=== PATIENT | female | born 1980 | race Caucasian/White ===

== ENCOUNTER 2018-05-07 10:23 | Emergency (ER) | payer MEDICAID, SELFPAY ==
[2018-05-07 10:26] VITALS: BP 102/73; PULSE 93; RESP 16; TEMP 37; O2SAT 95; BMI 26.4
--- NOTE | 2018-05-07 10:37 | ED.VISSUMM ---
- ER Visit Summary Date of Service: 05/07/18 Chief Complaint: Back pain History of Present Illness: The patient is a 38 F who presents with upper back pain that has been intermittent for the past 2 weeks. Patient states her pain only lasts for a few seconds. Patient describes the pain as sharp. Patient states the pain is over the thoracic area. Patient states pain or does occasionally radiate around to her chest. Patient denies any abdominal pain. Patient also states that she does have occasional radiation of the pain to her right posterior thigh. Patient denies any trauma or injury. Patient denies any bowel or bladder changes. Patient denies any saddle anesthesia. Physical Examination: Vital signs are stable. Patient is afebrile. Patient is in no acute distress. Oral mucosa is pink and moist. Neck is supple. There is no JVD noted. Heart was regular rate and rhythm. Lungs showed some mild expiratory wheezing. There is good respiratory effort noted. Musculoskeletal exam reveals tenderness and spasm of the thoracic paraspinal muscles. There is no midline tenderness. There is no edema or ecchymosis. There is no rash noted. Cranial nerves II through XII are intact. There are no focal motor or sensory deficits noted. Patient was able to ambulate without difficulty. Remaining physical exam is within normal limits. Emergency Department Course and Treatment: Patient was instructed to use ice to the area. Patient was given a prescription for Naprosyn. Patient was instructed to follow-up with her primary care physician in 7-10 days. Patient understood and was agreeable with the plan. All questions were answered. Disposition: Discharged home Impression: Acute thoracic strain This note was generated with [employer] dictation software. It may contain incorrect words, spelling, and punctuation that were not noted in review of the chart prior to signing ED Disposition - Plan for ED Patient: Disposition: Home or Assisted Living Chief Complaint: Back Diagnosis: Thoracic myofascial strain Instructions: ED Spasm Back No Trauma Prescriptions: Naproxen [Naprosyn] 500 mg PO BID #20 tab
[2018-05-07 11:13] VITALS: RESP 17
[2018-05-07 11:18] VITALS: BP 110/59; RESP 17
== END 2018-05-07 11:21 | disposition home or self-care (01) ==
LOC: ED 11:01
PROVIDERS: Emergency Provider Emergency Medicine
DX: S29.012A Strain of muscle and tendon of back wall of thorax, initial encounter (principal); X58.XXXA Exposure to other specified factors, initial encounter; Y93.9 Activity, unspecified; Y92.9 Unspecified place or not applicable; J45.909 Unspecified asthma, uncomplicated; Z72.0 Tobacco use
CPT/HCPCS: 99282

== ENCOUNTER 2018-07-01 09:32 | Emergency (ER) | payer MEDICAID, SELFPAY ==
[2018-07-01 09:33] VITALS: BP 106/55; PULSE 92; RESP 18; TEMP 36.6; O2SAT 98; BMI 23.3
--- NOTE | 2018-07-01 09:58 | ED.VISSUMM ---
- ER Visit Summary Date of Service: 07/01/18 Chief Complaint: Epigastric pain History of Present Illness: The patient is a 38 F with 3-4 day history of epigastric pain nausea and dry heaves. She has no diarrhea. Her symptoms are now mostly improved but she is wondering what is causing this. She has no fever chills the pain does not radiate to her back. She has no chest pain or shortness of breath. She describes the pain as burning. As of yesterday she started eating again and is doing much better. There is no lower abdominal pain. She denies , urinary symptoms or flank pain. Physical Examination: Not appear in acute distress. Moist mucous membranes, no obvious facial deformity No C-spine tenderness supple neck. Regular rate and rhythm without any obvious murmurs Clear lungs bilaterally speaking in full sentences without any obvious respiratory distress Abdomen soft with slight epigastric pain, no right upper quadrant pain, negative Lo's, no guarding or rebound Moves all extremities without any difficulty or pain. Skin does not show any obvious rashes or lesions, no trauma. Alert oriented ?3 with no gross focal deficit Emergency Department Course and Treatment: Patient has gastritis, she may have had food poisoning or just the GERD episode, regardless she is improved, she appears well hydrated and in no significant distress. At this time I will treat her with a GI cocktail and omeprazole for home. If she worsens or has new symptoms she needs to return. Disposition: Discharge stable condition Impression: Gastritis This note was generated with [employer] dictation software. It may contain incorrect words, spelling, and punctuation that were not noted in review of the chart prior to signing ED Disposition - Plan for ED Patient: Disposition: Home or Assisted Living Chief Complaint: Abd Pain Instructions: ED PUD Vs Gastritis Prescriptions: Omeprazole 40 mg PO DAILY #30 capsule. Referrals: Care Physician,No Primary [Primary Care Provider] - 3-5 Days
--- NOTE | 2018-07-01 10:02 | ED.DCSUM_ITS ---
- ER Visit Summary Date of Service: 07/01/18 Chief Complaint: Epigastric pain History of Present Illness: The patient is a 38 F with 3-4 day history of epigastric pain nausea and dry heaves. She has no diarrhea. Her symptoms are now mostly improved but she is wondering what is causing this. She has no fever chills the pain does not radiate to her back. She has no chest pain or shortness of breath. She describes the pain as burning. As of yesterday she started eating again and is doing much better. There is no lower abdominal pain. She denies , urinary symptoms or flank pain. Physical Examination: Not appear in acute distress. Moist mucous membranes, no obvious facial deformity No C-spine tenderness supple neck. Regular rate and rhythm without any obvious murmurs Clear lungs bilaterally speaking in full sentences without any obvious respiratory distress Abdomen soft with slight epigastric pain, no right upper quadrant pain, negative Lo's, no guarding or rebound Moves all extremities without any difficulty or pain. Skin does not show any obvious rashes or lesions, no trauma. Alert oriented ?3 with no gross focal deficit Emergency Department Course and Treatment: Patient has gastritis, she may have had food poisoning or just the GERD episode , regardless she is improved, she appears well hydrated and in no significant distress. At this time I will treat her with a GI cocktail and omeprazole for home. If she worsens or has new symptoms she needs to return. Disposition: Discharge stable condition Impression: Gastritis This note was generated with [employer] dictation software. It may contain incorrect words, spelling, and punctuation that were not noted in review of the chart prior to signing ED Disposition - Plan for ED Patient: Disposition: Home or Assisted Living Chief Complaint: Abd Pain Instructions: ED PUD Vs Gastritis Prescriptions: Omeprazole 40 mg PO DAILY #30 capsule. Referrals: Care Physician,No Primary [Primary Care Provider] - 3-5 Days
[2018-07-01] MEDS: Mag Hydrox/Al Hydrox/Simeth 30 ML UDC PO (10:19)
[2018-07-01 10:46] VITALS: BP 107/63; PULSE 86; RESP 14; O2SAT 98
== END 2018-07-01 10:51 | disposition home or self-care (01) ==
LOC: ED 10:30
PROVIDERS: Emergency Provider Emergency Medicine
DX: K29.70 Gastritis, unspecified, without bleeding (principal); Z72.0 Tobacco use
CPT/HCPCS: 99282

== ENCOUNTER 2022-02-15 16:51 | Emergency (ER) | payer MEDICAID, SELFPAY ==
[2022-02-15 16:53] VITALS: BP 113/73; PULSE 82; RESP 16; TEMP 35.8; O2SAT 98; BMI 26.8
--- NOTE | 2022-02-15 17:10 | EKG12_ITS ---
Test Reason : CP Blood Pressure : / mmHG Vent. Rate : 083 BPM Atrial Rate : 083 BPM P-R Int : 156 ms QRS Dur : 096 ms QT Int : 380 ms P-R-T Axes : 073 057 039 degrees QTc Int : 446 ms Normal sinus rhythm Normal ECG Confirmed by RODRIGO THOMAS, LORI ([id number]), news editor BRIELLE CALLAHAN ([id number]) on 02/17/2022 10:54:33 AM Referred By: ER Confirmed By:LORI WALLACE MD
--- NOTE | 2022-02-15 17:12 | EDS_ITS ---
HPI History of Present Illness Chief Complaint: Chest Pain Detail of Chief Complaint: Chest pain for 5 days and not feeling well Informant: patient Narrative Narrative: Patient presents to the emergency department complaint of intermittent sharp stabbing pain in her chest that can last hours at a time. She describes it as retrosternal. Patient also gives history of just not feeling well for the last for 5 days with low-grade fever as well as headache for 3 days. Patient also had body aches. She took a COVID test at home that was negative. Patient 2 days ago had episode of shaking chills. Temperature spike to 103. She denies dysuria, urgency, or frequency. She is not having chest pain currently. She denies any abdominal pain. She denies any rashes. Patient denies any sick contacts. Prior similar symptoms: No PFSH PFSH Home Medications albuterol sulfate [Ventolin Hfa (SP)] 1 puff INHALATION Q4H PRN PRN 05/07/18 [History Last Taken Unknown] buprenorphine-naloxone 02/15/22 [History Last Taken Unknown] cephalexin 500 mg PO Q6 #40 capsule 02/15/22 [Rx Last Taken Unknown] gabapentin 02/15/22 [History Last Taken Unknown] gabapentin 02/15/22 [History Last Taken Unknown] metronidazole 02/15/22 [History Last Taken Unknown] trazodone 02/15/22 [History Last Taken Unknown] Allergy/AdvReac Type Severity Reaction Status Date / Time Sulfa (Sulfonamide Allergy Anaphylaxis Verified 02/15/22 16:53 Antibiotics) Social History Smoking Status: Current every day smoker tobacco type: cigarettes ROS ROS ED Constitutional Constitutional ED: Reports systems reviewed and no addt'l complaints, except as documented; Denies body ache(s), change in weight or chills Eyes Eyes: Denies acute decrease in peripheral vision, change in vision, double vision or loss of vision ENT ENT ED: Reports none; Denies ear pain, lip swelling, loss taste/smell, neck pain, otalgia or sore throat Cardiovascular Cardiovascular: Reports none and chest pain; Denies abdominal pain, chest pain with activity, leg edema, lightheadedness, palpitations, rapid heart rate or syncope Respiratory/Chest Respiratory/Chest: Reports none; Denies change in mental status, dry cough, dyspnea, hemoptysis, shortness of breath at rest or shortness of breath with exertion Gastrointestinal Gastrointestinal: Reports none, diarrhea and nausea; Denies abdominal pain, change in stool character, hematemesis, hematochezia, melena, rectal bleeding or vomiting Genitourinary Genitourinary ED: Reports none; Denies abdominal discomfort, anuria, dysuria, genital pain or polyuria Musculoskeletal Musculoskeletal: Reports none and myalgias; Denies arthralgias, back pain, difficulty walking, extremity pain or muscle weakness Integumentary Reports none; Denies abscess or rash Neurologic Neurologic: Reports none and headache(s); Denies abnormal gait, confusion, focal weakness, frequent falls, loss of vision, numbness, paresthesias, radicular pain, vertigo or weakness Psychiatric Psychiatric: Reports systems reviewed and no addt'l complaints, except as documented and none; Denies behavioral changes, confusion, difficulty concentrating, hallucinations, suicidal ideation, tactile hallucinations or visual hallucinations Endocrine Endocrinology: Denies none, cold intolerance, excessive sweating, fatigue or heat intolerance Hematologic/Lymphatic Hematologic/Lymphatic: Reports none; Denies anemia, easy bleeding or easy bruising Allergic/Immunologic Allergic/Immunologic ED: Denies as per HPI, none, lip swelling, mouth swelling, throat swelling, tongue swelling or hives EXAM Physical Exam Const Vital Signs: 02/15/22 16:53 02/15/22 18:00 02/15/22 19:12 Temperature 96.5 F L Temperature Source Temporal Pulse Rate 82 Respiratory Rate 16 16 Respiratory Effort Normal Blood Pressure 113/73 118/76 Blood Pressure Mean 86 90 Pulse Ox 98 99 Oxygen Delivery Method Room Air Room Air Positive well nourished and well developed General Appearance ED: well developed and NAD HEENT Reports TM's clear and moist mucous membranes normocephalic and atraumatic; Negative for trauma or tenderness Tympanic Membrane ED: Yes TM's clear Eyes PERRL and EOMs intact bilaterally General Eye ED: Negative for pale conjunctiva or scleral icterus Neck no lymphadenopathy, supple and no JVD General: Negative for tenderness Chest Wall inspection of chest normal and palpation of chest normal Chest: Negative for tenderness Resp normal respiratory effort and clear to auscultation bilaterally Effort and Inspection: Negative for respiratory distress or pain with movement Auscultation: Negative for rhonchi, wheezes or diminished lung sounds Cardio regular rate, regular rhythm, S1 normal heart sound, S2 normal heart sound and no murmurs Peripheral Pulses: pulses 2+ throughout GI normal to inspection, nondistended, normoactive bowel sounds, soft to palpation, non-tender, non-distended and no masses Back/Spine no CVA tenderness and no thoracic nor lumbar tenderness Extremity normal to inspection General Extremety ED: Negative for edema General Extremity: Negative for edema Neuro oriented x3, CN's II-XII intact bilaterally, no sensory deficits noted and gait normal Sensorium / Orientation: awake, alert, oriented to person, oriented to place and oriented to time Motor Exam: strength 5/5 throughout and strength abnormal Psych mental status grossly normal Skin no rashes or lesions noted and no wounds MDM MDM MDM Narrative Medical decision making narrative: IV line established on arrival. Patient had unremarkable labs other than a depressed potassium of 3.0 for which I did give her 40 mEq of potassium chloride p.o. Patient was noted to have a UTI and was started on Rocephin 1 g IV. CTA of the chest was negative. Her EKG and heart enzymes were normal. She has a heart score of 0. I do not feel her chest pain is cardiac. I suspect patient likely has a viral enteritis and then subsequently also developed a UTI. I will treat her with Keflex for home. She is to use Imodium as needed for the diarrhea. 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 Patient advised to return if worsening chest pain, increasing shortness of breath, fever, chills, or condition should worsen anyway. Lab Data Attestation: I reviewed the patient's lab results. Labs: Laboratory Results - last 24 hr 02/15/22 02/15/22 02/15/22 17:20 18:09 18:09 WBC 6.2 RBC 4.03 L Hgb 11.8 L Hct 36.1 L MCV 89.6 MCH 29.3 MCHC 32.7 RDW Std Deviation 41.2 RDW Coeff of Rocael 12.6 Plt Count 216 MPV 8.8 Immature Gran % (Auto) 0.200 Neut % (Auto) 66.7 Lymph % (Auto) 21.8 [place] % (Auto) 9.4 Eos % (Auto) 1.6 Baso % (Auto) 0.3 Absolute Neuts (auto) 4.1 Absolute Lymphs (auto) 1.34 Nucleated RBC % 0 D-Dimer Quant (PE/DVT) 0.54 H* Sodium Potassium Chloride Carbon Dioxide Anion Gap BUN Creatinine Estim Creat Clear Calc Est GFR (MDRD) Af Amer Est GFR (MDRD) Non-Af BUN/Creatinine Ratio Glucose Calcium Troponin I High Sens Urine Color Yellow Urine Clarity Clear Urine pH 6.0 Ur Specific Edgar 1.015 Urine Protein 30 H Urine Glucose (UA) Normal Urine Ketones Negative Urine Occult Blood 150 H Urine Nitrite Negative Urine Bilirubin Negative Urine Urobilinogen 8 H Ur Leukocyte Esterase 500 H Urine RBC 10-25 SEEN Urine WBC 25-50 SEEN Ur Squamous Epith Cells 0-5 SEEN Calcium Oxalate Crystal RARE Urine Bacteria 1+ Urine Mucus 0 SEEN 02/15/22 18:09 WBC RBC Hgb Hct MCV MCH MCHC RDW Std Deviation RDW Coeff of Rocael Plt Count MPV Immature Gran % (Auto) Neut % (Auto) Lymph % (Auto) [place] % (Auto) Eos % (Auto) Baso % (Auto) Absolute Neuts (auto) Absolute Lymphs (auto) Nucleated RBC % D-Dimer Quant (PE/DVT) Sodium 137 Potassium 3.0 L Chloride 104 Carbon Dioxide 26.0 Anion Gap 7 BUN 17 Creatinine 0.73 Estim Creat Clear Calc 89.41 Est GFR (MDRD) Af Amer 111 Est GFR (MDRD) Non-Af 92 BUN/Creatinine Ratio 23.3 H Glucose 100 Calcium 8.6 Troponin I High Sens < 3 L Urine Color Urine Clarity Urine pH Ur Specific Edgar Urine Protein Urine Glucose (UA) Urine Ketones Urine Occult Blood Urine Nitrite Urine Bilirubin Urine Urobilinogen Ur Leukocyte Esterase Urine RBC Urine WBC Ur Squamous Epith Cells Calcium Oxalate Crystal Urine Bacteria Urine Mucus Radiography Diagnostic Testing: Clinical Impression(s) from Imaging Studies Chest CTA 02/15/22 18:48 IMPRESSION: No acute abnormalities in the chest. Specifically, no evidence of acute pulmonary emboli to the segmental level. Electronically Signed: Adam Elizondo MD at 19:26 EDT , EKG Initial EKG: Attestation: I personally reviewed and interpreted this EKG as follows: Comments: Sinus rhythm with a ventricular rate of of 83 bpm with no acute ST segment changes Discharge Plan Triage Chief Complaint: Chest Pain ED Provider: Yane Jackson Dx/Rx/DC Orders Clinical Impression: Viral gastroenteritis, Chest pain, UTI (urinary tract infection) Instructions: ED Chest Pain, Uncertain Cause, ED Diarrhea, Viral (Adult), ED CYSTITIS Female Adult Prescriptions: New cephalexin [cephalexin] 500 MG capsule 500 mg PO Q6 Qty: 40 RF: 0 No Action albuterol sulfate [Ventolin HFA] 1 INHALER inhaler 1 puff inhalation Q4H PRN PRN (Reason: Sob &/Or Wheezing) RF: 0 trazodone 50 mg tablet RF: 0 metronidazole 500 mg tablet RF: 0 gabapentin 100 mg capsule RF: 0 gabapentin 100 mg capsule RF: 0 buprenorphine-naloxone 8-2 mg film RF: 0 Primary Care Provider: Care Physician,No Primary Referrals: Semaj Sheridan MD [STAFF PHYSICIAN] - 3-5 Days Care Physician,No Primary [Primary Care Provider] - Disposition Disposition: Home, Self Care
[2022-02-15 17:39] LABS: Mucous, Urine 0 SEEN /hpf (<or=2+)
[2022-02-15 18:16] LABS: Absolute Lymphocyte Count 1.34 X10^3/uL (0.83-4.51); Absolute Neutrophil Count 4.1 X10^3/uL (2.0-7.7); Basophil# 0.02 X10^3/uL; Basophil% 0.3 % (0-1); Eosinophils% 1.6 % (0-5); Hematocrit 36.1 % (37-47); Hemoglobin 11.8 g/dL (12.0-15.0); Lymphocyte # 1.34 X10^3/ul (0.83-4.51); Lymphocyte % 21.8 % (19-41); Mean Corp Hgb Conc 32.7 g/dL (32-36); Mean Corpuscular Hgb 29.3 pg (27.0-32.0); Mean Corpuscular Volume 89.6 fL (81-99); Mean Platelet Vol. 8.8 fl (6.2-12.0); Monocyte# 0.58 X10^3/uL; Monocyte% 9.4 % (0-10); NRBC Flagged by Analyzer 0 % (0-5); Neutrophil # 4.11 X10^3/uL (2.7-7.7); Neutrophil % 66.7 % (47-70); Platelet Count 216 K/mm3 (150-450); RBC Distribution Width CV 12.6 % (11.6-14.6); RBC Distribution Width SD 41.2 fl (35.1-43.9); Red Blood Count 4.03 M/mm3 (4.2-5.4); White Blood Count 6.2 K/mm3 (4.4-11.0)
[2022-02-15 18:19] LABS: Color, Urine Yellow (Yellow); Glucose, Dipstick Normal (Normal); Ketone-Dipstick Negative (Negative); Leukocyte Esterase-Dipstick 500 /ul (Negative); Nitrite-Dipstick Negative (Negative); Occult Blood-Urine 150 /ul (Negative); Protein-Dipstick 30 mg/dl (Negative); Specific Gravity, Urine 1.015 (1.002-1.030); Urine Bilirubin Dipstick Negative (Negative); Urine Clarity Clear (Clear); Urine Urobilinogen 8 mg/dl (Normal)
[2022-02-15 18:29] LABS: Calcium Oxalate Crystals Ur RARE /hpf (<or=2+); Red Blood Cells-Urine 10-25 SEEN /hpf (0-5); White Blood Cells 25-50 SEEN /hpf (0-5)
[2022-02-15 18:30] LABS: Bacteria 1+ /hpf (None Seen); Squamous Epithelial Cells - UA 0-5 SEEN /hpf (5-10)
[2022-02-15 18:32] LABS: Anion Gap 7 (5-15); BUN 17 mg/dL (7-18); BUN/Creat Ratio 23.3 RATIO (10-20); Calcium,Total 8.6 mg/dL (8.5-10.1); Chloride 104 mmol/L (98-107); Creatinine, Serum 0.73 mg/dL (0.55-1.02); D-Dimer Quantitative (DVT/PE) 0.54 FEU/ug/m (0.27-0.49); EST Glomerular Filtration Rate 92 mL/min (>60); Est Glom Filt Rate - Afr Amer 111 mL/min (>60); Estimated Creatinine Clearance 89.41 ml/min; Glucose 100 mg/dL (74-106); Sodium Level 137 mmol/L (136-145); Troponin-I HS < 3 pg/mL (3.0-54.0)
[2022-02-15] MEDS: 0.9% Normal Saline 1,000 ML 1000 ML IV (18:37)
--- NOTE | 2022-02-15 18:48 | CT_ITS ---
INDICATION: chest pain EXAMINATION: CTA Chest WO/W Contrast Injection TECHNIQUE: Helically acquired images were obtained of the chest following administration of IV contrast. A radiation dose optimization technique was used for this scan. 3D postprocessing images including MIPS were reviewed. IV Contrast dosage and agent: IV 100mL [id number] COMPARISON: None. FINDINGS: Lungs: Unremarkable Mediastinum: The cardiomediastinal silhouette is not enlarged. No mediastinal, hilar or axillary adenopathy. The thoracic aorta is unremarkable. No obvious filling defect seen within the visualized pulmonary arteries. Pleura: Unremarkable Bones/Soft tissues: No suspicious osseous or soft tissue lesions Upper abdomen: No visualized abnormalities in the upper abdomen. CT/CTA Chest W/WO Contrast IMPRESSION: No acute abnormalities in the chest. Specifically, no evidence of acute pulmonary emboli to the segmental level. Electronically Signed: Adam Elizondo MD at 19:26 EDT ,
[2022-02-15] MEDS: Potassium Chloride Oral Tablet 20 MEQ 40 MEQ PO (18:58)
[2022-02-15 19:12] VITALS: BP 118/76; RESP 16; O2SAT 99
[2022-02-15] MEDS: Ceftriaxone 1 GM/50 ML BAG IV (19:16)
[2022-02-15 19:47] VITALS: PULSE 74; RESP 16
== END 2022-02-15 19:57 | disposition home or self-care (01) ==
PROVIDERS: Emergency Provider Emergency Medicine; Visit Provider Emergency Medicine
DX: A08.4 Viral intestinal infection, unspecified (principal); N39.0 Urinary tract infection, site not specified; R07.9 Chest pain, unspecified; F17.210 Nicotine dependence, cigarettes, uncomplicated
CPT/HCPCS: 71275; 80048; 81001; 84484; 85025; 85379; 87426; 87804; 93005; 96365; 99283; J7030; Q9967; A4216

== ENCOUNTER 2022-07-18 11:35 | Emergency (ER) | payer BC, MEDICAID, SELFPAY ==
[2022-07-18 11:36] VITALS: BP 135/86; PULSE 87; RESP 15; TEMP 36.4; O2SAT 99; BMI 25.0
[2022-07-18 11:37] VITALS: BP 135/86; PULSE 87; RESP 15; TEMP 36.4; O2SAT 99
[2022-07-18 12:18] VITALS: RESP 16
--- NOTE | 2022-07-18 12:18 | EX.ED.DYSGE1 ---
HPI History of Present Illness Chief Complaint: Sore Throat Informant: patient Narrative Narrative: 42-year-old female with a 4-day history of sore throat. She states she has been exposed to strep throat with her coworker as well as shingles. She states that 4 days ago she began to have a sore throat and today she notes that she has developed a cough and feels that it seems to be moving towards her chest. She denies any rhinorrhea or ear pain. She states that she has felt warm but has not taken her temperature. She does note some sweats. No vomiting or diarrhea. No rashes. PFSH PFSH Home Medications albuterol sulfate 90 mcg/actuation aerosol inhaler (Ventolin HFA) 1 puff inhalation Q4H PRN PRN Sob &/Or Wheezing 05/07/18 [History Last Taken Unknown] buprenorphine 8 mg-naloxone 2 mg sublingual film 8 ea sublingual BID 02/15/22 [History Last Taken Unknown] gabapentin 100 mg capsule 100 mg PO 4X/DAY 02/15/22 [History Last Taken Unknown] trazodone 50 mg tablet 50 mg PO DAILY 02/15/22 [History Last Taken Unknown] Allergy/AdvReac Type Severity Reaction Status Date / Time Sulfa (Sulfonamide Allergy Anaphylaxis Verified 07/18/22 11:38 Antibiotics) Social History (Updated 07/18/22 @ 12:[address] Alonso Carey, ) current gender identity: female Smoking Status: Current every day smoker tobacco type: e-cigarettes substance use type: former substance user and opiates ROS ROS ED Constitutional Constitutional ED: Denies chills or weight loss Eyes Eyes: Denies change in vision or diplopia ENT ENT ED: Reports sore throat; Denies ear pain or rhinorrhea Cardiovascular Cardiovascular: Denies chest pain, orthopnea, palpitations or racing heartbeat Respiratory/Chest Respiratory/Chest: Reports cough; Denies dyspnea or orthopnea Gastrointestinal Gastrointestinal: Denies abdominal pain, diarrhea, nausea or vomiting Genitourinary Genitourinary ED: Denies dysuria, hematuria or urinary frequency Musculoskeletal Musculoskeletal: Denies arthralgias or myalgias Integumentary Denies abscess or rash Neurologic Neurologic: Denies headache(s) or weakness Psychiatric Psychiatric: Denies anxiety, depression, suicidal ideation or suicidal thoughts Endocrine Endocrinology: Denies polydipsia, polyphagia or polyuria Allergic/Immunologic Allergic/Immunologic ED: Denies mouth swelling, tongue swelling or urticaria EXAM Physical Exam Const Vital Signs: 07/18/22 11:36 07/18/22 11:37 Temperature 97.6 F L 97.6 F L Temperature Source Temporal Temporal Pulse Rate 87 87 Respiratory Rate 15 15 Blood Pressure 135/86 H 135/86 H Blood Pressure Mean 102 102 Pulse Ox 99 99 Oxygen Delivery Method Room Air Room Air Positive well nourished and well developed General Appearance ED: well developed HEENT Reports normocephalic, head/scalp atraumatic and moist mucous membranes Eyes PERRL and EOMs intact bilaterally Neck no lymphadenopathy, supple and no JVD Resp normal respiratory effort and clear to auscultation bilaterally Cardio regular rate, regular rhythm and no murmurs GI normal to inspection, nondistended, normoactive bowel sounds and non-tender Palpation: soft Back/Spine no CVA tenderness and normal ROM Extremity normal to inspection General Extremety ED: Negative for edema General Extremity: Negative for edema Neuro oriented x3 and CN's II-XII intact bilaterally Sensorium / Orientation: alert Motor Exam: strength 5/5 throughout Psych mental status grossly normal Mood & Affect: Negative for depressed or tearful Skin no rashes or lesions noted and no wounds MDM MDM MDM Narrative Medical decision making narrative: Patient presenting with sore throat cough lack of fever lack of exudates and lack of lymphadenopathy. Clinically I do not think this is strep throat. This is most likely a viral illness. In speaking with the patient we should did shared decision making and if she has not clinically improved in 3 days she will have a prescription for azithromycin 500 mg x 5 days. The patient is comfortable with this plan return if worsening or concerns Discharge Plan Triage Chief Complaint: Sore Throat ED Provider: Alonso Carey Dx/Rx/DC Orders Prescriptions: No Action albuterol sulfate [Ventolin HFA] 1 INHALER inhaler 1 puff inhalation Q4H PRN PRN (Reason: Sob &/Or Wheezing) trazodone 50 mg tablet 50 mg PO DAILY gabapentin 100 mg capsule 100 mg PO 4X/DAY Label Comments: TAKE 1 CAPSULES (100 MG) BY ORAL ROUTE 4 TIMES PER DAY buprenorphine-naloxone 8-2 mg film 8 ea sublingual BID Label Comments: USE ONE FILM UNDER THE TONGUE TWICE DAILY - 12/14 Primary Care Provider: Care Physician,No Primary Referrals: Care Physician,No Primary [Primary Care Provider] -
== END 2022-07-18 12:27 | disposition home or self-care (01) ==
LOC: ED 12:19
PROVIDERS: Emergency Provider Emergency Medicine; Visit Provider Emergency Medicine
DX: J02.9 Acute pharyngitis, unspecified (principal); F17.210 Nicotine dependence, cigarettes, uncomplicated; Z79.899 Other long term (current) drug therapy
CPT/HCPCS: 99282

== ENCOUNTER → 2022-07-27 | Outpatient (CLI) | payer BC, MEDICAID, SELFPAY ==
[2022-07-27 16:58] LABS: ALB/GLOB Ratio 0.9 RATIO (0.9-2.4); AST(SGOT) 22 U/L (15-37); Alanine Aminotransfer ALT/SGPT 40 U/L (13-56); Albumin, Serum 3.7 g/dL (3.2-5.0); Alkaline Phosphatase 49 U/L (45-117); Anion Gap 8 (5-15); BUN 18 mg/dL (7-18); BUN/Creat Ratio 21.6 RATIO (10-20); Calcium,Total 8.6 mg/dL (8.5-10.1); Chloride 105 mmol/L (98-107); Creatinine, Serum 0.84 mg/dL (0.55-1.02); EST Glomerular Filtration Rate 79 mL/min (>60); Est Glom Filt Rate - Afr Amer 95 mL/min (>60); Globulin 3.9 g/dL (2.2-4.2); Glucose 94 mg/dL (74-106); Potassium 4.1 mmol/L (3.5-5.1); Protein, Total 7.6 g/dL (6.4-8.2); Sodium Level 139 mmol/L (136-145); Thyroid Stim Hormone (TSH) 1.37 uIU/mL (0.358-3.74)
== END | disposition home or self-care (01) ==
DX: R41.840 Attention and concentration deficit (principal)
CPT/HCPCS: 36415; 80053; 84443

== ENCOUNTER 2022-12-14 09:32 | Emergency (ER) | payer BC, MEDICAID, SELFPAY ==
[2022-12-14 09:33] VITALS: BP 101/74; PULSE 78; RESP 16; TEMP 36.4; O2SAT 98; BMI 25.7
--- NOTE | 2022-12-14 10:30 | EX.ED.VIS.UR ---
HPI HPI - URI History of Present Illness Chief Complaint: Sore Throat Informant: patient Onset/Context/Timing Onset: Yesterday Context: Sudden Onset Quality: Posterior pharynx pain Location: Posterior pharynx Current Severity: Mild Maximum Severity: Moderate Worsened by: Swallowing, Eating Solids and Drinking Liquids Relieved by: Not Relieved By Tylenol or NSAIDs Associated Symptoms Associated Symptoms: Positive for Nasal Congestion; Negative for Headache, Sinus Pressure, Myalgias, Nausea, Vomiting, Diarrhea, Shortness of Breath, Chest Pain, Nonproductive cough, Hemoptysis or Productive Cough Narrative Narrative: Patient is a 42-year-old woman who presents with sore throat. She denies fever objective or subjective. She does complain of throat pain. She denies cough or shortness of breath. She states her son was diagnosed with strep throat 2 days ago. She denies history rheumatic fever, heart murmur, mitral valve prolapse or SBE. She denies skin lesions or rash. She denies myalgias or arthralgias. She denies GI symptoms. Patient states when she was younger she had recurrent strep throat. Prior similar symptoms: Yes Recent Illness/Hospitalization: No ROS ROS ED Constitutional Constitutional ED: Denies chills, fever(s), subjective, sweats or weight loss Eyes Eyes: Denies blurry vision, change in vision or diplopia ENT ENT ED: Denies ear pain, rhinorrhea or sore throat Cardiovascular Cardiovascular: Denies chest pain, orthopnea, palpitations, paroxysmal nocturnal dyspnea or racing heartbeat Respiratory/Chest Respiratory/Chest: Denies cough, dyspnea, dyspnea on exertion, orthopnea or paroxysmal nocturnal dyspnea Gastrointestinal Gastrointestinal: Denies nausea or vomiting Musculoskeletal Musculoskeletal: Denies arthralgias, myalgias or neck pain Integumentary Denies rash Neurologic Neurologic: Denies headache(s), paresthesias or weakness PFSH [facility] Medical History Asthma Home Medications albuterol sulfate 90 mcg/actuation aerosol inhaler (Ventolin HFA) 1 puff inhalation Q4H PRN PRN Sob &/Or Wheezing 05/07/18 [History Last Taken Unknown] buprenorphine 8 mg-naloxone 2 mg sublingual film 8 ea sublingual BID 02/15/22 [History Last Taken Unknown] gabapentin 100 mg capsule 100 mg PO 4X/DAY 02/15/22 [History Last Taken Unknown] trazodone 50 mg tablet 50 mg PO DAILY 02/15/22 [History Last Taken Unknown] Allergy/AdvReac Type Severity Reaction Status Date / Time Sulfa (Sulfonamide Allergy Anaphylaxis Verified 12/14/22 09:33 Antibiotics) Social History (Updated 12/14/22 @ 10:[address] Esau Garcia MD) household members: significant other and children Smoking Status: Current every day smoker tobacco type: e-cigarettes substance use type: former substance user and opiates EXAM Physical Exam Const Vital Signs: 12/14/22 09:33 Temperature 97.5 F L Temperature Source Temporal Pulse Rate 78 Respiratory Rate 16 Blood Pressure 101/74 Blood Pressure Mean 83 Pulse Ox 98 Oxygen Delivery Method Room Air Positive well nourished and well developed General Appearance ED: well developed and NAD; Negative for cyanotic, diaphoretic or pallor HEENT Reports moist mucous membranes HEENT Narrative: Patient has erythematous tonsils that are large for age. There is no exudate. Uvula is midline. There is no deviation of the uvula. There is no evidence of soft tissue swelling. There is no dysphonia. normocephalic and atraumatic Face and Sinus: Negative for sinus tenderness Eyes PERRL and EOMs intact bilaterally General Eye ED: Negative for pale conjunctiva or scleral icterus Neck no lymphadenopathy, supple, no meningeal signs and no JVD Neck Narrative: Trachea is midline. There is no inspiratory or adrian there. Resp normal respiratory effort Cardio S1 normal heart sound, S2 normal heart sound and no murmurs Rate: regular rate Rhythm: regular rhythm Extremity normal to inspection Neuro oriented x3, CN's II-XII intact bilaterally and no sensory deficits noted Sensorium / Orientation: alert Psych mental status grossly normal Skin Skin Narrative: Are noted splinter hemorrhages, [place] lesions or Osler nodes. General Skin Exam: Negative for jaundice or pallor Lesions: no lesions Rashes: no rashes MDM MDM MDM Narrative Medical decision making narrative: Patient with pharyngitis. Since son was treated for streptococcal infection. Rapid strep was ordered. If positive will treat if negative will have culture performed. Patient has allergy to sulfa with anaphylaxis. You Prior records indicates patient has history of substance abuse. If patient requests pain medicine will treat with Tylenol or NSAIDs only. Lab Data Attestation: I reviewed the patient's lab results. Lab results narrative: Rapid strep is negative. Treatment is symptomatic. If culture returns positive we will call in a prescription for penicillin. Treatment and Re-Evaluation Narrative: Patient was informed her rapid strep test was negative. She was informed treatment is symptomatic. Discharge Plan Triage Chief Complaint: Sore Throat ED Provider: Esau Garcia Dx/Rx/DC Orders Clinical Impression: Acute pharyngitis, unspecified Prescriptions: No Action albuterol sulfate [Ventolin HFA] 1 INHALER inhaler 1 puff inhalation Q4H PRN PRN (Reason: Sob &/Or Wheezing) trazodone 50 mg tablet 50 mg PO DAILY gabapentin 100 mg capsule 100 mg PO 4X/DAY Label Comments: TAKE 1 CAPSULES (100 MG) BY ORAL ROUTE 4 TIMES PER DAY buprenorphine-naloxone 8-2 mg film 8 ea sublingual BID Label Comments: USE ONE FILM UNDER THE TONGUE TWICE DAILY - 12/14 Primary Care Provider: Care Physician,No Primary Referrals: Care Physician,No Primary [Primary Care Provider] - Doctor,Your [Non-Staff] - 1 Week if not improving Activity Restrictions/Additional Instructions: 1. Salt water gargles 6-10 times a day 2. Chloraseptic spray or Cepastat lozenges for throat pain Disposition Disposition: Home, Self Care
[2022-12-14 10:53] VITALS: RESP 16
--- NOTE | 2022-12-14 11:22 | CM.ED ---
Referral Reason: No Primary Care Physician (PCP) SW reviewed chart and noted that patient has no PCP. SW provided patient with list of [facility] and [facility] Physician List for reference. No other issues or concerns voiced at this time. SW remains available for any additional needs. Plan: Provided patient with PCP information
== END 2022-12-14 10:54 | disposition home or self-care (01) ==
PROVIDERS: Emergency Provider Emergency Medicine; Visit Provider Emergency Medicine
DX: J02.9 Acute pharyngitis, unspecified (principal); F17.290 Nicotine dependence, other tobacco product, uncomplicated
CPT/HCPCS: 87880; 99282

== ENCOUNTER 2023-01-25 17:20 | Emergency (ER) | payer BC, MEDICAID, SELFPAY ==
[2023-01-25 17:21] VITALS: BP 117/47; PULSE 78; RESP 16; TEMP 36.7; O2SAT 100; BMI 24.5
--- NOTE | 2023-01-25 17:31 | EDS_ITS ---
HPI History of Present Illness Chief Complaint: Complaint Informant: patient Narrative Narrative: Patient presents secondary to foul odor to the urine and hematuria. She states yesterday she had some bloody urine. This morning when she got up it was discolored but not as bloody. She does report a strong odor to her urine. She reports having frequent UTIs over the last 6 months or so. About a month ago she thought she had a UTI discussed an [id number] medicine. She does not believe the infection ever went away. She denies dysuria and states otherwise she feels perfectly fine. [facility] Medical History (Updated 01/25/23 @ 19:[address] Anya Ashby MD) Anxiety Asthma Depressed Home Medications albuterol sulfate 90 mcg/actuation aerosol inhaler (Ventolin HFA) 1 puff inhalation Q4H PRN PRN Sob &/Or Wheezing 05/07/18 [History Last Taken Unknown] buprenorphine 8 mg-naloxone 2 mg sublingual film 8 ea sublingual BID 02/15/22 [History Last Taken Unknown] gabapentin 100 mg capsule 100 mg PO 4X/DAY 02/15/22 [History Last Taken Unknown] trazodone 50 mg tablet 50 mg PO DAILY 02/15/22 [History Last Taken Unknown] nitrofurantoin monohydrate/macrocrystals 100 mg capsule (Macrobid) 100 mg PO Q12H 5 days #10 caps 01/25/23 [Rx Last Taken Unknown] Allergy/AdvReac Type Severity Reaction Status Date / Time Sulfa (Sulfonamide Allergy Anaphylaxis Verified 12/14/22 09:33 Antibiotics) Social History household members: significant other and children Smoking Status: Current every day smoker tobacco type: e-cigarettes substance use type: former substance user and opiates ROS ROS ED Constitutional Constitutional ED: Denies chills or fever(s) Eyes Eyes: Denies change in vision or discharge from eye(s) ENT ENT ED: Denies discharge from eye(s), rhinorrhea or sore throat Cardiovascular Cardiovascular: Denies chest pain or palpitations Respiratory/Chest Respiratory/Chest: Denies cough or dyspnea Gastrointestinal Gastrointestinal: Denies abdominal pain, diarrhea, nausea or vomiting Genitourinary Genitourinary ED: Reports hematuria and other Details: Strong odor to the urine ; Denies dysuria Musculoskeletal Musculoskeletal: Denies back pain or extremity pain Integumentary Denies Abrasions or rash Neurologic Neurologic: Denies headache(s) or weakness Psychiatric Psychiatric: Denies anxiety or depression Allergic/Immunologic Allergic/Immunologic ED: Denies lip swelling or urticaria EXAM Physical Exam Const Vital Signs: 01/25/23 17:21 Temperature 98.1 F Temperature Source Temporal Pulse Rate 78 Respiratory Rate 16 Blood Pressure 117/47 L Blood Pressure Mean 70 Pulse Ox 100 Oxygen Delivery Method Room Air Positive well nourished and well developed General Appearance ED: well developed HEENT Reports normocephalic and head/scalp atraumatic Eyes PERRL and EOMs intact bilaterally Neck supple Chest Wall inspection of chest normal and palpation of chest normal Resp normal respiratory effort and clear to auscultation bilaterally Cardio regular rate and regular rhythm GI normal to inspection, nondistended, normoactive bowel sounds Palpation: soft Back/Spine no CVA tenderness Extremity normal to inspection Neuro oriented x3 and no sensory deficits noted Sensorium / Orientation: alert Motor Exam: strength 5/5 throughout Psych mental status grossly normal Skin no rashes or lesions noted MDM MDM MDM Narrative Medical decision making narrative: Urinalysis and urine culture sent. Lab Data Labs: Laboratory Results - last 24 hr 01/25/23 17:45 Urine Color Yellow Urine Clarity Sl. Cloudy Urine pH 7.0 Ur Specific [place] 1.015 Urine Protein 30 H Urine Glucose (UA) Normal Urine Ketones Negative Urine Occult Blood 250 H Urine Nitrite Positive H Urine Bilirubin Negative Urine Urobilinogen Normal Ur Leukocyte Esterase 25 H Urine RBC > 100 SEEN Urine WBC 0-5 SEEN Ur Squamous Epith Cells 0-5 SEEN Urine Bacteria 2+ Urine Mucus 0 SEEN Urine Test Negative Treatment and Re-Evaluation :: Urinalysis does reveal infection with positive nitrites and 2+ bacteria. 0-5 white cells are noted but greater than 100 RBCs. Patient is not having significant pain I do not believe that she has a kidney stone. She will be treated with antibiotics. She was advised that if the antibiotic we choose will not be sufficient once the culture returns she will receive a phone call. She voices understanding and agreement. Discharge Plan Triage Chief Complaint: Complaint ED Provider: Anya Ashby Dx/Rx/DC Orders Clinical Impression: Cystitis Instructions: ED Cystitis Female Adult Prescriptions: New nitrofurantoin monohyd/m-cryst [Macrobid] 100 mg capsule 100 mg PO Q12H 5 Days Qty: 10 0RF Rx Instructions: must administer with a meal/food No Action albuterol sulfate [Ventolin HFA] 1 INHALER inhaler 1 puff inhalation Q4H PRN PRN (Reason: Sob &/Or Wheezing) trazodone 50 mg tablet 50 mg PO DAILY gabapentin 100 mg capsule 100 mg PO 4X/DAY Label Comments: TAKE 1 CAPSULES (100 MG) BY ORAL ROUTE 4 TIMES PER DAY buprenorphine-naloxone 8-2 mg film 8 ea sublingual BID Label Comments: USE ONE FILM UNDER THE TONGUE TWICE DAILY - 12/14 Primary Care Provider: Care Physician,No Primary Referrals: Lise Méndez MD [Med Staff - Active Staff] - As Needed Care Physician,No Primary [Primary Care Provider] - Disposition Disposition: Home, Self Care
[2023-01-25 18:01] LABS: Mucous, Urine 0 SEEN /hpf (<or=2+)
[2023-01-25 18:12] LABS: Color, Urine Yellow (Yellow); Glucose, Dipstick Normal (Normal); Ketone-Dipstick Negative (Negative); Leukocyte Esterase-Dipstick 25 /ul (Negative); Nitrite-Dipstick Positive (Negative); Occult Blood-Urine 250 /ul (Negative); Protein-Dipstick 30 mg/dl (Negative); Specific Gravity, Urine 1.015 (1.002-1.030); Urine Bilirubin Dipstick Negative (Negative); Urine Clarity Sl. Cloudy (Clear); Urine Urobilinogen Normal (Normal)
--- NOTE | 2023-01-25 18:45 | CM.ED ---
Social Work Note Referral Source: case find Referral Reason: no PCP SW met with patient and patient's quest and introduced herself and role as [facility] Economic Specialist. Patient was agreeable to speak with SW with her guest present. SW inquired about patient's current insurance and PCP. Patient verified her insurance but reports no PCP. SW provided patient with a list of local PCPs accepting new patients in network with patient's insurance. Patient was receptive towards list and reports no other needs. SW remains available if needs arise. Winsome Avalos CORRECTION WORKER, ISAIAH
[2023-01-25 18:51] LABS: Bacteria 2+ /hpf (None Seen); Internal QC Validated? YES +Cl - CLEAR BKGD; Pregnancy, Urine Negative Negative; Red Blood Cells-Urine > 100 SEEN /hpf (0-5); Squamous Epithelial Cells - UA 0-5 SEEN /hpf (5-10); White Blood Cells 0-5 SEEN /hpf (0-5)
[2023-01-25] MEDS: Nitrofurantoin Macrocrystals 100 MG Capsule PO (19:24)
== END 2023-01-25 19:25 | disposition home or self-care (01) ==
PROVIDERS: Emergency Provider Emergency Medicine; Visit Provider Emergency Medicine
DX: N30.90 Cystitis, unspecified without hematuria (principal); J45.909 Unspecified asthma, uncomplicated; F32.A Depression, unspecified; Z79.899 Other long term (current) drug therapy; F17.290 Nicotine dependence, other tobacco product, uncomplicated
CPT/HCPCS: 81001; 81025; 87086; 87088; 87186; 99283

== ENCOUNTER 2023-03-08 20:52 | Emergency (ER) | payer BC, MEDICAID, SELFPAY ==
[2023-03-08 20:52] VITALS: BP 128/91; PULSE 51; RESP 15; TEMP 36.9; O2SAT 97
[2023-03-08 21:26] LABS: Absolute Lymphocyte Count 0.62 X10^3/uL (0.83-4.51); Absolute Neutrophil Count 6.2 X10^3/uL (2.0-7.7); Hematocrit 42.9 % (37-47); Hemoglobin 13.6 g/dL (12.0-15.0); Lymphocyte # 0.62 X10^3/ul (0.83-4.51); Lymphocyte % 8.9 % (19-41); Mean Corp Hgb Conc 31.7 g/dL (32-36); Mean Corpuscular Hgb 28.9 pg (27.0-32.0); Mean Corpuscular Volume 91.3 fL (81-99); Mean Platelet Vol. 8.6 fl (6.2-12.0); Monocyte% 1.4 % (0-10); NRBC Flagged by Analyzer 0 % (0-5); Neutrophil # 6.24 X10^3/uL (2.7-7.7); Neutrophil % 89.3 % (47-70); Platelet Count 256 K/mm3 (150-450); RBC Distribution Width CV 13.2 % (11.6-14.6); RBC Distribution Width SD 44.9 fl (35.1-43.9)
[2023-03-08 21:39] LABS: Internal QC Validated? YES +Cl - CLEAR BKGD; Pregnancy, Serum, hCG Quali. NEGATIVE Negative
[2023-03-08 21:48] LABS: ALB/GLOB Ratio 0.9 RATIO (0.9-2.4); AST(SGOT) 27 U/L (15-37); Alanine Aminotransfer ALT/SGPT 41 U/L (13-56); Albumin, Serum 3.9 g/dL (3.2-5.0); Alkaline Phosphatase 68 U/L (45-117); Anion Gap 10 (5-15); BUN 19 mg/dL (7-18); BUN/Creat Ratio 20.4 RATIO (10-20); Chloride 103 mmol/L (98-107); Creatinine, Serum 0.93 mg/dL (0.55-1.02); EST Glomerular Filtration Rate 69 mL/min (>60); Est Glom Filt Rate - Afr Amer 84 mL/min (>60); Globulin 4.4 g/dL (2.2-4.2); Glucose 120 mg/dL (74-106); Lipase 40 U/L (13-75); Potassium 4.2 mmol/L (3.5-5.1); Protein, Total 8.3 g/dL (6.4-8.2); Sodium Level 138 mmol/L (136-145)
[2023-03-08] MEDS: 0.9% Normal Saline 1,000 ML 999 ML IV (22:12)
[2023-03-08] MEDS: Ondansetron 4 MG/2 ML Vial IV (22:12)
[2023-03-08] MEDS: Famotidine 200 MG/20 ML MDV 20 MG in 0.9% Normal Saline (Pres. free 8 ML 300 MG IV (22:13)
[2023-03-08] MEDS: Mag Hydrox/Al Hydrox/Simeth 30 ML UDC PO (22:35)
[2023-03-08] MEDS: Metoclopramide 10 MG/2 ML Vial IV (22:35)
[2023-03-08] MEDS: Ketorolac 15 MG/ML Vial IV (22:35)
--- NOTE | 2023-03-08 22:50 | ED.VIS.GI ---
HPI HPI - GI History of Present Illness Chief Complaint: Abd Pain Narrative Narrative: 42-year-old female presenting with epigastric pain, nausea, vomiting, diarrhea. This all started when she woke up this morning. She has not had a fever, chills, body aches. No black or bloody stools or emesis. States that she does feel like her stomach is burning. Patient states he does not have a history of GCS 14 acid reflux. Patient has not had any exotic food or travel. Nobody else is sick in her household. Patient was skiing earlier this fasting she ate last night was apples with caramel. No urinary or vaginal complaints. [facility] Medical History Anxiety Asthma Depressed Home Medications albuterol sulfate 90 mcg/actuation aerosol inhaler (Ventolin HFA) 1 puff inhalation Q4H PRN PRN Sob &/Or Wheezing 05/07/18 [History Last Taken Unknown] buprenorphine 8 mg-naloxone 2 mg sublingual film 8 ea sublingual BID 02/15/22 [History Last Taken Unknown] gabapentin 100 mg capsule 100 mg PO 4X/DAY 02/15/22 [History Last Taken Unknown] trazodone 50 mg tablet 50 mg PO DAILY 02/15/22 [History Last Taken Unknown] nitrofurantoin monohydrate/macrocrystals 100 mg capsule (Macrobid) 100 mg PO Q12H 5 days #10 caps 01/25/23 [Rx Last Taken Unknown] cephalexin 500 mg capsule 500 mg PO Q12 #14 CAPSULES 03/08/23 [Rx Last Taken Unknown] famotidine 20 mg tablet (Pepcid) 20 mg PO BID PRN dyspepsia #14 tabs 03/08/23 [Rx Last Taken Unknown] ondansetron 4 mg disintegrating tablet 4 mg PO Q8H PRN PRN Nausea #14 tabs 03/08/23 [Rx Last Taken Unknown] promethazine 25 mg tablet 25 mg PO TID PRN nausea and vomiting #14 tabs 03/08/23 [Rx Last Taken Unknown] Allergy/AdvReac Type Severity Reaction Status Date / Time Sulfa (Sulfonamide Allergy Anaphylaxis Verified 03/08/23 20:55 Antibiotics) Social History household members: significant other and children Smoking Status: Current every day smoker tobacco type: e-cigarettes substance use type: former substance user and opiates ROS ROS ED Constitutional Constitutional ED: Denies chills or fever(s) ENT ENT ED: Denies rhinorrhea or sore throat Cardiovascular Cardiovascular: Denies chest pain or palpitations Respiratory/Chest Respiratory/Chest: Denies cough or dyspnea Gastrointestinal Gastrointestinal: Reports abdominal pain, diarrhea, nausea and vomiting Genitourinary Genitourinary ED: Denies dysuria or hematuria Musculoskeletal Musculoskeletal: Denies arthralgias or back pain Integumentary Denies abscess or Abrasions Neurologic Neurologic: Denies headache(s) or paresthesias Psychiatric Psychiatric: Denies anxiety or depression Endocrine Endocrinology: Denies polydipsia or polyphagia EXAM Physical Exam Const Vital Signs: 03/08/23 20:52 Temperature 98.5 F Temperature Source Temporal Pulse Rate 51 L Respiratory Rate 15 Blood Pressure 128/91 H Blood Pressure Mean 103 Pulse Ox 97 Oxygen Delivery Method Room Air Positive well nourished General Appearance ED: NAD; Negative for pallor HEENT Reports moist mucous membranes normocephalic and atraumatic Resp normal respiratory effort Cardio regular rhythm Rate: bradycardia GI GI Narrative: Negative Lo sign Palpation: tender epigastric Back/Spine General Back: CVA tenderness Neuro CN's II-XII intact bilaterally Sensorium / Orientation: alert Psych mental status grossly normal and thought process normal Skin no wounds General Skin Exam: Negative for jaundice or pallor MDM MDM MDM Narrative Medical decision making narrative: Patient presenting with epigastric pain, nausea, vomiting, diarrhea. Differential includes gastritis, GERD, pancreatitis. Patient does not have a Lo sign so I do not suspect acute cholecystitis. Patient does states he has a history of gallstones before but never followed up for this. CBC to assess white blood cell count, hemoglobin, platelets. CMP to assess liver function, renal function, glucose, anion gap. Lipase to assess for pancreatitis. Serum test to assess for . Urinalysis to assess for UTI. Patient medicated with Zofran and Pepcid IV. CBC shows no leukocytosis and her white cell count is actually 7.0. Hemoglobin hematocrit are stable. Platelets normal. Renal function and electrolytes are all normal. LFTs within normal limits. Lipase is also normal. Serum negative. On reevaluation the patient states she still feeling nauseous and she was given Reglan, I gave her Toradol for her epigastric pain and also a GI cocktail. Reevaluation at 1105 patient is willing improved. She was able to get a urine sample. Patient's urine sample shows 150 ketones. Positive nitrites, 10-25 WBCs, 0-5 epithelial cells with 4+ bacteria. This will be sent for culture. Patient will be treated for UTI with Keflex first dose given in ED. I reviewed her previous urine culture from December of this year and it was sensitive to everything but penicillin. Patient will be discharged home with antiemetics, Pepcid, Keflex. Return precautions discussed. Impression: 1. Nausea/vomiting 2. Dehydration 3. UTI 4. Abdominal pain Lab Data Attestation: I reviewed the patient's lab results. Labs: Laboratory Results - last 24 hr 03/08/23 03/08/23 03/08/23 21:18 21:18 21:18 WBC 7.0 RBC 4.70 Hgb 13.6 Hct 42.9 MCV 91.3 MCH 28.9 MCHC 31.7 L RDW Std Deviation 44.9 H RDW Coeff of Rocael 13.2 Plt Count 256 MPV 8.6 Immature Gran % (Auto) 0.400 Neut % (Auto) 89.3 H Lymph % (Auto) 8.9 L [place] % (Auto) 1.4 Eos % (Auto) 0.0 Baso % (Auto) 0.0 Absolute Neuts (auto) 6.2 Absolute Lymphs (auto) 0.62 L Nucleated RBC % 0 Sodium 138 Potassium 4.2 Chloride 103 Carbon Dioxide 25.0 Anion Gap 10 BUN 19 H Creatinine 0.93 Est GFR (MDRD) Af Amer 84 Est GFR (MDRD) Non-Af 69 BUN/Creatinine Ratio 20.4 H Glucose 120 H Calcium 9.0 Total Bilirubin 0.40 AST 27 ALT 41 Alkaline Phosphatase 68 Total Protein 8.3 H Albumin 3.9 Globulin 4.4 H Albumin/Globulin Ratio 0.9 Lipase 40 Serum , Qual NEGATIVE Urine Color Urine Clarity Urine pH Ur Specific [place] Urine Protein Urine Glucose (UA) Urine Ketones Urine Occult Blood Urine Nitrite Urine Bilirubin Urine Urobilinogen Ur Leukocyte Esterase Urine RBC Urine WBC Ur Squamous Epith Cells Urine Bacteria Urine Mucus 03/08/23 23:00 WBC RBC Hgb Hct MCV MCH MCHC RDW Std Deviation RDW Coeff of Rocael Plt Count MPV Immature Gran % (Auto) Neut % (Auto) Lymph % (Auto) [place] % (Auto) Eos % (Auto) Baso % (Auto) Absolute Neuts (auto) Absolute Lymphs (auto) Nucleated RBC % Sodium Potassium Chloride Carbon Dioxide Anion Gap BUN Creatinine Est GFR (MDRD) Af Amer Est GFR (MDRD) Non-Af BUN/Creatinine Ratio Glucose Calcium Total Bilirubin AST ALT Alkaline Phosphatase Total Protein Albumin Globulin Albumin/Globulin Ratio Lipase Serum , Qual Urine Color Yellow Urine Clarity Sl. Cloudy Urine pH 6.0 Ur Specific [place] 1.025 Urine Protein 30 H Urine Glucose (UA) Normal Urine Ketones 150 A* Urine Occult Blood 25 H Urine Nitrite Positive H Urine Bilirubin Negative Urine Urobilinogen Normal Ur Leukocyte Esterase 25 H Urine RBC 0-5 SEEN Urine WBC 10-25 SEEN Ur Squamous Epith Cells 0-5 SEEN Urine Bacteria 4+ Urine Mucus 0 SEEN Discharge Plan Triage Chief Complaint: Abd Pain ED Provider: Duy Smith Dx/Rx/DC Orders Instructions: ED Gastritis (Adult), ED Cystitis Female Adult Prescriptions: New ondansetron 4 mg tablet,disintegrating 4 mg PO Q8H PRN PRN (Reason: Nausea) Qty: 14 0RF promethazine 25 mg tablet 25 mg PO TID PRN (Reason: nausea and vomiting) Qty: 14 0RF famotidine [Pepcid] 20 mg tablet 20 mg PO BID PRN (Reason: dyspepsia) Qty: 14 0RF cephalexin 500 mg capsule 500 mg PO Q12 Qty: 14 0RF No Action albuterol sulfate [Ventolin HFA] 1 INHALER inhaler 1 puff inhalation Q4H PRN PRN (Reason: Sob &/Or Wheezing) trazodone 50 mg tablet 50 mg PO DAILY gabapentin 100 mg capsule 100 mg PO 4X/DAY Label Comments: TAKE 1 CAPSULES (100 MG) BY ORAL ROUTE 4 TIMES PER DAY buprenorphine-naloxone 8-2 mg film 8 ea sublingual BID Label Comments: USE ONE FILM UNDER THE TONGUE TWICE DAILY - 12/14 nitrofurantoin monohyd/m-cryst [Macrobid] 100 mg capsule 100 mg PO Q12H 5 Days Qty: 10 0RF Rx Instructions: must administer with a meal/food Stand Alone Forms: ED Work / School Excuse Primary Care Provider: Care Physician,No Primary Referrals: Alan Pinedo MD [Med Staff - Process Line Operator] - 3-5 Days Care Physician,No Primary [Primary Care Provider] - Disposition Disposition: Home, Self Care
[2023-03-08 23:06] LABS: Mucous, Urine 0 SEEN /hpf (<or=2+)
[2023-03-08 23:11] LABS: Color, Urine Yellow (Yellow); Glucose, Dipstick Normal (Normal); Leukocyte Esterase-Dipstick 25 /ul (Negative); Nitrite-Dipstick Positive (Negative); Occult Blood-Urine 25 /ul (Negative); Protein-Dipstick 30 mg/dl (Negative); Specific Gravity, Urine 1.025 (1.002-1.030); Urine Bilirubin Dipstick Negative (Negative); Urine Clarity Sl. Cloudy (Clear); Urine Urobilinogen Normal (Normal)
[2023-03-08 23:19] LABS: Ketone-Dipstick 150 mg/dl (Negative)
[2023-03-08 23:25] LABS: Bacteria 4+ /hpf (None Seen); Red Blood Cells-Urine 0-5 SEEN /hpf (0-5); Squamous Epithelial Cells - UA 0-5 SEEN /hpf (5-10); White Blood Cells 10-25 SEEN /hpf (0-5)
[2023-03-08] MEDS: Cephalexin 250 MG Capsule 500 MG PO (23:37)
[2023-03-08 23:42] VITALS: BP 136/76; PULSE 59; RESP 18; O2SAT 100; BMI 31.8
== END 2023-03-09 00:12 | disposition home or self-care (01) ==
PROVIDERS: Emergency Provider Student in an Organized Health Care Education/Training Program; Visit Provider Student in an Organized Health Care Education/Training Program
DX: N39.0 Urinary tract infection, site not specified (principal); F17.210 Nicotine dependence, cigarettes, uncomplicated; R19.7 Diarrhea, unspecified; E86.0 Dehydration; R11.2 Nausea with vomiting, unspecified; J45.909 Unspecified asthma, uncomplicated; R10.9 Unspecified abdominal pain
CPT/HCPCS: 80053; 81001; 83690; 84703; 85025; 87086; 87088; 87186; 96365; 96375; 99285; J7030; A4216; J2405; J3490

== ENCOUNTER 2023-06-13 20:41 | Emergency (ER) | payer BC, MEDICAID, SELFPAY ==
[2023-06-13 20:41] VITALS: BP 109/56; PULSE 80; RESP 15; TEMP 36.6; O2SAT 100; BMI 26.4
[2023-06-13 21:14] LABS: Mucous, Urine 0 SEEN /hpf (<or=2+)
[2023-06-13 21:26] LABS: Color, Urine Yellow (Yellow); Glucose, Dipstick Normal (Normal); Ketone-Dipstick 15 mg/dl (Negative); Leukocyte Esterase-Dipstick 100 /ul (Negative); Nitrite-Dipstick Positive (Negative); Occult Blood-Urine 250 /ul (Negative); Protein-Dipstick 30 mg/dl (Negative); Urine Bilirubin Dipstick Negative (Negative); Urine Clarity Cloudy (Clear); Urine Urobilinogen Normal (Normal); Urine pH 6.5 (5.0 - 8.0)
[2023-06-13 21:45] LABS: White Blood Cells 25-50 SEEN /hpf (0-5)
[2023-06-13 21:46] LABS: Bacteria 3+ /hpf (None Seen); Red Blood Cells-Urine 10-25 SEEN /hpf (0-5)
[2023-06-13 21:47] LABS: Internal QC Validated? YES +Cl - CLEAR BKGD; Pregnancy, Urine Negative Negative; Squamous Epithelial Cells - UA 0-5 SEEN /hpf (5-10)
--- NOTE | 2023-06-13 22:04 | EDS_ITS ---
HPI HPI - Female History of Present Illness Chief Complaint: Complaint Informant: patient Narrative Narrative: Patient presents saying she has had some urinary symptoms for the past 1 to 2 weeks, concern that she has a recurrent UTI, her last 1 was a month or so ago, treated successfully, but she has not presented for care or treatment in the past 1 or 2 weeks until today when she started having pain in her right low back, nausea and vomiting. She denies any fevers. Pain is not severe. She denies having any abdominal pain. Urinary symptoms have been foul-smelling, and urgency. No gross dysuria, hematuria, or significant frequency. These are symptoms she has had before with urinary tract infections. [facility] Medical History (Updated 06/13/23 @ 22:[address] Nash Suarez MD) Anxiety Asthma Depressed Home Medications buprenorphine 8 mg-naloxone 2 mg sublingual film 8 ea sublingual BID 02/15/22 [History Last Taken Unknown] gabapentin 100 mg capsule 100 mg PO 4X/DAY 02/15/22 [History Last Taken Unknown] trazodone 50 mg tablet 50 mg PO DAILY 02/15/22 [History Last Taken Unknown] ciprofloxacin HCl 500 mg tablet 500 mg PO BID #14 TABLETS 06/13/23 [Rx Last Taken Unknown] Allergy/AdvReac Type Severity Reaction Status Date / Time Sulfa (Sulfonamide Allergy Anaphylaxis Verified 06/13/23 20:45 Antibiotics) Surgical History (Updated 06/13/23 @ 22:[address] Nash Suarez MD) Tubal ligation status Social History household members: significant other and children Smoking Status: Current every day smoker tobacco type: e-cigarettes substance use type: former substance user and opiates ROS ROS ED Constitutional Constitutional ED: Denies chills, fever(s), lethargy, malaise or sweats Cardiovascular Cardiovascular: Denies chest pain or palpitations Respiratory/Chest Respiratory/Chest: Denies cough or dyspnea Gastrointestinal Gastrointestinal: Reports nausea and vomiting; Denies abdominal pain Genitourinary Genitourinary ED: Reports as per HPI and urinary urgency; Denies dysuria, hematuria or urinary frequency Musculoskeletal Musculoskeletal: Reports back pain; Denies neck pain Integumentary Denies abscess or rash Neurologic Neurologic: Denies headache(s), paresthesias or weakness EXAM Physical Exam Const Vital Signs: 06/13/23 20:41 Temperature 97.9 F Temperature Source Temporal Pulse Rate 80 Respiratory Rate 15 Blood Pressure 109/56 L Blood Pressure Mean 73 Pulse Ox 100 Oxygen Delivery Method Room Air Positive well nourished and well developed Constitutional Narrative: Well-appearing in no distress General Appearance ED: well developed and NAD Chest Wall inspection of chest normal and palpation of chest normal Resp normal respiratory effort and clear to auscultation bilaterally Effort and Inspection: able to speak in complete sentences Cardio regular rate and regular rhythm Rate: Negative for tachycardic GI normal to inspection, nondistended, normoactive bowel sounds, soft to palpation and non-tender Back/Spine General Back: CVA tenderness right (Mild. Normal inspection.) Extremity normal to inspection and full ROM Neuro oriented x3, CN's II-XII intact bilaterally, no sensory deficits noted and gait normal Motor Exam: strength 5/5 throughout Psych mental status grossly normal Skin no rashes or lesions noted and no wounds MDM MDM MDM Narrative Medical decision making narrative: negative, urinalysis consistent with infection. I think this patient probably has had cystitis for the last week or 2 and now has early pyelonephritis. She is not septic. Her symptoms are well controlled even before treatment, and she is very well-appearing. Other than the urine I do not think she needs further work-up right now, I think it would be reasonable to treat her empirically, she was last on Macrobid but that would be an appropriate to treat her for a kidney infection. She is allergic to Bactrim. I think the most appropriate course here would be to give her a dose of IV Rocephin, in addition to other medications for her symptoms which were done, and place her on 1 week of Cipro, she is comfortable with that overall plan. Lab Data Attestation: I reviewed the patient's lab results. Labs: Laboratory Results - last 24 hr 06/13/23 21:05 Urine Color Yellow Urine Clarity Cloudy Urine pH 6.5 Ur Specific [place] 1.020 Urine Protein 30 H Urine Glucose (UA) Normal Urine Ketones 15 H Urine Occult Blood 250 H Urine Nitrite Positive H Urine Bilirubin Negative Urine Urobilinogen Normal Ur Leukocyte Esterase 100 H Urine RBC 10-25 SEEN Urine WBC 25-50 SEEN Ur Squamous Epith Cells 0-5 SEEN Urine Bacteria 3+ Urine Mucus 0 SEEN Urine Test Negative Discharge Plan Triage Chief Complaint: Complaint ED Provider: Nash Suarez Dx/Rx/DC Orders Clinical Impression: Pyelonephritis Instructions: ED Pyelonephritis, Female (Adult) Prescriptions: New ciprofloxacin HCl [ciprofloxacin HCl] 500 mg tablet 500 mg PO BID Qty: 14 0RF No Action trazodone 50 mg tablet 50 mg PO DAILY gabapentin 100 mg capsule 100 mg PO 4X/DAY Patient Comments: TAKE 1 CAPSULES (100 MG) BY ORAL ROUTE 4 TIMES PER DAY buprenorphine-naloxone 8-2 mg film 8 ea sublingual BID Patient Comments: USE ONE FILM UNDER THE TONGUE TWICE DAILY - 12/14 Primary Care Provider: Care Physician,No Primary Referrals: Doctor,Your [Non-Staff] - 3-5 Days if not improving Disposition Disposition: Home, Self Care Discharge Date/Time: 06/13/23 22:53
[2023-06-13] MEDS: Ciprofloxacin 500 MG Tablet PO (22:22)
[2023-06-13] MEDS: Ketorolac 30 MG/ML Syringe IV (22:22)
[2023-06-13] MEDS: Ondansetron 4 MG/2 ML Vial IV (22:22)
[2023-06-13] MEDS: Ceftriaxone 1 GM/50 ML BAG IV (22:22)
== END 2023-06-13 22:53 | disposition home or self-care (01) ==
LOC: ED 22:07
PROVIDERS: Emergency Provider Emergency Medicine; Visit Provider Emergency Medicine
DX: N12 Tubulo-interstitial nephritis, not specified as acute or chronic (principal); F32.A Depression, unspecified; Z79.899 Other long term (current) drug therapy; F17.290 Nicotine dependence, other tobacco product, uncomplicated
CPT/HCPCS: 81001; 81025; 87077; 87086; 87088; 87186; 96365; 96375; 99284; J7050; A4216; J2405

== ENCOUNTER 2023-08-30 04:34 | Emergency (ER) | payer BC, MEDICAID, SELFPAY ==
[2023-08-30 04:36] VITALS: BP 135/77; PULSE 50; RESP 18; TEMP 36.9; O2SAT 97; BMI 25.4
[2023-08-30 04:39] VITALS: BP 135/77; PULSE 50; RESP 18; TEMP 36.9; O2SAT 97
--- NOTE | 2023-08-30 04:40 | CT_ITS ---
EXAM: CT ABDOMEN AND PELVIS WITHOUT INTRAVENOUS CONTRAST CLINICAL INDICATION: Pain TECHNIQUE: Helically acquired images were obtained of the abdomen and pelvis without intravenous contrast. This CT exam was performed using one or more of the following dose reduction techniques: automated exposure control, adjustment of the mA and/or kV according to patient size, and/or use of iterative reconstruction technique. RADIATION DOSE: CTDIvol = 6.53 mGy, DLP = 303.52 mGy-cm COMPARISON: No relevant prior studies available. FINDINGS: LOWER THORAX: Dense focal consolidation in the right lower lobe. No cardiomegaly. No significant pericardial effusion. ABDOMEN: LIVER: Unremarkable. Homogeneous. GALLBLADDER AND BILE DUCTS: Unremarkable. No calcified gallstones. No gallbladder distention or wall edema. No intra- or extrahepatic biliary ductal dilation. PANCREAS: Unremarkable. No focal cystic mass. SPLEEN: Unremarkable. Normal size without focal cystic or solid mass. ADRENALS: Unremarkable. No nodules. KIDNEYS AND URETERS: There is a 5 mm stone in the right UVJ, causing moderate obstructive changes. Tiny nonobstructing stone in the lower pole of the left kidney. STOMACH AND BOWEL: Unremarkable. No stomach or bowel distention. No focal inflammatory change. PELVIS: APPENDIX: The appendix is normal. BLADDER: Unremarkable. REPRODUCTIVE: Unremarkable as visualized. No mass. ABDOMEN and PELVIS: INTRAPERITONEAL SPACE: Tiny amount of free fluid in the pelvis. No free air. BONES/JOINTS: Degenerative changes of the spine. No suspicious lytic or blastic abnormality. SOFT TISSUES: Unremarkable. No discrete abdominal or pelvic wall hernia. VASCULATURE: Unremarkable. Abdominal aorta is non-dilated. LYMPH NODES: Unremarkable. No enlarged lymph nodes. CT/Abdomen/Pelvis without Cont IMPRESSION: 1. There is a 5 mm stone in the right UVJ, causing moderate obstructive changes. 2. Dense focal consolidation in the right lower lobe. This likely indicates pneumonia. Follow-up is recommended to ensure resolution. Electronically Signed: Sarwat Miles MD at 6:12 EDT ,
--- NOTE | 2023-08-30 04:41 | EDS_ITS ---
HPI HPI - Female History of Present Illness Chief Complaint: Flank Pain Detail of Chief Complaint: Acute right flank pain. Informant: patient Associated Symptoms Associated Symptoms: Negative for Dysuria, Frequency, Urgency or Hematuria Narrative Narrative: 43-year-old female no seen past medical history. Prior tubal ligation. States about an hour prior to arrival developed sudden onset right flank pain. Concerned she may have a UTI. No prior history of kidney stones and no family history of kidney stones that she is aware of. She has never had any kidney or bladder surgeries. States she is having chills with nausea and vomiting. No recent dysuria. No recent fever. Prior similar symptoms: Yes Recent Illness/Hospitalization: No PFSH PFSH Medical History Anxiety Asthma Depressed Home Medications buprenorphine 8 mg-naloxone 2 mg sublingual film 8 ea sublingual BID 02/15/22 [History Last Taken Unknown] gabapentin 100 mg capsule 100 mg PO 4X/DAY 02/15/22 [History Last Taken Unknown] trazodone 50 mg tablet 50 mg PO DAILY 02/15/22 [History Last Taken Unknown] azithromycin 250 mg tablet (Zithromax) 250 mg PO DAILY 4 days #4 tabs 08/30/23 [Rx Last Taken Unknown] ketorolac 10 mg tablet 10 mg PO Q6H PRN pain 3 days #10 tabs 08/30/23 [Rx Last Taken Unknown] Allergy/AdvReac Type Severity Reaction Status Date / Time Sulfa (Sulfonamide Allergy Anaphylaxis Verified 08/30/23 04:40 Antibiotics) Surgical History Tubal ligation status Social History household members: significant other and children Smoking Status: Current every day smoker tobacco type: e-cigarettes substance use type: former substance user and opiates ROS ROS ED ROS Narrative Right flank pain. Nausea and vomiting. Chills. Dysuria. Review of Systems ROS Unobtainable: Denies due to encephalopathy Constitutional Constitutional ED: Reports chills; Denies fever(s) Eyes Eyes: Denies blurry vision ENT ENT ED: Denies ear pain Cardiovascular Cardiovascular: Denies chest pain Respiratory/Chest Respiratory/Chest: Denies cough or dyspnea Gastrointestinal Gastrointestinal: Reports abdominal pain, nausea and vomiting; Denies constipation, diarrhea or melena Genitourinary Genitourinary ED: Reports dysuria; Denies hematuria Musculoskeletal Musculoskeletal: Denies arthralgias Integumentary Denies abscess Neurologic Neurologic: Denies headache(s) Psychiatric Psychiatric: Denies anxiety Endocrine Endocrinology: Denies heat intolerance Hematologic/Lymphatic Hematologic/Lymphatic: Denies easy bleeding or easy bruising Allergic/Immunologic Allergic/Immunologic ED: Denies mouth swelling, tongue swelling or urticaria EXAM Physical Exam Narrative Exam Narrative: Well-appearing 43-year-old female. Complaint of right flank pain. Vital signs stable afebrile. H EENT exam unremarkable. Neck nontender no lymphadenopathy. Lungs clear to auscultation bilaterally. Heart regular rhythm rate about 50 no murmur. Chest were nontender. Abdomen soft, nontender, nondistended, normal bowel sounds without peritoneal signs. No localizing tenderness. Back nontender. No CVA tenderness. Moving all 4 extremities. Calves are nontender without edema or cords. Neurologically she is awake alert with no focal motor deficits. Const Vital Signs: 08/30/23 04:36 08/30/23 04:39 08/30/23 06:24 Temperature 98.5 F 98.5 F Temperature Source Oral Temporal Pulse Rate 50 L 50 L 58 L Respiratory Rate 18 18 16 Blood Pressure 135/77 H 135/77 H 146/81 H Blood Pressure Mean 96 96 102 Pulse Ox 97 97 100 Oxygen Delivery Method Room Air Room Air Room Air Positive well nourished and well developed; Negative for obese, cachectic, contractures or unkempt General Appearance ED: well developed and NAD; Negative for unkempt, cachectic, contractures, odor of alcohol detected or pallor Nutritional Appearance: Negative for cachectic or obese HEENT Reports moist mucous membranes Negative for trauma or tenderness Eyes PERRL and EOMs intact bilaterally General Eye ED: Negative for pale conjunctiva or scleral icterus Neck no lymphadenopathy, supple and no JVD General: Negative for other Thyroid: Negative for tender Lymph Lymphatic: Negative for other Chest Wall inspection of chest normal and palpation of chest normal Chest: Negative for other Resp normal respiratory effort and clear to auscultation bilaterally Effort and Inspection: Negative for pain with movement Auscultation: Negative for rales, rhonchi or wheezes Cardio regular rhythm, S1 normal heart sound, no murmurs and no JVD; Negative for regular rate Rate: bradycardia Rhythm: Negative for abnormal rhythm GI normal to inspection, nondistended, normoactive bowel sounds, soft to palpation, non-tender, non-distended and no masses Auscultation: normoactive bowel sounds Palpation: Negative for tender or guarding Back/Spine no CVA tenderness General Back: Negative for CVA tenderness Cervical Spine: Negative for cervical spine tenderness Thoracic Spine / Upper Back: Negative for thoracic spinal tenderness Lumbar Spine / Lower Back: Negative for lumbar spinal tenderness Sacrum: Negative for other Extremity normal to inspection and full ROM General Extremety ED: Negative for edema or tenderness General Extremity: Negative for edema Neuro oriented x3 and CN's II-XII intact bilaterally Sensorium / Orientation: alert, oriented to person, oriented to place and oriented to time; Negative for confused, lethargic or stuporous Motor Exam: strength 5/5 throughout Psych mental status grossly normal Appearance: Negative for unkempt Attitude: No agitated Speech: No other Mood & Affect: Negative for depressed, anxious or tearful Skin no rashes or lesions noted and no wounds General Skin Exam: Negative for jaundice or pallor Rashes: No rashes noted Trauma: Negative for other MDM MDM MDM Narrative Medical decision making narrative: 43-year-old female right flank pain. No history of kidney stones. Due to the sudden onset nature of the pain kidney stones in the differential diagnosis. As is UTI versus other etiologies. Patient will be treated with IV fluids, Zofran and morphine for pain. Screening labs, CAT scan and urinalysis will be obtained. Repeat exam patient doing well at 6:55 AM. She has not made any urine. I discussed all of her test results with her. She will be treated with Zithromax Z-MONY for her pneumonia first dose given in the ER. Prescription sent to her pharmacy. She is on Suboxone which I did not know initially so she will use Toradol and Tylenol for her kidney stone pain. Urine strainer. Fluids. Follow-up with your doctor if not improving or return if worse. She states she has had a cough for the last 2 to 3 days. Accounting for her right lower lobe pneumonia on chest x-ray. History & Record Review Discussion w/independent historian: Patient Additional record(s) reviewed:: Prior inpatient record, Prior outpatient record, Prior ED visit and Prior labs Lab Data Attestation: I reviewed the patient's lab results. Lab results narrative: CBC unremarkable. White count of 4.9. H&H 12 and 38. Platelets 162. Electrolytes show a gap of 5 BUN and creatinine 24 and 0.8. Glucose 145. Serum test negative CAT scan shows a right UVJ 5 mm stone with obstruction hydro ureter. All incidental finding of a right lower lobe pneumonia. Labs: Laboratory Results - last 24 hr 08/30/23 05:20 WBC 4.9 RBC 4.34 Hgb 12.3 Hct 38.3 MCV 88.2 MCH 28.3 MCHC 32.1 RDW Std Deviation 43.3 RDW Coeff of Rocael 13.3 Plt Count 162 MPV 8.7 Immature Gran % (Auto) 0.200 Neut % (Auto) 70.9 H Lymph % (Auto) 19.1 [place] % (Auto) 8.8 Eos % (Auto) 0.8 Baso % (Auto) 0.2 Absolute Neuts (auto) 3.4 Absolute Lymphs (auto) 0.93 Nucleated RBC % 0 Sodium 140 Potassium 4.1 Chloride 109 H Carbon Dioxide 26.0 Anion Gap 5 BUN 24 H Creatinine 0.82 Estim Creat Clear Calc 77.96 Est GFR (MDRD) Af Amer 97 Est GFR (MDRD) Non-Af 80 BUN/Creatinine Ratio 29.3 H Glucose 145 H Calcium 8.7 Serum , Qual NEGATIVE Radiography Chest X-Ray - ED: 2 View, Read by ED Physician, Read by Radiologist, Heart, Mediastinum, Bony Structures and Right Infiltrate Diagnostic Testing: Clinical Impression(s) from Imaging Studies Abdomen/Pelvis CT 08/30/23 04:40 IMPRESSION: 1. There is a 5 mm stone in the right UVJ, causing moderate obstructive changes. 2. Dense focal consolidation in the right lower lobe. This likely indicates pneumonia. Follow-up is recommended to ensure resolution. Electronically Signed: Sarwat Miles MD at 6:12 EDT , Chest X-Ray 08/30/23 06:09 IMPRESSION: Right lower lobe consolidation. Findings likely indicate pneumonia. Follow-up is recommended to ensure resolution. Electronically Signed: Sarwat Miles MD at 6:27 EDT , Chest x-ray, 2 views, AP and lateral shows right lower lobe infiltrate consistent with a right lower lobe pneumonia. Interpreted both by myself and t he radiologist. This was also seen on the CAT scan of the abdomen. Discharge Plan Triage Chief Complaint: Flank Pain ED Provider: Good Castorena Dx/Rx/DC Orders Clinical Impression: Acute right flank pain, Right lower lobe pneumonia, Kidney stone on right side Instructions: ED Pneumonia (Adult), ED Kidney Stone w/ Colic Prescriptions: New azithromycin [Zithromax] 250 mg tablet 250 mg PO DAILY 4 Days Qty: 4 0RF Rx Instructions: start on day 2 of therapy ketorolac 10 mg tablet 10 mg PO Q6H PRN (Reason: pain) 3 Days Qty: 10 0RF No Action trazodone 50 mg tablet 50 mg PO DAILY gabapentin 100 mg capsule 100 mg PO 4X/DAY Patient Comments: TAKE 1 CAPSULES (100 MG) BY ORAL ROUTE 4 TIMES PER DAY buprenorphine-naloxone 8-2 mg film 8 ea sublingual BID Patient Comments: USE ONE FILM UNDER THE TONGUE TWICE DAILY - 12/14 Primary Care Provider: Care Physician,No Primary Referrals: Gigi Rodriguez MD [Med Staff - Active Staff] - As Needed Care Physician,No Primary [Primary Care Provider] - Activity Restrictions/Additional Instructions: Plenty of fluids and rest. Toradol for pain for your kidney stone and you may also use Tylenol. Follow-up with your doctor or the urologist, Dr. Juan Rodriguez if you are not improving. You have a kidney stone on the right that is 5 mm by your bladder which should pass. You also have a right lower lobe pneumonia. We will treat with Zithromax. First dose given here. Starting tomorrow 1 pill a day for 4 more days should take care of the pneumonia. Return if you are feeling a lot worse. Off work the next 2 days. Disposition Disposition: Home, Self Care
[2023-08-30] MEDS: Ketorolac 15 MG/ML Vial IV (05:20)
[2023-08-30] MEDS: Ondansetron 4 MG/2 ML Vial IV (05:20)
[2023-08-30] MEDS: 0.9% Normal Saline (1000mL) 1,000 ML 1000 ML IV (05:20)
[2023-08-30] MEDS: morphine 8 MG/ML Syringe IV (05:30)
[2023-08-30 05:31] LABS: Absolute Lymphocyte Count 0.93 X10^3/uL (0.83-4.51); Absolute Neutrophil Count 3.4 X10^3/uL (2.0-7.7); Basophil# 0.01 X10^3/uL; Basophil% 0.2 % (0-1); Eosinophil# 0.04 X10^3/uL; Eosinophils% 0.8 % (0-5); Hematocrit 38.3 % (37-47); Hemoglobin 12.3 g/dL (12.0-15.0); Lymphocyte # 0.93 X10^3/ul (0.83-4.51); Lymphocyte % 19.1 % (19-41); Mean Corp Hgb Conc 32.1 g/dL (32-36); Mean Corpuscular Hgb 28.3 pg (27.0-32.0); Mean Corpuscular Volume 88.2 fL (81-99); Mean Platelet Vol. 8.7 fl (6.2-12.0); Monocyte# 0.43 X10^3/uL; Monocyte% 8.8 % (0-10); NRBC Flagged by Analyzer 0 % (0-5); Neutrophil # 3.44 X10^3/uL (2.7-7.7); Neutrophil % 70.9 % (47-70); Platelet Count 162 K/mm3 (150-450); RBC Distribution Width CV 13.3 % (11.6-14.6); RBC Distribution Width SD 43.3 fl (35.1-43.9); Red Blood Count 4.34 M/mm3 (4.2-5.4); White Blood Count 4.9 K/mm3 (4.4-11.0)
[2023-08-30] MEDS: DiphenhydrAMINE 50 MG/ML Syringe 25 MG IV (05:37)
[2023-08-30 05:41] LABS: Internal QC Validated? YES +Cl - CLEAR BKGD; Pregnancy, Serum, hCG Quali. NEGATIVE Negative
[2023-08-30 05:45] LABS: Anion Gap 5 (5-15); BUN 24 mg/dL (7-18); BUN/Creat Ratio 29.3 RATIO (10-20); Calcium,Total 8.7 mg/dL (8.5-10.1); Chloride 109 mmol/L (98-107); Creatinine, Serum 0.82 mg/dL (0.55-1.02); EST Glomerular Filtration Rate 80 mL/min (>60); Est Glom Filt Rate - Afr Amer 97 mL/min (>60); Estimated Creatinine Clearance 77.96 ml/min; Glucose 145 mg/dL (74-106); Potassium 4.1 mmol/L (3.5-5.1); Sodium Level 140 mmol/L (136-145)
--- NOTE | 2023-08-30 06:09 | RAD_ITS ---
EXAM: XR CHEST, 2 VIEWS CLINICAL INDICATION: possible rll infiltrate TECHNIQUE: Frontal and lateral views of the chest. COMPARISON: CT abdomen and pelvis from same date. FINDINGS: LUNGS AND PLEURAL SPACES: Right lower lobe consolidation. No pneumothorax. No effusion. HEART: Unremarkable. Cardiac silhouette not enlarged. MEDIASTINUM: Central airways and mediastinal contour are unremarkable. BONES/JOINTS: Unremarkable. SOFT TISSUES: Unremarkable. RAD/Chest PA and Lateral IMPRESSION: Right lower lobe consolidation. Findings likely indicate pneumonia. Follow-up is recommended to ensure resolution. Electronically Signed: Sarwat Miles MD at 6:27 EDT ,
[2023-08-30 06:24] VITALS: BP 146/81; PULSE 58; RESP 16; O2SAT 100
[2023-08-30] MEDS: Azithromycin 250 MG Tablet 500 MG PO (07:11)
== END 2023-08-30 07:18 | disposition home or self-care (01) ==
PROVIDERS: Emergency Provider Emergency Medicine; Visit Provider Emergency Medicine
DX: N20.2 Calculus of kidney with calculus of ureter (principal); R10.9 Unspecified abdominal pain; J18.9 Pneumonia, unspecified organism; Z98.51 Tubal ligation status; F17.290 Nicotine dependence, other tobacco product, uncomplicated
CPT/HCPCS: 71046; 74176; 80048; 84703; 85025; 96361; 96374; 96375; 99282; J7030; A4216; J2405

== ENCOUNTER → 2023-10-18 | Outpatient (CLI) | payer BC, MEDICAID, SELFPAY ==
--- NOTE | 2023-10-18 18:53 | CT_ITS ---
STUDY: CT ABDOMEN AND PELVIS WITHOUT CONTRAST REASON FOR EXAM: Female, 43 years old. R URETREAL STONES RADIATION DOSAGE (If Supplied By Facility): CTDIvol = ( 6.92 ) mGy, DLP = ( 328.41 ) mGycm TECHNIQUE: Transaxial images were obtained from the dome of the diaphragm to the symphysis pubis without oral contrast, and without intravenous contrast. Sagittal and coronal images were reconstructed. Individualized dose optimization techniques were used for this CT. COMPARISON: 08/30/2023 FINDINGS: The visualized lung bases are unremarkable. The visualized portions of the heart are within normal limits. Normal liver. The gallbladder is contracted. Normal spleen. Normal pancreas. Normal bilateral adrenal glands. There is a persistent 5 mm calcific density in the right side of the pelvis near the right ureterovesical junction but with interval resolution of ureteral dilatation and hydronephrosis. The stone may have become nonobstructive or may represent a phlebolith. Correlation with renal protocol CT with delayed excretory phase would be useful. Tiny (1 to 2 mm) nonobstructing stone lower pole the left kidney. Normal visualized stomach. Normal small intestine. Normal colon. There is non-visualization of the appendix. Normal abdominal aorta. Normal inferior vena cava. Normal retroperitoneum. Couple bubbles of gas within the bladder may be related to recent instrumentation. Normal abdominal wall. Normal osseous structures. CT/Abdomen/Pelvis without Cont IMPRESSION: Interval repositioning of distal right ureteral stone with resolution of ureteral dilatation and hydronephrosis or a phlebolith. Correlation with renal protocol CT with delayed excretory phase enhanced images would be useful. Electronically Signed: Mayur Espinosa MD at 23:13 EST ,
== END | disposition home or self-care (01) ==
LOC: CT 18:50
PROVIDERS: Referring Provider Urology; Visit Provider Urology
DX: N13.2 Hydronephrosis with renal and ureteral calculous obstruction (principal)
CPT/HCPCS: 74176

== ENCOUNTER 2023-11-09 07:11 | Day surgery (SDC) | payer BC, MEDICAID, SELFPAY ==
[2023-11-09] VITALS (8 sets, daily range): BP systolic 103–134; BP diastolic 56–95; PULSE 55–69; RESP 16–18; TEMP 36.3–36.8; O2SAT 99–100; BMI 25.0
--- OUTSIDE RECORDS SUMMARY | 2023-11-09 07:27 | XMS RPT_ITS | CCD ---
Author Name Unknown Address [address] [place] [address] Organization [facility] Care Team Providers Care Purse Seiner Name Role Phone NO, DOCTOR ON Consulting Unavailable SHAN DUKE MD Referring Unavailable SHAN DUKE MD Admitting Unavailable SHAN DUKE MD Attending Unavailable SHAN DUKE MD Primary Care Unavailable Unavailable Primary Care Provider Unavailabl e Unavailable Primary Care Provider Unavailabl e DENISE WILLIAM Attending Unavailable ROMARIO ESPINOZA Attending Unavailable MIGNON ONEAL Referring Unavailable MIGNON ONEAL Referring Unavailable Allergies Allergy Classification Reported Allergen(s) Allergy Type Date of Onset Reaction(s) Facility (6 sources) Sulfonamides (Antibiotic); Translations: [SULFA (SULFONAMIDE ANTIBIOTICS)] Drug Allergy 02-15-2022 Anaphylaxis [facility] Medications Completed/Discontinued Medications Medication Drug Class(es) Dates Sig (Normalized) Sig (Original) acetaminophen 325 mg oral tablet (2 sources) take 2 tablets by mouth every six hours as needed acetaminophen (TYLENOL) 325 mg tablet Take 650 mg by mouth every 6 hours as needed for pain. 0 Active Problems Problem Classification Problem Date Documented Da te Episodic/Chronic Fracture of upper limb (2 sources) Closed fracture of middle phalanx of middle finger; Translations: [Displaced fracture of middle phalanx of left middle finger, initial encounter for closed fracture] 05-26-2023 Episodic Nonspecific chest pain (1 source) Chest pain; Translations: [Chest pain, unspecified] Episodic Other connective tissue disease (1 source) Pain in finger of left hand; Translations: [Pain in left finger(s)] 05-29-2023 Episodic Other nervous system disorders (1 source) Tremor; Translations: [Tremor, unspecified] Episodic Residual codes; unclassified (1 source) Pain; Translations: [Pain, unspecified] 05-09-2023 Episodic Residual codes; unclassified (1 source) Pain, unspecified; Translations: [Pain] Onset: 05-09-2023 Episodic Results Test Name Value Interpretation Reference Range Facil ity Vital Signs Date Time Vital Sign Value Performing Clinician Shakir landry 05-09-2023 18:39-0400 Body temperature 99.39 [degF] Mignon Oneal APRN.FBI FIELD AGENT Work Phone: [facility] 05-09-2023 18:39-0400 Body weight 68.49 kg Mignon Oneal APRN.[employer] FIELD AGENT Work Phone: [facility] 05-09-2023 18:39-0400 Diastolic blood pressure 80 mm[Hg] Mignon Oneal APRN.FBI FIELD AGENT Work Phone: [facility] 05-09-2023 18:39-0400 Heart rate 74 /min Mignon Oneal APRN.FBI FIELD AGENT Work Phone: [facility] 05-09-2023 18:39-0400 Respiratory rate 18 /min Mignon Oneal APRN.FBI FIELD AGENT Work Phone: [facility] 05-09-2023 18:39-0400 SaO2% (BldA) [Mass fraction] 97 % Mignon Oneal APRN.FBI FIELD AGENT Work Phone: [facility] 05-09-2023 18:39-0400 Systolic blood pressure 122 mm[Hg] Mignon Oneal APRN.[employer]BI FIELD AGENT Work Phone: [facility] 02-15-2022 16:25-0400 Body temperature 98.01 [degF] Ngoc Briggs APRN.FBI FIELD AGENT Work Phone: [facility] 02-15-2022 16:25-0400 Body weight 73.21 kg Ngoc Goldstein-Gigi MUTUAL FUND ACCOUNTANT.FBI FIELD AGENT Work Phone: [facility] 02-15-2022 16:25-0400 Diastolic blood pressure 68 mm[Hg] Ngoc Velsacoler-Gigi MUTUAL FUND ACCOUNTANT.FBI FIELD AGENT Work Phone: [facility] 02-15-2022 16:25-0400 Heart rate 82 /min Ngoc Goldstein-Gigi RAMANN.FBI FIELD AGENT Work Phone: [facility] 02-15-2022 16:25-0400 Respiratory rate 21 /min Ngoc Briggs APRN.RADHA Work Phone: [facility] 02-15-2022 16:25-0400 SaO2% (BldA) [Mass fraction] 100 % Ngoc Briggs APRN.RADHA Work Phone: [facility] 02-15-2022 16:25-0400 Systolic blood pressure 102 mm[Hg] Ngoc Briggs APRN.RADHA Work Phone: [facility] Encounters Encounter Date Encounter Type Care Provider Facility Start: 06-08-2023 Telephone encounter Mignon Oneal APRN.RADHA Work Phone: [facility] Plan of Treatment Date Care Activity Detail Author Start: 06-30-2023 Influenza vaccination INFLUENZA (#1) [facility] Start: 2023 COLOGUARD (FIT-DNA) COLOGUARD (FIT-D NA) [facility] Start: 2023 Colonoscopy COLONOSCOPY [facility] Start: 2023 COLORECTAL CANCER SCREENING COLORECTAL CANCER SCREENING [facility] Start: [address] COLONOGRAPHY [facility] Start: 2023 DIABETES SCREEN DIABETES SCREEN [facility] Start: 2023 FECAL OCCULT BLOOD FECAL OCCULT BLOO D [facility] Start: 2023 LIPID SCREEN LIPID SCREEN [facility] Start: 2023 SIGMOIDOSCOPY SIGMOIDOSCOPY [facility] Start: 10-30-2022 DEPRESSION ASSESSMENT DEPRESSION ASS ESSMENT [facility] Start: 06-30-2022 Influenza vaccination INFLUENZA (Sea son Ended) [facility] Start: 12-28-2021 COVID-19 VACCINE (4 - Pfizer series) COVID-19 VACCINE (4 - Pfizer series) [facility] Start: 2018 Mammography MAMMOGRAM [facility] Start: 2008 HPV TESTING HPV TESTING [facility] Start: 1999 PAP TESTING PAP TESTING [facility] Start: 1997 Urine microalbumin profile DTAP,TDAP ,TD (1 - Tdap) [facility] Start: 1996 HEPATITIS C SCREENING HEPATITIS C SC ZABRINA [facility] Start: 1996 HIV SCREENING HIV SCREENING [facility] Start: 1990 Adult depression scr eening assessment DEPRESSION SCREENING [facility] Start: 1984 PNEUMOCOCCAL (1 - PCV) PNEUMOCOCCAL (1 - PCV) [facility] Start: 1978 HEPATITIS B (1 of 3 - 3-dose series) HEPATITIS B (1 of 3 - 3-dose series) [facility] Payers Date Payer Category Payer Medicaid [employer] MEDICAID AN[employer]M [facility] MEDICA[facility] [id number] 2022-Present [phone] [address] [place] [address] Medicaid [id number] 2022 Medicaid [id number] 2021 Medicaid [employer] [employer] [id number] 2021-Present [phone] [address] [place] [address] Medicaid [id number] 1978 Unknown [id number] Private Health Insurance [id number] Social History Date Type Detail Facility Tobacco smoking status ALIS Tobacco smoking consumption unknown [facility] Start: 1978 Sex Assigned At Not on file [facility] Start: 02-05-2022 End: 02-15-2022 Exposure to SARS-CoV-2 (event) Not sure [facility] Work Phone: Start: 05-09-2023 Tobacco smoking status ALIS Smokes tobacco daily [facility] History of tobacco use Cigarette Smoker [facility] Start: 05-09-2023 End: 05-29-2023 Tobacco use and exposure Smokeless tobacco non-user [facility] Start: 05-09-2023 End: 05-26-2023 History of Social function [facility] Start: 05-09-2023 End: 05-26-2023 Tobacco use panel [facility] Start: 05-26-2023 End: 05-29-2023 Alcohol intake Ex-drinker (finding) [facility] National Score (1-100), lower number is lower risk 50 [facility] Start: 05-29-2023 Tobacco smoking status NHIS Ex-smoker [facility] History of tobacco use Current smoker [facility] Clinical Notes 02-15-2022 to 06-08-2023 Telephone Encounter - Anjelica Meier - 06/08/2023 2:43 PM EDTDenise William PA-C - 05/29/2023 1:59 PM EDTMAnya Cullen - 05/29/2023 1:11 PM EDRomario Gilman V, DO - 05/26/2023 3:18 PM EDT Note Date & Type Note Facility 06-08-2023 Miscellaneous Notes POPULATION HEALTH NAVIGATION OUTREACH Action/ call-unable to LVM for patient regarding consult to varun BLEVINS. Patient Identified by Name and : NO Outreach Outcome/Action Unable to reach patient: Phone number not valid / voicemail full Did you use a PCP flex slot to schedule this appointment? N/A Reason for Outreach Care Gap or Scheduling/Wellness visits Payer: Payor: [facility] MEDICAID / Plan: [facility] MEDICA[facility] / Product Type: Medicaid / Care Gap Reviewed:: Specialty Scheduling Reminder: Reminder note to check Health Maintenance for items below Health Maintenance items due: HEPATITIS B(1 of 3 - 3-dose series) Never done HEPATITIS C SCREENING Never done HIV SCREENING Never done DTAP,TDAP,TD(1 - Tdap) Never done PAP TESTING Never done HPV TESTING Never done MAMMOGRAM Never done COVID-19 VACCINE(4 - Pfizer series) due on 12/28/2021 DEPRESSION ASSESSMENT Never done LIPID SCREEN Never done DIABETES SCREEN Never done COLORECTAL CANCER SCREENING Never done Navigation Signature: Anjelica Meier June 08, 2023 2:43 PM documented in this encounter [facility] 05-29-2023 Note HNO ID: [id number] Author: Denise William PA-C Service: ? Author Type: Physician Metallurgy Teacher Type: Progress Notes Filed: 05/29/2023 2:05 PM Note Text: Denise William PA-C Department of Orthopaedics [facility] [address] [place] [address] Dept: [phone] Dept May 29, 2023 CHIEF COMPLAINT: New and Fracture of the Left middle Finger (Xray 05/09/2023) Ms. Terra Mendoza is a 43 year old female who presents with an injury to her left middle finger which occurred almost a month ago. Patient was on vacation in [place], she was swinging from a rope when the rope became twisted around her finger. She has been wearing a finger splint since her visit to urgent care 2 days after the injury. Pain is a 8/10 if finger is bumped. 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 ASSESSMENT: S62.623D Closed displaced fracture of middle phalanx of left middle finger with routine healing, subsequent encounter (primary encounter diagnosis) M79.645 Pain in finger of left hand PLAN: Fracture is in near anatomic alignment, the patient is already almost 3 weeks out from the injury. We discussed having her discontinue the finger splint during light activities such as eating, dressing or resting. She can continue the finger splint during heavier activities at work but just for the next week or 2. Ms. Terra Mendoza was advised as to contrast therapies and/or to take analgesics/anti-inflammatories as needed and all contraindications were reviewed. OBJECTIVE: Ms. Terra Mendoza is a pleasant 43 year old in no apparent distress. Gen:There were no vitals taken for this visit. nl development, non obese, no deformities ENT: Normocephalic, normal hearing, moist mucosa CV: Pulses:Radial= 2+ and symmetric, capillary refill < 2 secs, no peripheral edema/varicosities Skin: no rash, bruising or lesions. Good turgor. Psych: cooperative and appropriate, alert and oriented x 3, good mood and affect. Musculoskeletal: Moderate but appropriate edema over the left middle digit extending from the middle phalanx to the pad of the digit. Patient is able to form a loose composite fist and extend all digits without any malrotation, there is subjective stiffness of the left middle PIP and DIP joints. Digit is stable to collateral stresses. Sensation is intact to the left middle digit. Imaging: IMPRESSION: Fracture involving the intermediate phalanx of the third finger Animal Damage Control Agent: ELVIE Transcribe Date/Time: May 09 2023 7:02P Dictated by : IRVIN ANGEL MD This examination was interpreted and the report reviewed and electronically signed by: IRVIN ANGEL MD on May 09 2023 7:04PM EST Results-Findings * * *Final Report* * * DATE OF EXAM: May 09 2023 6:59PM WOX [id number] - XR HAND 3V PA/LAT/OBL LT / PROCEDURE REASON: Pain * * * * Physician Interpretation * * * * LEFT HAND X-RAY SERIES HISTORY: Pain TECHNIQUE: PA, lateral and oblique views. COMPARISON: None available. RESULT: There is a fracture involving the mid to distal intermediate phalanx of the third finger. The fracture appears nondisplaced. No other fractures are identified. No evidence of dislocation. Joint spaces appear unremarkable. Supporting Subjective Information Below: Past Surgical History: No past surgical history on file. Medications: Current Outpatient Medications Medication Sig acetaminophen (TYLENOL) 325 mg tablet Take 650 mg by mouth every 6 hours as needed for pain. buprenorphine-naloxone (SUBOXONE) 8-2 mg film ONE FILM UNDER THE TONGUE TWICE DAILY gabapentin (NEURONTIN) 100 mg capsule TAKE 1 CAPSULES (100 MG) BY ORAL ROUTE 4 TIMES PER DAY traZODone (DESYREL) 50 mg tablet Take 50 mg by mouth daily at bedtime. No current facility-administered medications for this visit. Allergies: Sulfa (Sulfonamide Antibiotics) ROS: General (negative for fatigue, malaise, weight loss/gain) HEENT (negative for headache, earache, recent vision changes, sinus pain, sore throat) Respiratory (no recent shortness of breath, hemoptysis) CV (negative for chest tightness, palpitations) Musculoskeletal (see HPI) Psych (no depression, anxiety) This note was partially generated using [employer] voice recognition system, and there may be some incorrect words, spellings, and punctuation that were not noted in checking the note before saving. Denise William PA-C [facility] 05-29-2023 Note HNO ID: [id number] Author: Anya Collazo Service: ? Author Type: ? Type: Progress Notes Filed: 05/29/2023 2:05 PM Note Text: Patient presents with: Left Ring Finger - New, Fracture: Xray 05/09/2023 Patient reports intermittent pain with activity. She wears a splint and takes tylenol. AMB ROOMING INTAKE FLOWSHEET DATA Pain Pain Level: 8 Pain Location: Finger Description: Radiating, Throbbing Duration Amount of Time: 22 Duration Units: Days Frequency: Intermittent Intervention/Comfort measure: Medication, Splinting [facility] 05-29-2023 History of Presen t illness Narrative Denise William PA-C Department of Orthopaedics Orthopaedics [address] [facility] [place] [address] Dept: [phone] Dept May 29, 2023 CHIEF COMPLAINT: New and Fracture of the Left middle Finger (Xray 05/09/2023) Ms. Terra Mendoza is a 43 year old female who presents with an injury to her left middle finger which occurred almost a month ago. Patient was on vacation in [place], she was swinging from a rope when the rope became twisted around her finger. She has been wearing a finger splint since her visit to urgent care 2 days after the injury. Pain is a 8/10 if finger is bumped. 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 ASSESSMENT: S62.641E Closed displaced fracture of middle phalanx of left middle finger with routine healing, subsequent encounter (primary encounter diagnosis) M79.645 Pain in finger of left hand PLAN: Fracture is in near anatomic alignment, the patient is already almost 3 weeks out from the injury. We discussed having her discontinue the finger splint during light activities such as eating, dressing or resting. She can continue the finger splint during heavier activities at work but just for the next week or 2. Ms. Terra Mendoza was advised as to contrast therapies and/or to take analgesics/anti-inflammatories as needed and all contraindications were reviewed. OBJECTIVE: Ms. Terra Mendoza is a pleasant 43 year old in no apparent distress. Gen:There were no vitals taken for this visit. nl development, non obese, no deformities ENT: Normocephalic, normal hearing, moist mucosa CV: Pulses:Radial= 2+ and symmetric, capillary refill < 2 secs, no peripheral edema/varicosities Skin: no rash, bruising or lesions. Good turgor. Psych: cooperative and appropriate, alert and oriented x 3, good mood and affect. Musculoskeletal: Moderate but appropriate edema over the left middle digit extending from the middle phalanx to the pad of the digit. Patient is able to form a loose composite fist and extend all digits without any malrotation, there is subjective stiffness of the left middle PIP and DIP joints. Digit is stable to collateral stresses. Sensation is intact to the left middle digit. Imaging: IMPRESSION: Fracture involving the intermediate phalanx of the third finger Animal Damage Control Agent: [facility] Transcribe Date/Time: May 09 2023 7:02P Dictated by : IRVIN ANGEL MD This examination was interpreted and the report reviewed and electronically signed by: IRVIN ANGEL MD on May 09 2023 7:04PM EST Results-Findings * * *Final Report* * * DATE OF EXAM: May 09 2023 6:59PM WOX [id number] - XR HAND 3V PA/LAT/OBL LT / PROCEDURE REASON: Pain * * * * Physician Interpretation * * * * LEFT HAND X-RAY SERIES HISTORY: Pain TECHNIQUE: PA, lateral and oblique views. COMPARISON: None available. RESULT: There is a fracture involving the mid to distal intermediate phalanx of the third finger. The fracture appears nondisplaced. No other fractures are identified. No evidence of dislocation. Joint spaces appear unremarkable. Supporting Subjective Information Below: Past Surgical History: No past surgical history on file. Medications: Current Outpatient Medications Medication Sig acetaminophen (TYLENOL) 325 mg tablet Take 650 mg by mouth every 6 hours as needed for pain. buprenorphine-naloxone (SUBOXONE) 8-2 mg film ONE FILM UNDER THE TONGUE TWICE DAILY gabapentin (NEURONTIN) 100 mg capsule TAKE 1 CAPSULES (100 MG) BY ORAL ROUTE 4 TIMES PER DAY traZODone (DESYREL) 50 mg tablet Take 50 mg by mouth daily at bedtime. No current facility-administered medications for this visit. Allergies: Sulfa (Sulfonamide Antibiotics) ROS: General (negative for fatigue, malaise, weight loss/gain) HEENT (negative for headache, earache, recent vision changes, sinus pain, sore throat) Respiratory (no recent shortness of breath, hemoptysis) CV (negative for chest tightness, palpitations) Musculoskeletal (see HPI) Psych (no depression, anxiety) This note was partially generated using [employer] voice recognition system, and there may be some incorrect words, spellings, and punctuation that were not noted in checking the note before saving. Denise William PA-C Patient presents with: Left Ring Finger - New, Fracture: Xray 05/09/2023 Patient reports intermittent pain with activity. She wears a splint and takes tylenol. AMB ROOMING INTAKE FLOWSHEET DATA Pain Pain Level: 8 Pain Location: Finger Description: Radiating, Throbbing Duration Amount of Time: 22 Duration Units: Days Frequency: Intermittent Intervention/Comfort measure: Medication, Splinting documented in this encounter [facility] 05-26-2023 Note HNO ID: [id number] Author: Romario Grigsby V DO Service: ? Author Type: Physician Type: Progress Notes Filed: 05/26/2023 3:52 PM Note Text: SUBJECTIVE: Terra Mendoza is a 43 year old female who is here for a left middle finger injury. It occurred on 05/09/23 when she was swinging from a rope swing and her finger got twisted rope. He states that there was an obvious visible deformity right away she self reduced. She was seen in [facility] upon returning from her trip to [place]. X-ray showed a fracture of the middle phalanx. She has been wearing a aluminum splint since that time. Symptoms include pain and stiffness of the finger. No past medical history on file. No past surgical history on file. EXAM: General: cooperative and NAD Location: Left middle finger: There is a slight rotational deformity of middle and distal phalanx with rotation. Negative for: crepitation or instability Neurovascular: intact X-ray: fracture involving the mid to distal intermediate phalanx of the third finger. The fracture appears nondisplaced. No other fractures are identified IMPRESSION: closed fracture left third finger, middle phalanx PLAN: continue with splinting, ice, elevation Patient Instructions: due to mild rotational component, I recommend consult with Dr. Mcgrath next week. Romario Grigsby, [facility] 05-26-2023 Note HNO ID: [id number] Author: Anya Collazo Service: ? Author Type: ? Type: Progress Notes Filed: 05/26/2023 3:52 PM Note Text: Patient presents with: left middle finger fracture: DOI 05/07/2023 xrays done 05/09/2023 Patient reports date of injury 05/07/2023. Mechanism of injury was her finger pulled while using a rope swing. She had xrays at and they placed a splint on 05/09/23. She reports constant pain. She uses OTC meds for pain. AMB ROOMING INTAKE FLOWSHEET DATA Pain Pain Level: 8 Pain Location: Finger Description: Throbbing Duration Amount of Time: 19 Duration Units: Days Frequency: Continuous Intervention/Comfort measure: Medication, Splinting [facility] 05-26-2023 History of Presen t illness Narrative SUBJECTIVE: Terra Mendoza is a 43 year old female who is here for a left middle finger injury. It occurred on 05/09/23 when she was swinging from a rope swing and her finger got twisted rope. He states that there was an obvious visible deformity right away she self reduced. She was seen in [facility] upon returning from her trip to [place]. X-ray showed a fracture of the middle phalanx. She has been wearing a aluminum splint since that time. Symptoms include pain and stiffness of the finger. No past medical history on file. No past surgical history on file. EXAM: General: cooperative and NAD Location: Left middle finger: There is a slight rotational deformity of middle and distal phalanx with rotation. Negative for: crepitation or instability Neurovascular: intact X-ray: fracture involving the mid to distal intermediate phalanx of the third finger. The fracture appears nondisplaced. No other fractures are identified IMPRESSION: closed fracture left third finger, middle phalanx PLAN: continue with splinting, ice, elevation Patient Instructions: due to mild rotational component, I recommend consult with Dr. Mcgrath next week. Romario Grigsby DO Patient presents with: left middle finger fracture: DOI 05/07/2023 xrays done 05/09/2023 Patient reports date of injury 05/07/2023. Mechanism of injury was her finger pulled while using a rope swing. She had xrays at and they placed a splint on 05/09/23. She reports constant pain. She uses OTC meds for pain. AMB ROOMING INTAKE FLOWSHEET DATA Pain Pain Level: 8 Pain Location: Finger Description: Throbbing Duration Amount of Time: 19 Duration Units: Days Frequency: Continuous Intervention/Comfort measure: Medication, Splinting documented in this encounter [facility] 05-09-2023 Note HNO ID: [id number] Author: RT Teresa(R) Service: Radiology Author Type: Technologist Type: Progress Notes Filed: 05/09/2023 6:59 PM Note Text: Radiology Service Progress Note PATIENT NAME: Terra Mendoza DATE OF SERVICE: May 09, 2023 TIME: 6:53 PM PATIENT IDENTITY VERIFICATION COMPLETED USING TWO (2) IDENTIFIERS: Name and Date of confirmed by patient verbally. FALL SCREENING: Has the patient had 2 falls in the last year or 1 fall with injury or currently using an Ambulatory Assistive Device (Walker, Cane, Wheelchair, Crutches, etc.)? No PATIENT GENDER DATA: Female. status: : No status: NO. PATIENT RELEVANT IMPLANT DATA REVIEWED: Yes RADIOLOGY DEPARTMENT: General X-ray: Exam(s) Completed: Upper Extremity X-Ray(s): Hand, left PERIPHERAL IV DATA: Not applicable SIGNED BY: RT Teresa(R) May 09, 2023 6:[address] [facility] 05-09-2023 Note HNO ID: [id number] Author: Mignon Oneal APRN.[facility] Service: ? Author Type: Nurse Practitioner Type: Progress Notes Filed: 05/09/2023 7:17 PM Note Text: Subjective She came in with complaints of left hand and finger pain. Patient says she was swinging from a rope into a de[place] and her hand got stuck in the rope. Patient says it was about 2 days ago still seems to be very tender. Patient denies any numbness tingling or loss of feeling. Patient denies any decreased range of motion. Patient denies any wrist pain. The history is provided by the patient. No russian language instructor was used. Review of Systems Constitutional: Negative. Skin: Negative. Objective Physical Exam Constitutional: Appearance: Normal appearance. Pulmonary: Effort: Pulmonary effort is normal. Musculoskeletal: Hands: Comments: Patient is experiencing pain in the area marked above. Minimal bruising noted. Mild amount of swelling noted. Neurological: Mental Status: She is alert. History reviewed. No pertinent past medical history. No past surgical history on file. ALLERGIES Sulfa (Sulfonamide Antibiotics) MEDICATIONS buprenorphine-naloxone (SUBOXONE) 8-2 mg film ONE FILM UNDER THE TONGUE TWICE DAILY gabapentin (NEURONTIN) 100 mg capsule TAKE 1 CAPSULES (100 MG) BY ORAL ROUTE 4 TIMES PER DAY traZODone (DESYREL) 50 mg tablet Take 50 mg by mouth daily at bedtime. No family history on file. Social History Tobacco Use Smoking status: Every Day Types: Cigarettes Smokeless tobacco: Never ASSESSMENT/PLAN: 1. Pain - ICD9: 780.96, ICD10: R52 - XR HAND GENERAL 3V PA/LAT/OBL LEFT * * * * Physician Interpretation * * * * LEFT HAND X-RAY SERIES HISTORY: Pain TECHNIQUE: PA, lateral and oblique views. COMPARISON: None available. RESULT: There is a fracture involving the mid to distal intermediate phalanx of the third finger. The fracture appears nondisplaced. No other fractures are identified. No evidence of dislocation. Joint spaces appear unremarkable. IMPRESSION IMPRESSION: Fracture involving the intermediate phalanx of the third finger Animal Damage Control Agent: ELVIE Transcribe Date/Time: May 09 2023 7:02P Dictated by : IRVIN ANGEL MD - CONSULT TO ORTHOPAEDICS Patient was placed in a finger splint. Patient will schedule her own orthopedic follow-up. Patient will rest it and keep in the splint until she follows up with orthopedics. Patient was okay with this. Mignon Oneal APRN.[facility] 05-09-2023 History of Presen t illness Narrative Images from the original note were not included. Subjective She came in with complaints of left hand and finger pain. Patient says she was swinging from a rope into a dewey and her hand got stuck in the rope. Patient says it was about 2 days ago still seems to be very tender. Patient denies any numbness tingling or loss of feeling. Patient denies any decreased range of motion. Patient denies any wrist pain. The history is provided by the patient. No russian language instructor was used. Review of Systems Constitutional: Negative. Skin: Negative. Objective Physical Exam Constitutional: Appearance: Normal appearance. Pulmonary: Effort: Pulmonary effort is normal. Musculoskeletal: Hands: Comments: Patient is experiencing pain in the area marked above. Minimal bruising noted. Mild amount of swelling noted. Neurological: Mental Status: She is alert. History reviewed. No pertinent past medical history. No past surgical history on file. ALLERGIES Sulfa (Sulfonamide Antibiotics) MEDICATIONS buprenorphine-naloxone (SUBOXONE) 8-2 mg film ONE FILM UNDER THE TONGUE TWICE DAILY gabapentin (NEURONTIN) 100 mg capsule TAKE 1 CAPSULES (100 MG) BY ORAL ROUTE 4 TIMES PER DAY traZODone (DESYREL) 50 mg tablet Take 50 mg by mouth daily at bedtime. No family history on file. Social History Tobacco Use Smoking status: Every Day Types: Cigarettes Smokeless tobacco: Never ASSESSMENT/PLAN: 1. Pain - ICD9: 780.96, ICD10: R52 - XR HAND GENERAL 3V PA/LAT/OBL LEFT * * * * Physician Interpretation * * * * LEFT HAND X-RAY SERIES HISTORY: Pain TECHNIQUE: PA, lateral and oblique views. COMPARISON: None available. RESULT: There is a fracture involving the mid to distal intermediate phalanx of the third finger. The fracture appears nondisplaced. No other fractures are identified. No evidence of dislocation. Joint spaces appear unremarkable. IMPRESSION IMPRESSION: Fracture involving the intermediate phalanx of the third finger Animal Damage Control Agent: ELVIE Transcribe Date/Time: May 09 2023 7:02P Dictated by : IRVIN ANGEL MD - CONSULT TO ORTHOPAEDICS Patient was placed in a finger splint. Patient will schedule her own orthopedic follow-up. Patient will rest it and keep in the splint until she follows up with orthopedics. Patient was okay with this. Mignon Oneal APRN.[employer] documented in this encounter [facility] 02-15-2022 History of Presen t illness Narrative Subjective HPI Terra Mendoza is a 41 year old female who presents with chills, fever, body aches, headache. She states these symptoms are improving but she is here because last night she had a shaking episode so bad that she thought she was having a seizure, her temperature spiked to 103 degrees, she felt like her heart was racing, and afterwards her jaw and her left arm was aching for a while. She drank pineapple juice because she thought she may have low blood sugar and the symptoms resolved. She does not have a history of low blood sugars. She wants to be reassured that her heart was not the cause of the symptoms last night. She is not currently having any symptoms but does relate that few days prior to this she was having chest pain. Review of Systems Constitutional: Positive for chills and fever. Cardiovascular: Positive for chest pain. Musculoskeletal: Positive for myalgias. Neurological: Positive for tremors and headaches. BP 102/68 Pulse 82 Temp 36.7 C (98 F) Resp 21 Wt 73.2 kg (161 lb 6.4 oz) SpO2 100% No past medical history on file. No past surgical history on file. ALLERGIES Sulfa (Sulfonamide Antibiotics) MEDICATIONS No prescriptions on file. No family history on file. Social History Tobacco Use Smoking status: Not on file Smokeless tobacco: Not on file Substance Use Topics Alcohol use: Not on file Drug use: Not on file Objective Physical Exam Constitutional: Appearance: Normal appearance. Cardiovascular: Rate and Rhythm: Normal rate. Pulmonary: Effort: Pulmonary effort is normal. Skin: General: Skin is warm and dry. Neurological: Mental Status: She is alert and oriented to person, place, and time. ASSESSMENT/PLAN: 1. Episode of shaking - ICD9: 781.0, ICD10: R25.1 (primary diagnosis) 2. Chest pain, unspecified type - ICD9: 786.50, ICD10: R07.9 - Patient seeking reassurance that her chest pain, arm pain, jaw pain, and increased heart rate last night were not caused by her heart. This type of reassurance cannot be given in [facility] as we cannot do EKG or stat cardiac labs here. Patient referred to ER for further evaluation and treatment. She is agreeable. Ngoc Briggs APRN.CNP documented in this encounter [facility] Pain- Primary Generalized pain [facility] Diagnosis Closed displaced fracture of middle phalanx of left middle finger, initial encounter- Primary [facility] Diagnosis Closed displaced fracture of middle phalanx of left middle finger with routine healing, subsequent encounter- Primary Pain in finger of left hand Pain in limb documented in this encounter [facility] Summary Purpose Family History No Family History Records FoundNo Family History Records FoundNo Family History Records Found Advance Directives No Advanced Directives Records FoundNo Advanced Directives Records FoundNo Advanced Directives Records Found Reason for Referral Specialty Diagnoses / Procedures Referred By Lucía t Referred To Contact Orthopedics Diagnoses Pain Procedures CONSULT TO ORTHOPAEDICS OFFICE/OUTPATIENT [facility] 60-74 MINUTES Mignon Oneal APRN.CNP [address] [place] [address] Referral ID Status Reason Start Date Expiration Date Visits Requested Visits Authorized [id number] Pending Review PCP Requested Referral 05/09/2023 05/08/2024 1 1 Specialty Diagnoses / Procedures Referred By Contac t Referred To Contact XR IMAGING Diagnoses Pain Procedures XR HAND GENERAL 3V PA/LAT/OBL LEFT RADEX HAND MINIMUM 3 VIEWS Mignon Oneal APRN.CNP [address] [place] [address] Xr Imaging Referral ID Status Reason Start Date Expiration Date V isits Requested Visits Authorized [id number] Closed Auto-Generate d Referral 05/09/2023 06/07/2024 1 1 Additional Source Comments INFORMATION SOURCE (unrecogn ized section and content) DATE CREATED AUTHOR AUTHOR'S ORGANLD ATION 08/08/2019 [facility] DATE CREATED AUTHOR AUTHOR'S ORGANLD ATION 06/09/[address] [facility] Source Comments (unrecognize d section and content) In the event this informatio n is protected by the Federal Confidentiality of Alcohol and Drug Abuse Patient Records regulations: The Federal rules restrict any use of the information to criminally investigate or prosecute any alcohol or drug abuse patient.[facility] event this information is protected by the Federal Confidentiality of Alcohol and Drug Abuse Patient Records regulations: The Federal rules restrict any use of the information to criminally investigate or prosecute any alcohol or drug abuse patient.[facility] the event this information is protected by the Federal Confidentiality of Alcohol and Drug Abuse Patient Records regulations: The Federal rules restrict any use of the information to criminally investigate or prosecute any alcohol or drug abuse patient.[facility] the event this information is protected by the Federal Confidentiality of Alcohol and Drug Abuse Patient Records regulations: The Federal rules restrict any use of the information to criminally investigate or prosecute any alcohol or drug abuse patient.[facility] the event this information is protected by the Federal Confidentiality of Alcohol and Drug Abuse Patient Records regulations: The Federal rules restrict any use of the information to criminally investigate or prosecute any alcohol or drug abuse patient.[facility] Reason for Visit (unrecogniz ed section and content) Reason Comments left hand pain Injured it 2 days ag o swimming Reason Comments left middle finger fracture DOI 05/07/2023 xrays done 05/09/2023 Reason Comments New Xray 05/09/2023 Fracture Xray 05/09/2023 Reason Comments Appointment FOR RECORDS PERTAINING TO PATIENTS WHO ARE OR HAVE BEEN ENROLLED IN A CHEMICAL DEPENDENCY/SUBSTANCEABUSE PROGRAM, SOME INFORMATION MAY BE OMITTED. This clinical summary was aggregated from multiple sources. Caution should be exercised in using it in the provision of clinical care. This summary normalizes information from multiple sources, and as a consequence, information in this document may materially change the coding, format and clinical context of patient data. In addition, data may be omitted in some cases. CLINICAL DECISIONS SHOULD BE BASED ON THE PRIMARY CLINICAL RECORDS. [facility]. provides no warranty or guarantee of the accuracy or completeness of information in this document.
--- NOTE | 2023-11-09 07:41 | HP.PCM_ITS ---
HPI - General General Chief Complaint: right ureteral stone HPI Narrative JERRI JIMENEZ, is a 43 F who presents for ureteroscopy for evaluation and management of right ureteral stone at the [facility] on CT. Informed consent was obtained. [facility] Medical History (Updated 11/09/23 @ 07:[address] Lise Méndez MD) Anxiety Asthma Depression History of ulceration Leg cramps Marijuana use Right ureteral stone Shortness of breath on exertion Substance abuse Vapes nicotine containing substance Wears glasses Home Medications buprenorphine 8 mg-naloxone 2 mg sublingual film 8 ea sublingual BID 02/15/22 [History Last Taken 11/08/23] gabapentin 100 mg capsule 100 mg PO 4X/DAY 02/15/22 [History Last Taken 11/08/23] trazodone 50 mg tablet 50 mg PO QHS 02/15/22 [History Last Taken 11/08/23] cariprazine 1.5 mg capsule (Vraylar) 1.5 mg PO DAILY 11/07/23 [History Last Taken 11/08/23] cephalexin 500 mg capsule 500 mg PO TID 11/07/23 [History Last Taken 11/08/23] Allergy/AdvReac Type Severity Reaction Status Date / Time Sulfa (Sulfonamide Allergy Anaphylaxis Verified 11/07/23 14:07 Antibiotics) Surgical History Hx of oral surgery Hx of tubal ligation Social History household members: significant other and children Smoking Status: Current every day smoker tobacco type: e-cigarettes substance use type: former substance user and opiates Physical Exam Const alert, oriented x3 and no apparent distress General Appearance: cooperative, comfortable and well kempt HEENT normocephalic, head/scalp atraumatic, hearing grossly normal bilaterally, external ears normal, external nose normal and moist oral mucous membranes Eyes no scleral icterus General Eye: normal appearance of both eyes Neck supple Lymph Lymphatic: no lymphedema noted Chest inspection of chest normal Resp normal respiratory effort, normal air movement, no retractions and no use of accessory muscles Cardio regular rate GI soft to palpation, non-tender and non-distended no CVA tenderness Back/Spine no CVA tenderness Extremity normal to inspection Skin no rashes or lesions noted, no wounds, skin turgor normal, no jaundice, no petechiae and no mottling Neuro oriented x3, CN's II-XII intact bilaterally and moves all extremities Psych mental status grossly normal, thought process normal, cooperative and affect normal Assessment & Plan Assessment/Plan (1) Right ureteral stone: PLAN: Plan cystoscopy with right ureteroscopy, laser lithotripsy, stone basket extraction and stent insertion
[2023-11-09] MEDS: Lactated Ringers 1,000 ML 15 ML IV (07:47)
[2023-11-09] MEDS: Cefazolin 2 GM in 0.9% Normal Saline (100mL Bag) 100 ML IV (09:17)
--- NOTE | 2023-11-09 09:24 | OP.PCM_ITS ---
Report of Operation Date of Procedure: 11/09/23 Pre-Operative Diagnosis: Right ureteral calculus Post-Operative Diagnosis: Same Surgery/Procedure Performed:: Cystoscopy, right retrograde pyelogram, Surgeon: Lise Méndez Type of Anesthesia: General Complications None Admit VTE Documentation VTE Present on Admission: Yes VTE Mechan Device Prophylaxis: SCD's VTE Pharm Prophylaxis ordered?: No Reason prophylaxis not ordered:: Treatment Not Indicated
--- NOTE | 2023-11-09 09:24 | PCM.OPRPT ---
Problems Associated Problem List Diagnoses (1) Right ureteral stone: Report of Operation Date of Procedure: 11/09/23 Pre-Operative Diagnosis: Right ureteral calculus Post-Operative Diagnosis: Same Surgery/Procedure Performed:: Cystoscopy, right retrograde pyelogram, right ureteroscopy, holmium laser lithotripsy, stone basket extraction, right ureteral stent insertion Surgeon: Lise Méndez Type of Anesthesia: General Specimen's removed: Right ureteral stone fragments Description of Procedure: The patient is a 43-year-old female with a retained right ureteral stone on repeat imaging who presents for definitive surgical intervention. Informed consent was obtained. She was taken to the operating room and placed on the operating room table. Anesthesia monitored the head, neck, airway, IV access and vital signs throughout the case. Once anesthesia was appropriately administered the patient was placed into dorsolithotomy position and was prepped and draped in usual sterile fashion. The cystoscope was inserted through the urethra under direct visualization into the urinary bladder. The bladder mucosa was visualized in its entirety revealing no evidence of mass, erythema, foreign body. The right ureteral orifice was identified and intubated gently with an 8 Turkmen cone-tip catheter. 1 cc of contrast was injected in retrograde fashion and the stone was clearly outlined. At this time a 0.035 Glidewire was inserted through the right ureter into the renal pelvis is seen on fluoroscopy. The semirigid ureteroscope was used to cannulate the right ureter and advanced without difficulty until the stone was visible. The stone was then broken into approximately 4 to 5 pieces which were stone basket retrieved and sent for analysis. In total the stone was approximately 1 cm in size. At the conclusion of the case, no further stones were seen in the ureter but there was some edema where the stone was located. The safety wire was then used to place a 6 Turkmen 24 cm JJ stent with good positioning in the renal pelvis as well as the urinary bladder. The patient's bladder was then emptied and the cystoscope was removed. She was awakened and taken to the recovery room in good condition. Grafts/Implants Used: 6 x 24 JJ stent Complications None Admit VTE Documentation VTE Present on Admission: Yes VTE Mechan Device Prophylaxis: SCD's VTE Pharm Prophylaxis ordered?: No Reason prophylaxis not ordered:: Treatment Not Indicated
--- NOTE | 2023-11-09 09:25 | DCINST_ITS ---
Discharge Instructions Diet Discharge Diet: No restrictions Activity Discharge Activity: Return to Normal Activity Dressing / Incision Call your doctor if you observe: Fever of 101 or Higher, Inability to urinate and Inability to have a bowel movement Follow Up Care Please Follow Up With: Lise Méndez MD When: the office will call to make arrangements for stent removal Test Results: Test results from this visit will be discussed in further detail at your follow- up appointment, if applicable. Discharge Plan Admission Attending Provider: Lise Méndez Primary Care Provider: Care PhysicianTheodora Primary Discharge Orders/Prescriptions Prescriptions: New oxycodone-acetaminophen [Percocet] 5-325 mg tablet 1 tab PO Q8H PRN (Reason: pain) 3 Days Qty: 10 0RF phenazopyridine [Pyridium] 200 mg tablet 200 mg PO TID PRN PRN (Reason: Bladder Spasms) 7 Days Qty: 30 1RF Continued trazodone 50 mg tablet 50 mg PO QHS gabapentin 100 mg capsule 100 mg PO 4X/DAY Patient Comments: TAKE 1 CAPSULES (100 MG) BY ORAL ROUTE 4 TIMES PER DAY buprenorphine-naloxone 8-2 mg film 8 ea sublingual BID Patient Comments: USE ONE FILM UNDER THE TONGUE TWICE DAILY - 12/14 cephalexin 500 mg capsule 500 mg PO TID Vraylar 1.5 mg capsule 1.5 mg PO DAILY Referrals / Follow Up: Care Physician,Theodora Primary [Primary Care Provider] - Disposition Disposition (needs filled in before D/C Order can be placed): Home, Self Care
[2023-11-21 14:39] LABS: Source RIGHT URETER
[2023-11-21 14:40] LABS: Size 5X3 mm
== END 2023-11-09 11:08 | disposition home or self-care (01) ==
LOC: SDC 07:13 → AC 07:14
PROVIDERS: Referring Provider Urology; Visit Provider Urology
PROC: 0TJ98ZZ Inspection of Ureter, Via Natural or Artificial Opening Endoscopic (ICD-10-PCS; CPT 52352; principal; 2023-11-09 08:30)
DX: N20.1 Calculus of ureter (principal); F17.290 Nicotine dependence, other tobacco product, uncomplicated; F41.9 Anxiety disorder, unspecified; F32.A Depression, unspecified; J45.909 Unspecified asthma, uncomplicated; F12.90 Cannabis use, unspecified, uncomplicated; Z79.899 Other long term (current) drug therapy
CPT/HCPCS: 52356; 00873; 76000; 82360; J7120; C2617; J2405

== ENCOUNTER 2023-11-30 09:57 | Emergency (ER) | payer BC, MEDICAID, SELFPAY ==
[2023-11-30 09:58] VITALS: BP 112/69; PULSE 77; RESP 14; TEMP 36.6; O2SAT 99; BMI 26.1
--- NOTE | 2023-11-30 10:51 | EX.ED.DYSGE1 ---
HPI History of Present Illness Chief Complaint: General Illness Narrative Narrative: 43-year-old female with fever, chills, myalgias, nausea, vomiting. She actually feels better since yesterday. She bought some [id number] flu medicine which helped. Last fever was 102 yesterday. She states she was seen at [facility] and tested for COVID but not influenza or RSV. She states she thought she had a bladder infection today she was seen and tested positive for UTI and was put on Keflex. She states her UTI symptoms have improved tremendously. This morning she feels otherwise well but is concerned to be exposing other people to viral symptoms if she would back to work. [facility] Medical History Anxiety Asthma Depression History of ulceration Leg cramps Marijuana use Right ureteral stone Shortness of breath on exertion Substance abuse Vapes nicotine containing substance Wears glasses Home Medications buprenorphine 8 mg-naloxone 2 mg sublingual film 8 ea sublingual BID 02/15/22 [History Last Taken 11/08/23] gabapentin 100 mg capsule 100 mg PO 4X/DAY 02/15/22 [History Last Taken 11/08/23] trazodone 50 mg tablet 50 mg PO QHS 02/15/22 [History Last Taken 11/08/23] cariprazine 1.5 mg capsule (Vraylar) 1.5 mg PO DAILY 11/07/23 [History Last Taken 11/08/23] cephalexin 500 mg capsule 500 mg PO TID 11/07/23 [History Last Taken 11/08/23] oxycodone-acetaminophen 5 mg-325 mg tablet (Percocet) 1 tab PO Q8H PRN pain 3 days #10 tabs 11/09/23 [Rx Last Taken Unknown] phenazopyridine 200 mg tablet (Pyridium) 200 mg PO TID PRN PRN Bladder Spasms 7 days #30 tabs 11/09/23 [Rx Last Taken Unknown] Allergy/AdvReac Type Severity Reaction Status Date / Time Sulfa (Sulfonamide Allergy Anaphylaxis Verified 11/30/23 09:59 Antibiotics) Surgical History Hx of oral surgery Hx of tubal ligation Social History household members: significant other and children Smoking Status: Current every day smoker tobacco type: e-cigarettes substance use type: former substance user and opiates ROS ROS ED Constitutional Constitutional ED: Reports chills and fever(s); Denies sweats Eyes Eyes: Denies blurry vision or change in vision ENT ENT ED: Denies ear pain or sore throat Cardiovascular Cardiovascular: Denies chest pain, palpitations or racing heartbeat Respiratory/Chest Respiratory/Chest: Reports cough; Denies dyspnea or sputum Gastrointestinal Gastrointestinal: Denies abdominal pain, constipation, diarrhea, nausea or vomiting Genitourinary Genitourinary ED: Denies dysuria, hematuria or urinary frequency Musculoskeletal Musculoskeletal: Reports myalgias; Denies arthralgias or neck pain Integumentary Denies abscess, Abrasions or rash Neurologic Neurologic: Denies headache(s), paresthesias or weakness Psychiatric Psychiatric: Denies anxiety, depression, suicidal ideation or suicidal thoughts Endocrine Endocrinology: Denies polydipsia or polyuria EXAM Physical Exam Const Vital Signs: 11/30/23 09:58 11/30/23 10:33 Temperature 97.8 F Temperature Source Temporal Pulse Rate 77 Respiratory Rate 14 Respiratory Effort Normal Non-Labored Respiratory Pattern Normal Blood Pressure 112/69 Blood Pressure Mean 83 Pulse Ox 99 Oxygen Delivery Method Room Air Positive well nourished General Appearance ED: NAD; Negative for pallor HEENT Reports moist mucous membranes Eyes PERRL and EOMs intact bilaterally Resp normal respiratory effort and clear to auscultation bilaterally Auscultation: Negative for rales, rhonchi or wheezes Cardio regular rate and regular rhythm GI normal to inspection, nondistended, normoactive bowel sounds Neuro oriented x3 and CN's II-XII intact bilaterally Sensorium / Orientation: alert Psych mental status grossly normal Skin no rashes or lesions noted General Skin Exam: Negative for jaundice or pallor MDM MDM MDM Narrative Medical decision making narrative: 43-year-old female presenting with improving symptoms but states she still had a fever yesterday. She was concerned she had influenza. I was able to log into [employer], and I was able to find pertinent medical records available for review to compare to the patient's current lab/imaging/workup. Patient was tested for COVID, influenza, RSV and these were all negative. Urinalysis did have some contamination however the urine culture was positive. The patient was on Keflex and this was susceptible to cefazolin. In fact it was pansensitive. Patient's lungs are clear to auscultation. Heart regular rate and rhythm. Vital signs stable she is afebrile. We discussed that she likely had something viral and since she is 5 days there is no need to test any further. We will check a urinalysis to assess for UTI since she still having fevers. She was amenable to this. Urinalysis negative. Given patient is doing well and I recommend she drink plenty of fluids. I will give her some Zofran for home. Tylenol and ibuprofen for fevers or chills. Impression: 1. Febrile illness 2. History of UTI Lab Data Attestation: I reviewed the patient's lab results. Labs: Laboratory Results - last 24 hr 11/30/23 11:00 Urine Color Yellow Urine Clarity Sl. Cloudy Urine pH 6.0 Ur Specific Sheridan 1.020 Urine Protein 30 H Urine Glucose (UA) Normal Urine Ketones 15 H Urine Occult Blood 25 H Urine Nitrite Negative Urine Bilirubin 1 H Urine Urobilinogen 1 H Ur Leukocyte Esterase 500 H Urine RBC 0-5 SEEN Urine WBC 10-25 SEEN Ur Squamous Epith Cells 0-5 SEEN Urine Bacteria RARE Urine Mucus RARE Discharge Plan Triage Chief Complaint: General Illness ED Provider: Duy Smith Dx/Rx/DC Orders Prescriptions: No Action trazodone 50 mg tablet 50 mg PO QHS gabapentin 100 mg capsule 100 mg PO 4X/DAY Patient Comments: TAKE 1 CAPSULES (100 MG) BY ORAL ROUTE 4 TIMES PER DAY buprenorphine-naloxone 8-2 mg film 8 ea sublingual BID Patient Comments: USE ONE FILM UNDER THE TONGUE TWICE DAILY - 12/14 cephalexin 500 mg capsule 500 mg PO TID Vraylar 1.5 mg capsule 1.5 mg PO DAILY oxycodone-acetaminophen [Percocet] 5-325 mg tablet 1 tab PO Q8H PRN (Reason: pain) 3 Days Qty: 10 0RF phenazopyridine [Pyridium] 200 mg tablet 200 mg PO TID PRN PRN (Reason: Bladder Spasms) 7 Days Qty: 30 1RF Primary Care Provider: Care Physician,No Primary Referrals: Care Physician,No Primary [Primary Care Provider] -
[2023-11-30 11:07] LABS: Color, Urine Yellow (Yellow); Glucose, Dipstick Normal (Normal); Ketone-Dipstick 15 mg/dl (Negative); Leukocyte Esterase-Dipstick 500 /ul (Negative); Nitrite-Dipstick Negative (Negative); Occult Blood-Urine 25 /ul (Negative); Protein-Dipstick 30 mg/dl (Negative); Urine Clarity Sl. Cloudy (Clear); Urine Urobilinogen 1 mg/dl (Normal)
[2023-11-30 11:13] LABS: Urine Bilirubin Dipstick 1 mg/dL (Negative)
[2023-11-30 11:17] LABS: Red Blood Cells-Urine 0-5 SEEN /hpf (0-5); Squamous Epithelial Cells - UA 0-5 SEEN /hpf (5-10)
[2023-11-30 11:18] LABS: Bacteria RARE /hpf (None Seen); Mucous, Urine RARE /hpf (<or=2+); White Blood Cells 10-25 SEEN /hpf (0-5)
--- NOTE | 2023-11-30 11:46 | ED.RN ---
did not rate pain at dc
--- OUTSIDE RECORDS SUMMARY | 2023-11-30 13:06 | XMS RPT_ITS | CCD ---
Author Name Unknown Address [address] [place] [address] Organization [facility] Care Team Providers Care Department Director Name Role Phone NO, DOCTOR ON Consulting [...] [SULFA (SULFONAMIDE ANTIBIOTICS)] Drug Allergy 02-15-2022 Anaphylaxis [facility] (1 source) Sulfonamide; Translations: [sulfa drugs] Drug allergy [facility] Medications Current Medications Medication Drug Class(es) Dates Sig (Normalized) Sig (Original) cephalexin 500 mg oral capsule (1 source) Cephalosporin Antibacterial Start: 11-28-2023 End: 12-05-2023 cephalexin 500 mg oral capsule Dose : 500 mg = 1 cap(s), Oral, TID, X 7 day(s), # 21 cap(s), 0 Refill(s), 12/05/23 1:30:00 AM EST, 68.2 Start Date: 11/28/23 Stop Date: 12/05/23 Status: Ordered Completed/Discontinued Medications Medication Drug Class(es) Dates Sig [...] Pain, unspecified; Translations: [Pain] Onset: 05-09-2023 Episodic Urinary tract infections (1 source) Urinary tract infectious disease; Translations: [Urinary tract infection, site not specified] Onset: 11-28-2023 Episodic Viral infection (1 source) Viral disease; Translations: [Other viral agents as the cause of diseases classified elsewhere] Onset: 11-28-2023 Episodic Results Test Name Value Interpretation Reference Range Facil ity Vital Signs Date Time Vital Sign Value Performing Clinician Facility 11-28-2023 00:25-0500 Blood [facility] 11-28-2023 00:25-0500 Blood [facility] 11-28-2023 00:25-0500 Blood Pressure [facility] O [facility] 11-28-2023 00:25-0500 Body height 162.6 cm [facility] 11-28-2023 00:25-0500 Body temperature 97.88 [degF] [facility] 11-28-2023 00:25-0500 Body weight 68.2 kg [facility] 11-28-2023 00:25-0500 Diastolic Blood Pressure Non-Invasive 61 mm[Hg] JUSTIN REICHFIELD DO [facility] 11-28-2023 00:25-0500 Heart rate 92 /min JUSTIN REICHFIELD DO [facility] 11-28-2023 00:25-0500 Respiratory rate 20 /min [facility] 11-28-2023 00:25-0500 Systolic Blood Pressure Non-Invasive 114 mm[Hg] JUSTIN REICHFIELD DO [facility] 05-09-2023 18:39-0400 Body temperature 99.39 [degF] Mignon Oneal APRN.TUMBLER DRIER OPERATOR Work Phone: [facility] 05-09-2023 18:39-0400 Body weight 68.49 kg Mignon Oneal APRN.TUMBLER DRIER OPERATOR Work Phone: [facility] 05-09-2023 18:39-0400 Diastolic blood pressure 80 mm[Hg] Mignon Oneal APRN.TUMBLER DRIER OPERATOR Work Phone: [facility] 05-09-2023 18:39-0400 Heart rate 74 /min Mignon Oneal APRN.TUMBLER DRIER OPERATOR Work Phone: [facility] 05-09-2023 18:39-0400 Respiratory rate 18 /min Mignon Oneal APRN.TUMBLER DRIER OPERATOR Work Phone: [facility] 05-09-2023 18:39-0400 SaO2% (BldA) [Mass fraction] 97 % Mignon Oneal APRN.TUMBLER DRIER OPERATOR Work Phone: [facility] 05-09-2023 18:39-0400 Systolic blood pressure 122 mm[Hg] Mignon Oneal APRN.TUMBLER DRIER OPERATOR Work Phone: [facility] 02-15-2022 16:25-0400 Body temperature 98.01 [degF] Ngoc Praisler-Wood BLEACH CHLORINATOR.TUMBLER DRIER OPERATOR Work Phone: [facility] 02-15-2022 16:25-0400 Body weight 73.21 kg Ngoc Praisler-Wood BLEACH CHLORINATOR.TUMBLER DRIER OPERATOR Work Phone: [facility] 02-15-2022 16:25-0400 Diastolic blood pressure 68 mm[Hg] Ngoc Praisler-Wood BLEACH CHLORINATOR.TUMBLER DRIER OPERATOR Work Phone: [facility] 02-15-2022 16:25-0400 Heart rate 82 /min Ngoc Praisler-Wood BLEACH CHLORINATOR.TUMBLER DRIER OPERATOR Work Phone: [facility] 02-15-2022 16:25-0400 Respiratory rate 21 /min Ngoc Praisler-Wood BLEACH CHLORINATOR.TUMBLER DRIER OPERATOR Work Phone: [facility] 02-15-2022 16:25-0400 SaO2% (BldA) [Mass fraction] 100 % Ngoc Rodriguezisler-Wood BLEACH CHLORINATOR.TUMBLER DRIER OPERATOR Work Phone: [facility] 02-15-2022 16:25-0400 Systolic blood pressure 102 mm[Hg] Ngoc Praisler-Wood BLEACH CHLORINATOR.TUMBLER DRIER OPERATOR Work Phone: [facility] Encounters Encounter Date Encounter Type Care Provider Facility Start: 11-28-2023 End: 11-28-2023 Emergency department patient visit JUSTIN MULTANI [facility] Start: 06-08-2023 Telephone encounter Mignon Oneal APRN.TUMBLER DRIER OPERATOR Work Phone: [facility] Plan of Treatment Date Care Activity Detail Author Start: 06-30-2023 Influenza vaccination INFLUENZA (#1) [facility] Start: 2023 COLOGUARD (FIT-DNA) COLOGUARD (FIT-D NA) [facility] Start: 2023 Colonoscopy COLONOSCOPY [facility] Start: 2023 COLORECTAL CANCER SCREENING COLORECTAL CANCER SCREENING [facility] Start: [address] COLONOGRAPHY [facility] Start: 2023 DIABETES SCREEN DIABETES SCREEN [facility] Start: 2023 FECAL OCCULT BLOOD FECAL OCCULT BLOO D [facility] Start: 2023 LIPID SCREEN LIPID SCREEN [facility] Start: 2023 SIGMOIDOSCOPY SIGMOIDOSCOPY [facility] Start: 10-30-2022 DEPRESSION ASSESSMENT DEPRESSION ASS ESSMENT [facility] Start: 06-30-2022 Influenza vaccination INFLUENZA (Sea son Ended) [facility] Start: 12-28-2021 COVID-19 VACCINE (4 - Pfizer series) COVID-19 VACCINE (4 - Pfizer series) [facility] Start: 2018 Mammography MAMMOGRAM [facility] Start: 2008 HPV TESTING HPV TESTING [facility] Start: 1999 PAP TESTING PAP TESTING [facility] Start: 1997 Urine microalbumin profile DTAP,TDAP ,TD (1 - Tdap) [facility] Start: 1996 HEPATITIS C SCREENING HEPATITIS C SC REENING [facility] Start: 1996 HIV SCREENING HIV SCREENING [facility] Start: 1990 Adult depression scr eening assessment DEPRESSION SCREENING [facility] Start: 1984 PNEUMOCOCCAL (1 - PCV) PNEUMOCOCCAL (1 - PCV) [facility] Start: 1978 HEPATITIS B (1 of 3 - 3-dose series) HEPATITIS B (1 of 3 - 3-dose series) [facility] Payers Date Payer Category Payer Medicaid ANTHEM MEDICAID ANTHEM [employer] MED[place] [id number] 2022-Present [phone] [address] [place] [address] Medicaid [id number] 2022 Medicaid [id number] 2021 Medicaid [employer] MEDICAID [id number] 2021-Present [phone] [address] [place] [address] Medicaid [id number] 1978 Unknown [id number] Private Health Insurance [id number] Social History Date Type Detail Facility Tobacco smoking status NHIS Tobacco smoking consumption unknown [facility] Start: 1980 Sex Assigned At Not on file [facility] Start: 02-05-2022 End: 02-15-2022 Exposure to SARS-CoV-2 (event) Not sure [facility] Work Phone: Start: 05-09-2023 Tobacco smoking status NHIS Smokes tobacco daily [facility] History of tobacco use Cigarette Smoker [facility] Start: 05-09-2023 End: 05-29-2023 Tobacco use and exposure Smokeless tobacco non-user [facility] Start: 05-09-2023 End: 05-26-2023 History of Social function [facility] Start: 05-09-2023 End: 05-26-2023 Tobacco use panel [facility] Start: 05-26-2023 End: 05-29-2023 Alcohol intake Ex-drinker (finding) [facility] National Score (1-100), lower number is lower risk 50 [facility] Start: 05-29-2023 Tobacco smoking status NHIS Ex-smoker [facility] History of tobacco use Current smoker [facility] Tobacco smoking status No Smoking Status Entered [facility] Sex Assigned At Female [facility] Functional Status Date Assessment Result Facility 11-28-2023 Functional Status Up ad [facility] Mental Status Date Assessment Result Facility 11-28-2023 Mental Status Oriented x 4 [facility] Clinical Notes 02-15-2022 to 11-28-2023 Telephone Encounter - Anjelica Austin - 06/08/2023 2:43 PM Denise Ibarra PA-C - 05/29/2023 1:59 PM Anya Kimble - 05/29/2023 1:11 PM Romario Spivey V, DO - 05/26/2023 3:18 PM EDT Note Date & Type Note Facility 11-28-2023 Evaluation + Plan note Diagnostic Tests PendingUrine Culture 11/28/23 [facility] 11-28-2023 Hospital Discharg e instructions Patient Education 11/28/2023 01:30:54 Bladder Infection, Female (Adult) Bladder Infection, Female (Adult) Urine is normally doesn't have any bacteria in it. But bacteria can get into the urinary tract from the skin around the rectum. Or they can travel in the blood from elsewhere in the body. Once they are in your urinary tract, they can cause infection in the urethra (urethritis), the bladder (cystitis), or the kidneys (pyelonephritis). The most common place for an infection is in the bladder. This is called a bladder infection. This is one of the most common infections in women. Most bladder infections are easily treated. They are not serious unless the infection spreads to the kidney. The phrases bladder infection, UTI, and cystitis are often used to describe the same thing. But they are not always the same. Cystitis is an inflammation of the bladder. The most common cause of cystitis is an infection. Symptoms The infection causes inflammation in the urethra and bladder. This causes many of the symptoms. The most common symptoms of a bladder infection are: Pain or burning when urinating Having to urinate more often than usual Urgent need to urinate Only a small amount of urine comes out Blood in urine Abdominal discomfort. This is usually in the lower abdomen above the pubic bone. Cloudy urine Strong- or bad-smelling urine Unable to urinate (urinary retention) Unable to hold urine in (urinary incontinence) Fever Loss of appetite Confusion (in older adults) Causes Bladder infections are not contagious. You can't get one from someone else, from a toilet seat, or from sharing a bath. The most common cause of bladder infections is bacteria from the bowels. The bacteria get onto the skin around the opening of the urethra. From there, they can get into the urine and travel up to the bladder, causing inflammation and infection. This usually happens because of: Wiping improperly after urinating. Always wipe from front to back. Bowel incontinence Procedures such as having a catheter inserted Older age Not emptying your bladder. This can allow bacteria a chance to grow in your urine. Dehydration Constipation Sex Use of a diaphragm for control Treatment Bladder infections are diagnosed by a urine test. They are treated with antibiotics and usually clear up quickly without complications. Treatment helps prevent a more serious kidney infection. Medicines Medicines can help in the treatment of a bladder infection: Take antibiotics until they are used up, even if you feel better. It is important to finish them to make sure the infection has cleared. You can use acetaminophen or ibuprofen for pain, fever, or discomfort, unless another medicine was prescribed. If you have chronic liver or kidney disease, talk with your healthcare provider before using these medicines. Also talk with your provider if you've ever had a stomach ulcer or gastrointestinal bleeding, or are taking blood-thinner medicines. If you are given phenazopydridine to reduce burning with urination, it will cause your urine to become a bright orange color. This can stain clothing. Care and prevention These self-care steps can help prevent future infections: Drink plenty of fluids to prevent dehydration and flush out your bladder. Do this unless you must restrict fluids for other health reasons, or your doctor told you not to. Proper cleaning after going to the bathroom is important. Wipe from front to back after using the toilet to prevent the spread of bacteria. Urinate more often. Don't try to hold urine in for a long time. Wear loose-fitting clothes and cotton underwear. Avoid tight-fitting pants. Improve your diet and prevent constipation. Eat more fresh fruit and vegetables, and fiber, and less junk and fatty foods. Avoid sex until your symptoms are gone. Avoid caffeine, alcohol, and spicy foods. These can irritate your bladder. Urinate right after intercourse to flush out your bladder. If you use control pills and have frequent bladder infections, discuss it with your doctor. Follow-up care Call your healthcare provider if all symptoms are not gone after 3 days of treatment. This is especially important if you have repeat infections. If a culture was done, you will be told if your treatment needs to be changed. If directed, you can call to find out the results. If X-rays were done, you will be told if the results will affect your treatment. Call 911 Call 911 if any of the following occur: Trouble breathing Hard to wake up or confusion Fainting or loss of consciousness Rapid heart rate When to seek medical advice Call your healthcare provider right away if any of these occur: Fever of 100.4 F (38.0 C) or higher, or as directed by your healthcare provider Symptoms are not better by the third day of treatment Back or belly (abdominal) pain that gets worse Repeated vomiting, or unable to keep medicine down Weakness or dizziness Vaginal discharge Pain, redness, or swelling in the outer vaginal area (labia) 3510-5417 [employer]. [address] [place] [address]. All rights reserved. This information is not intended as a substitute for professional medical care. Always follow your healthcare professional's instructions. 11/28/2023 00:36:55 Viral Syndrome (Adult) Viral Syndrome (Adult) A viral illness may cause a number of symptoms such as fever. Other symptoms depend on the part of the body that the virus affects. If it settles in your nose, throat, and lungs, it may cause cough, sore throat, congestion, runny nose, headache, earache and other ear symptoms, or shortness of breath. If it settles in your stomach and intestinal tract, it may cause nausea, vomiting, cramping, and diarrhea. Sometimes it causes generalized symptoms like aching all over, feeling tired, loss of energy, or loss of appetite. A viral illness usually lasts anywhere from several days to several weeks, but sometimes it lasts longer. In some cases, a more serious infection can look like a viral syndrome in the first few days of the illness. You may need another exam and additional tests to know the difference. Watch for the warning signs listed below for when to seek medical advice. Home care Follow these guidelines for taking care of yourself at home: If symptoms are severe, rest at home for the first 2 to 3 days. Stay away from cigarette smoke - both your smoke and the smoke from others. You may use [id number] acetaminophen or ibuprofen for fever, muscle aching, and headache, unless another medicine was prescribed for this. If you have chronic liver or kidney disease or ever had a stomach ulcer or gastrointestinal bleeding, talk with your healthcare provider before using these medicines. No one who is younger than 18 and ill with a fever should take aspirin. It may cause severe disease or . Your appetite may be poor, so a light diet is fine. Avoid dehydration by drinking 8 to 12, 8-ounce glasses of fluids each day. This may include water; orange juice; lemonade; apple, grape, and cranberry juice; clear fruit drinks; electrolyte replacement and sports drinks; and decaffeinated teas and coffee. If you have been diagnosed with a kidney disease, ask your healthcare provider how much and what types of fluids you should drink to prevent dehydration. If you have kidney disease, drinking too much fluid can cause it build up in the your body and be dangerous to your health. Nzqn-kys-fxyjtfm remedies won't shorten the length of the illness but may be helpful for symptoms such as cough, sore throat, nasal and sinus congestion, or diarrhea. Don't use decongestants if you have high blood pressure. Follow-up care Follow up with your healthcare provider if you do not improve over the next week. Call 911 Call 911 if any of the following occur: Convulsion Feeling weak, dizzy, or like you are going to faint Chest pain, or more than mild shortness of breath When to seek medical advice Call your healthcare provider right away if any of these occur: Cough with lots of colored sputum (mucus) or blood in your sputum Chest pain, shortness of breath, wheezing, or trouble breathing Severe headache; face, neck, or ear pain Severe, constant pain in the lower right side of your belly (abdominal) Continued vomiting (can t keep liquids down) Frequent diarrhea (more than 5 times a day); blood (red or black color) or mucus in diarrhea Feeling weak, dizzy, or like you are going to faint Extreme thirst Fever of 100.4 F (38 C) or higher, or as directed by your healthcare provider [id number] [employer]. [address] [place] [address]. All rights reserved. This information is not intended as a substitute for professional medical care. Always follow your healthcare professional's instructions. Follow Up Care 11/28/2023 00:21:12 With:Call Physician Referral Address:Unknown When:2-4 days With:Go to emergency room if symptoms worsen Address:Unknown When:2-4 days [facility] 11-28-2023 Note Discharge Instructions Thank you for allowing [facility] to assist you with your healthcare needs. The following is important discharge information regarding your hospital visit. Diagnosis from Today's Visit Fever UTI - Urinary tract infection Viral syndrome What to Do Next Instructions from Your Care Team Take Keflex as prescribed for UTI. Follow-up your COVID, flu, RSV test. Return the emergency department if experience worsening symptoms or any other care concern. No qualifying data available. Post Acute Orders No qualifying data available. You Need to Schedule the Following Appointments Follow Up with Call Physician Referral When Within 2-4 days Follow Up with Go to emergency room if symptoms worsen When Within 2-4 days Allergies sulfa drug Medications Please ask your primary doctor or pharmacist before taking any other medication not listed, including over the counter drugs, herbal medications, vitamins and or supplements as they may interact with your home medications. What How Much When Instructions Last Dose New cephalexin (cephalexin 500 mg oral capsule) 1 cap by mouth Three (3) times a day Duration: 7 Days Printed Prescription Please take this list to your next doctor s visit. Bring all medications you take, including over the counter medications, herbals and other supplements with you to your doctor s visit. Patients and families are reminded to discard old lists and to update any records with all medication providers or retail pharmacies. Education Materials Bladder Infection, Female (Adult) Urine is normally doesn't have any bacteria in it. But bacteria can get into the urinary tract from the skin around the rectum. Or they can travel in the blood from elsewhere in the body. Once they are in your urinary tract, they can cause infection in the urethra (urethritis), the bladder (cystitis), or the kidneys (pyelonephritis). The most common place for an infection is in the bladder. This is called a bladder infection. This is one of the most common infections in women. Most bladder infections are easily treated. They are not serious unless the infection spreads to the kidney. The phrases bladder infection, UTI, and cystitis are often used to describe the same thing. But they are not always the same. Cystitis is an inflammation of the bladder. The most common cause of cystitis is an infection. Symptoms The infection causes inflammation in the urethra and bladder. This causes many of the symptoms. The most common symptoms of a bladder infection are: Pain or burning when urinating Having to urinate more often than usual Urgent need to urinate Only a small amount of urine comes out Blood in urine Abdominal discomfort. This is usually in the lower abdomen above the pubic bone. Cloudy urine Strong- or bad-smelling urine Unable to urinate (urinary retention) Unable to hold urine in (urinary incontinence) Fever Loss of appetite Confusion (in older adults) Causes Bladder infections are not contagious. You can't get one from someone else, from a toilet seat, or from sharing a bath. The most common cause of bladder infections is bacteria from the bowels. The bacteria get onto the skin around the opening of the urethra. From there, they can get into the urine and travel up to the bladder, causing inflammation and infection. This usually happens because of: Wiping improperly after urinating. Always wipe from front to back. Bowel incontinence Procedures such as having a catheter inserted Older age Not emptying your bladder. This can allow bacteria a chance to grow in your urine. Dehydration Constipation Sex Use of a diaphragm for control Treatment Bladder infections are diagnosed by a urine test. They are treated with antibiotics and usually clear up quickly without complications. Treatment helps prevent a more serious kidney infection. Medicines Medicines can help in the treatment of a bladder infection: Take antibiotics until they are used up, even if you feel better. It is important to finish them to make sure the infection has cleared. You can use acetaminophen or ibuprofen for pain, fever, or discomfort, unless another medicine was prescribed. If you have chronic liver or kidney disease, talk with your healthcare provider before using these medicines. Also talk with your provider if you've ever had a stomach ulcer or gastrointestinal bleeding, or are taking blood-thinner medicines. If you are given phenazopydridine to reduce burning with urination, it will cause your urine to become a bright orange color. This can stain clothing. Care and prevention These self-care steps can help prevent future infections: Drink plenty of fluids to prevent dehydration and flush out your bladder. Do this unless you must restrict fluids for other health reasons, or your doctor told you not to. Proper cleaning after going to the bathroom is important. Wipe from front to back after using the toilet to prevent the spread of bacteria. Urinate more often. Don't try to hold urine in for a long time. Wear loose-fitting clothes and cotton underwear. Avoid tight-fitting pants. Improve your diet and prevent constipation. Eat more fresh fruit and vegetables, and fiber, and less junk and fatty foods. Avoid sex until your symptoms are gone. Avoid caffeine, alcohol, and spicy foods. These can irritate your bladder. Urinate right after intercourse to flush out your bladder. If you use control pills and have frequent bladder infections, discuss it with your doctor. Follow-up care Call your healthcare provider if all symptoms are not gone after 3 days of treatment. This is especially important if you have repeat infections. If a culture was done, you will be told if your treatment needs to be changed. If directed, you can call to find out the results. If X-rays were done, you will be told if the results will affect your treatment. Call 911 Call 911 if any of the following occur: Trouble breathing Hard to wake up or confusion Fainting or loss of consciousness Rapid heart rate When to seek medical advice Call your healthcare provider right away if any of these occur: Fever of 100.4 F (38.0 C) or higher, or as directed by your healthcare provider Symptoms are not better by the third day of treatment Back or belly (abdominal) pain that gets worse Repeated vomiting, or unable to keep medicine down Weakness or dizziness Vaginal discharge Pain, redness, or swelling in the outer vaginal area (labia) [id number] [employer]. [address] [place] [address]. All rights reserved. This information is not intended as a substitute for professional medical care. Always follow your healthcare professional's instructions. Viral Syndrome (Adult) A viral illness may cause a number of symptoms such as fever. Other symptoms depend on the part of the body that the virus affects. If it settles in your nose, throat, and lungs, it may cause cough, sore throat, congestion, runny nose, headache, earache and other ear symptoms, or shortness of breath. If it settles in your stomach and intestinal tract, it may cause nausea, vomiting, cramping, and diarrhea. Sometimes it causes generalized symptoms like aching all over, feeling tired, loss of energy, or loss of appetite. A viral illness usually lasts anywhere from several days to several weeks, but sometimes it lasts longer. In some cases, a more serious infection can look like a viral syndrome in the first few days of the illness. You may need another exam and additional tests to know the difference. Watch for the warning signs listed below for when to seek medical advice. Home care Follow these guidelines for taking care of yourself at home: If symptoms are severe, rest at home for the first 2 to 3 days. Stay away from cigarette smoke - both your smoke and the smoke from others. You may use lkkl-hbu-xdwdyhc acetaminophen or ibuprofen for fever, muscle aching, and headache, unless another medicine was prescribed for this. If you have chronic liver or kidney disease or ever had a stomach ulcer or gastrointestinal bleeding, talk with your healthcare provider before using these medicines. No one who is younger than 18 and ill with a fever should take aspirin. It may cause severe disease or . Your appetite may be poor, so a light diet is fine. Avoid dehydration by drinking 8 to 12, 8-ounce glasses of fluids each day. This may include water; orange juice; lemonade; apple, grape, and cranberry juice; clear fruit drinks; electrolyte replacement and sports drinks; and decaffeinated teas and coffee. If you have been diagnosed with a kidney disease, ask your healthcare provider how much and what types of fluids you should drink to prevent dehydration. If you have kidney disease, drinking too much fluid can cause it build up in the your body and be dangerous to your health. Mojk-fyi-vdyzefy remedies won't shorten the length of the illness but may be helpful for symptoms such as cough, sore throat, nasal and sinus congestion, or diarrhea. Don't use decongestants if you have high blood pressure. Follow-up care Follow up with your healthcare provider if you do not improve over the next week. Call 911 Call 911 if any of the following occur: Convulsion Feeling weak, dizzy, or like you are going to faint Chest pain, or more than mild shortness of breath When to seek medical advice Call your healthcare provider right away if any of these occur: Cough with lots of colored sputum (mucus) or blood in your sputum Chest pain, shortness of breath, wheezing, or trouble breathing Severe headache; face, neck, or ear pain Severe, constant pain in the lower right side of your belly (abdominal) Continued vomiting (can t keep liquids down) Frequent diarrhea (more than 5 times a day); blood (red or black color) or mucus in diarrhea Feeling weak, dizzy, or like you are going to faint Extreme thirst Fever of 100.4 F (38 C) or higher, or as directed by your healthcare provider [id number] [employer]. [address] [place] [address], [place] [address]. All rights reserved. This information is not intended as a substitute for professional medical care. Always follow your healthcare professional's instructions. Additional Information VACCINATE! IT SAVES LIVES! Members of the community who have not yet received the COVID-19 vaccine and would like to receive it can visit one of [facility] vaccine clinics. There are many vaccine clinic locations within the [facility]. For locations and available times, please visit [email or web address]. [email or web address] It is important to note that some COVID mobile vaccine clinics are held outdoors and may be canceled in rainy or stormy conditions. To learn more about pediatric vaccinations (ages 5-11), we invite you to visit the [facility] webpage. https://www.[facility].org/p ages/6965-Liopp-Dtpetipmclx-Freq axfdaa-Gcdqy-Nurcjqnbt.html To learn more about the COVID-19 vaccine, we invite you to visit the CDC website for a list of frequently asked questions. https://www.cdc.gov/coronavirus/ 2019-ncov/vaccines/faq.html [facility] Access Instructions: Stay connected with your healthcare team and access your personal medical information anytime with the [facility] Portal. If you would like a full copy of your medical records please contact the [facility] Medical Records Department Monday through Monday between 8a.m. and 4:30p.m. Please follow the directions below to access the portal: 1.Access the email account you provided upon registration to the hospital.2.Look for an invitation email from [facility].3.Open the email and access the invitation link: Accept Invitation to [facility].Fill in the required gomez to create your account. Sign into www.[employer] with your username and password that you created in the above steps to stay up to date. You can then view a summary of results, a summary of your visits, and the ability to download your summaries to your computer or send the information securely to a physician. Remember that your healthcare information is confidential, so carefully consider who you will allow to register on the [facility] Portal for access to your information. You can also access the [facility] Patient Portal on the [employer]. Simply click on Health Records under Health Data and then click on the [employer] logo. HOW TO SAFELY DISPOSE OF PRESCRIPTION MEDICATIONS Please use one of the following methods to safely dispose of your unused medications. 1.Use a drug disposal kit: the drug disposal pouch allows you to safely discard your old and unused drugs. Ask your nurse to give you one when you are discharged.2.Visit a local take-back location: Many local pharmacies and police departments have programs that collect old and unwanted prescription drugs. Call your local pharmacy or go to http://SocialSci.iValidate.me/8L4Hi8v to find one close to you.3.Make use of household items: Use cat litter or old coffee grounds to dispose medications if other options are not available. Mix your drugs with these household products, seal them in an airtight container and throw it into the garbage. Call [facility]: [phone] to be sure your drugs can be disposed of in this way. Some medicines may require a different approach.4.Never flush your medications down the toilet. IF YOU HAVE BEEN PRESCRIBED AN OPIOIDS FOR PAIN If you have been prescribed an opioid (such as hydrocodone, oxycodone or morphine), it is critical to understand the possible side effects and risks of opioid pain medications. Even when taken as directed, opioids can have several side effects including: Tolerance, meaning you might need to take more of a medication for the same pain relief. Nausea, vomiting and/or constipation. Sleepiness, dizziness, dry mouth, confusion, depression or itching. Physical dependence, meaning you have withdrawal symptoms when a medication is stopped ? this can develop within a few days. KNOW YOUR RESPONSIBILITIES It is important to know exactly how much and how often to take the opioid pain medications you are prescribed. Never take opioids in higher amounts or more often than prescribed. Do not combine opioids with alcohol or other drugs that cause drowsiness, such as benzodiazepines, also known as benzos, including diazepam and alprazolam, muscle relaxants or sleep aids. Never sell or share prescription opioids. This is illegal. Store opioids in a secure place and out of reach of others (including children, family, friends and visitors). The last page(s) of this document has been signed and retained as a CHART COPY Signatures Patient Education Materials Bladder Infection, Female (Adult) Viral Syndrome (Adult) Medication Leaflets My discharge plan and instructions have been reviewed and explained to me and I,JERRI MENDOZA understand my current condition and have read and understand these discharge instructions. I have received a written copy of the plan/instructions. If I have questions, I am aware that I should contact my doctor. 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 Patient Identified by Name and : NO Outreach Outcome/Action Unable to reach patient: Phone number not valid / voicemail full Did you use a PCP flex slot to schedule this appointment? N/A Reason for Outreach Care Gap or Scheduling/Wellness visits Payer: Payor: [employer] MEDICA[employer] / Plan: [facility] MEDICA[facility] / Product Type: Medicaid / Care Gap [...] CANCER SCREENING Never done Navigation Signature: Anjelica Austin June 08, 2023 2:43 PM documented in this encounter [facility] 05-29-2023 Note HNO ID: [id number] Author: Denise William PA-C Service: ? Author Type: Physician Potter Or Ceramic Artist Type: Progress Notes Filed: 05/29/2023 2:05 PM Note Text: Denise William PA-C Department of Orthopaedics Orthopaedics [address] [facility] [address] Dept: [phone] Dept May 29, 2023 CHIEF COMPLAINT: New and Fracture of the Left middle Finger (Xray 05/09/2023) Ms. Jerri Mendoza is a 43 year old female who presents with an injury to her left middle finger which occurred almost a month ago. Patient was on vacation in [place], she was swinging from a rope when [...] for the next week or 2. Ms. Jerri Mendoza was advised as to contrast therapies and/or to take analgesics/anti-inflammatories as needed and all contraindications were reviewed. OBJECTIVE: Ms. Jerri Mendoza is a pleasant 43 year old [...] the intermediate phalanx of the third finger Lens Examiner: PSCB Transcribe Date/Time: May 09 2023 7:02P Dictated [...] anxiety) This note was partially generated using [employer] voice recognition system, and there may be some incorrect words, spellings, and punctuation that were not noted in checking the note before saving. Denise William PA-C [facility] 05-29-2023 Note HNO ID: [id number] Author: Anya Collazo Service: ? Author Type: [...] Days Frequency: Intermittent Intervention/Comfort measure: Medication, Splinting [facility] 05-29-2023 History of Presen t illness Narrative Denise William PA-C Department of Orthopaedics Orthopaedics [address] [facility] [address] Dept: [phone] Dept May 29, 2023 CHIEF COMPLAINT: New and Fracture of the Left middle Finger (Xray 05/09/2023) Ms. Jerri Mendoza is a 43 year old female who presents with an injury to her left middle finger which occurred almost a month ago. Patient was on vacation in [place], she was swinging from a rope when the rope became twisted around her finger. She has been wearing a finger splint since her visit to urgent care 2 days after the injury. Pain is a 8/10 if finger is bumped. 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 ASSESSMENT: S62.410I Closed displaced fracture of middle phalanx of [...] for the next week or 2. Ms. Jerri Mendoza was advised as to contrast therapies and/or to take analgesics/anti-inflammatories as needed and all contraindications were reviewed. OBJECTIVE: Ms. Jerri Mendoza is a pleasant 43 year old [...] the intermediate phalanx of the third finger Lens Examiner: [facility] Transcribe Date/Time: May 09 2023 7:02P Dictated [...] anxiety) This note was partially generated using [employer] voice recognition system, and there may be [...] measure: Medication, Splinting documented in this encounter [facility] 05-26-2023 Note HNO ID: [id number] Author: Romario Grigsby V DO Service: ? Author Type: Physician Type: Progress Notes Filed: 05/26/2023 3:52 PM Note Text: SUBJECTIVE: Jerri Mendoza is a 43 year old female who is here for a left middle finger injury. It occurred on 05/09/23 when she was swinging from a rope swing and her finger got twisted rope. He states that there was an obvious visible deformity right away she self reduced. She was seen in [facility] upon returning from her trip to [place]. X-ray showed a fracture of the middle [...] Dr. Mcgrath next week. Romario Grigsby DO [facility] 05-26-2023 Note HNO ID: [id number] Author: Anya Collazo Service: ? Author Type: [...] Days Frequency: Continuous Intervention/Comfort measure: Medication, Splinting [facility] 05-26-2023 History of Presen t illness Narrative SUBJECTIVE: Jerri Mendoza is a 43 year old female who is here for a left middle finger injury. It occurred on 05/09/23 when she was swinging from a rope swing and her finger got twisted rope. He states that there was an obvious visible deformity right away she self reduced. She was seen in [facility] upon returning from her trip to [place]. X-ray showed a fracture of the middle [...] measure: Medication, Splinting documented in this encounter [facility] 05-09-2023 Note HNO ID: [id number] Author: RT Teresa(Marley) Service: Radiology Author Type: Technologist Type: Progress Notes Filed: 05/09/2023 6:59 PM Note Text: Radiology Service Progress Note PATIENT NAME: Jerri Mendoza DATE OF SERVICE: May 09, 2023 [...] RT Teresa(R) May 09, 2023 6:53 PM [facility] 05-09-2023 Note HNO ID: [id number] Author: Mignon Oneal APRN.[facility] Service: ? Author Type: Nurse Practitioner Type: [...] history is provided by the patient. No music promoter was used. Review of Systems Constitutional: Negative. [...] the intermediate phalanx of the third finger Lens Examiner: ELVIE Transcribe Date/Time: May 09 2023 7:02P Dictated by : IRVIN ANGEL MD - CONSULT TO ORTHOPAEDICS Patient was placed in a finger splint. Patient will schedule her own orthopedic follow-up. Patient will rest it and keep in the splint until she follows up with orthopedics. Patient was okay with this. Mignon Oneal APRN.[facility] 05-09-2023 History of Presen t illness Narrative [...] history is provided by the patient. No music promoter was used. Review of Systems Constitutional: Negative. [...] the intermediate phalanx of the third finger Lens Examiner: PSCB Transcribe Date/Time: May 09 2023 7:02P Dictated by : IRVIN ANGEL MD - CONSULT TO ORTHOPAEDICS Patient was placed in a finger splint. Patient will schedule her own orthopedic follow-up. Patient will rest it and keep in the splint until she follows up with orthopedics. Patient was okay with this. Mignon Oneal APRN.TUMBLER DRIER OPERATOR documented in this encounter [facility] 02-15-2022 History of Presen t illness Narrative Subjective HPI Jerri Mendoza is a 41 year old female [...] Ngoc Briggs APRN.CNP documented in this encounter [facility] Diagnosis Pain- Primary Generalized pain [facility] Diagnosis Closed displaced fracture of middle phalanx of left middle finger, initial encounter- Primary [facility] Diagnosis Closed displaced fracture of middle phalanx of left middle finger with routine healing, subsequent encounter- Primary Pain in finger of left hand Pain in limb [facility] Narrative No data available for this section [facility] Summary Purpose Family History No Family History Records FoundNo Family History Records FoundNo Family History Records Found No data available for this section Advance Directives No Advanced Directives Records FoundNo Advanced Directives Records FoundNo Advanced Directives Records Found Reason for Referral Specialty Diagnoses / Procedures Referred By Contac t Referred To Contact Orthopedics Diagnoses Pain Procedures CONSULT TO ORTHOPAEDICS OFFICE/OUTPATIENT [facility] [place] 60-74 MINUTES Mignon Oneal APRN.TUMBLER DRIER OPERATOR [address] [place] [address] Referral ID Status Reason Start Date Expiration Date Visits Requested Visits Authorized [id number] Pending Review PCP Requested Referral 05/09/2023 05/08/2024 1 1 Specialty Diagnoses / Procedures Referred By Contac t Referred To Contact XR IMAGING Diagnoses Pain Procedures XR HAND GENERAL 3V PA/LAT/OBL LEFT RADEX HAND MINIMUM 3 VIEWS Mignon Oneal APRN.CNP [address] [place] [address] Xr Imaging Referral ID Status Reason Start Date Expiration Date V isits Requested Visits Authorized [id number] Closed Auto-Generate d Referral 05/09/2023 06/07/2024 1 1 Additional Source Comments INFORMATION SOURCE (unrecogn ized section and content) DATE CREATED AUTHOR AUTHOR'S ORGANIZ ATION 08/08/2019 [facility] DATE CREATED AUTHOR AUTHOR'S ORGANIZ ATION 06/09/2023 [facility] Source Comments (unrecognize d section and content) In the event this informatio n is protected by the Federal Confidentiality of Alcohol and Drug Abuse Patient Records regulations: The Federal rules restrict any use of the information to criminally investigate or prosecute any alcohol or drug abuse patient.[facility] the event this information is protected by the Federal Confidentiality of Alcohol and Drug Abuse Patient Records regulations: The Federal rules restrict any use of the information to criminally investigate or prosecute any alcohol or drug abuse patient.[facility] the event this information is protected by the Federal Confidentiality of Alcohol and Drug Abuse Patient Records regulations: The Federal rules restrict any use of the information to criminally investigate or prosecute any alcohol or drug abuse patient.[facility] the event this information is protected by the Federal Confidentiality of Alcohol and Drug Abuse Patient Records regulations: The Federal rules restrict any use of the information to criminally investigate or prosecute any alcohol or drug abuse patient.[facility] the event this information is protected by the Federal Confidentiality of Alcohol and Drug Abuse Patient Records regulations: The Federal rules restrict any use of the information to criminally investigate or prosecute any alcohol or drug abuse patient.[facility] Reason for Visit (unrecogniz ed section and content) Reason Comments left hand pain Injured it 2 days ag o swimming Reason Comments left middle finger fracture DOI 05/07/2023 xrays done 05/09/2023 Reason Comments New Xray 05/09/2023 Fracture Xray 05/09/2023 Reason Comments Appointment Patient Care team informatio n (unrecognized section and content) Care Team Related Persons Name: NOLA HERNANDEZ FOR RECORDS PERTAINING TO PATIENTS WHO ARE [...] BE BASED ON THE PRIMARY CLINICAL RECORDS. [employer] [facility]. provides no warranty or guarantee of the accuracy or completeness of information in this document.
== END 2023-11-30 11:46 | disposition home or self-care (01) ==
PROVIDERS: Emergency Provider Student in an Organized Health Care Education/Training Program; Visit Provider Student in an Organized Health Care Education/Training Program
DX: R50.9 Fever, unspecified (principal); F32.A Depression, unspecified; Z79.899 Other long term (current) drug therapy; F17.290 Nicotine dependence, other tobacco product, uncomplicated; Z87.440 Personal history of urinary (tract) infections
CPT/HCPCS: 81001; 99282

== ENCOUNTER 2024-06-25 19:55 | Emergency (ER) | payer SELFPAY ==
[2024-06-25 19:56] VITALS: BP 135/86; PULSE 60; RESP 16; TEMP 36.7; O2SAT 100; BMI 25.7
--- NOTE | 2024-06-25 20:21 | EDS_ITS ---
HPI History of Present Illness Chief Complaint: Nausea/Vomiting/Diarrhea Informant: patient Onset/Context/Timing Onset: Today Context: Sudden Onset Timing: Continuous Quality: Cramping Location: Abdomen Worsened by: Nothing Relieved by: Nothing Narrative Narrative: Patient presents with nausea, vomiting, and diarrhea that began today. Patient states on rather suddenly. Patient admits to some abdominal cramping. Patient states her pain is diffuse across her entire abdomen. Patient states nothing makes it better and nothing makes it worse. Patient denies any hematemesis or coffee-ground emesis. Patient denies any melena or hematochezia. Patient admits to some dysuria but denies any hematuria or frequency. [facility] Medical History Right ureteral stone Wears glasses Depression Substance abuse Marijuana use History of ulceration Vapes nicotine containing substance Shortness of breath on exertion Leg cramps Anxiety Asthma Home Medications ?Medication ?Instructions ?Recorded ?Last Taken ?Type buprenorphine 8 mg-naloxone 2 mg 8 ea sublingual BID 02/15/22 11/08/23 History sublingual film gabapentin 100 mg capsule 100 mg PO 4X/DAY 02/15/22 11/08/23 History trazodone 50 mg tablet 50 mg PO QHS 02/15/22 11/08/23 History omeprazole 20 mg capsule,delayed 20 mg PO DAILY #30 CAPSULES 06/25/24 Unknown Rx release ondansetron 4 mg disintegrating 4 mg PO Q8H PRN PRN Nausea #10 tabs 06/25/24 Unknown Rx tablet Allergy/AdvReac Type Severity Reaction Status Date / Time Sulfa (Sulfonamide Allergy Anaphylaxis Verified 06/25/24 19:56 Antibiotics) Surgical History Hx of oral surgery Hx of tubal ligation Social History household members: significant other and children Smoking Status: Current every day smoker tobacco type: e-cigarettes substance use type: former substance user and opiates ROS ROS ED Constitutional Constitutional ED: Denies chills or fever(s) Eyes Eyes: Denies blurry vision or change in vision ENT ENT ED: Denies rhinorrhea or sore throat Cardiovascular Cardiovascular: Denies chest pain or palpitations Respiratory/Chest Respiratory/Chest: Denies cough or dyspnea Gastrointestinal Gastrointestinal: Reports abdominal pain, diarrhea and vomiting; Denies nausea Genitourinary Genitourinary ED: Reports dysuria; Denies hematuria Musculoskeletal Musculoskeletal: Denies back pain or neck pain Integumentary Denies abscess or rash Neurologic Neurologic: Denies headache(s) or weakness Allergic/Immunologic Allergic/Immunologic ED: Denies mouth swelling or urticaria EXAM Physical Exam Const Vital Signs: 06/25/24 19:56 06/25/24 21:56 06/25/24 23:00 Temperature 98.1 F Temperature Source Temporal Pulse Rate 60 55 L 50 L Respiratory Rate 16 14 15 Blood Pressure 135/86 H 118/62 118/61 Blood Pressure Mean 102 80 80 Pulse Ox 100 100 99 Oxygen Delivery Method Room Air Room Air Room Air Positive well nourished and well developed General Appearance ED: well developed and NAD HEENT Reports moist mucous membranes Neck supple and no JVD Resp normal respiratory effort and clear to auscultation bilaterally Cardio regular rate and regular rhythm GI non-distended Palpation: soft and tender epigastric, LLQ, RLQ, LUQ, RUQ, periumbilical and suprapubic; Negative for guarding or rebound tenderness present Neuro oriented x3, CN's II-XII intact bilaterally and no sensory deficits noted Sensorium / Orientation: alert Motor Exam: strength 5/5 throughout Psych mental status grossly normal MDM MDM MDM Narrative Medical decision making narrative: Differential diagnosis includes gastroenteritis, gastritis, peptic ulcer disease, duodenal ulcer, cholecystitis, cholelithiasis, pancreatitis, and viral illness. CBC will be obtained to assess for leukocytosis and anemia. Comprehensive metabolic profile will be obtained to assess for hepatic function, renal function, and electrolyte abnormality. Lipase will be obtained to assess for pancreatitis. Serum hCG will be obtained to assess for . Urinalysis will be obtained to assess for urinary tract infection and hematuria. Lab Data Attestation: I reviewed the patient's lab results. Lab results narrative: CBC was reviewed and was within normal limits. Comprehensive metabolic profile was reviewed and was within normal limits. Lipase was reviewed and was normal. Serum hCG was reviewed and was negative. Urinalysis was reviewed. There is no evidence of urinary tract infection or hematuria. Labs: Laboratory Results - last 24 hr 06/25/24 06/25/24 20:30 21:25 WBC 9.0 RBC 4.42 Hgb 12.5 Hct 39.7 MCV 89.8 MCH 28.3 MCHC 31.5 L RDW Std Deviation 44.6 H RDW Coeff of Rocael 13.5 Plt Count 234 MPV 9.1 Immature Gran % (Auto) 0.400 Neut % (Auto) 82.4 H Lymph % (Auto) 12.6 L Blount % (Auto) 3.4 Eos % (Auto) 0.8 Baso % (Auto) 0.4 Absolute Neuts (auto) 7.4 Absolute Lymphs (auto) 1.13 Nucleated RBC % 0 Sodium 141 Potassium 3.6 Chloride 106 Carbon Dioxide 26.0 Anion Gap 9 BUN 26 H Creatinine 1.01 Estim Creat Clear Calc 63.53 Est GFR (MDRD) Af Amer 76 Est GFR (MDRD) Non-Af 63 BUN/Creatinine Ratio 25.7 H Glucose 127 H Calcium 9.2 Total Bilirubin 0.20 AST 30 ALT 38 Alkaline Phosphatase 52 Total Protein 7.8 Albumin 3.9 Globulin 3.9 Albumin/Globulin Ratio 1.0 Lipase 40 Serum , Qual NEGATIVE Urine Color Yellow Urine Clarity Clear Urine pH 6.0 Ur Specific [place] 1.025 Urine Protein 15 H Urine Glucose (UA) Normal Urine Ketones 15 H Urine Occult Blood Negative Urine Nitrite Negative Urine Bilirubin Negative Urine Urobilinogen Normal Ur Leukocyte Esterase Negative Urine RBC 0-5 SEEN Urine WBC 0-5 SEEN Ur Squamous Epith Cells 0 SEEN Urine Bacteria 0 SEEN Urine Mucus 0 SEEN Treatment and Re-Evaluation :: Patient was given IV fluids and Zofran. Patient was feeling better on reevaluation. Patient was advised of her findings. Patient was given a prescription for Zofran and omeprazole. Patient was instructed to follow-up with her primary care physician in 5 to 7 days. Patient understood and was agreeable with the plan. All questions were answered. Discharge Plan Triage Chief Complaint: Nausea/Vomiting/Diarrhea Other Complaint: Abd Pain ED Provider: Semaj Randall Dx/Rx/DC Orders Clinical Impression: Abdominal pain, Nausea and vomiting Instructions: ED Abdominal Pain Unkn Cause Fem, ED Vomiting (Adult) Prescriptions: New omeprazole 20 mg capsule,delayed release(DR/EC) 20 mg PO DAILY Qty: 30 0RF ondansetron 4 mg tablet,disintegrating 4 mg PO Q8H PRN PRN (Reason: Nausea) Qty: 10 0RF No Action trazodone 50 mg tablet 50 mg PO QHS gabapentin 100 mg capsule 100 mg PO 4X/DAY Patient Comments: TAKE 1 CAPSULES (100 MG) BY ORAL ROUTE 4 TIMES PER DAY buprenorphine-naloxone 8-2 mg film 8 ea sublingual BID Patient Comments: USE ONE FILM UNDER THE TONGUE TWICE DAILY - 12/14 Primary Care Provider: Care Physician,No Primary Referrals: Adam Yuan MD [Med Staff - Stores Assistant] - 5-7 Days Care Physician,No Primary [Primary Care Provider] - Print Language: Maltese Disposition Disposition: Home, Self Care
[2024-06-25] MEDS: Ondansetron 4 MG/2 ML Vial IV (20:38)
[2024-06-25] MEDS: 0.9% Normal Saline (1000mL) 1,000 ML 1000 ML IV (20:38)
[2024-06-25 20:39] LABS: Absolute Lymphocyte Count 1.13 X10^3/uL (0.83-4.51); Absolute Neutrophil Count 7.4 X10^3/uL (2.0-7.7); Basophil# 0.04 X10^3/uL; Basophil% 0.4 % (0-1); Eosinophil# 0.07 X10^3/uL; Eosinophils% 0.8 % (0-5); Hematocrit 39.7 % (37-47); Hemoglobin 12.5 g/dL (12.0-15.0); Lymphocyte # 1.13 X10^3/ul (0.83-4.51); Lymphocyte % 12.6 % (19-41); Mean Corp Hgb Conc 31.5 g/dL (32-36); Mean Corpuscular Hgb 28.3 pg (27.0-32.0); Mean Corpuscular Volume 89.8 fL (81-99); Mean Platelet Vol. 9.1 fl (6.2-12.0); Monocyte# 0.31 X10^3/uL; Monocyte% 3.4 % (0-10); NRBC Flagged by Analyzer 0 % (0-5); Neutrophil # 7.41 X10^3/uL (2.7-7.7); Neutrophil % 82.4 % (47-70); Platelet Count 234 K/mm3 (150-450); RBC Distribution Width CV 13.5 % (11.6-14.6); RBC Distribution Width SD 44.6 fl (35.1-43.9); Red Blood Count 4.42 M/mm3 (4.2-5.4)
[2024-06-25 20:51] LABS: Internal QC Validated? YES +Cl - CLEAR BKGD; Pregnancy, Serum, hCG Quali. NEGATIVE Negative
[2024-06-25 20:58] LABS: AST(SGOT) 30 U/L (15-37); Alanine Aminotransfer ALT/SGPT 38 U/L (13-56); Albumin, Serum 3.9 g/dL (3.2-5.0); Alkaline Phosphatase 52 U/L (45-117); Anion Gap 9 (5-15); BUN 26 mg/dL (7-18); BUN/Creat Ratio 25.7 RATIO (10-20); Calcium,Total 9.2 mg/dL (8.5-10.1); Chloride 106 mmol/L (98-107); Creatinine, Serum 1.01 mg/dL (0.55-1.02); EST Glomerular Filtration Rate 63 mL/min (>60); Est Glom Filt Rate - Afr Amer 76 mL/min (>60); Estimated Creatinine Clearance 63.53 ml/min; Globulin 3.9 g/dL (2.2-4.2); Glucose 127 mg/dL (74-106); Lipase 40 U/L (13-75); Potassium 3.6 mmol/L (3.5-5.1); Protein, Total 7.8 g/dL (6.4-8.2); Sodium Level 141 mmol/L (136-145)
[2024-06-25 21:32] LABS: Bacteria 0 SEEN /hpf (None Seen); Mucous, Urine 0 SEEN /hpf (<or=2+); Squamous Epithelial Cells - UA 0 SEEN /hpf (5-10)
[2024-06-25 21:33] LABS: Color, Urine Yellow (Yellow); Glucose, Dipstick Normal (Normal); Ketone-Dipstick 15 mg/dl (Negative); Leukocyte Esterase-Dipstick Negative /ul (Negative); Nitrite-Dipstick Negative (Negative); Occult Blood-Urine Negative /ul (Negative); Protein-Dipstick 15 mg/dl (Negative); Specific Gravity, Urine 1.025 (1.002-1.030); Urine Bilirubin Dipstick Negative (Negative); Urine Clarity Clear (Clear); Urine Urobilinogen Normal (Normal)
[2024-06-25 21:41] LABS: Red Blood Cells-Urine 0-5 SEEN /hpf (0-5); White Blood Cells 0-5 SEEN /hpf (0-5)
[2024-06-25 21:56] VITALS: BP 118/62; PULSE 55; RESP 14; O2SAT 100
[2024-06-25 23:00] VITALS: BP 118/61; PULSE 50; RESP 15; O2SAT 99
[2024-06-25 23:28] VITALS: BP 139/77; PULSE 58; RESP 18; TEMP 36.4; O2SAT 98
== END 2024-06-25 23:31 | disposition home or self-care (01) ==
PROVIDERS: Emergency Provider Emergency Medicine; Visit Provider Emergency Medicine
DX: R11.2 Nausea with vomiting, unspecified (principal); R10.9 Unspecified abdominal pain; R19.7 Diarrhea, unspecified; Z98.51 Tubal ligation status; F17.290 Nicotine dependence, other tobacco product, uncomplicated
CPT/HCPCS: 80053; 81001; 83690; 84703; 85025; 96361; 96374; 99283; J7030; A4216; J2405

== ENCOUNTER → 2024-07-29 | Outpatient (CLI) | payer BC, SELFPAY | END | disposition home or self-care (01) | PROVIDERS: Referring Provider Physician Assistant Surgical; Visit Provider Physician Assistant Surgical | DX: R30.0 Dysuria (principal) | CPT/HCPCS: 87086; 87088 ==

== ENCOUNTER 2024-10-07 11:13 | Emergency (ER) | payer BC, SELFPAY ==
[2024-10-07 11:14] VITALS: BP 98/68; PULSE 78; RESP 16; TEMP 36.5; O2SAT 99; BMI 26.2
--- NOTE | 2024-10-07 11:38 | EKG12_ITS ---
Test Reason : CP Blood Pressure : */* mmHG Vent. Rate : 75 BPM Atrial Rate : 75 BPM P-R Int : 182 ms QRS Dur : 90 ms QT Int : 374 ms P-R-T Axes : 79 75 67 degrees QTcB Int : 417 ms Normal sinus rhythm Normal ECG Confirmed by JULIO THOMAS, ALBERT ([id number]), society editor MARLA JACKSON ([id number]) on 10/08/2024 8:17:20 AM Referred By: Confirmed By: ALBERT KIM MD
--- NOTE | 2024-10-07 11:39 | ED.VIS.CHEST ---
HPI History of Present Illness Chief Complaint: Chest Other Informant: patient Narrative Narrative: Chest burning discomfort every time she drinks or eat over the weekend. 2 weeks ago had indigestion symptoms that resolved same day. This past Monday again similar. She does not eat late. She does not eat spicy foods. She does admit to vaping. Denies alcohol. She had an upper endoscopy years ago when she was stating on workup found to have gallstones. No symptoms since then. Denies black or bloody stools. History of asthma. CVD Risk Factors: Positive for Smoking; Negative for Hypertension, Diabetes or Hypercholesterolemia PE Risk Factors: Negative for Recent Travel/Surgery, Recent Immobilization, Prior DVT or PE or Cancer [facility] Medical History Right ureteral stone Wears glasses Depression Substance abuse Marijuana use History of ulceration Vapes nicotine containing substance Shortness of breath on exertion Leg cramps Anxiety Asthma Home Medications ?Medication ?Instructions ?Recorded ?Last Taken ?Type buprenorphine 8 mg-naloxone 2 mg 8 ea sublingual BID 02/15/22 11/08/23 History sublingual film gabapentin 100 mg capsule 100 mg PO 4X/DAY 02/15/22 11/08/23 History trazodone 50 mg tablet 50 mg PO QHS 02/15/22 11/08/23 History phenazopyridine 200 mg tablet 200 mg PO TID PRN pain 6 doses #7 07/29/24 Unknown Rx (Pyridium) tabs sertraline 25 mg tablet 25 mg PO QDAY 07/29/24 Unknown History pantoprazole 40 mg tablet,delayed 40 mg PO DAILY #30 tabs 10/07/24 Unknown Rx release sucralfate 1 gram tablet (Carafate) 1 g PO Q6H #60 tabs 10/07/24 Unknown Rx Allergy/AdvReac Type Severity Reaction Status Date / Time Sulfa (Sulfonamide Allergy Anaphylaxis Verified 10/07/24 11:17 Antibiotics) Surgical History Hx of oral surgery Hx of tubal ligation Social History household members: significant other and children Smoking Status: Current every day smoker tobacco type: e-cigarettes substance use type: former substance user and opiates ROS ROS ED Constitutional Constitutional ED: Denies chills, fever(s) or sweats Eyes Eyes: Denies change in vision ENT ENT ED: Denies dysphagia or sore throat Cardiovascular Cardiovascular: Reports chest pain; Denies leg edema, palpitations or racing heartbeat Respiratory/Chest Respiratory/Chest: Denies cough, dyspnea or dyspnea on exertion Gastrointestinal Gastrointestinal: Reports abdominal pain; Denies diarrhea, nausea or vomiting Genitourinary Genitourinary ED: Denies dysuria, hematuria or urinary frequency Musculoskeletal Musculoskeletal: Denies back pain, extremity pain or neck pain Integumentary Denies rash or wounds Neurologic Neurologic: Denies headache(s), paresthesias or weakness EXAM Physical Exam Const Vital Signs: 10/07/24 11:14 10/07/24 11:36 10/07/24 13:13 Temperature 97.7 F L Temperature Source Oral Pulse Rate 78 78 Respiratory Rate 16 Respiratory Effort Normal Non-Labored Blood Pressure 98/68 126/87 H Blood Pressure Mean 78 100 Pulse Ox 99 Oxygen Delivery Method Room Air 10/07/24 15:00 10/07/24 15:42 Temperature 97.8 F Temperature Source Pulse Rate 67 Respiratory Rate 16 Respiratory Effort Blood Pressure 128/74 H 128/74 H Blood Pressure Mean 92 92 Pulse Ox 99 Oxygen Delivery Method Positive well nourished and well developed General Appearance ED: well developed and NAD HEENT Reports moist mucous membranes normocephalic and atraumatic Eyes EOMs intact bilaterally and conjunctivae normal General Eye ED: Yes normal appearance of both eyes Neck no lymphadenopathy and supple General: Negative for tenderness Chest Wall Chest: Negative for tenderness Resp normal respiratory effort and normal air movement Effort and Inspection: symmetric chest movement; Negative for respiratory distress Cardio regular rate, regular rhythm and no murmurs Peripheral Pulses: pulses 2+ throughout GI normal to inspection, nondistended, normoactive bowel sounds and non-tender GI Narrative: Negative Lo's or McBurney's. Palpation: Negative for guarding or rebound tenderness present Back/Spine no CVA tenderness and no thoracic nor lumbar tenderness Extremity normal to inspection General Extremety ED: Negative for edema or tenderness General Extremity: Negative for edema Neuro oriented x3 and no sensory deficits noted Sensorium / Orientation: awake and alert Skin no rashes or lesions noted and no wounds MDM MDM MDM Narrative Medical decision making narrative: Interventions / MDM: Differential diagnosis: Gastritis, atypical chest pain Diagnosis considered but do not suspect: No history rectal bleeding. ACS however labs are normal. pulmonary embolism however PERC criteria negative. Pancreatitis however lipase normal. My EKG interpretation: Sinus rate of 75, no ST or T wave changes. Imaging independently reviewed and interpreted by myself: 2 view chest x-ray negative. External documents reviewed: N/A Test considered but not ordered:N/A ED course: Epigastric pain worse with p.o. intake. No reported rectal bleeding. EKG sinus rhythm no acute findings. Normal labs and troponin ordered. GI cocktail Pepcid. Patient brought no relief with GI cocktail. Cardiac workup, labs are normal. Troponin negative. Reassured on the findings. She was placed on Carafate and pantoprazole. GI follow-up. All questions were answered. Re-evaluation: stable Disposition discussed with patient/family/significant other: Patient Case discussed with consulting clinician: N/A This note was generated with [employer] dictation software. It may contain incorrect words, spelling, and punctuation that were not noted in checking the note before signing. Lab Data Attestation: I reviewed the patient's lab results. Labs: Laboratory Results - last 24 hr 10/07/24 10/07/24 12:10 13:01 WBC 9.7 RBC 4.58 Hgb 13.1 Hct 40.4 MCV 88.2 MCH 28.6 MCHC 32.4 RDW Std Deviation 42.9 RDW Coeff of Rocael 13.2 Plt Count 247 MPV 8.8 Immature Gran % (Auto) 0.400 Neut % (Auto) 79.5 H Lymph % (Auto) 13.2 L Schleicher % (Auto) 3.9 Eos % (Auto) 2.8 Baso % (Auto) 0.2 Absolute Neuts (auto) 7.7 Absolute Lymphs (auto) 1.29 Nucleated RBC % 0 Sodium Cancelled 137 Potassium Cancelled 3.9 Chloride Cancelled 104 Carbon Dioxide Cancelled 28.0 Anion Gap Cancelled 5 BUN Cancelled 15 Creatinine Cancelled 0.74 Estim Creat Clear Calc Cancelled 87.42 Est GFR (MDRD) Af Amer Cancelled 109 Est GFR (MDRD) Non-Af Cancelled 90 BUN/Creatinine Ratio Cancelled 20.4 H Glucose Cancelled 95 Calcium Cancelled 8.5 Total Bilirubin Cancelled 0.40 AST Cancelled 25 ALT Cancelled 32 Alkaline Phosphatase Cancelled 52 Troponin I High Sens Cancelled < 3 L Total Protein Cancelled 7.3 Albumin Cancelled 3.5 Globulin Cancelled 3.8 Albumin/Globulin Ratio Cancelled 0.9 Lipase Cancelled 27 Radiography Diagnostic Testing: Clinical Impression(s) from Imaging Studies Chest X-Ray 10/07/24 13:10 IMPRESSION: No acute cardiopulmonary abnormality. Electronically Signed: Jaspal Hwang MD at 14:11 EST , Discharge Plan Triage Chief Complaint: Chest Other ED Provider: Bam Avalos Dx/Rx/DC Orders Clinical Impression: Gastritis, Atypical chest pain Instructions: ED Chest Pain, Noncardiac, ED Gastritis (Adult) Prescriptions: New sucralfate [Carafate] 1 gram tablet 1 g PO Q6H Qty: 60 0RF pantoprazole 40 mg tablet,delayed release (DR/EC) 40 mg PO DAILY Qty: 30 0RF No Action sertraline 25 mg tablet 25 mg PO QDAY phenazopyridine [Pyridium] 200 mg tablet 200 mg PO TID PRN (Reason: pain) Qty: 7 0RF trazodone 50 mg tablet 50 mg PO QHS gabapentin 100 mg capsule 100 mg PO 4X/DAY Patient Comments: TAKE 1 CAPSULES (100 MG) BY ORAL ROUTE 4 TIMES PER DAY buprenorphine-naloxone 8-2 mg film 8 ea sublingual BID Patient Comments: USE ONE FILM UNDER THE TONGUE TWICE DAILY - 12/14 Stand Alone Forms: ED Work / School Excuse Primary Care Provider: Care Physician,No Primary Referrals: Kirit Sutton DO [Med Staff - Active Staff] - 1-2 Weeks Care Physician,No Primary [Primary Care Provider] - Print Language: Danish Disposition Disposition: Home, Self Care Discharge Date/Time: 10/07/24 15:48
[2024-10-07] MEDS: Lidocaine 2% Viscous15 ML UDC 15 ML PO (11:42)
[2024-10-07] MEDS: Mag Hydrox/Al Hydrox/Simeth 30 ML UDC PO (11:42)
[2024-10-07] MEDS: Famotidine 200 MG/20 ML MDV 20 MG in 0.9% Normal Saline (Pres. free 8 ML 300 MG IV (12:07)
[2024-10-07 12:21] LABS: Absolute Lymphocyte Count 1.29 X10^3/uL (0.83-4.51); Absolute Neutrophil Count 7.7 X10^3/uL (2.0-7.7); Basophil# 0.02 X10^3/uL; Basophil% 0.2 % (0-1); Eosinophil# 0.27 X10^3/uL; Eosinophils% 2.8 % (0-5); Hematocrit 40.4 % (37-47); Hemoglobin 13.1 g/dL (12.0-15.0); Lymphocyte # 1.29 X10^3/ul (0.83-4.51); Lymphocyte % 13.2 % (19-41); Mean Corp Hgb Conc 32.4 g/dL (32-36); Mean Corpuscular Hgb 28.6 pg (27.0-32.0); Mean Corpuscular Volume 88.2 fL (81-99); Mean Platelet Vol. 8.8 fl (6.2-12.0); Monocyte# 0.38 X10^3/uL; Monocyte% 3.9 % (0-10); NRBC Flagged by Analyzer 0 % (0-5); Neutrophil # 7.74 X10^3/uL (2.7-7.7); Neutrophil % 79.5 % (47-70); Platelet Count 247 K/mm3 (150-450); RBC Distribution Width CV 13.2 % (11.6-14.6); RBC Distribution Width SD 42.9 fl (35.1-43.9); Red Blood Count 4.58 M/mm3 (4.2-5.4); White Blood Count 9.7 K/mm3 (4.4-11.0)
--- NOTE | 2024-10-07 13:10 | RAD_ITS ---
EXAM: XR CHEST, 2 VIEWS CLINICAL INDICATION: pain TECHNIQUE: Frontal and lateral views of the chest. COMPARISON: XR Chest dated 08/30/2023 FINDINGS: LUNGS AND PLEURAL SPACES: Normal. No consolidation or edema. No pneumothorax. No effusion. HEART: Normal heart size. MEDIASTINUM: No mediastinal or hilar mass. BONES/JOINTS: No acute abnormality. RAD/Chest PA and Lateral IMPRESSION: No acute cardiopulmonary abnormality. Electronically Signed: Jaspal Hwang MD at 14:11 EST ,
[2024-10-07 13:13] VITALS: BP 126/87; PULSE 78
--- NOTE | 2024-10-07 14:15 | CM.ED ---
Social work Reason for referral: no PCP Referral source: case find This SW identified patient?s lack of a PCP and entered patient?s room, identifying self and role at [facility]. Patient was lying in bed, alert and oriented, and welcomed SW visit. Patient acknowledged not having a PCP, but needing to identify and schedule with one. Patient accepted resources of the [facility] Provider Directory and [facility] information. Patient stated she had been to [facility] in the past for dental services and would be comfortable going there for PCP services. Patient specifically asked for OBGYNs due to her report of having consistent UTIs; patient was shown list of OBGYNs in the [facility] brochure provided. Patient expressed being grateful for this SW taking time to bring in the resources for her. No other needs identified at this time. Monet Celestin, TEACHER LEARNING DISABLED, PAYROLL PROFESSIONAL
[2024-10-07 15:00] VITALS: BP 128/74
[2024-10-07 15:14] LABS: ALB/GLOB Ratio 0.9 RATIO (0.9-2.4); AST(SGOT) 25 U/L (15-37); Alanine Aminotransfer ALT/SGPT 32 U/L (13-56); Albumin, Serum 3.5 g/dL (3.2-5.0); Alkaline Phosphatase 52 U/L (45-117); Anion Gap 5 (5-15); BUN 15 mg/dL (7-18); BUN/Creat Ratio 20.4 RATIO (10-20); Calcium,Total 8.5 mg/dL (8.5-10.1); Chloride 104 mmol/L (98-107); Creatinine, Serum 0.74 mg/dL (0.55-1.02); EST Glomerular Filtration Rate 90 mL/min (>60); Est Glom Filt Rate - Afr Amer 109 mL/min (>60); Estimated Creatinine Clearance 87.42 ml/min; Globulin 3.8 g/dL (2.2-4.2); Glucose 95 mg/dL (74-106); Lipase 27 U/L (13-75); Potassium 3.9 mmol/L (3.5-5.1); Protein, Total 7.3 g/dL (6.4-8.2); Sodium Level 137 mmol/L (136-145); Troponin-I HS < 3 pg/mL (3.0-54.0)
[2024-10-07 15:42] VITALS: BP 128/74; PULSE 67; RESP 16; TEMP 36.6; O2SAT 99
== END 2024-10-07 15:48 | disposition home or self-care (01) ==
PROVIDERS: Emergency Provider Emergency Medicine; Visit Provider Emergency Medicine
DX: K29.70 Gastritis, unspecified, without bleeding (principal); R07.89 Other chest pain; R10.13 Epigastric pain; J45.909 Unspecified asthma, uncomplicated; F41.9 Anxiety disorder, unspecified; F17.290 Nicotine dependence, other tobacco product, uncomplicated; Z79.899 Other long term (current) drug therapy
CPT/HCPCS: 71046; 80053; 83690; 84484; 85025; 93005; 96374; 99283

== ENCOUNTER 2025-06-15 15:52 | Emergency (ER) | payer BC, SELFPAY ==
[2025-06-15] VITALS (14 sets, daily range): BP systolic 102–131; BP diastolic 55–97; PULSE 55–85; RESP 6–29; TEMP 37.2; O2SAT 97–100; BMI 25.0
--- NOTE | 2025-06-15 15:50 | RAD_ITS ---
PROCEDURE: CHEST PA AND LATERAL 06/15/2025 REASON FOR EXAM: COUGH TECHNIQUE: CHEST PA AND LATERAL COMPARISON: 10/07/2024 FINDINGS: No focal airspace consolidation, lobar collapse, pneumothorax or pleural effusion. Prominent enlargement of the right hilar vasculature may be related to right hilar lymphadenopathy or possibly a mass lesion. New from prior exam. Cardiac silhouette is normal in size. Unremarkable osseous structures. RAD/Chest PA and Lateral IMPRESSION: Prominent nodular enlargement of the right hilum likely reflecting hilar lympha denopathy or mass lesion. Less likely, a distended pulmonary artery with acute PE could have a similar appearance. Ollie mmend further evaluation with contrast-enhanced CT chest. Reading Location: [id number]
--- NOTE | 2025-06-15 16:06 | ED.VIS.CHEST ---
HPI History of Present Illness Chief Complaint: Chest Pain Informant: patient Onset/Context/Timing Onset: Days (4-5) Activity at onset: gradual Timing: Continuous Quality: Positive for Burning Location: Substernal Worsened By: - (Activity) Relieved By: Nothing Associated Symptoms: Positive for Dyspnea and Cough; Negative for Nausea, Vomiting, Diaphoresis, Fever, Lightheadedness, Acid Reflux or Palpitations Narrative Narrative: Patient presents with chest pain that has been constant for the past 4 to 5 days. Patient states it is gradually gotten worse. Patient is concerned that she has pneumonia. Patient states it feels similar to prior episodes of pneumonia. Patient admits to a burning sensation. Patient states it is over the substernal area. Patient admits to some shortness of breath and cough. Patient denies any fevers or chills. Patient denies any palpitations. Patient states her pain is worse with any activity. Patient states nothing makes it better. Prior Similar Symptoms: Yes (With pneumonia) Recent Illness/Hospitalization: No CVD Risk Factors: Positive for Smoking; Negative for Hypertension, Diabetes, Hypercholesterolemia or Family History 1' </=55 PE Risk Factors: Positive for Recent Travel/Surgery; Negative for Recent Immobilization, Prior DVT or PE, Cancer or OCP + Smoking + >/=35 PFSH [facility] Medical History Right ureteral stone Wears glasses Depression Substance abuse Marijuana use History of ulceration Vapes nicotine containing substance Shortness of breath on exertion Leg cramps Anxiety Asthma Home Medications ?Medication ?Instructions ?Recorded ?Last Taken ?Type buprenorphine 8 mg-naloxone 2 mg 8 ea sublingual BID 02/15/22 11/08/23 History sublingual film gabapentin 100 mg capsule 100 mg PO 4X/DAY 02/15/22 11/08/23 History trazodone 50 mg tablet 50 mg PO QHS 02/15/22 11/08/23 History phenazopyridine 200 mg tablet 200 mg PO TID PRN pain 6 doses #7 07/29/24 Unknown Rx (Pyridium) tabs sertraline 25 mg tablet 25 mg PO QDAY 07/29/24 Unknown History pantoprazole 40 mg tablet,delayed 40 mg PO DAILY #30 tabs 10/07/24 Unknown Rx release sucralfate 1 gram tablet (Carafate) 1 g PO Q6H #60 tabs 10/07/24 Unknown Rx Allergy/AdvReac Type Severity Reaction Status Date / Time Sulfa (Sulfonamide Allergy Anaphylaxis Verified 06/15/25 15:53 Antibiotics) Surgical History Hx of oral surgery Hx of tubal ligation Social History household members: significant other and children Smoking Status: Current every day smoker tobacco type: e-cigarettes substance use type: former substance user and opiates ROS ROS ED Constitutional Constitutional ED: Denies chills or fever(s) Eyes Eyes: Denies blurry vision or change in vision ENT ENT ED: Reports sore throat; Denies rhinorrhea Cardiovascular Cardiovascular: Reports chest pain; Denies palpitations Respiratory/Chest Respiratory/Chest: Reports cough and dyspnea Gastrointestinal Gastrointestinal: Denies nausea or vomiting Genitourinary Genitourinary ED: Denies dysuria or hematuria Musculoskeletal Musculoskeletal: Denies back pain or neck pain Integumentary Denies abscess or rash Neurologic Neurologic: Denies headache(s) or weakness Allergic/Immunologic Allergic/Immunologic ED: Denies mouth swelling or urticaria EXAM Physical Exam Const Vital Signs: 06/15/25 15:52 06/15/25 16:22 06/15/25 16:23 Temperature 99 F Temperature Source Temporal Pulse Rate 85 71 Respiratory Rate 14 16 Respiratory Effort Blood Pressure 112/55 L Blood Pressure Mean 74 Pulse Ox 99 98 Oxygen Delivery Method Room Air Room Air 06/15/25 16:26 06/15/25 16:47 06/15/25 17:00 Temperature Temperature Source Pulse Rate 69 72 Respiratory Rate 6 L 12 Respiratory Effort Normal Blood Pressure Blood Pressure Mean Pulse Ox 100 Oxygen Delivery Method 06/15/25 17:15 06/15/25 17:21 06/15/25 17:30 Temperature Temperature Source Pulse Rate 73 71 72 Respiratory Rate 29 H 13 18 Respiratory Effort Blood Pressure 113/72 Blood Pressure Mean 83 Pulse Ox 97 Oxygen Delivery Method Room Air 06/15/25 17:30 06/15/25 17:45 06/15/25 18:00 Temperature Temperature Source Pulse Rate 67 62 Respiratory Rate 13 9 L Respiratory Effort Blood Pressure 110/71 109/97 H 102/74 Blood Pressure Mean 83 104 81 Pulse Ox Oxygen Delivery Method 06/15/25 18:15 06/15/25 18:15 06/15/25 18:30 Temperature Temperature Source Pulse Rate 66 60 Respiratory Rate 11 L 12 Respiratory Effort Blood Pressure 115/83 H 115/83 H Blood Pressure Mean 93 93 Pulse Ox 97 Oxygen Delivery Method Room Air 06/15/25 19:03 Temperature Temperature Source Pulse Rate 55 L Respiratory Rate 12 Respiratory Effort Blood Pressure 131/75 H Blood Pressure Mean 93 Pulse Ox 100 Oxygen Delivery Method Room Air Positive well nourished and well developed General Appearance ED: well developed and NAD HEENT Reports moist mucous membranes Neck supple and no JVD Chest Wall palpation of chest normal Resp normal respiratory effort Auscultation: diminished lung sounds Cardio regular rate and regular rhythm GI soft to palpation, non-tender and non-distended Extremity normal to inspection General Extremety ED: Negative for edema or tenderness General Extremity: Negative for edema Neuro oriented x3, CN's II-XII intact bilaterally and no sensory deficits noted Sensorium / Orientation: awake and alert Motor Exam: strength 5/5 throughout Psych mental status grossly normal MDM MDM MDM Narrative Medical decision making narrative: Differential diagnosis includes pneumonia, bronchitis, gastroesophageal reflux disease, cardiac dysrhythmia, cardiac ischemia, pulmonary embolism, and anxiety. EKG will be obtained to assess for cardiac dysrhythmia and cardiac ischemia. Chest x-ray will be obtained to assess for pneumonia or bronchitis. CBC will be obtained to assess for leukocytosis and anemia. Comprehensive metabolic profile will be obtained to assess for hepatic function, renal function, and electrolyte abnormality. High-sensitivity troponin will be obtained to assess for cardiac ischemia. D-dimer will be obtained to assess for pulmonary embolism. Lab Data Attestation: I reviewed the patient's lab results. Lab results narrative: CBC was reviewed. There is a mild anemia with a hemoglobin of 11.8 and hematocrit 36.0. Comprehensive metabolic profile was reviewed and was within normal limits. D-dimer was reviewed and was less than 0.27. High-sensitivity troponin was reviewed and was less than 6. Labs: Laboratory Results - last 24 hr 06/15/25 16:23 WBC 5.6 RBC 4.12 L Hgb 11.8 L Hct 36.0 L MCV 87.4 MCH 28.6 MCHC 32.8 RDW Std Deviation 42.3 RDW Coeff of Rocael 13.2 Plt Count 218 MPV 9.0 Immature Gran % (Auto) 0.200 Neut % (Auto) 58.2 Lymph % (Auto) 23.6 [place] % (Auto) 5.2 Eos % (Auto) 11.9 H Baso % (Auto) 0.9 Absolute Neuts (auto) 3.2 Absolute Lymphs (auto) 1.31 Nucleated RBC % 0 D-Dimer Quant (PE/DVT) < 0.27 L Sodium 139 Potassium 4.4 Chloride 105 Carbon Dioxide 24.4 Anion Gap 10 BUN 25 H Creatinine 1.12 Estim Creat Clear Calc 58.13 Est GFR (MDRD) Non-Af 61 BUN/Creatinine Ratio 22.1 H Glucose 91 Calcium 9.2 Total Bilirubin 0.24 AST 26 ALT 25 Alkaline Phosphatase 54 Troponin T High Sens < 6 Total Protein 7.0 Albumin 3.9 Globulin 3.1 Albumin/Globulin Ratio 1.3 Radiography Chest X-Ray - ED: 2 View, Read by ED Physician, Read by Radiologist and - (Right hilar enlargement, possible lymphadenopathy or mass) Diagnostic Testing: Clinical Impression(s) from Imaging Studies Chest X-Ray 06/15/25 15:50 IMPRESSION: Prominent nodular enlargement of the right hilum likely reflecting hilar lymphadenopathy or mass lesion. Less likely, a distended pulmonary artery with acute PE could have a similar appearance. Recommend further evaluation with contrast-enhanced CT chest. Reading Location: [facility] Chest CTA 06/15/25 18:18 IMPRESSION: Neoplastic mediastinal and right hilar mass concerning for bronchogenic carcinoma. Narrowing of the descending right pulmonary artery with soft tissue tracking along the lower lobe vessels. Reading Location: [facility] and lateral chest x-ray was obtained. There are 2 views. On my independent interpretation, lung gomez show right hilar enlargement, possible lymphadenopathy or mass. There is normal cardiac silhouette. Bony thorax is normal. Radiologist also interpreted the x-ray and agrees. CTA of the chest was obtained. There is right hilar mass concerning for bronchogenic carcinoma. There is narrowing of the descending right pulmonary artery with soft tissue tracking along the lower lobe vessels. There is no acute infiltrate. This was interpreted by the radiologist and was also independently reviewed by myself. EKG Initial EKG: Attestation: I personally reviewed and interpreted this EKG as follows: Interpretation: Sinus Rhythm (80) and No Acute Injury Pattern Comments: EKG was obtained. On my independent interpretation, it showed a normal sinus rhythm with a rate of 80. NM interval, QRS interval, and QTc intervals were all normal. [place] was normal. There are no acute ST or T wave changes. Prior EKG tracings: available for review Prior: Unchanged (10/07/2024) Treatment and Re-Evaluation :: Patient was given a DuoNeb aerosol here. Patient was feeling somewhat better after treatment. Patient was advised of her findings. Patient was given a referral for pulmonology. Patient was instructed to continue her inhalers as prescribed. Patient was instructed to return if worse in any way. Patient was also instructed to follow-up with her primary care physician in 5 to 7 days. Patient understood and was agreeable with the plan. All questions were answered. Discharge Plan Triage Chief Complaint: Chest Pain ED Provider: Semaj Randall Dx/Rx/DC Orders Clinical Impression: Mass of right lung, Cough Instructions: ED Pulmonary Nodule Prescriptions: No Action sertraline 25 mg tablet 25 mg PO QDAY phenazopyridine [Pyridium] 200 mg tablet 200 mg PO TID PRN (Reason: pain) Qty: 7 0RF trazodone 50 mg tablet 50 mg PO QHS gabapentin 100 mg capsule 100 mg PO 4X/DAY Patient Comments: TAKE 1 CAPSULES (100 MG) BY ORAL ROUTE 4 TIMES PER DAY buprenorphine-naloxone 8-2 mg film 8 ea sublingual BID Patient Comments: USE ONE FILM UNDER THE TONGUE TWICE DAILY - 12/14 sucralfate [Carafate] 1 gram tablet 1 g PO Q6H Qty: 60 0RF pantoprazole 40 mg tablet,delayed release (DR/EC) 40 mg PO DAILY Qty: 30 0RF Primary Care Provider: Care Physician,No Primary Referrals: Chandra Silva DO [Med Staff - Active Staff] - 3-5 Days Semaj Sheridan MD [Med Staff - Laser Beam Trim Operator] - 3-5 Days Care Physician,No Primary [Primary Care Provider] - Print Language: Albanian Disposition Disposition: Home, Self Care
--- NOTE | 2025-06-15 16:13 | EKG12_ITS ---
Test Reason : CP Blood Pressure : */* mmHG Vent. Rate : 80 BPM Atrial Rate : 80 BPM P-R Int : 162 ms QRS Dur : 86 ms QT Int : 362 ms P-R-T Axes : 80 56 51 degrees QTcB Int : 417 ms Normal sinus rhythm Normal ECG Confirmed by JULIO THOMAS, ALBERT ([id number]), fan mail editor BRIELLE CALLAHAN ([id number]) on 06/17/2025 6:12:02 AM Referred By: JERARDO/HAYES Confirmed By: ALBERT KIM MD
--- OUTSIDE RECORDS SUMMARY | 2025-06-15 16:15 | XMS RPT_ITS | CCD ---
Author Organization [facility] Care Team Providers Care Manager Field Investigations Name Role Phone NO, DOCTOR ON Consulting Unavailable SHAN DUKE MD Referring Unavailable SHAN DUKE MD Admitting Unavailable SHAN DUKE MD Attending Unavailable SHAN DUKE MD Primary Care Unavailable Unavailable Primary Care Provider Unavailabl e Unavailable Primary Care Provider Unavailabl e Unavailable Primary Care Provider Unavailabl e Care Physician, No Primary Primary Care Unava ilable Semaj Randall Attending Unavailable Care Physician, No Primary Primary Care Unava ilable Bam Avalos Attending Unavailable Care Physician, No Primary Primary Care Unava ilable Duy Smith Attending Unavailable Malcolm Snyder Attending Unavailable Care Physician, No Primary Referring Unava ilable Care Physician, No Primary Primary Care Unava ilable Malcolm Snyder Attending Unavailable Malcolm Snyder Referring Unavailable Care Physician, No Primary Primary Care Unava ilable NGOC BRIGGS Attending Unavailable Allergies Allergy Classification Reported Allergen(s) Allergy Type Date of Onset Reaction(s) Facility (20 sources) Sulfonamides (Antibiotic); Translations: [Sulfa (Sulfonamide Antibiotics)] Allergy to substance 02-15-2022 Anaphylaxis [facility] (1 source) Sulfonamide; Translations: [sulfa drugs] Drug allergy [facility] Medications Current Medications Medication Drug Class(es) Dates Sig (Normalized) Sig (Original) acetaminophen 325 mg oral tablet (5 sources) take 2 tablets by mouth every six hours as needed acetaminophen (TYLENOL) 325 mg tablet Take 650 mg by mouth every 6 hours as needed for pain. Active Comment on above: Take 650 mg by mouth every 6 hours as needed for pain. acetaminophen 325 mg / oxyCODONE hydrochloride 5 mg oral tablet (1 source) Opioid Agonist Start: 11-09-2023 take 1 tablet by mouth every eight hours Oxycodone-Acetamino phen (Percocet) 5-325 mg tablet Active 1 TABLET PO Q8H 10 3 November 09, 2023 [id number] 60 actuat albuterol 0.09 mg/actuat metered dose inhaler (9 sources) beta2-Adrenergic Agonist Start: 05-07-2018 Albuterol Sulfate (Ventolin Hfa (Sp)) 1 INHALER inhaler Active 1 PUFF INHALATION EVERY 4 HOURS NEEDED May 07, 2018 11:17am Start: 05-07-2018 End: 06-13-2023 Albuterol Sulfate (Ventolin Hfa (Sp)) 1 INHALER inhaler Discontinued 1 PUFF INHALATION EVERY 4 HOURS NEEDED May 06, 2018 11:00pm June 13, 2023 9:25pm Start: 05-07-2018 End: 06-13-2023 Albuterol Sulfate (Ventolin Hfa (Sp)) 1 INHALER inhaler Discontinued 1 PUFF INHALATION EVERY 4 HOURS NEEDED May 07, 2018 12:00am June 13, 2023 10:25pm Start: 05-07-2018 Albuterol Sulf ate (Ventolin Hfa (Sp)) 1 INHALER inhaler Active 1 PUFF INHALATION EVERY 4 HOURS NEEDED May 06, 2018 11:00pm Start: 05-07-2018 Albuterol Sulf ate (Ventolin Hfa (Sp)) 1 INHALER inhaler Active 1 PUFF INHALATION EVERY 4 HOURS NEEDED May 07, 2018 12:00am azithromycin 250 mg oral tablet (4 sources) Macrolide Antimicrobial Start: 08-30-2023 take 2 tablets by mouth once daily Azithromycin (Zithromax) 250 mg tablet Active 250 MG PO DAILY 4 4 August 29, 2023 11:00pm start on day 2 of therapy Start: 07-18-2022 take 500 mg by mouth once daily Azithromycin Active 500 MG PO DAILY 5 July 18, 2022 12:00am buprenorphine 8 mg / naloxone 2 mg sublingual film (17 sources) Partial Opioid Agonist, Opioid Antagonist Start: 02-15-2022 Buprenorphine-Naloxo ne Active February 15, 2022 6:39pm Start: 02-15-2022 buprenorphine- naloxone (SUBOXONE) 8-2 mg film ONE FILM UNDER THE TONGUE TWICE DAILY 04/29/2023 Active Comment on above: ONE FILM UNDER THE T ONGUE TWICE DAILY cariprazine 1.5 mg oral capsule (1 source) Atypical Antipsychotic Start: 01-09-202 4 take 1 capsule by mouth once daily Cariprazine (Vraylar) 1.5 mg capsule Active 1.5 MG PO DAILY November 07, 2023 12:00am cephalexin 500 mg oral capsule (8 sources) Cephalosporin Antibacterial Start: 4 End: cephalexin 500 mg oral capsule Dose : 500 mg = 1 cap(s), Oral, TID, X 7 day(s), # 21 cap(s), 0 Refill(s), 12/05/23 1:30:00 AM EST, 68.2 Start Date: 11/28/23 Stop Date: 12/05/23 Status: Ordered Start: 03-08-2023 End: 06-13-2023 take 500 mg by mouth every twelve hours Cephalexin Discontinued 500 MG PO EVERY 12 HOURS March 07, 2023 11:00pm June 13, 2023 9:25pm Start: 02-15-2022 take 500 mg by mouth every six hours Cephalexin Active 500 MG PO EVERY 6 HOURS 40 February 15, 2022 7:36pm gabapentin 100 mg oral capsule (18 sources) Anti-epileptic Agent Start: 02-15-2022 take 1 capsule by mouth four times daily gabapentin (NEURONTIN) 100 mg capsule TAKE 1 CAPSULES (100 MG) BY ORAL ROUTE 4 TIMES PER DAY 04/29/2023 Active Comment on above: TAKE 1 CAPSULES (100 MG) BY ORAL ROUTE 4 TIMES PER DAY ketorolac tromethamine 10 mg oral tablet (2 sources) Nonsteroidal Anti-inflammatory Drug, Cyclooxygenase Inhibitor Start: 08-30-2023 take 10 mg by mouth every six hours Ketorolac Active 10 MG PO EVERY 6 HOURS 10 3 August 29, 2023 11:00pm lisdexamfetamine dimesylate 30 mg oral capsule (2 sources) Central Nervous System Stimulant Start: 04-30-2025 take 1 capsule by mouth once daily lisdexamfetamine (VYVANSE) 30 mg capsule Take 30 mg by mouth once daily. 04/30/2025 Active metroNIDAZOLE 500 mg oral tablet (1 source) Nitroimidazole Antimicrobial Start: 02-15-2022 Metronidazole Active February 15, 2022 6:39pm nitrofurantoin, macrocrystals 25 mg / nitrofurantoin, monohydrate 75 mg oral capsule (6 sources) Nitrofuran Antibacterial Start: 09-21-2024 End: 09-26-2024 take 1 capsule by mouth twice daily nitrofurantoin monohydrate and macrocrystal (MACROBID) 100 mg capsule Take 1 capsule by mouth two times a day for 5 days. 10 capsule 09/21/2024 09/26/2024 Active Start: 01-25-2023 End: 06-13-2023 take 1 capsule by mouth every twelve hours at mealtime Nitrofurantoin Monohyd/M-Cryst (Macrobid) 100 mg capsule Discontinued 100 MG PO Q12H 10 January 24, 2023 11:00pm June 13, 2023 9:25pm must administer with a meal/food ondansetron 4 mg disintegrating oral tablet (6 sources) Serotonin-3 Receptor Antagonist Start: 11-30-2023 take 4 mg by mouth every eight hours as needed Ondansetron Active 4 MG PO EVERY 8 HOURS NEEDED November 30, 2023 12:00am Start: 03-08-2023 End: 06-13-2023 take 4 mg by mouth every eight hours as needed Ondansetron Discontinued 4 MG PO EVERY 8 HOURS NEEDED March 07, 2023 11:00pm June 13, 2023 9:25pm phenazopyridine hydrochloride 200 mg oral tablet (1 source) Start: 11-09-2023 take 1 tablet by mouth three times daily as needed Phenazopyridine (Pyridium) 200 mg tablet Active 200 MG PO 3 TIMES DAILY NEEDED 28 05November 09, 2023 12:00am traZODone hydrochloride 50 mg oral tablet (17 sources) Serotonin Reuptake Inhibitor Start: 02-15-2022 take 1 tablet by mouth once daily at bedtime traZODone (DESYREL) 50 mg tablet Take 50 mg by mouth daily at bedtime. 04/29/2023 Active Comment on above: Take 50 mg by mouth daily at bedtime. Completed/Discontinued Medications Medication Drug Class(es) Dates Sig (Normalized) Sig (Original) ciprofloxacin 500 mg oral tablet (4 sources) Quinolone Antimicrobial Start: 06-13-2023 End: 08-30-2023 take 500 mg by mouth twice daily Ciprofloxacin Hcl Discontinued 500 MG PO TWICE A DAY June 12, 2023 11:00pm August 30, 2023 5:27am famotidine 20 mg oral tablet (5 sources) Histamine-2 Receptor Antagonist Start: 03-08-2023 End: 06-13-2023 take 1 tablet by mouth twice daily Famotidine (Pepcid) 20 mg tablet Discontinued 20 MG PO TWICE A DAY March 08, 2023 10:13pm June 13, 2023 9:25pm promethazine hydrochloride 25 mg oral tablet (5 sources) Phenothiazine Start: 03-08-2023 End: 06-13-2023 take 25 mg by mouth three times daily Promethazine Discontinued 25 MG PO THREE TIMES A DAY March 07, 2023 11:00pm June 13, 2023 9:25pm Problems Active Problems Problem Classification Problem Date Documented Da te Episodic/Chronic Abdominal pain (3 sources) Right flank pain; Translations: [Unspecified abdominal pain] 08-30-2023 Episodic Calculus of urinary tract (5 sources) Kidney stone; Translations: [Calculus of kidney] 08-30-2023 Episodic Fracture of upper limb (2 sources) Closed fracture of middle phalanx of middle finger; Translations: [Displaced fracture of middle phalanx of left middle finger, initial encounter for closed fracture] 05-26-2023 Episodic Genitourinary symptoms and ill-defined conditions (2 sources) Increased frequency of urination; Translations: [Frequency of micturition] Onset: 08-29-2024 09-21-2024 Episodic Intestinal infection (9 sources) Viral gastroenteritis; Translations: [Viral intestinal infection, unspecified] 02-23-2022 Episodic Nonspecific chest pain (11 sources) Chest pain; Translations: [Chest pain, unspecified] Onset: 11-05-2024 Episodic Other connective tissue disease (1 source) Pain in finger of left hand; Translations: [Pain in left finger(s)] 05-29-2023 Episodic Other lower respiratory disease (8 sources) Cough; Translations: [Cough] 07-26-2022 Episodic Other nervous system disorders (1 source) Tremor; Translations: [Tremor, unspecified] Episodic Other upper respiratory disease (1 source) Nasal congestion; Translations: [Nasal congestion] 05-13-2025 Episodic Other upper respiratory disease (1 source) Nasal congestion; Translations: [Nasal congestion] Onset: 05-13-2025 Episodic Other upper respiratory infections (18 sources) Pharyngitis; Translations: [Acute pharyngitis, unspecified] Onset: 05-13-2025 12-14-2022 Episodic Pneumonia (except that caused by tuberculosis or sexually transmitted disease) (3 sources) Right lower zone pneumonia; Translations: [Pneumonia, unspecified organism] 08-30-2023 Episodic Residual codes; unclassified (2 sources) Pain; Translations: [Pain, unspecified] 05-09-2023 Episodic Sprains and strains (9 sources) Strain of muscle at thorax level; Translations: [Strain of muscle and tendon of unspecified wall of thorax, initial encounter] 05-08-2018 Episodic Urinary tract infections (20 sources) Urinary tract infectious disease; Translations: [Urinary tract infection, site not specified] Onset: 11-28-2023 02-23-2022 Episodic Viral infection (1 source) Viral disease; Translations: [Other viral agents as the cause of diseases classified elsewhere] Onset: 11-28-2023 Episodic Past or Other Problems Problem Classification Problem Date Documented Da te Episodic/Chronic Fever of unknown origin (1 source) Fever, unspecified; Translations: [Fever, unspecified] Onset: 01-22-2024 Episodic Nausea and vomiting (1 source) Nausea with vomiting, unspecified; Translations: [Nausea with vomiting, unspecified] Onset: 07-12-2024 Episodic Results Test Name Value Interpretation Reference Range Facility [facility] 05-13-2025 CNOV Office Visit ([facility]) JERRI MENDOZA ([id number]) 1980 F Date Time Provider Department 05/13/25 7:00 PM NGOC BRIGGS During your visit today, we recorded the following information about you: Temperature Pulse Respiration Blood pressure 98.4 degrees 78/minute 18/minute 100/68 Weight Last Period 69 kg 04/29/25 Ngoc Briggs APRN.MEDICAL LABORATORY TECHNOLOGIST 05/13/2025 7:50 PM Signed [facility] Subjective Jerri Mendoza is a 45 year old female. Patient presents with: Sore Throat: On and off x 5 days Sore Throat Sore Throat: - Severe sore throat x5 days. - Pain rated 9/10, localized to the throat without noticeable gland swelling. - Pain prevents eating solid foods; only able to consume soup and broth. - Strep test was negative. - History of COVID-19 with sore throat as the only symptom. - Taking Mucinex Flu Sore Throat with minimal relief. Congestion and Cough: - Mild cough and significant congestion. Review of Systems HENT: Positive for sore throat. Constitutional: (-) fever Ears/Nose/Mouth/Throat : (+) sore throat, (+) nasal congestion Respiratory: (+) cough Objective BP 100/68 Pulse 78 Temp 36.9 ?C (98.4 ?F) Resp 18 Wt 69 kg (152 lb 1.9 oz) LMP 04/29/2025 (Approximate) SpO2 100% No past medical history on file. No past surgical history on file. ALLERGIES Sulfa (Sulfonamide Antibiotics) MEDICATIONS - lisdexamfetamine (VYVANSE) 30 mg capsule Take 30 mg by mouth once daily. - buprenorphine-naloxone (SUBOXONE) 8-2 mg film ONE FILM UNDER THE TONGUE TWICE DAILY - gabapentin (NEURONTIN) 100 mg capsule TAKE 1 CAPSULES (100 MG) BY ORAL ROUTE 4 TIMES PER DAY - traZODone (DESYREL) 50 mg tablet Take 50 mg by mouth daily at bedtime. - acetaminophen (TYLENOL) 325 mg tablet Take 650 mg by mouth every 6 hours as needed for pain. (Patient not taking: Reported on 05/13/2025) No family history on file. Social History Tobacco Use - Smoking status: Former Types: Cigarettes - Smokeless tobacco: Never Vaping Use - Vaping status: current everyday user - Substances: Nicotine - Devices: Pre-filled pod Substance Use Topics - Alcohol use: Not Currently - Drug use: Not Currently Physical Exam Vitals and nursing note reviewed. Constitutional: General: She is not in acute distress. Appearance: Normal appearance. She is not ill-appearing. HENT: Nose: Congestion present. Mouth/Throat: Mouth: Mucous membranes are moist. Pharynx: Oropharynx is clear. Postnasal drip present. No oropharyngeal exudate or posterior oropharyngeal erythema. Cardiovascular: Rate and Rhythm: Normal rate and regular rhythm. Heart sounds: Normal heart sounds. Pulmonary: Effort: Pulmonary effort is normal. No respiratory distress. Breath sounds: Normal breath sounds. No wheezing or rales. Lymphadenopathy: Cervical: No cervical adenopathy. Skin: General: Skin is warm and dry. Findings: No erythema or rash. Neurological: Mental Status: She is alert. { 1. Sore throat (J02.9) 2. Nasal congestion (R09.81) 3. Postnasal drip (R09.82) - Negative strep test. - Ordered COVID-19 test; results expected tomorrow. - Suspected postnasal drip contributing to throat irritation, particularly upon awakening. - Recommended use of Flonase nasal spray to alleviate postnasal drainage. - Advised patient to monitor symptoms and report any worsening or new symptoms. - Follow-up with your PCP in 3-5 days if symptoms have not improved or sooner if symptoms worsen - Discussed red flags and need for immediate medical evaluation if any occur. - Discussed supportive care treatment with fluids, rest and analgesia. - Discussed expected course of illness Ngoc Briggs APRN.MEDICAL LABORATORY TECHNOLOGIST and Recording using [employer] software for draft documentation of the visit was discussed with the patient/authorized bank representative; all questions welcomed and answered. Patient/authorized bank representative agreed to proceed Disposition The patient was discharged. OTC Medications were advised: Ngoc Prather APRN.MEDICAL LABORATORY TECHNOLOGIST 05/13/2025 7:50 PM Signed 1. Sore throat (J02.9) 2. Nasal congestion (R09.81) 3. Postnasal drip (R09.82) - Negative strep test. - Ordered COVID-19 test; results expected tomorrow. - Suspected postnasal drip contributing to throat irritation, particularly upon awakening. - Recommended use of Flonase nasal spray to alleviate postnasal drainage. - Advised patient to monitor symptoms and report any worsening or new symptoms. - Your strep test was negative. - A COVID-19 nasal swab was collected and sent to the lab; results should be available tomorrow. - You will receive your COVID-19 result through [employer] if you have an account; if not, we will call you with the result. - If your COVID-19 test is positive, there is no specific antiviral treatment--rest (more content not included)... Normal [facility] STREP A MOLECULAR (POC)on Procedural Control Valid [facility] Strep A (POCT) Negative Negative [facility] 12 Lead EKGon 10-07-2024 12 Lead EKG [facility] Cardiovascular Services [address] [place] [address] 12 Lead EKG 10/07/24 1155 MR#: [id number] Acct: [id number] Name: JERRI MENDOZA Rep #: [id number] : 1980 44 From: Morgan Tang MD Attending Dr: Status: DEP ER Ordering Dr: Bam Avalos DO Date: 10/07/24 Location: ED Sex: F C Admitted: Test Reason : CP Blood Pressure : */* mmHG Vent. Rate : 75 BPM Atrial Rate : 75 BPM P-R Int : 182 ms QRS Dur : 90 ms QT Int : 374 ms P-R-T Axes : 79 75 67 degrees QTcB Int : 417 ms Normal sinus rhythm Normal ECG Confirmed by JULIO THOMAS, MORGAN ([id number]), purchase request editor MARLA JACKSON ([id number]) on 10/08/2024 8:17:20 AM Referred By: Confirmed By: MORGAN TANG MD 10/08/24 0817 Date Morgan Tang MD CC: Dr. Bam Avalos DO; No Primary Care Physician Signed Normal [place] CBC W/Diff, Automatedon -0 Absolute Lymph 1.29 X10 3/uL Normal 0.83-4.51 [facility] Comment on above: Performed By: #### L 500.4050, L100.0100 ####[facility] [address] [place], [address] Absolute Neut 7.7 X10 3/uL Normal 2.0-7.7 [facility] Comment on above: Performed By: #### L 500.4050, L100.0100 ####[facility] [address] [place], [address] Basophils/100 WBC (Bld) 0.2 % Normal 0-1 [facility] Comment on above: Performed By: #### L 500.4050, L100.0100 ####[facility] [address] [place], [address] Eosinophils/100 WBC (Bld) 2.8 % Normal 0-5 [facility] Comment on above: Performed By: #### L 500.4050, L100.0100 ####[facility] [address] [place], [address] Erythrocyte distribution width (RBC) [Ratio] 13.2 % Normal 11.6-14.6 [facility] Comment on above: Performed By: #### L 500.4050, L100.0100 ####[facility] [address] [place], [address] Hematocrit (Bld) [Volume fraction] 40.4 % Normal 37-47 [facility] Comment on above: Performed By: #### L 500.4050, L100.0100 ####[facility] [address] [place], [address] Hemoglobin (Bld) [Mass/Vol] 13.1 g/dL Normal 12.0-15. 0 [facility] Comment on above: Performed By: #### L 500.4050, L100.0100 ####[facility] [address] [place], [address] IG% 0.400 Normal 0.0-0.9 [facility] Comment on above: Result Comment: IG% - Immature Granulocytes (promyelocytes, myelocytes and metamyelocytes) > 1% indicates that a LEFT SHIFT is Present. Performed By: #### L 500.4050, L100.0100 ####[place] [address] [place], [address] Lymphocytes/100 WBC (Bld) 13.2 % Low 19-41 [facility] Comment on above: Performed By: #### L 500.4050, L100.0100 ####[facility] [address] [place], [address] MCH (RBC) [Entitic mass] 28.6 pg Normal 27.0-32.0 [facility] Comment on above: Performed By: #### L 500.4050, L100.0100 ####[place] [address] [place], [address] MCHC (RBC) [Mass/Vol] 32.4 g/dL Normal 32-36 [facility] Comment on above: Performed By: #### L 500.4050, L100.0100 ####[place] [address] [place], [address] MCV (RBC) [Entitic vol] 88.2 fL Normal 81-99 [facility] Comment on above: Performed By: #### L 500.4050, L100.0100 ####[place] [address] [place], [address] Monocytes/100 WBC (Bld) 3.9 % Normal 0-10 [facility] Comment on above: Performed By: #### L 500.4050, L100.0100 ####[place] [address] [place], [address] Neutrophils/100 WBC (Bld) 79.5 % High 47-70 [facility] Comment on above: Performed By: #### L 500.4050, L100.0100 ####[place] [address] [place], [address] Nucleated RBC (Bld) [#/Vol] 0 10*3/uL Normal 0-5 [facility] Comment on above: Performed By: #### L 500.4050, L100.0100 ####[facility] [address] [place], [address] Platelet mean volume (Bld) [Entitic vol] 8.8 fL Normal 6.2-12.0 [facility] Comment on above: Performed By: #### L 500.4050, L100.0100 ####[place] [address] [place], [address] Platelets (Bld) [#/Vol] 247 10*3/uL Normal 150-450 [facility] Comment on above: Performed By: #### L 500.4050, L100.0100 ####[place] [address] [place], [address] RBC (Bld) [#/Vol] 4.58 10*6/uL Normal 4.2-5.4 [facility] Comment on above: Performed By: #### L 500.4050, L100.0100 ####[place] [address] [place], [address] RDW SD 42.9 fl Normal 35.1-43.9 [facility] Comment on above: Performed By: #### L 500.4050, L100.0100 ####[place] [address] [place], [address] WBC (Bld) [#/Vol] 9.7 10*3/uL Normal 4.4-11.0 [facility] Comment on above: Performed By: #### L 500.4050, L100.0100 ####[place] [address] [place], [address] Chest PA and Lateralon 10-07 Chest PA and Lateral [facility] Imaging Services [address] [place] [address] Chest PA and Lateral MR#: [id number] Acct: [id number] Name: JERRI MENDOZA Rep #: [id number] : 1980 F 44 From: Jaspal Hwang MD PCP: Care Physician,No Primary Status: REG ER Study: Chest PA and Lateral Date of Exam: 10/07/24 Exam# [id number] Ordering Dr: Bam Avalos DO [id number] EXAM: XR CHEST, 2 VIEWS CLINICAL INDICATION: pain TECHNIQUE: Frontal and lateral views of the chest. COMPARISON: XR Chest dated 08/30/2023 FINDINGS: LUNGS AND PLEURAL SPACES: Normal. No consolidation or edema. No pneumothorax. No effusion. HEART: Normal heart size. MEDIASTINUM: No mediastinal or hilar mass. BONES/JOINTS: No acute abnormality. RAD/Chest PA and Lateral IMPRESSION: No acute cardiopulmonary abnormality. Electronically Signed: Jaspal Hwang MD at 14:11 EST , CC: Dr. Bam Avalos DO; No Primary Care Physician Nurse Research: Signed Normal [place] Comprehensive Metabolic Prof ilon 10-07-2024 Albumin [Mass/Vol] 3.5 g/dL Normal 3.2-5.0 [facility] Comment on above: Order Comment: REDRA W. PREVIOUS SPECIMEN REJECTED DUE TOHEMOLYSIS. 10/07/24 1251 Maylin Wiggins.1 Performed By: #### L 500.4050, L501.4020, L501.2450 ####[place] [address] [place], [place], [address] Albumin/Globulin [Mass ratio] 0.9 {ratio} Normal 0.9-2.4 [facility] Comment on above: Order Comment: RED W. PREVIOUS SPECIMEN REJECTED DUE TOHEMOLYSIS. 10/07/24 1251 Maylin Wiggins.1 Performed By: #### L 500.4050, L501.4020, L501.2450 ####[place] [address] [place], [address] ALK P 52 U/L Normal 45-117 [facility] Comment on above: Order Comment: REDRA W. PREVIOUS SPECIMEN REJECTED DUE TOHEMOLYSIS. 10/07/24 125 Maylin Perezno.1 Performed By: #### L 500.4050, L501.4020, L501.2450 ####[place] [address] [place], [address] ALT [Catalytic activity/Vol] 32 U/L Normal 13-56 [facility] Comment on above: Order Comment: REDRA W. PREVIOUS SPECIMEN REJECTED DUE TOHEMOLYSIS. 10/07/24 125 Maylin Jackmanzano.1 Performed By: #### L 500.4050, L501.4020, L501.2450 ####[place] [address] [place], [address] AST [Catalytic activity/Vol] 25 U/L Normal 15-37 [facility] Comment on above: Order Comment: REDRA W. PREVIOUS SPECIMEN REJECTED DUE TOHEMOLYSIS. 10/07/24 125 Maylin Jackmanzano.1 Performed By: #### L 500.4050, L501.4020, L501.2450 ####[place] [address] [place], [address] Bilirubin [Mass/Vol] 0.40 mg/dL Normal 0.20-1.00 [facility] Comment on above: Order Comment: REDRA W. PREVIOUS SPECIMEN REJECTED DUE TOHEMOLYSIS. 10/07/24 125 Maylin Jackmanzano.1 Result Comment: For patients on eltrombopag therapy, use of Dimension [place] TBIL is not recommended. Performed By: #### L 500.4050, L501.4020, L501.2450 ####[place] [address] [place], [address] BUN/CRE 20.4 RATIO High 10-20 [facility] Comment on above: Order Comment: REDRA W. PREVIOUS SPECIMEN REJECTED DUE TOHEMOLYSIS. 10/07/24 1251 Maylin Wiggins.1 Performed By: #### L 500.4050, L501.4020, L501.2450 ####[place] [address] [place], [address] CA,Total 8.5 mg/dL Normal 8.5-10.1 [facility] Comment on above: Order Comment: REDRA W. PREVIOUS SPECIMEN REJECTED DUE TOHEMOLYSIS. 10/07/24 125 Maylin Wiggins.1 Performed By: #### L 500.4050, L501.4020, L501.2450 ####[place] [address] [place], [address] Chloride [Moles/Vol] 104 mmol/L Normal 98-107 [facility] Comment on above: Order Comment: REDRA W. PREVIOUS SPECIMEN REJECTED DUE TOHEMOLYSIS. 10/07/24 125 Maylin Wiggins.1 Performed By: #### L 500.4050, L501.4020, L501.2450 ####[facility] [address] [place], [address] CO2 [Moles/Vol] 28.0 mmol/L Normal 21.0-32.0 [facility] Comment on above: Order Comment: REDRA W. PREVIOUS SPECIMEN REJECTED DUE TOHEMOLYSIS. 10/07/241250 Maylin Wiggins.1 Performed By: #### L 500.4050, L501.4020, L501.2450 ####[facility] [address] [place], [address] Creatinine [Mass/Vol] 0.74 mg/dL Normal 0.55-1.02 [facility] Comment on above: Order Comment: REDRA W. PREVIOUS SPECIMEN REJECTED DUE TOHEMOLYSIS. 10/07/24 125 Maylin Wiggins.1 Result Comment: The validity of the calculated GFR GFRAA in patients over 70 years has not been determined. Clinical correlation is essential. Performed By: #### L 500.4050, L501.4020, L501.2450 ####[facility] [address] [place], [address] ECRCL 87.42 ml/min Normal [facility] Comment on above: Order Comment: REDRA W. PREVIOUS SPECIMEN REJECTED DUE TOHEMOLYSIS. 10/07/24 1251 Maylin Jackmanzano.1 Performed By: #### L 500.4050, L501.4020, L501.2450 ####[facility] [address] [place], [address] EST GFR - AA 109 mL/min Normal >60 [facility] Comment on above: Order Comment: REDRA W. PREVIOUS SPECIMEN REJECTED DUE TOHEMOLYSIS. 10/07/24 1251 Maylin Wiggins.1 Result Comment: Afri can Zimbabwean GFR Calc Performed By: #### L 500.4050, L501.4020, L501.2450 ####[facility] [address] [place], [address] GAP 5 Normal 5-15 [facility] Comment on above: Order Comment: REDRA W. PREVIOUS SPECIMEN REJECTED DUE TOHEMOLYSIS. 10/07/24 1251 Maylin Jackmanzano.1 Performed By: #### L 500.4050, L501.4020, L501.2450 ####[facility] [address] [place], [address] GFR/1.73 sq M.predicted among non-blacks MDRD (S/P/Bld) [Vol rate/Area] 90 mL/min/{1.73_m2} Normal >60 [facility] Comment on above: Order Comment: REDRA W. PREVIOUS SPECIMEN REJECTED DUE TOHEMOLYSIS. 10/07/24 1251 Maylin Jackmanzano.1 Result Comment: Non- GFR Calc Performed By: #### L 500.4050, L501.4020, L501.2450 ####[facility] [address] [place], [address] Globulin (S) [Mass/Vol] 3.8 g/dL Normal 2.2-4.2 [facility] Comment on above: Order Comment: REDRA W. PREVIOUS SPECIMEN REJECTED DUE TOHEMOLYSIS. 10/07/24 125 Maylin Wiggins.1 Performed By: #### L 500.4050, L501.4020, L501.2450 ####[facility] [address] [place], [address] Glucose [Mass/Vol] 95 mg/dL Normal 74-106 [facility] Comment on above: Order Comment: REDRA W. PREVIOUS SPECIMEN REJECTED DUE TOHEMOLYSIS. 10/07/24 125 Maylin Wiggins.1 Performed By: #### L 500.4050, L501.4020, L501.2450 ####[facility] [address] [place], [address] Potassium [Moles/Vol] 3.9 mmol/L Normal 3.5-5.1 [facility] Comment on above: Order Comment: REDRA W. PREVIOUS SPECIMEN REJECTED DUE TOHEMOLYSIS. 10/07/24 125 Maylin Wiggins.1 Performed By: #### L 500.4050, L501.4020, L501.2450 ####[facility] [address] [place], [address] Sodium [Moles/Vol] 137 mmol/L Normal 136-145 [facility] Comment on above: Order Comment: REDRA W. PREVIOUS SPECIMEN REJECTED DUE TOHEMOLYSIS. 10/07/24 1251 Maylin Wiggins.1 Performed By: #### L 500.4050, L501.4020, L501.2450 ####[facility] [address] [place], [address] T PROT 7.3 g/dL Normal 6.4-8.2 [facility] Comment on above: Order Comment: REDRA W. PREVIOUS SPECIMEN REJECTED DUE TOHEMOLYSIS. 10/07/24 1251 Maylin Wiggins.1 Performed By: #### L 500.4050, L501.4020, L501.2450 ####[facility] [address] [place], [address] Urea nitrogen [Mass/Vol] 15 mg/dL Normal 7-18 [facility] Comment on above: Order Comment: BECKI Lord. PREVIOUS SPECIMEN REJECTED DUE TOHEMOLYSIS. 10/07/24 1251 Maylin Wiggins.1 Performed By: #### L 500.4050, L501.4020, L501.2450 ####[facility] [address] [place], [address] ALB Normal 3.2-5.0 [facility] Comment on above: Order Comment: 'TROP ' Serial specimen #1, #2 or #3: 1 Result Comment: This specimen has been REJECTED due to Laboratory criteria: Hemolyzed. JIAN has been notified of need of recollection. 10/07/24 1250 Maylin Wiggins Performed By: #### L 500.4050, L100.0100 ####[facility] [address] [place], [address] ALK P Normal 45-117 [facility] Comment on above: Order Comment: 'TROP ' Serial specimen #1, #2 or #3: 1 Result Comment: This specimen has been REJECTED due to Laboratory criteria: Hemolyzed. JIAN has been notified of need of recollection. 10/07/24 1250 Maylin Wiggins Performed By: #### L 500.4050, L100.0100 ####[facility] [address] [place], [address] ALT Normal 13-56 [facility] Comment on above: Order Comment: 'TROP ' Serial specimen #1, #2 or #3: 1 Result Comment: This specimen has been REJECTED due to Laboratory criteria: Hemolyzed. JIAN has been notified of need of recollection. 10/07/24 1250 Maylin Wiggins Performed By: #### L 500.4050, L100.0100 ####[facility] [address] [place], [address] AST Normal 15-37 [facility] Comment on above: Order Comment: 'TROP ' Serial specimen #1, #2 or #3: 1 Result Comment: This specimen has been REJECTED due to Laboratory criteria: Hemolyzed. JIAN has been notified of need of recollection. 10/07/24 1250 Maylin Wiggins Performed By: #### L 500.4050, L100.0100 ####[facility] [address] [place], [address] BUN Normal 7-18 [facility] Comment on above: Order Comment: 'TROP ' Serial specimen #1, #2 or #3: 1 Result Comment: This specimen has been REJECTED due to Laboratory criteria: Hemolyzed. JIAN has been notified of need of recollection. 10/07/24 1250 Maylin Wiggins Performed By: #### L 500.4050, L100.0100 ####[facility] [address] [place], [address] BUN/CRE Normal 10-20 [facility] Comment on above: Order Comment: 'TROP ' Serial specimen #1, #2 or #3: 1 Result Comment: This specimen has been REJECTED due to Laboratory criteria: Hemolyzed. JIAN has been notified of need of recollection. 10/07/24 1250 Maylin Wiggins Performed By: #### L 500.4050, L100.0100 ####[facility] [address] [place], [address] CA,Total Normal 8.5-10.1 [facility] Comment on above: Order Comment: 'TROP ' Serial specimen #1, #2 or #3: 1 Result Comment: This specimen has been REJECTED due to Laboratory criteria: Hemolyzed. JIAN has been notified of need of recollection. 10/07/24 1250 Maylin Wiggins Performed By: #### L 500.4050, L100.0100 ####[facility] [address] [place], [address] CL Normal 98-107 [facility] Comment on above: Order Comment: 'TROP ' Serial specimen #1, #2 or #3: 1 Result Comment: This specimen has been REJECTED due to Laboratory criteria: Hemolyzed. JIAN has been notified of need of recollection. 10/07/24 1250 Maylin Wiggins Performed By: #### L 500.4050, L100.0100 ####[facility] [address] [place], [address] CO2 Normal 21.0-32.0 [facility] Comment on above: Order Comment: 'TROP ' Serial specimen #1, #2 or #3: 1 Result Comment: This specimen has been REJECTED due to Laboratory criteria: Hemolyzed. JIAN has been notified of need of recollection. 10/07/24 1250 Maylin Wiggins Performed By: #### L 500.4050, L100.0100 ####[facility] [address] [place], [address] CREAT,SERUM Normal 0.55-1.02 [facility] Comment on above: Order Comment: 'TROP ' Serial specimen #1, #2 or #3: 1 Result Comment: This specimen has been REJECTED due to Laboratory criteria: Hemolyzed. JIAN has been notified of need of recollection. 10/07/24 1250 Maylin Wiggins Performed By: #### L 500.4050, L100.0100 ####[facility] [address] [place], [address] EST GFR Normal >60 [facility] Comment on above: Order Comment: 'TROP ' Serial specimen #1, #2 or #3: 1 Result Comment: This specimen has been REJECTED due to Laboratory criteria: Hemolyzed. JIAN has been notified of need of recollection. 10/07/24 1250 Maylin Wiggins Performed By: #### L 500.4050, L100.0100 ####[facility] [address] [place], [address] EST GFR - AA Normal >60 [facility] Comment on above: Order Comment: 'TROP ' Serial specimen #1, #2 or #3: 1 Result Comment: This specimen has been REJECTED due to Laboratory criteria: Hemolyzed. JIAN has been notified of need of recollection. 10/07/24 1250 Maylin Wiggins Performed By: #### L 500.4050, L100.0100 ####[facility] [address] [place], [address] GAP Normal 5-15 [facility] Comment on above: Order Comment: 'TROP ' Serial specimen #1, #2 or #3: 1 Result Comment: This specimen has been REJECTED due to Laboratory criteria: Hemolyzed. JIAN has been notified of need of recollection. 10/07/24 125 Maylin Wiggins Performed By: #### L 500.4050, L100.0100 ####[facility] [address] [place], [address] GLU Normal 74-106 [facility] Comment on above: Order Comment: 'TROP ' Serial specimen #1, #2 or #3: 1 Result Comment: This specimen has been REJECTED due to Laboratory criteria: Hemolyzed. JIAN has been notified of need of recollection. 10/07/24 125 Maylin Wiggins Performed By: #### L 500.4050, L100.0100 ####[facility] [address] [place], [address] Potassium Normal 3.5-5.1 [facility] Comment on above: Order Comment: 'TROP ' Serial specimen #1, #2 or #3: 1 Result Comment: This specimen has been REJECTED due to Laboratory criteria: Hemolyzed. JIAN has been notified of need of recollection. 10/07/24 1250 Maylin Wiggins Performed By: #### L 500.4050, L100.0100 ####[facility] [address] [place], [address] T BILI Normal 0.20-1.00 [facility] Comment on above: Order Comment: 'TROP ' Serial specimen #1, #2 or #3: 1 Result Comment: This specimen has been REJECTED due to Laboratory criteria: Hemolyzed. JIAN has been notified of need of recollection. 10/07/24 1250 Maylin Wiggins Performed By: #### L 500.4050, L100.0100 ####[facility] [address] [place], [address] T PROT Normal 6.4-8.2 [facility] Comment on above: Order Comment: 'TROP ' Serial specimen #1, #2 or #3: 1 Result Comment: This specimen has been REJECTED due to Laboratory criteria: Hemolyzed. JIAN has been notified of need of recollection. 10/07/24 1250 Maylin Wiggins Performed By: #### L 500.4050, L100.0100 ####[facility] [address] [place], [address] Comprehensive Metabolic Profil Normal 136-145 [facility] Comment on above: Order Comment: 'TROP ' Serial specimen #1, #2 or #3: 1 Result Comment: This specimen has been REJECTED due to Laboratory criteria: Hemolyzed. JIAN has been notified of need of recollection. 10/07/24 1250 Amylin Wiggins Performed By: #### L 500.4050, L100.0100 ####[facility] [address] [place], [address] Emergency Department Summary on 10-07-2024 Emergency Department Summary [facility] Medical Records Department [address] [place] [address] Emergency Department Summary 10/07/24 MR#: [id number] Acct: [id number] Name: JERRI MENDOZA Rep #: [id number] : 1980 44 From: Bam Mcmillan PCP: Care Physician,No Primary Status:DEP ER Location: ED HPI History of Present Illness Chief Complaint: Chest Other Informant: patient Narrative Narrative: Chest burning discomfort every time she drinks or eat over the weekend. 2 weeks ago had indigestion symptoms that resolved same day. This past Monday again similar. She does not eat late. She does not eat spicy foods. She does admit to vaping. Denies alcohol. She had an upper endoscopy years ago when she was stating on workup found to have gallstones. No symptoms since then. Denies black or bloody stools. History of asthma. CVD Risk Factors: Positive for Smoking; Negative for Hypertension, Diabetes or Hypercholesterolemia PE Risk Factors: Negative for Recent Travel/Surgery, Recent Immobilization, Prior DVT or PE or Cancer PFSH [facility] Medical History Right ureteral stone Wears glasses Depression Substance abuse Marijuana use History of ulceration Vapes nicotine containing substance Shortness of breath on exertion Leg cramps Anxiety Asthma Home Medications ???Medication ???Instructions ???Recorded ???Last Taken ???Type buprenorphine 8 mg-naloxone 2 mg 8 ea sublingual BID 02/15/22 11/08/23 History sublingual film gabapentin 100 mg capsule 100 mg PO 4X/DAY 02/15/22 11/08/23 History trazodone 50 mg tablet 50 mg PO QHS 02/15/22 11/08/23 History phenazopyridine 200 mg tablet 200 mg PO TID PRN pain 6 doses #7 07/29/24 Unknown Rx (Pyridium) tabs sertraline 25 mg tablet 25 mg PO QDAY 07/29/24 Unknown History pantoprazole 40 mg tablet,delayed 40 mg PO DAILY #30 tabs 10/07/24 Unknown Rx release sucralfate 1 gram tablet (Carafate) 1 g PO Q6H #60 tabs 10/07/24 Unknown Rx Allergy/AdvReac Type Severity Reaction Status Date / Time Sulfa (Sulfonamide Allergy Anaphylaxis Verified 10/07/24 11:17 Antibiotics) Surgical History Hx of oral surgery Hx of tubal ligation Social History household members: significant other and children Smoking Status: Current every day smoker tobacco type: e-cigarettes substance use type: former substance user and opiates ROS ROS ED Constitutional Constitutional ED: Denies chills, fever(s) or sweats Eyes Eyes: Denies change in vision ENT ENT ED: Denies dysphagia or sore throat Cardiovascular Cardiovascular: Reports chest pain; Denies leg edema, palpitations or racing heartbeat Respiratory/Chest Respiratory/Chest: Denies cough, dyspnea or dyspnea on exertion Gastrointestinal Gastrointestinal: Reports abdominal pain; Denies diarrhea, nausea or vomiting Genitourinary Genitourinary ED: Denies dysuria, hematuria or urinary frequency Musculoskeletal Musculoskeletal: Denies back pain, extremity pain or neck pain Integumentary Denies rash or wounds Neurologic Neurologic: Denies headache(s), paresthesias or weakness EXAM Physical Exam Const Vital Signs: 10/07/24 11:14 10/07/24 11:36 10/07/24 13:13 Temperature 97.7 F L Temperature Source Oral Pulse Rate 78 78 Respiratory Rate 16 Respiratory Effort Normal Non-Labored Blood Pressure 98/68 126/87 H Blood Pressure Mean 78 100 Pulse Ox 99 Oxygen Delivery Method Room Air 10/07/24 15:00 10/07/24 15:42 Temperature 97.8 F Temperature Source Pulse Rate 67 Respiratory Rate 16 Respiratory Effort Blood Pressure 128/74 H 128/74 H Blood Pressure Mean 92 92 Pulse Ox 99 Oxygen Delivery Method Positive well nourished and well developed General Appearance ED: well developed and NAD HEENT Reports moist mucous membranes normocephalic and atraumatic Eyes EOMs intact bilaterally and conjunctivae normal General Eye ED: Yes normal appearance of both eyes Neck no lymphadenopathy and supple General: Negative for tenderness Chest Wall Chest: Negative for tenderness Resp normal respiratory effort and normal air movement Effort and Inspection: symmetric chest movement; Negative for respiratory distress Cardio regular rate, regular rhythm and no murmurs Peripheral Pulses: pulses 2+ throughout GI normal to inspection, nondistended, normoactive bowel sounds and non-tender GI Narrative: Negative Lo's or McBurney's. Palpation: Negative for guarding or rebound tenderness present Back/Spine no CVA tenderness and no thoracic nor lumbar tenderness Extremity normal to inspection General Extremety ED: Negative for edema or tend (more content not included)... Normal [facility] L501.4020on 10-07-2024 TROPONIN-I HS < 3 Low 3.0-54.0 [facility] Comment on above: Order Comment: BECKI Gibson PREVIOUS SPECIMEN REJECTED DUE TOHEMOLYSIS. 10/07/24 1251 Maylin Wiggins.1 Result Comment: Emir pelletier Note: New Test Units and Gender Specific Reference Ranges. For more information see Policy Stat Procedure [place] High Sensitivity Troponin (TNIH) and attachments. Performed By: #### L 500.4050, L501.4020, L501.2450 ####[facility] [address] [facility] [place], [place], [address] Lipaseon 10-07-2024 Lipase [Catalytic activity/Vol] 27 U/L Normal 13-75 [facility] Comment on above: Order Comment: BECKI Lord. PREVIOUS SPECIMEN REJECTED DUE TOHEMOLYSIS. 10/07/24 1251 Maylin Wiggins.1 Result Comment: Emir pelletier note: LIPASE revised reference range effective 23. New Lipase methodology. Expected to produce lower values than the previous assay method. NEW Reference Range: 13 - 75 U/L Performed By: #### L 500.4050, L501.4020, L501.2450 ####[facility] [address] [place], [place], [address] Bacteria Ur Culton 4 Bacteria identified Cx Nom (U) ORGANISM ID: 1 >=100,000 CFU/ml Escherichia coli ORGANISM ID: 1 (ESCHERICHIA COLI) -- ANTIBIOTIC INTERPRETATION SUDARSHAN STATUS REFERENCE RANGE -- Ampicillin S <=2 F Susceptible <=8 , Intermediate >8 , Resistant >16 Cefazolin S <=4 F Susceptible 0-16 , Intermediate <0 or >16 , Resistant >16 For uncomplicated urinary tract infections, cefazolin results can be used to predict susceptibility or resistance to cephalexin. Ceftriaxone S <=1 F Susceptible <=1 , Intermediate >1 , Resistant >=4 Cefepime S <=1 F Susceptible <=2 , Susceptible-Dose Dependent >2 , Resistant >=16 Ertapenem S <=0.5 F Susceptible <=0.5 , Intermediate >.5 , Resistant >1 Meropenem S <=0.25 F Susceptible <=1 , Intermediate >1 , Resistant >2 Ampicillin/Sulbact S <=2 F Susceptible <=8 , Intermediate >8 , Resistant >16 Piperacillin/Tazobac S <=4 F Susceptible <16 , Susceptible-Dose Dependent >=16 , Resistant >=32 Gentamicin S <=1 F Susceptible <=2 , Intermediate >2 , Resistant >=8 Tobramycin S <=1 F Susceptible <4 , Intermediate >=4 , Resistant >=8 Trimeth sulfameth S <=20 F Susceptible <=40 , Resistant >40 Ciprofloxacin S <=0.25 F Susceptible <0.5 , Intermediate >=.5 , Resistant >=1 Nitrofurantoin S <=16 F Susceptible <=32 , Intermediate >32 , Resistant >64 Abnormal [facility] Comment on above: Performed By: #### 6 30-4 #### [facility] CLIA [id number] [address] [place] [address] STATES OF [facility] CNOVon 09-21-2024 CNOV Office Visit (UCWSTR ) JERRI MENDOZA ([id number]) 1980 F Date Time Provider Department 09/21/24 3:15 PM NETTIE CARBAJAL WSTR During your visit today, we recorded the following information about you: Temperature Pulse Respiration Blood pressure 98 degrees 80/minute 16/minute 110/64 Weight 65.5 kg Geni NettieDEXTER.RADHA 09/22/2024 8:50 AM Signed This note was created using NoteWriter. Subjective Jerri Mendoza is a 44 year old female. 44 year old female with PMH asthma presents for UTI Acute onset last night +urgency +frequency +burning Denies flank pain Denies abdominal pain Denies vaginal bleeding Denies vaginal discharge Recent sexual ativity Denies concerns for STI Used azos The history is provided by the patient. No sheet metal smith was used. UTI This is a new problem. The current episode started yesterday. The problem occurs every urination. The problem has been gradually worsening. The quality of the pain is described as burning. The pain is at a severity of 5/10. The pain is moderate. There has been no fever. She is Sexually active. There is No history of pyelonephritis. Associated symptoms include frequency, hematuria and urgency. Pertinent negatives include no chills, no sweats, no nausea, no vomiting, no discharge, no hesitancy, no possible and no flank pain. Treatments tried: Azos. Her past medical history does not include kidney stones, single kidney, urological procedure, recurrent UTIs, urinary stasis or catheterization. History reviewed. No pertinent past medical history. No past surgical history on file. ALLERGIES Sulfa (Sulfonamide Antibiotics) MEDICATIONS acetaminophen (TYLENOL) 325 mg tablet Take 650 mg by mouth every 6 hours as needed for pain. buprenorphine-naloxone (SUBOXONE) 8-2 mg film ONE FILM UNDER THE TONGUE TWICE DAILY gabapentin (NEURONTIN) 100 mg capsule TAKE 1 CAPSULES (100 MG) BY ORAL ROUTE 4 TIMES PER DAY traZODone (DESYREL) 50 mg tablet Take 50 mg by mouth daily at bedtime. nitrofurantoin monohydrate and macrocrystal (MACROBID) 100 mg capsule Take 1 capsule by mouth two times a day for 5 days. No family history on file. Social History Tobacco Use Smoking status: Former Types: Cigarettes Smokeless tobacco: Never Vaping Use Vaping status: current everyday user Substances: Nicotine Devices: Pre-filled pod Substance Use Topics Alcohol use: Not Currently Drug use: Not Currently Review of Systems Constitutional: Negative for chills. Eyes: Negative for pain, discharge, redness and itching. Respiratory: Negative for apnea, cough, choking and chest tightness. Cardiovascular: Negative for chest pain, palpitations and leg swelling. Gastrointestinal: Negative for abdominal pain, nausea and vomiting. Genitourinary: Positive for dysuria, frequency, hematuria and urgency. Negative for flank pain and hesitancy. Musculoskeletal: Negative for arthralgias, back pain and gait problem. Skin: Negative for color change and pallor. Neurological: Negative for dizziness, facial asymmetry, light-headedness and headaches. Hematological: Negative for adenopathy. Does not bruise/bleed easily. Psychiatric/Behavioral : Negative for agitation and behavioral problems. Objective BP 110/64 Pulse 80 Temp 36.7 ?C (98 ?F) (Tympanic) Resp 16 Wt 65.5 kg (144 lb 6.4 oz) Physical Exam Vitals and nursing note reviewed. Constitutional: General: She is not in acute distress. Appearance: Normal appearance. She is normal weight. She is not ill-appearing, toxic-appearing or diaphoretic. HENT: Head: Normocephalic and atraumatic. Right Ear: Ear canal and external ear normal. Left Ear: Ear canal and external ear normal. Nose: Nose normal. No congestion or rhinorrhea. Mouth/Throat: Mouth: Mucous membranes are moist. Pharynx: No oropharyngeal exudate or posterior oropharyngeal erythema. Eyes: General: Right eye: No discharge. Left eye: No discharge. Extraocular Movements: Extraocular movements intact. Conjunctiva/sclera: Conjunctivae normal. Pupils: Pupils are equal, round, and reactive to light. Cardiovascular: Rate and Rhythm: Normal rate and regular rhythm. Pulses: Normal pulses. Heart sounds: Normal heart sounds. No murmur heard. No friction rub. Pulmonary: Effort: Pulmonary effort is normal. No respiratory distress. Breath sounds: Normal breath sounds. No stridor. No wheezing, rhonchi or rales. Chest: Chest wall: No tenderness. Abdominal: General: Abdomen is flat. There is no distension. Palpations: Abdomen is soft. There is no mass. Tenderness: There is no abdominal tenderness. There is no right CVA tenderness, left CVA tenderness, guarding or rebound. Hernia: No hernia is present. Musculoskeletal: General: No swelling, tenderness, deformity or signs of injury. Normal range o (more content not included)... Normal [facility] Urine Cultureon 10-01-2024 URC Mixed Gram Pos Gram Neg Org Edson Count 1000-10,000 MIXC Mixed contaminants. Submit a new specimen if indicated. Normal [facility] Comment on above: Performed By: #### M 100.2200 #### [facility] [address] [place], [address] Urgent Care Visit Reporton 0 07-29-2024 Urgent Care Visit Report [facility] [address], [address] [place] [address] OFFICE VISIT Date of Service: 07/29/24 MR#: [id number] Acct: [id number] Name: JERRI MENDOZA Rep #: [id number] : 1980 Provider: HEATH Celeste Age/Sex: 44/F Location: [facility] [place] [facility] Status: Signed Intake Vital Signs 06/25/24 19:56 07/29/24 13:14 Height 5 ft 3 in 5 ft 3 in Weight: 142 lb 8 oz BMI 25.2 BP 130/66 H Blood Pressure Location Lt brachial Position Sitting Respiration 16 Pulse 82 Pulse Source NIBP Temp 98.4 F Temp Source Temporal Pulse Oximetry (%) 98 Oxygen Delivery Method room air Intake Visit Reasons: CONCERN FOR UTI Chief Complaint: dysuria, decreased output Business Services 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 has had 8 UTI in last few months, frustrated, concerned for UTI. [facility] Medical History Right ureteral stone Wears glasses Depression Substance abuse Marijuana use History of ulceration Vapes nicotine containing substance Shortness of breath on exertion Leg cramps Anxiety Asthma Surgical History Hx of oral surgery Hx of tubal ligation Social History household members: significant other and children Smoking Status: Current every day smoker tobacco type: e-cigarettes substance use type: former substance user and opiates HPI HPI Chief Complaint: dysuria, decreased output Details: JERRI MENDOZA, is a 44 F who presents to the office today for complaint of dysuria and increasing urgency/frequency. Patient states has been ongoing for the past several days. She denies fever, chills, sweats. No nausea, vomiting and diarrhea. No pelvic or abdominal pain. No other associated symptoms or alleviating/aggravatin g factors. ROS Const Constitutional: No other (6 system ROS completed with pertinent findings in the HPI otherwise normal.) Exam Const General: cooperative and healthy appearing Resp Effort Inspection: normal respiratory effort Auscultation: Bilateral: Clear to Auscultation Cardio Rate: regular rate Rhythm: regular rhythm GI Auscultation: normal bowel sounds General: No CVA tenderness Psych Appearance: grossly normal Mental Status: mental status grossly normal Coding Level of Care Code Off vis,new,level 3 Diagnoses Dysuria R30.0 Assessment and Plan Assessment and Plan (1) Dysuria: Status: Acute Orders: Orders Culture, Urine Today R30.0 - Dysuria POC Urinalysis Dip (Clinic) Today R30.0 - Dysuria Referrals Urology N39.0 - Urinary tract infection, site not specified Medications: New ciprofloxacin HCl 500 mg PO BID 7 days 14 tabs 0RF phenazopyridine (Pyridium) 200 mg PO TID PRN 7 tabs 0RF pain Discontinued omeprazole Discontinued Reason: Order Completed 20 mg PO DAILY 30 CAPSULES 0RF ondansetron Discontinued Reason: Order Completed 4 mg PO Q8H PRN PRN 10 tabs 0RF Nausea Plan Cipro and Pyridium as prescribed today. Encouraged to get plenty of rest, drink lots of clear liquids, and use Tylenol or Ibuprofen (unless contraindicated) for fever and comfort. Patient also educated on other symptomatic management techniques. To be seen in 7-10 days if no improvement; sooner if worsening of symptoms. Patient advised of potential red flags and when appropriate to report to the ED. Patient verbalized understanding and agreement with all the above. Clinical Quality Measures Falls Risk Screening/Assistive Devices Have you fallen in the past year?: No 07/29/24 1344 Date Malcolm Barkley Signature: Date (if applicable) CC: Normal [facility] CBC W/Diff, Automatedon 05-31 Absolute Lymph 1.13 X10 3/uL Normal 0.83-4.51 [facility] Comment on above: Performed By: #### L 100.0100, L500.4050, L700.6800, L501.2450 #### [facility] [address] [place], [address] Absolute Neut 7.4 X10 3/uL Normal 2.0-7.7 [facility] Comment on above: Performed By: #### L 100.0100, L500.4050, L700.6800, L501.2450 #### [facility] [address] [place], [address] Basophils/100 WBC (Bld) 0.4 % Normal 0-1 [facility] Comment on above: Performed By: #### L 100.0100, L500.4050, L700.6800, L501.2450 #### [facility] [address] [place], [address] Eosinophils/100 WBC (Bld) 0.8 % Normal 0-5 [facility] Comment on above: Performed By: #### L 100.0100, L500.4050, L700.6800, L501.2450 #### [facility] [address] [place], [address] Erythrocyte distribution width (RBC) [Ratio] 13.5 % Normal 11.6-14.6 [facility] Comment on above: Performed By: #### L 100.0100, L500.4050, L700.6800, L501.2450 #### [facility] [address] [place], [address] Hematocrit (Bld) [Volume fraction] 39.7 % Normal 37-47 [facility] Comment on above: Performed By: #### L 100.0100, L500.4050, L700.6800, L501.2450 #### [facility] [address] [place], [address] Hemoglobin (Bld) [Mass/Vol] 12.5 g/dL Normal 12.0-15. 0 [facility] Comment on above: Performed By: #### L 100.0100, L500.4050, L700.6800, L501.2450 #### [facility] [address] [place], [address] IG% 0.400 Normal 0.0-0.9 [facility] Comment on above: Result Comment: IG% - Immature Granulocytes (promyelocytes, myelocytes and metamyelocytes) > 1% indicates that a LEFT SHIFT is Present. Performed By: #### L 100.0100, L500.4050, L700.6800, L501.2450 #### [facility] [address] [place], [address] Lymphocytes/100 WBC (Bld) 12.6 % Low 19-41 [facility] Comment on above: Performed By: #### L 100.0100, L500.4050, L700.6800, L501.2450 #### [facility] [address] [place], [address] MCH (RBC) [Entitic mass] 28.3 pg Normal 27.0-32.0 [facility] Comment on above: Performed By: #### L 100.0100, L500.4050, L700.6800, L501.2450 #### [facility] [address] [place], [address] MCHC (RBC) [Mass/Vol] 31.5 g/dL Low 32-36 [facility] Comment on above: Performed By: #### L 100.0100, L500.4050, L700.6800, L501.2450 #### [facility] [address] [place], [address] MCV (RBC) [Entitic vol] 89.8 fL Normal 81-99 [facility] Comment on above: Performed By: #### L 100.0100, L500.4050, L700.6800, L501.2450 #### [facility] [address] [place], [address] Monocytes/100 WBC (Bld) 3.4 % Normal 0-10 [facility] Comment on above: Performed By: #### L 100.0100, L500.4050, L700.6800, L501.2450 #### [facility] [address] [place], [address] Neutrophils/100 WBC (Bld) 82.4 % High 47-70 [facility] Comment on above: Performed By: #### L 100.0100, L500.4050, L700.6800, L501.2450 #### [facility] [address] [place], [address] Nucleated RBC (Bld) [#/Vol] 0 10*3/uL Normal 0-5 [facility] Comment on above: Performed By: #### L 100.0100, L500.4050, L700.6800, L501.2450 #### [facility] [address] [place], [address] Platelet mean volume (Bld) [Entitic vol] 9.1 fL Normal 6.2-12.0 [facility] Comment on above: Performed By: #### L 100.0100, L500.4050, L700.6800, L501.2450 #### [facility] [address] [place], [address] Platelets (Bld) [#/Vol] 234 10*3/uL Normal 150-450 [facility] Comment on above: Performed By: #### L 100.0100, L500.4050, L700.6800, L501.2450 #### [facility] [address] [place], [address] RBC (Bld) [#/Vol] 4.42 10*6/uL Normal 4.2-5.4 [facility] Comment on above: Performed By: #### L 100.0100, L500.4050, L700.6800, L501.2450 #### [facility] [address] [place], [address] RDW SD 44.6 fl High 35.1-43.9 [facility] Comment on above: Performed By: #### L 100.0100, L500.4050, L700.6800, L501.2450 #### [facility] [address] [place], [address] WBC (Bld) [#/Vol] 9.0 10*3/uL Normal 4.4-11.0 [facility] Comment on above: Performed By: #### L 100.0100, L500.4050, L700.6800, L501.2450 #### [facility] [address] [place], [address] Comprehensive Metabolic Prof [facility] 06-25-2024 Albumin [Mass/Vol] 3.9 g/dL Normal 3.2-5.0 [facility] Comment on above: Performed By: #### L 100.0100, L500.4050, L700.6800, L501.2450 #### [facility] [address] [place], [address] Albumin/Globulin [Mass ratio] 1.0 {ratio} Normal 0.9-2.4 [facility] Comment on above: Performed By: #### L 100.0100, L500.4050, L700.6800, L501.2450 #### [facility] [address] [place], [address] ALK P 52 U/L Normal 45-117 [facility] Comment on above: Performed By: #### L 100.0100, L500.4050, L700.6800, L501.2450 #### [facility] [address] [place], [address] ALT [Catalytic activity/Vol] 38 U/L Normal 13-56 [facility] Comment on above: Performed By: #### L 100.0100, L500.4050, L700.6800, L501.2450 #### [facility] [address] [place], [address] AST [Catalytic activity/Vol] 30 U/L Normal 15-37 [facility] Comment on above: Performed By: #### L 100.0100, L500.4050, L700.6800, L501.2450 #### [facility] [address] [place], [address] Bilirubin [Mass/Vol] 0.20 mg/dL Normal 0.20-1.00 [facility] Comment on above: Result Comment: For patients on eltrombopag therapy, use of Dimension [place] TBIL is not recommended. Performed By: #### L 100.0100, L500.4050, L700.6800, L501.2450 #### [facility] [address] [place], [address] BUN/CRE 25.7 RATIO High 10-20 [facility] Comment on above: Performed By: #### L 100.0100, L500.4050, L700.6800, L501.2450 #### [facility] [address] [place], [address] CA,Total 9.2 mg/dL Normal 8.5-10.1 [facility] Comment on above: Performed By: #### L 100.0100, L500.4050, L700.6800, L501.2450 #### [facility] [address] [place], [address] Chloride [Moles/Vol] 106 mmol/L Normal 98-107 [facility] Comment on above: Performed By: #### L 100.0100, L500.4050, L700.6800, L501.2450 #### [facility] [address] [place], [address] CO2 [Moles/Vol] 26.0 mmol/L Normal 21.0-32.0 [facility] Comment on above: Performed By: #### L 100.0100, L500.4050, L700.6800, L501.2450 #### [facility] [address] [place], [address] Creatinine [Mass/Vol] 1.01 mg/dL Normal 0.55-1.02 [facility] Comment on above: Result Comment: The validity of the calculated GFR GFRAA in patients over 70 years has not been determined. Clinical correlation is essential. Performed By: #### L 100.0100, L500.4050, L700.6800, L501.2450 #### [facility] [address] [place], [address] ECRCL 63.53 ml/min Normal [facility] Comment on above: Performed By: #### L 100.0100, L500.4050, L700.6800, L501.2450 #### [facility] [address] [place], [address] EST GFR - AA 76 mL/min Normal >60 [facility] Comment on above: Result Comment: Afri can [place]an GFR Calc Performed By: #### L 100.0100, L500.4050, L700.6800, L501.2450 #### [facility] [address] [place], [address] GAP 9 Normal 5-15 [facility] Comment on above: Performed By: #### L 100.0100, L500.4050, L700.6800, L501.2450 #### [facility] [address] [place], [address] GFR/1.73 sq M.predicted among non-blacks MDRD (S/P/Bld) [Vol rate/Area] 63 mL/min/{1.73_m2} Normal >60 [facility] Comment on above: Result Comment: Non- GFR Calc Performed By: #### L 100.0100, L500.4050, L700.6800, L501.2450 #### [facility] [address] [place], [address] Globulin (S) [Mass/Vol] 3.9 g/dL Normal 2.2-4.2 [facility] Comment on above: Performed By: #### L 100.0100, L500.4050, L700.6800, L501.2450 #### [facility] [address] [place], [address] Glucose [Mass/Vol] 127 mg/dL High 74-106 [facility] Comment on above: Result Comment: Fast ing Glucose result greater than or equal to 126 mg/dL suggests DIABETES MELLITUS per A.D.A. criteria. Performed By: #### L 100.0100, L500.4050, L700.6800, L501.2450 #### [facility] [address] [place], [address] Potassium [Moles/Vol] 3.6 mmol/L Normal 3.5-5.1 [facility] Comment on above: Performed By: #### L 100.0100, L500.4050, L700.6800, L501.2450 #### [facility] [address] [place], [address] Sodium [Moles/Vol] 141 mmol/L Normal 136-145 [facility] Comment on above: Performed By: #### L 100.0100, L500.4050, L700.6800, L501.2450 #### [facility] [address] [place], [address] T PROT 7.8 g/dL Normal 6.4-8.2 [facility] Comment on above: Performed By: #### L 100.0100, L500.4050, L700.6800, L501.2450 #### [facility] [address] [place], [address] Urea nitrogen [Mass/Vol] 26 mg/dL High 7-18 [facility] Comment on above: Performed By: #### L 100.0100, L500.4050, L700.6800, L501.2450 #### [facility] [address] [place], [address] Emergency Department Summary on 06-25-2024 Emergency Department Summary [facility] Medical Records Department [address] [place] [address] Emergency Department Summary 06/25/24 MR#: [id number] Acct: [id number] Name: JERRI MENDOZA Rep #: [id number] : 1980 44 From: Semaj Randall DO PCP: Care Physician,No Primary Status:DEP ER Location: ED HPI History of Present Illness Chief Complaint: Nausea/Vomiting/Diarrh ea Informant: patient Onset/Context/Timing Onset: Today Context: Sudden Onset Timing: Continuous Quality: Cramping Location: Abdomen Worsened by: Nothing Relieved by: Nothing Narrative Narrative: Patient presents with nausea, vomiting, and diarrhea that began today. Patient states on rather suddenly. Patient admits to some abdominal cramping. Patient states her pain is diffuse across her entire abdomen. Patient states nothing makes it better and nothing makes it worse. Patient denies any hematemesis or coffee-ground emesis. Patient denies any melena or hematochezia. Patient admits to some dysuria but denies any hematuria or frequency. [facility] Medical History Right ureteral stone Wears glasses Depression Substance abuse Marijuana use History of ulceration Vapes nicotine containing substance Shortness of breath on exertion Leg cramps Anxiety Asthma Home Medications ???Medication ???Instructions ???Recorded ???Last Taken ???Type buprenorphine 8 mg-naloxone 2 mg 8 ea sublingual BID 02/15/22 11/08/23 History sublingual film gabapentin 100 mg capsule 100 mg PO 4X/DAY 02/15/22 11/08/23 History trazodone 50 mg tablet 50 mg PO QHS 02/15/22 11/08/23 History omeprazole 20 mg capsule,delayed 20 mg PO DAILY #30 CAPSULES 06/25/24 Unknown Rx release ondansetron 4 mg disintegrating 4 mg PO Q8H PRN PRN Nausea #10 tabs 06/25/24 Unknown Rx tablet Allergy/AdvReac Type Severity Reaction Status Date / Time Sulfa (Sulfonamide Allergy Anaphylaxis Verified 06/25/24 19:56 Antibiotics) Surgical History Hx of oral surgery Hx of tubal ligation Social History household members: significant other and children Smoking Status: Current every day smoker tobacco type: e-cigarettes substance use type: former substance user and opiates ROS ROS ED Constitutional Constitutional ED: Denies chills or fever(s) Eyes Eyes: Denies blurry vision or change in vision ENT ENT ED: Denies rhinorrhea or sore throat Cardiovascular Cardiovascular: Denies chest pain or palpitations Respiratory/Chest Respiratory/Chest: Denies cough or dyspnea Gastrointestinal Gastrointestinal: Reports abdominal pain, diarrhea and vomiting; Denies nausea Genitourinary Genitourinary ED: Reports dysuria; Denies hematuria Musculoskeletal Musculoskeletal: Denies back pain or neck pain Integumentary Denies abscess or rash Neurologic Neurologic: Denies headache(s) or weakness Allergic/Immunologic Allergic/Immunologic ED: Denies mouth swelling or urticaria EXAM Physical Exam Const Vital Signs: 06/25/24 19:56 06/25/24 21:56 06/25/24 23:00 Temperature 98.1 F Temperature Source Temporal Pulse Rate 60 55 L 50 L Respiratory Rate 16 14 15 Blood Pressure 135/86 H 118/62 118/61 Blood Pressure Mean 102 80 80 Pulse Ox 100 100 99 Oxygen Delivery Method Room Air Room Air Room Air Positive well nourished and well developed General Appearance ED: well developed and NAD HEENT Reports moist mucous membranes Neck supple and no JVD Resp normal respiratory effort and clear to auscultation bilaterally Cardio regular rate and regular rhythm GI non-distended Palpation: soft and tender epigastric, LLQ, RLQ, LUQ, RUQ, periumbilical and suprapubic; Negative for guarding or rebound tenderness present Neuro oriented x3, CN's II-XII intact bilaterally and no sensory deficits noted Sensorium / Orientation: alert Motor Exam: strength 5/5 throughout Psych mental status grossly normal MDM MDM MDM Narrative Medical decision making narrative: Differential diagnosis includes gastroenteritis, gastritis, peptic ulcer disease, duodenal ulcer, cholecystitis, cholelithiasis, pancreatitis, and viral illness. CBC will be obtained to assess for leukocytosis and anemia. Comprehensive metabolic profile will be obtained to assess for hepatic function, renal function, and electrolyte abnormality. Lipase will be obtained to assess for pancreatitis. Serum hCG will be obtained to assess for . Urinalysis will be obtained to assess for urinary tract infection and hematuria. Lab Data Attestation: I reviewed the patient's lab results. Lab results narrative: CBC was reviewed and was within normal limits. Compre (more content not included)... Normal [facility] Lipaseon 06-25-2024 Lipase [Catalytic activity/Vol] 40 U/L Normal 13-75 [facility] Comment on above: Result Comment: Emir pelletier note: LIPASE revised reference range effective 23. New Lipase methodology. Expected to produce lower values than the previous assay method. NEW Reference Range: 13 - 75 U/L Performed By: #### L 100.0100, L500.4050, L700.6800, L501.2450 #### [facility] [address] [place], [address] ,Serum,hCG Quali.on 06-25-2024 HCG, SERUM QUAL Negative Normal [facility] Comment on above: Performed By: #### L 100.0100, L500.4050, L700.6800, L501.2450 #### [facility] [address] [place], [address] Urinalysis, Completeon 06-25 RBC 0-5 SEEN Normal 0-5 [facility] Comment on above: Order Comment: STEFANIE CTOR TO SPECIFY Performed By: #### L 400.0001 #### [facility] [address] [place], [address] WBC 0-5 SEEN Normal 0-5 [facility] Comment on above: Order Comment: STEFANIE CTOR TO SPECIFY Performed By: #### L 400.0001 #### [facility] [address] [place], [address] BACTERIA 0 SEEN Normal None Seen [facility] Comment on above: Order Comment: STEFANIE CTOR TO SPECIFY Performed By: #### L 400.0001 #### [facility] [address] [place], [address] EPI,SQUAMOUS 0 SEEN Normal 5-10 [facility] Comment on above: Order Comment: STEFANIE CTOR TO SPECIFY Performed By: #### L 400.0001 #### [facility] [address] [place], [address] Mucus Ql (Urine sed) 0 SEEN Normal [facility] Comment on above: Order Comment: STEFANIE CTOR TO SPECIFY Performed By: #### L 400.0001 #### [facility] [address] [place], [address] Basophil percentageOrdered B y: Duy Smith on 11-30-2023 Basophil percentage 10-25 SEEN /hpf 0-5 [facility] Bilirubin Test strip Ql (U)O rdered By: Duy Smith on 11-30-2023 Bilirubin Ql (U) 1 mg/dL Negative [facility] Comment on above: COLOR OF URINE MAY A FFECT DIPSTICK RESULTS. Emergency Department Summary on 11-30-2023 Emergency Department Summary [facility] Medical Records Department [address] [place] [address] Emergency Department Summary 11/30/23 MR#: [id number] Acct: [id number] Name: JERRI MNEDOZA Rep #: [id number] : 1980 43 From: Duy Smith DO PCP: Care Physician,No Primary Status:REG ER Location: ED HPI History of Present Illness Chief Complaint: General Illness Narrative Narrative: 43-year-old female with fever, chills, myalgias, nausea, vomiting. She actually feels better since yesterday. She bought some [id number] flu medicine which helped. Last fever was 102 yesterday. She states she was seen at [facility] and tested for COVID but not influenza or RSV. She states she thought she had a bladder infection today she was seen and tested positive for UTI and was put on Keflex. She states her UTI symptoms have improved tremendously. This morning she feels otherwise well but is concerned to be exposing other people to viral symptoms if she would back to work. [facility] Medical History Anxiety Asthma Depression History of ulceration Leg cramps Marijuana use Right ureteral stone Shortness of breath on exertion Substance abuse Vapes nicotine containing substance Wears glasses Home Medications buprenorphine 8 mg-naloxone 2 mg sublingual film 8 ea sublingual BID 02/15/22 [History Last Taken 11/08/23] gabapentin 100 mg capsule 100 mg PO 4X/DAY 02/15/22 [History Last Taken 11/08/23] trazodone 50 mg tablet 50 mg PO QHS 02/15/22 [History Last Taken 11/08/23] cariprazine 1.5 mg capsule (Vraylar) 1.5 mg PO DAILY 11/07/23 [History Last Taken 11/08/23] cephalexin 500 mg capsule 500 mg PO TID 11/07/23 [History Last Taken 11/08/23] oxycodone-acetaminophe n 5 mg-325 mg tablet (Percocet) 1 tab PO Q8H PRN pain 3 days #10 tabs 11/09/23 [Rx Last Taken Unknown] phenazopyridine 200 mg tablet (Pyridium) 200 mg PO TID PRN PRN Bladder Spasms 7 days #30 tabs 11/09/23 [Rx Last Taken Unknown] Allergy/AdvReac Type Severity Reaction Status Date / Time Sulfa (Sulfonamide Allergy Anaphylaxis Verified 11/30/23 09:59 Antibiotics) Surgical History Hx of oral surgery Hx of tubal ligation Social History household members: significant other and children Smoking Status: Current every day smoker tobacco type: e-cigarettes substance use type: former substance user and opiates ROS ROS ED Constitutional Constitutional ED: Reports chills and fever(s); Denies sweats Eyes Eyes: Denies blurry vision or change in vision ENT ENT ED: Denies ear pain or sore throat Cardiovascular Cardiovascular: Denies chest pain, palpitations or racing heartbeat Respiratory/Chest Respiratory/Chest: Reports cough; Denies dyspnea or sputum Gastrointestinal Gastrointestinal: Denies abdominal pain, constipation, diarrhea, nausea or vomiting Genitourinary Genitourinary ED: Denies dysuria, hematuria or urinary frequency Musculoskeletal Musculoskeletal: Reports myalgias; Denies arthralgias or neck pain Integumentary Denies abscess, Abrasions or rash Neurologic Neurologic: Denies headache(s), paresthesias or weakness Psychiatric Psychiatric: Denies anxiety, depression, suicidal ideation or suicidal thoughts Endocrine Endocrinology: Denies polydipsia or polyuria EXAM Physical Exam Const Vital Signs: 11/30/23 09:58 11/30/23 10:33 Temperature 97.8 F Temperature Source Temporal Pulse Rate 77 Respiratory Rate 14 Respiratory Effort Normal Non-Labored Respiratory Pattern Normal Blood Pressure 112/69 Blood Pressure Mean 83 Pulse Ox 99 Oxygen Delivery Method Room Air Positive well nourished General Appearance ED: NAD; Negative for pallor HEENT Reports moist mucous membranes Eyes PERRL and EOMs intact bilaterally Resp normal respiratory effort and clear to auscultation bilaterally Auscultation: Negative for rales, rhonchi or wheezes Cardio regular rate and regular rhythm GI normal to inspection, nondistended, normoactive bowel sounds Neuro oriented x3 and CN's II-XII intact bilaterally Sensorium / Orientation: alert Psych mental status grossly normal Skin no rashes or lesions noted General Skin Exam: Negative for jaundice or pallor MDM MDM MDM Narrative Medical decision making narrative: 43-year-old female presenting with improving symptoms but states she still had a fever yesterday. She was concerned she had influenza. I was able to log into [employer], and I was able to find pertinent medical records available for review to compare to the patient's current lab/imaging/workup. Patient was tested for COVID, influenza, RSV and these were all negative. Uri (more content not included)... Normal [facility] Ketones Test strip Ql (U)Ord ered By: Duy Smith on 11-30-2023 Ketones Ql (U) 15 mg/dl Negative [facility] Mucus LM Ql (Urine sed)Order ed By: Duy Smith on 11-30-2023 Mucus Ql (Urine sed) RARE /hpf [facility] Nitrite Test strip Ql (U)Ord ered By: Duy Smith on 11-30-2023 Nitrite Ql (U) Negative Negative [facility] No Panel InformationOrdered By: Duy Smith on 11-30-2023 Urine RBC 0-5 SEEN /hpf 0-5 [facility] Protein Test strip Ql (U)Ord ered By: Duy Smith on 11-30-2023 Protein Ql (U) 30 mg/dl Negative [facility] Squamous epithelial cells de tection in urine sediment by light microscopyOrdered By: Duy Smith on 11-30-2023 Epithelial cells.squamous LM Ql (Urine sed) 0-5 SEEN /hpf 5-10 [facility] Urinalysis, Completeon 11-30 BACTERIA RARE Normal None Seen [facility] Comment on above: Order Comment: CLEAN CATCH Performed By: #### L 400.0001 #### [facility] [address] [place], [address] Mucus Ql (Urine sed) RARE Normal [facility] Comment on above: Order Comment: CLEAN CATCH Performed By: #### L 400.0001 #### [facility] [address] [place], [address] WBC 10-25 SEEN Normal 0-5 [facility] Comment on above: Order Comment: CLEAN CATCH Performed By: #### L 400.0001 #### [facility] [address] [place], [address] EPI,SQUAMOUS 0-5 SEEN Normal 5-10 [facility] Comment on above: Order Comment: CLEAN CATCH Performed By: #### L 400.0001 #### [facility] [address] [place], [address] RBC 0-5 SEEN Normal 0-5 [facility] Comment on above: Order Comment: CLEAN CATCH Performed By: #### L [id number] #### [facility] [address] [place], [address] Urine blood detectionOrdered By: Duy Smith on 11-30-2023 RBC Ql (U) 25 /ul Negative [facility] Urine clarityOrdered By: Moreno Smith on 11-30-2023 Clarity (U) Sl. Cloudy Clear [facility] Urine color determinationOrd ered By: Duy Smith on 11-30-2023 Color (U) Yellow Yellow [facility] Urine glucose detectionOrder ed By: Duy Smith on 11-30-2023 Glucose Ql (U) Normal mg/dl Normal [facility] Urine leukocyte esterase det ection by dipstickOrdered By: Duy Smith on 11-30-2023 Leukocyte esterase Test strip Ql (U) 500 /ul Negative [facility] Urine pHOrdered By: Duy simon on 11-30-2023 pH (U) 6.0 [pH] 5.0 - 8.0 [facility] Urine sediment bacteria coun t by microscopy (number/high power field)Ordered By: Duy Smith on 11-30-2023 Bacteria LM.HPF (Urine sed) [#/Area] RARE /hpf None Seen [facility] Urine specific gravity measu rementOrdered By: Duy Smith on 11-30-2023 Specific gravity (U) [Rel density] 1.020 1.002-1.03 0 [facility] Urine urobilinogen measureme ntOrdered By: Duy Smith on 11-30-2023 Urobilinogen Ql (U) 1 mg/dl Normal [facility] LABORATORYOrdered By: Dick Garcia on 11-28-2023 Appearance (U) Slightly Cloudy *ABN* (11/28/23 1:03 AM) Invalid Interpretation Code Clear AO Auto Urine SS Bacteria LM.HPF (Urine sed) [#/Area] 1 /[HPF] Invalid Interpretation Code AO Auto Urine SS Bilirubin Ql (U) Negative (11/28/23 1:03 AM) Normal Negative AO Auto Urine SS Color (U) Yellow (11/28/23 1:03 AM) Normal AO Auto Urine SS FLUAV RNA SUSHMA+probe Ql (Resp) Negative (11/28/23 1:03 AM) Normal Negative AO Auto Urine SS FLUBV RNA SUSHMA+probe Ql (Resp) Negative (11/28/23 1:03 AM) Normal Negative AO Auto Urine SS Glucose Test strip (U) [Mass/Vol] 100 mg/dL Invalid Interpretation Code Negative AO Auto Urine SS HCG ( test) Ql Negative (11/28/23 1:03 AM) Normal AO Manual Urine SS Hemoglobin Auto test strip (U) [Mass/Vol] Trace *ABN* (11/28/23 1:03 AM) Invalid Interpretation Code Negative AO Auto Urine SS Ketones Ql (U) Negative Normal Negative AO Auto Urine SS test (u) int Not detected Invalid Interpretation Code AO Manual Urine SS RSV RNA SUSHMA+probe Ql (Resp) Negative (11/28/23 1:03 AM) Normal Negative AO Auto Urine SS SARS-CoV-2 (COVID-19) RNA SUSHMA+probe Ql (Resp) Negative 1 (11/28/23 1:03 AM) Normal Negative AO Auto Urine SS Comment on above: Interpretive Data: R esults from the Xpert Xpress CoV-2/Flu/RSV plus test should be correlated with the clinical history, epidemiological data, and other data available to the clinical evaluating the patient. Performance of the Xpert Xpress CoV-2/Flu/RSV plus test has only been established in nasopharyngeal swab specimen. Erroneous test results might occur from improper specimen collection, failure to follow the recommended sample collection, handling and storage procedures, technical error, or sample mix-up. False negative results may occur if a virus is present at a level below the analytical limit of detection. Viral nucleic acid may persist in vivo, independent of virus viability. Detection of analyte target(s) does not imply that the corresponding virus(es) are infectious or are the causative agents for clinical symptoms. Recent patient exposure to FluMist or other live attenuated influenza vaccines may cause inaccurate positive results. UA Leuk Est Small *ABN* (11/28/23 1:03 AM) Invalid Interpretation Code Negative AO Auto Urine SS UA Nitrite Negative (11/28/23 1:03 AM) Normal Negative AO Auto Urine SS UA pH 6.5 (11/28/23 1:03 AM) Normal 5.0 - 8.0 AO Auto Urine SS UA Protein Trace mg/dL Normal Negative AO Auto Urine SS UA RBC 0-5 /HPF Invalid Interpretation Code None Seen AO Auto Urine SS UA Spec Grav 1.025 (11/28/23 1:03 AM) Normal 1.015-1.02 5 AO Auto Urine SS UA Specimen Type Clean Catch (11/28/23 1:03 AM) Normal AO Auto Urine SS UA Squam Epithelial 0-5 /HPF Invalid Interpretation Code None Seen AO Auto Urine SS UA Urobilinogen 0.2 E.U./dL Normal 0.2-1.0 AO Auto Urine SS WBC LM.HPF (Urine sed) [#/Area] 10-15 /HPF Invalid Interpretation Code None Seen AO Auto Urine SS Calcium oxalate dihydrate cr ystals detection in stone by infrared spectroscopyOrdered By: Lise Méndez on 11-09-2023 Calcium oxalate dihydrate crystals Infrared spectroscopy Ql (Stone) 30 % [facility] Color of specimen determinat ionOrdered By: Lise Méndez on 11-09-2023 Color (Unsp spec) MAKI [facility] - Miscellaneous t estsOrdered By: Lise Méndez on 11-09-2023 Service comment (Unsp spec) [Interp] See comment [facility] Comment on above: Calculus received we t. Wet calculi must be dried beforeanalysis, which delays reporting of results. Leaving calculiwet (such as water, saline, blood, urine) may lead tochanges in composition. Physician questions regarding Calculi Analysis [facility] at: [phone]. Calculi report will follow via computer, mail or courierdelivery. Measurement of weight of sto neOrdered By: Lise Méndez on 11-09-2023 Weight (Stone) 63 mg [facility] No Panel InformationOrdered By: Lise Méndez on 11-09-2023 Stone Analysis (T) See comment [facility] Comment on above: Percentage (Represen ts the % composition) Stone Calcium Oxalate Monohydrate 50 % [facility] Calcium Phosphate 20 % [facility] Comment on above: Calcium phosphate (h ydroxyl form) includes hydroxyapatite,amorphous calcium phosphate, and whitlockite. Hydroxyapatiteis the most common of the calcium phosphate salts found inhuman kidney stones. Origin of StoneOrdered By: Alanis Méndez on 11-09-2023 Origin Nom (Stone) RIGHT URETER [facility] Size of stoneOrdered By: Adriel Méndez on 11-09-2023 Size (Stone) [Entitic vol] 5X3 mm [facility] Comment on above: Multiple pieces rece ived. Dimensions of the largest piecereported. Thin prep Papanicolaou smear with manual screeningOrdered By: Lise Méndez on 11-09-2023 Thin prep Papanicolaou smear with manual screening See comment [facility] Comment on above: Photograph will foll ow under a separate cover Absolute lymphocyte countOrd ered By: Good Castorena on 08-30-2023 Lymphocytes Auto (Unsp spec) [#/Vol] 0.93 10*3/uL 0.83-4.51 [facility] Basophil percentageOrdered B y: Good Castorena on 08-30-2023 Basophils/100 WBC (Bld) 0.2 % 0-1 [facility] Chloride [Moles/Vol] 109 mmol/L 98-107 [facility] Eosinophils/100 WBC (Bld) 0.8 % 0-5 [facility] Glucose [Mass/Vol] 145 mg/dL 74-106 [facility] Comment on above: Fasting Glucose resu lt greater than or equal to 126 mg/dL suggests DIABETES MELLITUS per A.D.A. criteria. Neutrophils (Bld) [#/Vol] 3.4 10*3/uL 2.0-7.7 [facility] Neutrophils/100 WBC (Bld) 70.9 % 47-70 [facility] Potassium [Moles/Vol] 4.1 mmol/L 3.5-5.1 [facility] Sodium [Moles/Vol] 140 mmol/L 136-145 [facility] WBC (Bld) [#/Vol] 4.9 10*3/uL 4.4-11.0 [facility] Beta hCG serum qualOrdered B y: Good Castorena on 08-30-2023 Beta HCG ( test) Ql Negative [facility] Blood erythrocytes count (nu mber/volume)Ordered By: Good Castorena on 08-30-2023 RBC (Bld) [#/Vol] 4.34 10*6/uL 4.2-5.4 [facility] Blood hemoglobin measurement (mass/volume)Ordered By: Good Castorena on 08-30-2023 Hemoglobin (Bld) [Mass/Vol] 12.3 g/dL 12.0-15. 0 [facility] Blood lymphocytes/100 leukoc ytesOrdered By: Good Castorena on 08-30-2023 Lymphocytes/100 WBC (Bld) 19.1 % 19-41 [facility] Blood monocytes/100 leukocyt esOrdered By: Good Castorena on 08-30-2023 Monocytes/100 WBC (Bld) 8.8 % 0-10 [facility] Blood platelet mean volumeOr dered By: Good Castorena on 08-30-2023 Platelet mean volume (Bld) [Entitic vol] 8.7 fL 6.2-12.0 [facility] Determination of erythrocyte mean corpuscular volume (MCV)Ordered By: Good Castorena on 08-30-2023 MCV (RBC) [Entitic vol] 88.2 fL 81-99 [facility] Hematocrit Auto (Bld) [Volum e fraction]Ordered By: Good Castorena on 08-30-2023 Hematocrit (Bld) [Volume fraction] 38.3 % 37-47 [facility] - Chemistry and C hemistry - challengeOrdered By: Good Castorena on 08-30-2023 CO2 [Moles/Vol] 26.0 mmol/L 21.0-32.0 [facility] Urea nitrogen/Creatinine [Mass ratio] 29.3 mg/mg 10-20 [facility] - Hematology and Cell countsOrdered By: Good Castorena on 08-30-2023 Erythrocyte distribution width (RBC) [Entitic vol] 43.3 fL 35.1-43.9 [facility] Erythrocyte distribution width (RBC) [Ratio] 13.3 % 11.6-14.6 [facility] Immature granulocytes/100 WBC (Bld) 0.200 % 0.0-0.9 [facility] Comment on above: IG% - Immature Granu locytes (promyelocytes, myelocytes and metamyelocytes) > 1% indicates that a LEFT SHIFT is Present. MCH (RBC) [Entitic mass] 28.3 pg 27.0-32.0 [facility] Nucleated RBC/100 WBC (Bld) [Ratio] 0 % 0-5 [facility] MCHC Auto (RBC) [Mass/Vol]Or dered By: Good Castorena on 08-30-2023 MCHC (RBC) [Mass/Vol] 32.1 g/dL 32-36 [facility] No Panel InformationOrdered By: Good Castorena on 08-30-2023 Estimated Creatinine Clearance Calc 77.96 ml/min [facility] Estimated GFR (MDRD) Amer 97 mL/min >60 [facility] Comment on above: GFR Calc Estimated GFR (MDRD) Non-Af Amer 80 mL/min >60 [facility] Comment on above: Non- GFR Calc Platelets bldOrdered By: Jeff Castorena on 08-30-2023 Platelets (Bld) [#/Vol] 162 10*3/uL 150-450 [facility] Serum or plasma calcium naif urement (mass/volume)Ordered By: Good Castorena on 08-30-2023 Calcium [Mass/Vol] 8.7 mg/dL 8.5-10.1 [facility] Serum or plasma creatinine m easurement (mass/volume)Ordered By: Good Castorena on 08-30-2023 Creatinine [Mass/Vol] 0.82 mg/dL 0.55-1.02 [facility] Comment on above: The validity of the calculated GFR & GFRAA in patients over 70 years has not been determined. Clinical correlation is essential. Serum or plasma urea nitroge n measurement (mass/volume)Ordered By: Good Castorena on 08-30-2023 Urea nitrogen [Mass/Vol] 24 mg/dL 7-18 [facility] Thin prep Papanicolaou smear with manual screeningOrdered By: Good Castorena on 08-30-2023 Thin prep Papanicolaou smear with manual screening 5 5-15 [facility] Basophil percentageOrdered B y: ED PROVIDER on 06-13-2023 Basophil percentage 25-50 SEEN /hpf 0-5 [facility] Bilirubin Test strip Ql (U)O rdered By: ED PROVIDER on 06-13-2023 Bilirubin Ql (U) Negative Negative [facility] Culture, urineOrdered By: Crystal Suarez on 06-13-2023 Bacteria identified Cx Nom (U) Escherichia coli [facility] Ketones Test strip Ql (U)Ord ered By: ED PROVIDER on 06-13-2023 Ketones Ql (U) 15 mg/dl Negative [facility] - Chemistry and C hemistry - challengeOrdered By: ED PROVIDER on 06-13-2023 HCG ( test) Ql (U) Negative [facility] Comment on above: Very dilute urine sp ecimens, as indicated by a low specificgravity, may not contain bank representative levels of hCG. If is still suspected, a first morning urinespecimen should be collected 48 hours later and tested. Mucus LM Ql (Urine sed)Order ed By: ED PROVIDER on 06-13-2023 Mucus Ql (Urine sed) 0 SEEN /hpf [facility] Nitrite Test strip Ql (U)Ord ered By: ED PROVIDER on 06-13-2023 Nitrite Ql (U) Positive Negative [facility] Protein Test strip Ql (U)Ord ered By: ED PROVIDER on 06-13-2023 Protein Ql (U) 30 mg/dl Negative [facility] Squamous epithelial cells de tection in urine sediment by light microscopyOrdered By: ED PROVIDER on 06-13-2023 Epithelial cells.squamous LM Ql (Urine sed) 0-5 SEEN /hpf 5-10 [facility] Urine blood detectionOrdered By: ED PROVIDER on 06-13-2023 RBC Ql (U) 250 /ul Negative [facility] RBC Ql (U) 10-25 SEEN /hpf 0-5 [facility] Urine clarityOrdered By: ED PROVIDER on 06-13-2023 Clarity (U) Cloudy Clear [facility] Urine color determinationOrd ered By: ED PROVIDER on 06-13-2023 Color (U) Yellow Yellow [facility] Urine glucose detectionOrder ed By: ED PROVIDER on 06-13-2023 Glucose Ql (U) Normal mg/dl Normal [facility] Urine leukocyte esterase det ection by dipstickOrdered By: ED PROVIDER on 06-13-2023 Leukocyte esterase Test strip Ql (U) 100 /ul Negative [facility] Urine pHOrdered By: ED PROVI KRYSTIN on 06-13-2023 pH (U) 6.5 [pH] 5.0 - 8.0 [facility] Urine sediment bacteria coun t by microscopy (number/high power field)Ordered By: ED PROVIDER on 06-13-2023 Bacteria LM.HPF (Urine sed) [#/Area] 3 /[HPF] None Seen [facility] Urine specific gravity measu rementOrdered By: ED PROVIDER on 06-13-2023 Specific gravity (U) [Rel density] 1.020 1.002-1.03 0 [facility] Urobilinogen Auto test strip Ql (U)Ordered By: ED PROVIDER on 06-13-2023 Urobilinogen Ql (U) Normal mg/dl Normal [facility] XR HAND GENERAL 3V PA/LAT/OB L LEFTon 05-09-2023 [facility] XR Hand - left PA and Latera l and Obliqueon 05-09-2023 IMPRESSION: Fracture involving the intermediate phalanx of the third finger Nurse Research: [facility] Transcribe Date/Time: May 09 2023 7:02P Dictated by : IRVIN ANGEL MD This examination was interpreted and the report reviewed and electronically signed by: IRVIN ANGEL MD on May 09 2023 7:04PM [facility] DIVISION OF RADIOLOGY * * *Final Report* * * DATE [...] evidence of dislocation. Joint spaces appear unremarkable. DIVISION [facility] RADIOLOGY [facility] * * *Final Report* * * DATE [...] the intermediate phalanx of the third finger [facility] Transcribe Date/Time: May 09 2023 7:02P Dictated by : IRVIN ANGEL MD This examination was interpreted and the report reviewed and electronically signed by: IRVIN ANGEL MD on May 09 2023 7:04PM EST [facility] Radiology Study observation (narrative) [facility] XR Hand - left PA and Latera l and ObliqueOrdered By: [facility] Provider on 05-09-2023 [facility] Absolute lymphocyte countOrd ered By: ED PROVIDER on 03-08-2023 Lymphocytes Auto (Unsp spec) [#/Vol] 0.62 10*3/uL 0.83-4.51 [facility] Basophil percentageOrdered B y: ED PROVIDER on 03-08-2023 Basophil percentage 10-25 SEEN /hpf 0-5 [facility] Basophils/100 WBC (Bld) 0.0 % 0-1 [facility] Bilirubin [Mass/Vol] 0.40 mg/dL 0.20-1.00 [facility] Comment on above: For patients on eltr ombopag therapy, use of Dimension [place] TBIL is not recommended. Chloride [Moles/Vol] 103 mmol/L 98-107 [facility] Eosinophils/100 WBC (Bld) 0.0 % 0-5 [facility] Glucose [Mass/Vol] 120 mg/dL 74-106 [facility] Comment on above: Fasting Glucose resu lt from 100 to 125 mg/dL suggests IMPAIRED HOMEOSTASIS per A.D.A. criteria. Neutrophils (Bld) [#/Vol] 6.2 10*3/uL 2.0-7.7 [facility] Neutrophils/100 WBC (Bld) 89.3 % 47-70 [facility] Potassium [Moles/Vol] 4.2 mmol/L 3.5-5.1 [facility] Protein [Mass/Vol] 8.3 g/dL 6.4-8.2 [facility] Sodium [Moles/Vol] 138 mmol/L 136-145 [facility] WBC (Bld) [#/Vol] 7.0 10*3/uL 4.4-11.0 [facility] Beta hCG serum qualOrdered B y: ED PROVIDER on 03-08-2023 Beta HCG ( test) Ql Negative [facility] Bilirubin Test strip Ql (U)O rdered By: ED PROVIDER on 03-08-2023 Bilirubin Ql (U) Negative Negative [facility] Blood erythrocytes count (nu mber/volume)Ordered By: ED PROVIDER on 03-08-2023 RBC (Bld) [#/Vol] 4.70 10*6/uL 4.2-5.4 [facility] Blood hemoglobin measurement (mass/volume)Ordered By: ED PROVIDER on 03-08-2023 Hemoglobin (Bld) [Mass/Vol] 13.6 g/dL 12.0-15. 0 [facility] Blood lymphocytes/100 leukoc ytesOrdered By: ED PROVIDER on 03-08-2023 Lymphocytes/100 WBC (Bld) 8.9 % 19-41 [facility] Blood monocytes/100 leukocyt esOrdered By: ED PROVIDER on 03-08-2023 Monocytes/100 WBC (Bld) 1.4 % 0-10 [facility] Blood platelet mean volumeOr dered By: ED PROVIDER on 03-08-2023 Platelet mean volume (Bld) [Entitic vol] 8.6 fL 6.2-12.0 [facility] Culture, urineOrdered By: Do beth Smith on 03-08-2023 Bacteria identified Cx Nom (U) Presumptive E. coli [facility] Determination of erythrocyte mean corpuscular volume (MCV)Ordered By: ED PROVIDER on 03-08-2023 MCV (RBC) [Entitic vol] 91.3 fL 81-99 [facility] Hematocrit Auto (Bld) [Volum e fraction]Ordered By: ED PROVIDER on 03-08-2023 Hematocrit (Bld) [Volume fraction] 42.9 % 37-47 [facility] Ketones Test strip Ql (U)Ord ered By: ED PROVIDER on 03-08-2023 Ketones Ql (U) 150 mg/dl Negative [facility] Comment on above: CRITICAL VALUE *HRES ULTS CALLED TO Iraj ZAPATA RN (ED) 03/08/23 2313 [place].REPORT READ BACK BY SAME. Laboratory - Chemistry and C hemistry - challengeOrdered By: ED PROVIDER on 03-08-2023 ALP [Catalytic activity/Vol] 68 U/L 45-117 [facility] ALT [Catalytic activity/Vol] 41 U/L 13-56 [facility] CO2 [Moles/Vol] 25.0 mmol/L 21.0-32.0 [facility] Globulin (S) [Mass/Vol] 4.4 g/dL 2.2-4.2 [facility] Urea nitrogen/Creatinine [Mass ratio] 20.4 mg/mg 10-20 [facility] - Chemistry and C hemistry - challengeOrdered By: Dr. Smith on 03-08-2023 Lipase [Catalytic activity/Vol] 40 U/L 13-75 [facility] Comment on above: Please note:LIPASE r evised reference range effective 23. New Lipase methodology. Expected to produce lower values than the previous assay method. NEW Reference Range: 13 - 75 U/L Laboratory - Hematology and Cell countsOrdered By: ED PROVIDER on 03-08-2023 Erythrocyte distribution width (RBC) [Entitic vol] 44.9 fL 35.1-43.9 [facility] Erythrocyte distribution width (RBC) [Ratio] 13.2 % 11.6-14.6 [facility] Immature granulocytes/100 WBC (Bld) 0.400 % 0.0-0.9 [facility] Comment on above: IG% - Immature Granu locytes (promyelocytes, myelocytes and metamyelocytes) > 1% indicates that a LEFT SHIFT is Present. MCH (RBC) [Entitic mass] 28.9 pg 27.0-32.0 [facility] Nucleated RBC/100 WBC (Bld) [Ratio] 0 % 0-5 [facility] MCHC Auto (RBC) [Mass/Vol]Or dered By: ED PROVIDER on 03-08-2023 MCHC (RBC) [Mass/Vol] 31.7 g/dL 32-36 [facility] Mucus LM Ql (Urine sed)Order ed By: ED PROVIDER on 03-08-2023 Mucus Ql (Urine sed) 0 SEEN /hpf [facility] Nitrite Test strip Ql (U)Ord ered By: ED PROVIDER on 03-08-2023 Nitrite Ql (U) Positive Negative [facility] No Panel InformationOrdered By: ED PROVIDER on 03-08-2023 Estimated GFR (MDRD) Amer 84 mL/min >60 [facility] Comment on above: GFR Calc Estimated GFR (MDRD) Non-Af Amer 69 mL/min >60 [facility] Comment on above: Non- GFR Calc Platelets bldOrdered By: ED PROVIDER on 03-08-2023 Platelets (Bld) [#/Vol] 256 10*3/uL 150-450 [facility] Protein Test strip Ql (U)Ord ered By: ED PROVIDER on 03-08-2023 Protein Ql (U) 30 mg/dl Negative [facility] Serum or plasma albumin naif urement (mass/volume)Ordered By: ED PROVIDER on 03-08-2023 Albumin [Mass/Vol] 3.9 g/dL 3.2-5.0 [facility] Serum or plasma albumin/glob ulin mass ratioOrdered By: ED PROVIDER on 03-08-2023 Albumin/Globulin [Mass ratio] 0.9 {ratio} 0.9-2.4 [facility] Serum or plasma calcium naif urement (mass/volume)Ordered By: ED PROVIDER on 03-08-2023 Calcium [Mass/Vol] 9.0 mg/dL 8.5-10.1 [facility] Serum or plasma creatinine m easurement (mass/volume)Ordered By: ED PROVIDER on 03-08-2023 Creatinine [Mass/Vol] 0.93 mg/dL 0.55-1.02 [facility] Comment on above: The validity of the calculated GFR & GFRAA in patients over 70 years has not been determined. Clinical correlation is essential. Serum or plasma urea nitroge n measurement (mass/volume)Ordered By: ED PROVIDER on 03-08-2023 Urea nitrogen [Mass/Vol] 19 mg/dL 7-18 [facility] Squamous epithelial cells de tection in urine sediment by light microscopyOrdered By: ED PROVIDER on 03-08-2023 Epithelial cells.squamous LM Ql (Urine sed) 0-5 SEEN /hpf 5-10 [facility] Thin prep Papanicolaou smear with manual screeningOrdered By: ED PROVIDER on 03-08-2023 Thin prep Papanicolaou smear with manual screening 27 U/L 15-37 [facility] Thin prep Papanicolaou smear with manual screening 10 5-15 [facility] Urine blood detectionOrdered By: ED PROVIDER on 03-08-2023 RBC Ql (U) 25 /ul Negative [facility] RBC Ql (U) 0-5 SEEN /hpf 0-5 [facility] Urine clarityOrdered By: ED PROVIDER on 03-08-2023 Clarity (U) Sl. Cloudy Clear [facility] Urine color determinationOrd ered By: ED PROVIDER on 03-08-2023 Color (U) Yellow Yellow [facility] Urine glucose detectionOrder ed By: ED PROVIDER on 03-08-2023 Glucose Ql (U) Normal mg/dl Normal [facility] Urine leukocyte esterase det ection by dipstickOrdered By: ED PROVIDER on 03-08-2023 Leukocyte esterase Test strip Ql (U) 25 /ul Negative [facility] Urine pHOrdered By: ED PROVI KRYSTIN on 03-08-2023 pH (U) 6.0 [pH] 5.0 - 8.0 [facility] Urine sediment bacteria coun t by microscopy (number/high power field)Ordered By: ED PROVIDER on 03-08-2023 Bacteria LM.HPF (Urine sed) [#/Area] 4 /[HPF] None Seen [facility] Urine specific gravity measu rementOrdered By: ED PROVIDER on 03-08-2023 Specific gravity (U) [Rel density] 1.025 1.002-1.03 0 [facility] Urobilinogen Auto test strip Ql (U)Ordered By: ED PROVIDER on 03-08-2023 Urobilinogen Ql (U) Normal mg/dl Normal [facility] Culture, urineOrdered By: Dr Valeria Ashby on 01-27-2023 Bacteria identified Cx Nom (U) Presumptive E. coli [facility] Basophil percentageOrdered B y: Dr. Ashby on 01-25-2023 Basophil percentage 0-5 SEEN /hpf 0-5 [facility] Bilirubin Test strip Ql (U)O rdered By: Dr. Ashby on 01-25-2023 Bilirubin Ql (U) Negative Negative [facility] Ketones Test strip Ql (U)Ord ered By: Dr. Ashby on 01-25-2023 Ketones Ql (U) Negative Negative [facility] - Chemistry and C hemistry - challengeOrdered By: Dr. Ashby on 01-25-2023 HCG ( test) Ql (U) Negative [facility] Comment on above: Very dilute urine sp ecimens, as indicated by a low specificgravity, may not contain bank representative levels of hCG. If is still suspected, a first morning urinespecimen should be collected 48 hours later and tested. Mucus LM Ql (Urine sed)Order ed By: Dr. Ashby on 01-25-2023 Mucus Ql (Urine sed) 0 SEEN /hpf [facility] Nitrite Test strip Ql (U)Ord ered By: Dr. Ashby on 01-25-2023 Nitrite Ql (U) Positive Negative [facility] Protein Test strip Ql (U)Ord ered By: Dr. Ashby on 01-25-2023 Protein Ql (U) 30 mg/dl Negative [facility] Squamous epithelial cells de tection in urine sediment by light microscopyOrdered By: Dr. Ashby on 01-25-2023 Epithelial cells.squamous LM Ql (Urine sed) 0-5 SEEN /hpf 5-10 [facility] Urine blood detectionOrdered By: Dr. Ashby on 01-25-2023 RBC Ql (U) 250 /ul Negative [facility] RBC Ql (U) > 100 SEEN /hpf 0-5 [facility] Urine clarityOrdered By: Dr. Ashby on 01-25-2023 Clarity (U) Sl. Cloudy Clear [facility] Urine color determinationOrd ered By: Dr. Ashby on 01-25-2023 Color (U) Yellow Yellow [facility] Urine glucose detectionOrder ed By: Dr. Ashby on 01-25-2023 Glucose Ql (U) Normal mg/dl Normal [facility] Urine leukocyte esterase det ection by dipstickOrdered By: Dr. Ashby on 01-25-2023 Leukocyte esterase Test strip Ql (U) 25 /ul Negative [facility] Urine pHOrdered By: Dr. Napoleon fegruson on 01-25-2023 pH (U) 7.0 [pH] 5.0 - 8.0 [facility] Urine sediment bacteria coun t by microscopy (number/high power field)Ordered By: Dr. Ashby on 01-25-2023 Bacteria LM.HPF (Urine sed) [#/Area] 2 /[HPF] None Seen [facility] Urine specific gravity measu rementOrdered By: Dr. Ashby on 01-25-2023 Specific gravity (U) [Rel density] 1.015 1.002-1.03 0 [facility] Urobilinogen Auto test strip Ql (U)Ordered By: Dr. Ashby on 01-25-2023 Urobilinogen Ql (U) Normal mg/dl Normal [facility] Throat Streptococcus pyogene s antigen detection by immunofluorescenceOrdered By: Dr. Garcia on 12-15-2022 S. pyogenes Ag IF Ql (Throat) [place] Basophil percentageon 2021 Bilirubin [Mass/Vol] 0.30 mg/dL 0.20-1.00 [facility] Work Phone: Comment on above: For patients on eltr ombopag therapy, use of Dimension [place] TBIL is not recommended. Chloride [Moles/Vol] 105 mmol/L 98-107 [facility] Work Phone: Glucose [Mass/Vol] 94 mg/dL 74-106 [facility] Work Phone: Potassium [Moles/Vol] 4.1 mmol/L 3.5-5.1 [facility] Work Phone: Protein [Mass/Vol] 7.6 g/dL 6.4-8.2 [facility] Work Phone: Sodium [Moles/Vol] 139 mmol/L 136-145 [facility] Work Phone: Laboratory - Chemistry and C hemistry - challengeon 07-27-2022 ALP [Catalytic activity/Vol] 49 U/L 45-117 [place] Work Phone: ALT [Catalytic activity/Vol] 40 U/L 13-56 [place] Work Phone: [phone] CO2 [Moles/Vol] 26.0 mmol/L 21.0-32.0 [place] Work Phone: Globulin (S) [Mass/Vol] 3.9 g/dL 2.2-4.2 [facility] Work Phone: Urea nitrogen/Creatinine [Mass ratio] 21.6 mg/mg 10-20 [place] Work Phone: No Panel Informationon 07-27 Estimated GFR (MDRD) Amer 95 mL/min >60 [place] Work Phone: Comment on above: GFR Calc Estimated GFR (MDRD) Non-Af Amer 79 mL/min >60 [place] Work Phone: Comment on above: Non- GFR Calc Thyroid Stimulating Hormone (TSH) 1.37 uIU/mL 0.358-3.74 [place] Work Phone: Serum or plasma albumin naif urement (mass/volume)on 07-27-2022 Albumin [Mass/Vol] 3.7 g/dL 3.2-5.0 [facility] Work Phone: [phone] Serum or plasma albumin/glob ulin mass ratioon 07-27-2022 Albumin/Globulin [Mass ratio] 0.9 {ratio} 0.9-2.4 [place] Work Phone: Serum or plasma calcium naif urement (mass/volume)on 07-27-2022 Calcium [Mass/Vol] 8.6 mg/dL 8.5-10.1 [facility] Work Phone: [phone] Serum or plasma creatinine m easurement (mass/volume)on 07-27-2022 Creatinine [Mass/Vol] 0.84 mg/dL 0.55-1.02 [facility] Work Phone: Comment on above: The validity of the calculated GFR & GFRAA in patients over 70 years has not been determined. Clinical correlation is essential. Serum or plasma urea nitroge n measurement (mass/volume)on 07-27-2022 Urea nitrogen [Mass/Vol] 18 mg/dL 7-18 [place] Work Phone: [phone] Thin prep Papanicolaou smear with manual screeningon 07-27-2022 Thin prep Papanicolaou smear with manual screening 22 U/L 15-37 [facility] Work Phone: [phone] Thin prep Papanicolaou smear with manual screening 8 5-15 [facility] Work Phone: [phone] Absolute lymphocyte counton 02-15-2022 Lymphocytes Auto (Unsp spec) [#/Vol] 1.34 10*3/uL 0.83-4.51 [place] Work Phone: [phone] Basophil percentageon 2021 Basophils/100 WBC (Bld) 0.3 % 0-1 [facility] Work Phone: [phone] Chloride [Moles/Vol] 104 mmol/L 98-107 [facility] Work Phone: Eosinophils/100 WBC (Bld) 1.6 % 0-5 [place] Work Phone: [phone] Glucose [Mass/Vol] 100 mg/dL 74-106 [facility] Work Phone: [phone] Comment on above: Fasting Glucose resu lt from 100 to 125 mg/dL suggests IMPAIRED HOMEOSTASIS per A.D.A. criteria. Neutrophils (Bld) [#/Vol] 4.1 10*3/uL 2.0-7.7 [place] Work Phone: Neutrophils/100 WBC (Bld) 66.7 % 47-70 [place] Work Phone: Potassium [Moles/Vol] 3.0 mmol/L 3.5-5.1 [facility] Work Phone: Sodium [Moles/Vol] 137 mmol/L 136-145 [facility] Work Phone: WBC (Bld) [#/Vol] 6.2 10*3/uL 4.4-11.0 [facility] Work Phone: Basophil percentage 25-50 SEEN /hpf [place] Work Phone: [phone] Bilirubin Test strip Ql (U)o n 02-15-2022 Bilirubin Ql (U) Negative Negative [place] Work Phone: [phone] Blood erythrocytes count (nu mber/volume)on 02-15-2022 RBC (Bld) [#/Vol] 4.03 10*6/uL 4.2[facility] Blood hemoglobin measurement (mass/volume)on 02-15-2022 Hemoglobin (Bld) [Mass/Vol] 11.8 g/dL 12.0-15. 0 [place] Work Phone: Blood lymphocytes/100 leukoc yteson 02-15-2022 Lymphocytes/100 WBC (Bld) 21.8 % 19-41 [place] Work Phone: Blood monocytes/100 leukocyt eson 02-15-2022 Monocytes/100 WBC (Bld) 9.4 % 0-10 [facility] Work Phone: Blood platelet mean volumeon 02-15-2022 Platelet mean volume (Bld) [Entitic vol] 8.8 fL 6.2-12.0 [place] Work Phone: [phone] Calcium oxalate crystals det ection in urine sediment by light microscopyon 02-15-2022 Calcium oxalate crystals LM Ql (Urine sed) RARE /hpf [place] Work Phone: Determination of erythrocyte mean corpuscular volume (MCV)on 02-15-2022 MCV (RBC) [Entitic vol] 89.6 fL 81-99 [facility] Work Phone: Hematocrit Auto (Bld) [Volum e fraction]on 02-15-2022 Hematocrit (Bld) [Volume fraction] 36.1 % 37-47 [place] Work Phone: Ketones Test strip Ql (U)on 02-15-2022 Ketones Ql (U) Negative Negative [place] Work Phone: [phone] Laboratory - Chemistry and C hemistry - challengeon 02-15-2022 CO2 [Moles/Vol] 26.0 mmol/L 21.0-32.0 [place] Work Phone: Urea nitrogen/Creatinine [Mass ratio] 23.3 mg/mg 10-20 [place] Work Phone: Laboratory - Hematology and Cell countson 02-15-2022 Erythrocyte distribution width (RBC) [Entitic vol] 41.2 fL 35.1-43.9 [facility] Work Phone: [phone] Erythrocyte distribution width (RBC) [Ratio] 12.6 % 11.6-14.6 [place] Work Phone: [phone] Immature granulocytes/100 WBC (Bld) 0.200 % 0.0-0.9 [place] Work Phone: Comment on above: IG% - Immature Granu locytes (promyelocytes, myelocytes and metamyelocytes) > 1% indicates that a LEFT SHIFT is Present. MCH (RBC) [Entitic mass] 29.3 pg 27.0-32.0 [place] Work Phone: [phone] Nucleated RBC/100 WBC (Bld) [Ratio] 0 % 0-5 [place] Work Phone: [phone] MCHC Auto (RBC) [Mass/Vol]on 02-15-2022 MCHC (RBC) [Mass/Vol] 32.7 g/dL 32-36 [facility]: Mucus LM Ql (Urine sed)on Mucus Ql (Urine sed) 0 SEEN /hpf [facility] Work Phone: Nitrite Test strip Ql (U)on 02-15-2022 Nitrite Ql (U) Negative Negative [place] Work Phone: No Panel Informationon 02-15 D-Dimer Quantitative (PE/DVT) 0.54 FEU/ug/m 0.27-0.49 [place] Work Phone: Comment on above: D-Dimer ELEVATED (>0 .49): Additional studies and clinicalassessments are indicated to conclude diagnosis of:Deep Vein Thrombosis (DVT) or Pulmonary Embolism (PE)CRITICAL VALUE VERIFIED. CALLED TO Linda [id number] Adele Grullon.RESULTS READ BACK BY SAME . Estimated Creatinine Clearance Calc 89.41 ml/min [place] Work Phone: Estimated GFR (MDRD) Amer 111 mL/min >60 [place] Work Phone: Comment on above: GFR Calc Estimated GFR (MDRD) Non-Af Amer 92 mL/min >60 [place] Work Phone: Comment on above: Non- GFR Calc Troponin I High Sensitivity < 3 pg/mL 3.0-54.0 [place] Work Phone: Comment on above: Please Note: New Avis t Units and Gender Specific Reference Ranges. For more information see Policy Stat Procedure [place] High Sensitivity Troponin (TNIH) and attachments. Influenza Types A,B Direct FA (SUDARSHAN) [place] Work Phone: Platelets bldon 02-15-2022 Platelets (Bld) [#/Vol] 216 10*3/uL 150-450 [place] Work Phone: Protein Test strip Ql (U)on 02-15-2022 Protein Ql (U) 30 mg/dl Negative [place] Work Phone: Serum or plasma calcium naif urement (mass/volume)on 04-19-2022 Calcium [Mass/Vol] 8.6 mg/dL 8.5-10.1 [facility] Work Phone: Serum or plasma creatinine m easurement (mass/volume)on 02-15-2022 Creatinine [Mass/Vol] 0.73 mg/dL 0.55-1.02 [facility] Work Phone: Comment on above: The validity of the calculated GFR & GFRAA in patients over 70 years has not been determined. Clinical correlation is essential. Serum or plasma urea nitroge n measurement (mass/volume)on 02-15-2022 Urea nitrogen [Mass/Vol] 17 mg/dL 7-18 [place] Work Phone: Squamous epithelial cells de tection in urine sediment by light microscopyon 02-15-2022 Epithelial cells.squamous LM Ql (Urine sed) 0-5 SEEN /hpf [place] Work Phone: Thin prep Papanicolaou smear with manual screeningon 02-15-2022 Thin prep Papanicolaou smear with manual screening 7 5-15 [facility] Work Phone: Urine blood detectionon 01-28 RBC Ql (U) 150 /ul Negative [place] Work Phone: RBC Ql (U) 10-25 SEEN /hpf [place] Work Phone: Urine clarityon 02-15-2022 Clarity (U) Clear Clear [place] Work Phone: Urine color determinationon 02-15-2022 Color (U) Yellow Yellow [place] Work Phone: Urine glucose detectionon Glucose Ql (U) Normal mg/dl Normal [place] Work Phone: Urine leukocyte esterase det ection by dipstickon 02-15-2022 Leukocyte esterase Test strip Ql (U) 500 /ul Negative [place] Work Phone: Urine pHon 02-15-2022 pH (U) 6.0 [pH] [place] Work Phone: Urine sediment bacteria coun t by microscopy (number/high power field)on 02-15-2022 Bacteria LM.HPF (Urine sed) [#/Area] 1 /[HPF] None Seen [place] Work Phone: Urine specific gravity measu rementon 02-15-2022 Specific gravity (U) [Rel density] 1.015 [place] Work Phone: Urobilinogen Auto test strip Ql (U)on 02-15-2022 Urobilinogen Ql (U) 8 mg/dl Normal [facility] Work Phone: HEP B SURFACE AG [CCL]on HEP B SURFACE AG [CCL] Normal [facility] Comment on above: Result Comment: _HEP B SURFACE AG [CCL]_ REFER TO SCANNED REPORT Performed By: #### 2 [id number] #### [facility],[address] [place] [address] REFLEX HBSAGC? NO Normal [facility] Comment on above: Performed By: #### 2 [id number] #### [facility],[address] [place] [address] HEPATITIS C AB IA W/CONFIRM [CCL]on 08-08-2019 HEPATITIS C AB IA W/CONFIRM [CCL] Normal [facility] Comment on above: Result Comment: _HEP ATITIS C AB IA W/CONFIRM [CCL]_ REFER TO SCANNED REPORT Performed By: #### 2 [id number] #### [facility],[address] [place] [address] REFLEX HCQPCR? YES Normal [facility] Comment on above: Performed By: #### 2 [id number] #### [facility],[address] [place] [address] Hepatitis C RNAon 08-03-2019 Hepatitis C RNA [id number] IU/mL Normal [facility] Comment on above: Performed By: #### H BSAG #### [facility] Routine Lab [address] [address] #### [id number] #### [facility] [address] [address] #### HCQPCR #### [facility] [address] [address] Hep C Ab IA w/Confon 019 Hepatitis C Ab IA Positive Abnormal Negative [facility] Comment on above: Performed By: #### H BSAG #### [facility]ine Lab [address] [address] #### [id number] #### [facility] [address] [place] [address] #### HCQPCR #### [facility] [address] [place] [address] Hepatitis B Surf. Agon 08-01 Hepatitis B Surf. Ag NEGAT Normal Negative [facility] Comment on above: Performed By: #### H BSAG #### [facility] Routine Lab [address] [address] #### [id number] #### [facility] [address] [address] #### HCQPCR #### [facility] [address] [place] [address] HEPATIC FUNCTION PANELon Albumin [Mass/Vol] 4.1 g/dL Normal 3.4 - 4.8 [facility] Comment on above: Performed By: #### 2 [id number] #### [facility],[address] [place] [address] ALK PHOS 63 U/L Normal 38 - 126 [facility] Comment on above: Performed By: #### 2 [id number] #### [facility],[address] [place] [address] ALT/SGPT 23 U/L Normal 8 - 35 [facility] Comment on above: Performed By: #### 2 [id number] #### [facility],[address] [place] [address] AST/SGOT 22 U/L Normal 13 - 39 [facility] Comment on above: Performed By: #### 2 [id number] #### [facility],[address] [place] [address] Bilirubin [Mass/Vol] 0.3 mg/dL Normal 0.0 - 1.5 [facility] Comment on above: Performed By: #### 2 [id number] #### [facility],[address] [place] [address] Bilirubin.direct [Mass/Vol] 0.1 mg/dL Normal 0.0 - 0. 1 [facility] Comment on above: Performed By: #### 2 [id number] #### [facility],[address] [place] [address] HEPATIC FUNCTION PANEL Normal [facility] Comment on above: Result Comment: HEPA TIC FUNCTION PROFILE Performed By: #### 2 [id number] #### [facility],[address] [place] [address] Protein [Mass/Vol] 7.4 g/dL Normal 6.4 - 8.3 [facility] Comment on above: Performed By: #### 2 [id number] #### [facility],[address] [place] [address] Vital Signs Date Time Vital Sign Value Performing Clinician Facility 05-13-2025 19:03-0400 Body temperature 98.4 [degF] Ngoc Briggs APRN.MEDICAL LABORATORY TECHNOLOGIST Work Phone: [facility] 05-13-2025 19:03-0400 Body weight 69 kg Ngoc Briggs APRN.CNP Work Phone: [facility] 05-13-2025 19:03-0400 Diastolic blood pressure 68 mm[Hg] Ngoc Briggs APRN.MEDICAL LABORATORY TECHNOLOGIST Work Phone: [facility] 05-13-2025 19:03-0400 Heart rate 78 /min Ngoc Praisler-Wood DIETARY SERVICE AIDE.MEDICAL LABORATORY TECHNOLOGIST Work Phone: [facility] 05-13-2025 19:03-0400 Respiratory rate 18 /min Ngoc Praisler-Wood DIETARY SERVICE AIDE.MEDICAL LABORATORY TECHNOLOGIST Work Phone: [facility] 05-13-2025 19:03-0400 SaO2% (BldA) [Mass fraction] 100 % Ngoc Praisler-Wood DIETARY SERVICE AIDE.MEDICAL LABORATORY TECHNOLOGIST Work Phone: [facility] 05-13-2025 19:03-0400 Systolic blood pressure 100 mm[Hg] Ngoc Praisler-Wood DIETARY SERVICE AIDE.MEDICAL LABORATORY TECHNOLOGIST Work Phone: [facility] 09-21-2024 15:36-0500 Body temperature 98.01 [degF] Nettie Carbajal DIETARY SERVICE AIDE.MEDICAL LABORATORY TECHNOLOGIST Work Phone: [facility] 09-21-2024 15:36-0500 Body weight 65.5 kg Nettie Carbajal DIETARY SERVICE AIDE.MEDICAL LABORATORY TECHNOLOGIST Work Phone: [facility] 09-21-2024 15:36-0500 Diastolic blood pressure 64 mm[Hg] Nettie Carbajal DIETARY SERVICE AIDE.MEDICAL LABORATORY TECHNOLOGIST Work Phone: [facility] 09-21-2024 15:36-0500 Heart rate 80 /min Nettie Carbajal DIETARY SERVICE AIDE.MEDICAL LABORATORY TECHNOLOGIST Work Phone: [facility] 09-21-2024 15:36-0500 Respiratory rate 16 /min Nettie Carbajal DIETARY SERVICE AIDE.MEDICAL LABORATORY TECHNOLOGIST Work Phone: [facility] 09-21-2024 15:36-0500 Systolic blood pressure 110 mm[Hg] Nettie Carbajal DIETARY SERVICE AIDE.MEDICAL LABORATORY TECHNOLOGIST Work Phone: [facility] 11-30-2023 09:58-0500 Body height 162.56 cm [facility] 11-30-2023 09:58-0500 Body mass index (BMI) [Ratio] 26.1 kg/m2 [place] 11-30-2023 09:58-0500 Body temperature 97.8 [degF] [facility] 11-30-2023 09:58-0500 Body weight 68.94 kg [facility] 11-30-2023 09:58-0500 Diastolic blood pressure 69 mm[Hg] [place] 11-30-2023 09:58-0500 Heart rate 77 /min [facility] 11-30-2023 09:58-0500 Respiratory rate 14 /min [facility] 11-30-2023 09:58-0500 SaO2% (BldA) [Mass fraction] 99 % [place] 11-30-2023 09:58-0500 Systolic blood pressure 112 mm[Hg] [place] 11-28-2023 00:25-0500 Blood Pressure Cuff Size JUSTIN REICHFIELD DO [facility] 11-28-2023 00:25-0500 Blood Pressure Location JUSTIN REICHFIELD DO [facility] 11-28-2023 00:25-0500 Blood Pressure Method JUSTIN REICHFIELD D O [facility] 11-28-2023 00:25-0500 Body height 162.6 cm JUSTIN REICHFIELD DO [facility] 11-28-2023 00:25-0500 Body temperature 97.88 [degF] JUSTIN REICHFIELD DO [facility] 11-28-2023 00:25-0500 Body weight 68.2 kg JUSTIN REICHFIELD DO [facility] 11-28-2023 00:25-0500 Diastolic Blood Pressure Non-Invasive 61 mm[Hg] JUSTIN REICHFIELD DO [facility] 11-28-2023 00:25-0500 Heart rate 92 /min JUSTIN REICHFIELD DO [facility] 11-28-2023 00:25-0500 Respiratory rate 20 /min [facility] 11-28-2023 00:25-0500 Systolic Blood Pressure Non-Invasive 114 mm[Hg] [facility] 11-09-2023 10:30-0500 Body temperature 97.4 [degF] [facility] 11-09-2023 10:30-0500 Diastolic blood pressure 62 mm[Hg] [place] 11-09-2023 10:30-0500 Heart rate 55 /min [facility] 11-09-2023 10:30-0500 Respiratory rate 16 /min [facility] 11-09-2023 10:30-0500 SaO2% (BldA) [Mass fraction] 100 % [place] 11-09-2023 10:30-0500 Systolic blood pressure 124 mm[Hg] [place] 11-09-2023 07:48-0500 Body mass index (BMI) [Ratio] 25 kg/m2 [place] 11-09-2023 07:48-0500 Body weight 68.03 kg [facility] 08-30-2023 06:24-0400 Diastolic blood pressure 81 mm[Hg] [place] 08-30-2023 06:24-0400 Heart rate 58 /min [facility] 08-30-2023 06:24-0400 Respiratory rate 16 /min [facility] 08-30-2023 06:24-0400 SaO2% (BldA) [Mass fraction] 100 % [place] 08-30-2023 06:24-0400 Systolic blood pressure 146 mm[Hg] [place] 08-30-2023 04:39-0400 Body temperature 98.5 [degF] [facility] 08-30-2023 04:36-0400 Body height 165.1 cm [facility] 08-30-2023 04:36-0400 Body mass index (BMI) [Ratio] 25.4 kg/m2 [place] 08-30-2023 04:36-0400 Body weight 69.5 kg [facility] 06-13-2023 20:41-0400 Body height 162.56 cm [facility] 06-13-2023 20:41-0400 Body mass index (BMI) [Ratio] 26.4 kg/m2 [place] 06-13-2023 20:41-0400 Body temperature 97.9 [degF] [facility] 06-13-2023 20:41-0400 Body weight 69.85 kg [facility] 06-13-2023 20:41-0400 Diastolic blood pressure 56 mm[Hg] [place] 06-13-2023 20:41-0400 Heart rate 80 /min [facility] 06-13-2023 20:41-0400 Respiratory rate 15 /min [facility] 06-13-2023 20:41-0400 SaO2% (BldA) [Mass fraction] 100 % [place] 06-13-2023 20:41-0400 Systolic blood pressure 109 mm[Hg] [place] 05-09-2023 18:39-0400 Body temperature 99.39 [degF] Mignon Rodríguez APRN.MEDICAL LABORATORY TECHNOLOGIST Work Phone: [facility] 05-09-2023 18:39-0400 Body weight 68.49 kg Mignon Rodríguez APRN.MEDICAL LABORATORY TECHNOLOGIST Work Phone: [facility] 05-09-2023 18:39-0400 Diastolic blood pressure 80 mm[Hg] Mignon Rodríguez APRN.MEDICAL LABORATORY TECHNOLOGIST Work Phone: [facility] 05-09-2023 18:39-0400 Heart rate 74 /min Mignon Rodríguez APRN.MEDICAL LABORATORY TECHNOLOGIST Work Phone: [facility] 05-09-2023 18:39-0400 Respiratory rate 18 /min Mignon Rodríguez APRN.MEDICAL LABORATORY TECHNOLOGIST Work Phone: [facility] 05-09-2023 18:39-0400 SaO2% (BldA) [Mass fraction] 97 % Mignon Rodríguez APRN.MEDICAL LABORATORY TECHNOLOGIST Work Phone: [facility] 05-09-2023 18:39-0400 Systolic blood pressure 122 mm[Hg] Mignon Marcos HOFFMAN Work Phone: [facility] 03-08-2023 23:42-0400 Body mass index (BMI) [Ratio] 31.8 kg/m2 [place] 03-08-2023 23:42-0400 Body weight 81.64 kg [facility] 03-08-2023 23:42-0400 Diastolic blood pressure 76 mm[Hg] [place] 03-08-2023 23:42-0400 Heart rate 59 /min [facility] 03-08-2023 23:42-0400 Respiratory rate 18 /min [facility] 03-08-2023 23:42-0400 SaO2% (BldA) [Mass fraction] 100 % [place] 03-08-2023 23:42-0400 Systolic blood pressure 136 mm[Hg] [place] 03-08-2023 20:52-0400 Body height 160.02 cm [facility] 03-08-2023 20:52-0400 Body temperature 98.5 [degF] [facility] 01-25-2023 17:21-0400 Body mass index (BMI) [Ratio] 24.5 kg/m2 [place] 01-25-2023 17:21-0400 Body temperature 98.1 [degF] [facility] 01-25-2023 17:21-0400 Body weight 64.86 kg [facility] 01-25-2023 17:21-0400 Diastolic blood pressure 47 mm[Hg] [place] 01-25-2023 17:21-0400 Heart rate 78 /min [facility] 01-25-2023 17:21-0400 Respiratory rate 16 /min [facility] 01-25-2023 17:21-0400 SaO2% (BldA) [Mass fraction] 100 % [place] 01-25-2023 17:21-0400 Systolic blood pressure 117 mm[Hg] [place] 12-14-2022 10:53-0500 Respiratory rate 16 /min [facility] 12-14-2022 09:33-0500 Body height 160.02 cm [facility] 12-14-2022 09:33-0500 Body mass index (BMI) [Ratio] 25.7 kg/m2 [place] 12-14-2022 09:33-0500 Body temperature 97.5 [degF] [facility] 12-14-2022 09:33-0500 Body weight 65.77 kg [facility] 12-14-2022 09:33-0500 Diastolic blood pressure 74 mm[Hg] [place] 12-14-2022 09:33-0500 Heart rate 78 /min [facility] 12-14-2022 09:33-0500 SaO2% (BldA) [Mass fraction] 98 % [place] 12-14-2022 09:33-0500 Systolic blood pressure 101 mm[Hg] [place] 07-18-2022 12:18-0400 Respiratory rate 16 /min [facility] Work Phone: 07-18-2022 11:37-0400 Body temperature 97.6 [degF] [facility] Work Phone: 07-18-2022 11:37-0400 Diastolic blood pressure 86 mm[Hg] [place] Work Phone: 07-18-2022 11:37-0400 Heart rate 87 /min [facility] Work Phone: 07-18-2022 11:37-0400 SaO2% (BldA) [Mass fraction] 99 % [place] Work Phone: 07-18-2022 11:37-0400 Systolic blood pressure 135 mm[Hg] [place] Work Phone: 07-18-2022 11:36-0400 Body height 165.1 cm [facility] Work Phone: 07-18-2022 11:36-0400 Body mass index (BMI) [Ratio] 25 kg/m2 [place] Work Phone: 07-18-2022 11:36-0400 Body weight 68.03 kg [facility] Work Phone: 02-15-2022 19:47-0400 Heart rate 74 /min [facility] Work Phone: 02-15-2022 19:47-0400 Respiratory rate 16 /min [facility] Work Phone: 02-15-2022 19:12-0400 Diastolic blood pressure 76 mm[Hg] [place] Work Phone: 02-15-2022 19:12-0400 SaO2% (BldA) [Mass fraction] 99 % [place] Work Phone: 02-15-2022 19:12-0400 Systolic blood pressure 118 mm[Hg] [place] Work Phone: 02-15-2022 16:53-0400 Body height 165.1 cm [facility] Work Phone: 02-15-2022 16:53-0400 Body mass index (BMI) [Ratio] 26.8 kg/m2 [place] Work Phone: 02-15-2022 16:53-0400 Body temperature 96.5 [degF] [facility] Work Phone: 02-15-2022 16:53-0400 Body weight 73.2 kg [facility] Work Phone: 02-15-2022 16:25-0400 Body temperature 98.01 [degF] Ngoc Goldstein-Wood DIETARY SERVICE AIDE.MEDICAL LABORATORY TECHNOLOGIST Work Phone: [facility] 02-15-2022 16:25-0400 Body weight 73.21 kg Ngoc Praandreyler-Wood DIETARY SERVICE AIDE.MEDICAL LABORATORY TECHNOLOGIST Work Phone: [facility] 02-15-2022 16:25-0400 Diastolic blood pressure 68 mm[Hg] Ngoc Praandreyler-Wood DIETARY SERVICE AIDE.MEDICAL LABORATORY TECHNOLOGIST Work Phone: [facility] 02-15-2022 16:25-0400 Heart rate 82 /min Ngoc Goldstein-Gigi DIETARY SERVICE AIDE.MEDICAL LABORATORY TECHNOLOGIST Work Phone: [facility] 02-15-2022 16:25-0400 Respiratory rate 21 /min Ngoc Goldstein-Gigi DIETARY SERVICE AIDE.MEDICAL LABORATORY TECHNOLOGIST Work Phone: [facility] 02-15-2022 16:25-0400 SaO2% (BldA) [Mass fraction] 100 % Ngoc Goldstein-Gigi DIETARY SERVICE AIDE.MEDICAL LABORATORY TECHNOLOGIST Work Phone: [facility] 02-15-2022 16:25-0400 Systolic blood pressure 102 mm[Hg] Ngoc Goldstein-Gigi DIETARY SERVICE AIDE.MEDICAL LABORATORY TECHNOLOGIST Work Phone: [facility] Encounters Encounter Date Encounter Type Care Provider Facility Start: 05-14-2025 End: 05-14-2025 Follow-up encounter Zhang Mccray APRN.MEDICAL LABORATORY TECHNOLOGIST Work Phone: [facility] Comment on above: Results Start: 05-13-2025 End: 05-13-2025 Patient encounter procedure Ngoc Goldstein-Gigi DIETARY SERVICE AIDE.MEDICAL LABORATORY TECHNOLOGIST Work Phone: [facility] [place] Comment on above: Sore throat (Primary Dx); Nasal congestion; Postnasal drip Start: 05-13-2025 End: 05-13-2025 ambulatory [facility] Facility:[facility] Start: 10-07-2024 End: 10-07-2024 Emergency department patient visit No Primary Care Physician Facility:[place] Start: 09-21-2024 End: 09-21-2024 ambulatory [facility] Facility:[facility] Start: 09-21-2024 End: 09-21-2024 Patient encounter procedure Nettie Carbajal DIETARY SERVICE AIDE.MEDICAL LABORATORY TECHNOLOGIST Work Phone: [facility] Comment on above: Urinary frequency (P rimary Dx) Start: 07-29-2024 End: 07-29-2024 ambulatory Malcolm JOE Facility:[facility] Start: 07-29-2024 End: 07-29-2024 ambulatory Malcolm JOE Facility:[place] Start: 06-25-2024 End: 06-25-2024 Emergency department patient visit No Primary Care Physician Facility:[place] Start: 11-30-2023 End: 11-30-2023 Emergency department patient visit [facility] Work Phone: Start: 11-28-2023 End: 11-28-2023 Emergency department patient visit JUSTIN MULTANI DO [facility] Start: 11-09-2023 End: 11-09-2023 Admission to same day surgery center [facility] Start: 10-18-2023 End: 10-18-2023 ambulatory [place] Work Phone: Start: 10-18-2023 End: 10-18-2023 Patient encounter procedure [place], [facility] Work Phone: Start: 08-30-2023 End: 08-30-2023 Emergency department patient visit [facility] Work Phone: Start: 06-13-2023 End: 06-13-2023 Emergency department patient visit [facility] Work Phone: Start: 06-08-2023 Telephone encounter Mignon Rodríguez APRN.MEDICAL LABORATORY TECHNOLOGIST Work Phone: [facility] Comment on above: Appointment Start: 05-29-2023 End: 05-29-2023 Patient encounter procedure Denise Manjarrez PA-C Work Phone: Orthopaedics Comment on above: Closed displaced fra cture of middle phalanx of left middle finger with routine healing, subsequent encounter (Primary Dx); Pain in finger of left hand Start: 05-26-2023 End: 05-26-2023 Patient encounter procedure Romario Grigsby DO Work Phone: [facility] Comment on above: Closed displaced fra cture of middle phalanx of left middle finger, initial encounter (Primary Dx) Start: 05-09-2023 End: 05-09-2023 Subsequent hospital visit by physician [facility] Work Phone: Radiology Comment on above: Pain [R52] Start: 05-09-2023 End: 05-09-2023 Patient encounter procedure Mignon Rodríguez APRN.CNP Work Phone: [facility] Comment on above: Pain (Primary Dx) Start: 03-08-2023 End: 03-09-2023 Emergency department patient visit [place] Start: 01-25-2023 End: 01-25-2023 Emergency department patient visit [facility] Start: 12-14-2022 End: 12-14-2022 Emergency department patient visit [facility] Start: 07-27-2022 End: 07-27-2022 ambulatory [place] Work Phone: Start: 07-27-2022 End: 07-27-2022 Patient encounter procedure [place] Start: 07-18-2022 End: 07-18-2022 Emergency department patient visit [facility] Start: 02-15-2022 End: 02-15-2022 Emergency department patient visit [facility] Start: 02-15-2022 End: 02-15-2022 Patient encounter procedure Ngoc Briggs APRN.CNP Work Phone: [facility] Comment on above: Episode of shaking ( Primary Dx); Chest pain, unspecified type Start: 07-31-2019 End: 07-31-2019 Patient encounter procedure [facility] Procedures Date Procedure Procedure Detail Performing Clinician Start: 05-13-2025 Iadna streptococcus group a amplified probe tq Ngoc Briggs APRN.CNP Work Phone: Start: 11-09-2023 Fluoroscopic guidance Start: 10-18-2023 CT of abdomen and pe lvis without contrast Start: 08-30-2023 Plain chest X-ray Start: 08-30-2023 CT of abdomen and pe lvis without contrast Start: 06-13-2023 Urine culture Start: 05-09-2023 Radex hand minimum 3 views Mignon Rodríguez APRN.CNP Work Phone: Start: 03-08-2023 Urine culture Start: 02-15-2022 CT angiography of ch est with contrast Start: 02-15-2022 Influenza Types A,B Direct FA (SUDARSHAN) Streptococcus pyogen es antigen assay Urine culture Plan of Treatment Date Care Activity Detail Author Start: 06-30-2025 Influenza vaccination Influenza Vacc ine (#1) [facility] Start: 06-30-2024 Covid-19 Vaccine () Covid-19 Vaccine () [facility] Start: 06-30-2024 Covid-19 Vaccine () Covid-19 Vaccine () [facility] Start: 06-30-2024 Influenza vaccination Influenza Vacc ine (#1) [facility] Start: 11-09-2023 Anes lithotrp xtrcor p shock wave w/o water bath ANESTH KIDNEY STONE DESTRUCT [place] Start: 11-09-2023 Cysto/uretero w/lithotripsy &indwell stent insrt CYSTO/URETERO W/LITHOTRIPSY [place] Start: 11-09-2023 Patient discharge [facility] Start: 08-30-2023 [facility] Start: 06-30-2023 Influenza vaccination INFLUENZA (#1) [facility] Start: 06-13-2023 [facility] Start: 06-13-2023 Bacteria identified in Urine by Culture Urine Culture [place] Start: 2023 COLOGUARD (FIT-DNA) COLOGUARD (FIT-D NA) [facility] Start: 2023 Colonoscopy COLONOSCOPY [facility] Start: 2023 COLORECTAL CANCER SCREENING COLORECTAL CANCER SCREENING [facility] Start: [address] COLONOGRAPHY [facility] Start: 2023 DIABETES SCREEN DIABETES SCREEN [facility] Start: 2023 Diabetes Screening Diabetes Screenin g [facility] Start: 2023 FECAL OCCULT BLOOD FECAL OCCULT BLOO D [facility] Start: 2023 Lipid panel [facility] Start: 2023 LIPID SCREEN LIPID SCREEN [facility] Start: 2023 Screening for malign ant neoplasm of colon [facility] Start: 2023 SIGMOIDOSCOPY SIGMOIDOSCOPY [facility] Start: 03-08-2023 End: 03-08-2023 [place] Start: 10-30-2022 DEPRESSION ASSESSMENT DEPRESSION ASS ESSMENT [facility] Start: 06-30-2022 Influenza vaccination INFLUENZ A (Season Ended) [facility] Start: 12-28-2021 COVID-19 VACCINE (4 - Pfizer series) COVID-19 VACCINE (4 - Pfizer series) [facility] Start: 2018 Mammography MAMMOGRAM [facility] Start: 2018 Screening for malign ant neoplasm of breast Mammogram Screening [facility] Start: 2008 HPV TESTING HPV TESTING [facility] Start: 1999 PAP TESTING PAP TESTING [facility] Start: 1999 Screening for malign ant neoplasm of cervix Cervical Cancer Screening [facility] Start: 1997 Hepatitis B Vaccine (1 of 3 - 19+ 3-dose series) Hepatitis B Vaccine (1 of 3 - 19+ 3-dose series) [facility] Start: 1997 Urine microalbumin profile [facility] Start: 1996 Anxiety Screening Anxiety Screening [facility] Start: 1996 Depression Screening Depression Scre ening [facility] Start: 1996 HEPATITIS C SCREENING HEPATITIS C [facility] Start: 1996 Hepatitis C screening Hepatitis C [facility] Start: 1996 HIV SCREENING HIV SCREENING [facility] Start: 1996 HIV screening HIV Screening [facility] Start: 1990 Adult depression screening assessment DEPRESSION SCREENING [facility] Start: 1984 PNEUMOCOCCAL (1 - PCV) PNEUMOCOCCAL (1 - PCV) [facility] Start: 1978 HEPATITIS B (1 of 3 - 3-dose series) HEPATITIS B (1 of 3 - 3-dose series) [facility] Bacteria identified in Urine by Culture Urine Culture [place] Bacteria identified in Urine by Culture URINE CULTURE Microbiology Routine Urinary frequency 09/21/2024 3:48 PM EST [facility] Bilirubin measuremen t, urine [place] COVID & INFLUENZA A/ B & RSV PCR, ROUTINE COVID & INFLUENZA A/B & RSV PCR, ROUTINE Microbiology Routine Sore throat Ordered: 05/13/2025 [facility] Work Phone: Comment on above: Ordered: 05/13/2025 Hemoglobin [Presence ] in Urine [place] Measurement of keton es in urine using dipstick [place] Microscopic urinalysis [facility] Patient Education [facility] Work Phone: Patient referral [facility] Work Phone: pH of Urine [facility] Specific gravity of Urine [place] Streptococcus pyogen es antigen assay Group A Streptococcus Rapid Screen [place] UA DIP, URINE (POC) UA DIP, URIN E (POC) Lab Routine Urinary frequency Ordered: 09/21/2024 [facility] Work Phone: Comment on above: Ordered: 09/21/2024 Urinalysis, blood, qualitative [place] Urine dipstick for glucose [place] Urine dipstick for leukocyte esterase [facility] Urine dipstick for nitrite [facility] Urine dipstick for protein [place] Urine examination [facility] Urine microscopy: epithelial cells [place] Urine Microscopy: wh ite cells [place] Urobilinogen [Presen ce] in Urine [facility] Payers Date Payer Category Payer Blue Cross Blue Shield BLUE CARD PPO OOS Member Subscriber Plan / Payer (Effective 2024-Present) Name: Jerri Mendoza Relation to Subscriber: Self Name: Jerri Mendoza Payer ID: [id number] (NAIC) Type: PPO Address: [place] [id number] [place] [id number] 2024 Unknown [facility] BLUE CARD PPO OOS [id number] 2024-Present [phone] [address] [place] [address] PPO [id number] 2024 Unknown [id number] 2023 Medicaid [id number] 2023 Self-pay [id number] 2023 Unknown [id number] 2022 Medicaid [id number] 2021 Medicaid [employer] [employer] MEDICAID [id number] 2021-[facility] [phone] [address] [place] [address] Medicaid [id number] 1978 Unknown [id number] Private Health Insurance [id number] Unknown [id number] Unknown [id number] Unknown [id number] Unknown [id number] Unknown [id number] Unknown [id number] Social History Date Type Detail Facility [facility] Work Phone: Start: 02-15-2022 End: 11-30-2023 Tobacco smoking status PRIS Unknown if ever smoked [place] Start: 1980 Sex Assigned At Female [facility] Start: 1980 Sex Assigned At Not on file [facility] Start: 02-05-2022 End: 02-15-2022 Exposure to SARS-CoV-2 (event) Not sure [facility] Work Phone: Start: 05-09-2023 Tobacco smoking status NHIS Smokes tobacco daily [facility] History of tobacco use Cigarette Smoker [facility] Start: 05-09-2023 End: 05-29-2023 Tobacco use and exposure Smokeless tobacco non-user [facility] Start: 05-09-2023 End: 05-26-2023 History of Social function [facility] Start: 05-09-2023 End: 05-26-2023 Tobacco use panel [facility] Start: 05-26-2023 End: 05-13-2025 Alcohol intake Ex-drinker (finding) [facility] National Score (1-100), lower number is lower risk 50 [facility] Start: 05-29-2023 Tobacco smoking status NHIS Ex-smoker [facility] History of tobacco use Current smoker [facility] Tobacco smoking status No Smoking Status Entered [facility] NEGATED: Highlighted row [place] Medical Equipment Procedure Code Equipment Code Equipment Origin al Text Equipment Identifier Dates Cystoscopy, with retrograde pyelogram, ureteroscopy, laser procedure, and stent inser STENT,URETERAL PIGTAIL [id number] FDA Start: 11-09-2023 Goals Date Patient Goal Desired Activity /State Functional Status Date Assessment Result Facility 11-28-2023 Functional Status Up ad edwin [facility] bonnytal [facility] Mental Status Date Assessment Result Facility 11-30-2023 Cognitive function Level Of Cons ciousness Awake;Alert;Appropriate;Follow s Commands [place] Work Phone: 11-28-2023 Mental Status Oriented x 4 [facility] 11-09-2023 Cognitive function Voice/Name [facility] Work Phone: 02-15-2022 Cognitive function Level Of Cons ciousness Awake;Alert;Appropriate;Follow s Commands [place] Work Phone: Clinical Notes 02-15-2022 to 05-14-2025 Telephone Encounter - Luana Love MA - 05/14/2025 7:07 PM EDTTelephone Encounter - Luana Love MA - 05/14/2025 7:07 PM EDTPatient InstructionsDenise Manjarrez PA-C - 05/29/2023 1:59 PM EDT Note Date & Type Note Facility 05-14-2025 Telephone encounter Note Pt was notified of the results. Pt verbalized understanding. Luana Love MA [facility] 05-14-2025 Miscellaneous Notes Pt was notified of the results. Pt verbalized understanding. Luana Love MA Please notify that covid/flu/rsv testing negative. Continue with plan of care as discussed during visit. documented in this encounter [facility] 05-14-2025 Telephone encounter Note Please notify that covid/flu/rsv testing negative. Continue with plan of care as discussed during visit. [facility] Work Phone: 05-13-2025 Instructions Ngoc Briggs APRN.CNP - 05/13/2025 7:50 PM EDT 1. Sore throat (J02.9) 2. Nasal congestion (R09.81) 3. Postnasal drip (R09.82) - Negative strep test. - Ordered COVID-19 test; results expected tomorrow. - Suspected postnasal drip contributing to throat irritation, particularly upon awakening. - Recommended use of Flonase nasal spray to alleviate postnasal drainage. - Advised patient to monitor symptoms and report any worsening or new symptoms. - Your strep test was negative. - A COVID-19 nasal swab was collected and sent to the lab; results should be available tomorrow. - You will receive your COVID-19 result through [employer] if you have an account; if not, we will call you with the result. - If your COVID-19 test is positive, there is no specific antiviral treatment--rest and manage symptoms at home as needed. - Use Flonase nasal spray for post-nasal drainage that s irritating your throat; follow the package instructions and use it daily until symptoms improve. documented in this encounter [facility] 05-13-2025 Note HNO ID: [id number] Author: NGOC BRIGGS APRN.MEDICAL LABORATORY TECHNOLOGIST Service: ? Author Type: Nurse Practitioner Type: Progress Notes Filed: 05/13/2025 19:50 Note Text: [facility] Jerri Mendoza is a 45 year old female. Patient presents with: Sore Throat: On and off x 5 days Sore Throat Sore Throat: - Severe sore throat x5 days. - Pain rated 9/10, localized to the throat without noticeable gland swelling. - Pain prevents eating solid foods; only able to consume soup and broth. - Strep test was negative. - History of COVID-19 with sore throat as the only symptom. - Taking Mucinex Flu Sore Throat with minimal relief. Congestion and Cough: - Mild cough and significant congestion. Review of Systems HENT: Positive for sore throat. Constitutional: (-) fever Ears/Nose/Mouth/Throat: (+) sore throat, (+) nasal congestion Respiratory: (+) cough Objective BP 100/68 Pulse 78 Temp 36.9 ?C (98.4 ?F) Resp 18 Wt 69 kg (152 lb 1.9 oz) LMP 04/29/2025 (Approximate) SpO2 100% No past medical history on file. No past surgical history on file. ALLERGIES Sulfa (Sulfonamide Antibiotics) MEDICATIONS - lisdexamfetamine (VYVANSE) 30 mg capsule Take 30 mg by mouth once daily. - buprenorphine-naloxone (SUBOXONE) 8-2 mg film ONE FILM UNDER THE TONGUE TWICE DAILY - gabapentin (NEURONTIN) 100 mg capsule TAKE 1 CAPSULES (100 MG) BY ORAL ROUTE 4 TIMES PER DAY - traZODone (DESYREL) 50 mg tablet Take 50 mg by mouth daily at bedtime. - acetaminophen (TYLENOL) 325 mg tablet Take 650 mg by mouth every 6 hours as needed for pain. (Patient not taking: Reported on 05/13/2025) No family history on file. Social History Tobacco Use - Smoking status: Former Types: Cigarettes - Smokeless tobacco: Never Vaping Use - Vaping status: current everyday user - Substances: Nicotine - Devices: Pre-filled pod Substance Use Topics - Alcohol use: Not Currently - Drug use: Not Currently Physical Exam Vitals and nursing note reviewed. Constitutional: General: She is not in acute distress. Appearance: Normal appearance. She is not ill-appearing. HENT: Nose: Congestion present. Mouth/Throat: Mouth: Mucous membranes are moist. Pharynx: Oropharynx is clear. Postnasal drip present. No oropharyngeal exudate or posterior oropharyngeal erythema. Cardiovascular: Rate and Rhythm: Normal rate and regular rhythm. Heart sounds: Normal heart sounds. Pulmonary: Effort: Pulmonary effort is normal. No respiratory distress. Breath sounds: Normal breath sounds. No wheezing or rales. Lymphadenopathy: Cervical: No cervical adenopathy. Skin: General: Skin is warm and dry. Findings: No erythema or rash. Neurological: Mental Status: She is alert. { 1. Sore throat (J02.9) 2. Nasal congestion (R09.81) 3. Postnasal drip (R09.82) - Negative strep test. - Ordered COVID-19 test; results expected tomorrow. - Suspected postnasal drip contributing to throat irritation, particularly upon awakening. - Recommended use of Flonase nasal spray to alleviate postnasal drainage. - Advised patient to monitor symptoms and report any worsening or new symptoms. - Follow-up with your PCP in 3-5 days if symptoms have not improved or sooner if symptoms worsen - Discussed red flags and need for immediate medical evaluation if any occur. - Discussed supportive care treatment with fluids, rest and analgesia. - Discussed expected course of illness Ngoc Briggs APRN.MEDICAL LABORATORY TECHNOLOGIST and Recording using [employer] software for draft documentation of the visit was discussed with the patient/authorized bank representative; all questions welcomed and answered. Patient/authorized bank representative agreed to proceed Disposition The patient was discharged. OTC Medications were advised: flonase Procedures [facility] 05-13-2025 History of Presen t illness Narrative [facility] Subjective Jerri Mendoza is a 45 year old female. Patient presents with: Sore Throat: On and off x 5 days Sore Throat Sore Throat: - Severe sore throat x5 days. - Pain rated 9/10, localized to the throat without noticeable gland swelling. - Pain prevents eating solid foods; only able to consume soup and broth. - Strep test was negative. - History of COVID-19 with sore throat as the only symptom. - Taking Mucinex Flu Sore Throat with minimal relief. Congestion and Cough: - Mild cough and significant congestion. Review of Systems HENT: Positive for sore throat. Constitutional: (-) fever Ears/Nose/Mouth/Throat: (+) sore throat, (+) nasal congestion Respiratory: (+) cough Objective BP 100/68 Pulse 78 Temp 36.9 C (98.4 F) Resp 18 Wt 69 kg (152 lb 1.9 oz) LMP 04/29/2025 (Approximate) SpO2 100% No past medical history on file. No past surgical history on file. ALLERGIES Sulfa (Sulfonamide Antibiotics) MEDICATIONS lisdexamfetamine (VYVANSE) 30 mg capsule Take 30 mg by mouth once daily. buprenorphine-naloxone (SUBOXONE) 8-2 mg film ONE FILM UNDER THE TONGUE TWICE DAILY gabapentin (NEURONTIN) 100 mg capsule TAKE 1 CAPSULES (100 MG) BY ORAL ROUTE 4 TIMES PER DAY traZODone (DESYREL) 50 mg tablet Take 50 mg by mouth daily at bedtime. acetaminophen (TYLENOL) 325 mg tablet Take 650 mg by mouth every 6 hours as needed for pain. (Patient not taking: Reported on 05/13/2025) No family history on file. Social History Tobacco Use Smoking status: Former Types: Cigarettes Smokeless tobacco: Never Vaping Use Vaping status: current everyday user Substances: Nicotine Devices: Pre-filled pod Substance Use Topics Alcohol use: Not Currently Drug use: Not Currently Physical Exam Vitals and nursing note reviewed. Constitutional: General: She is not in acute distress. Appearance: Normal appearance. She is not ill-appearing. HENT: Nose: Congestion present. Mouth/Throat: Mouth: Mucous membranes are moist. Pharynx: Oropharynx is clear. Postnasal drip present. No oropharyngeal exudate or posterior oropharyngeal erythema. Cardiovascular: Rate and Rhythm: Normal rate and regular rhythm. Heart sounds: Normal heart sounds. Pulmonary: Effort: Pulmonary effort is normal. No respiratory distress. Breath sounds: Normal breath sounds. No wheezing or rales. Lymphadenopathy: Cervical: No cervical adenopathy. Skin: General: Skin is warm and dry. Findings: No erythema or rash. Neurological: Mental Status: She is alert. { 1. Sore throat (J02.9) 2. Nasal congestion (R09.81) 3. Postnasal drip (R09.82) - Negative strep test. - Ordered COVID-19 test; results expected tomorrow. - Suspected postnasal drip contributing to throat irritation, particularly upon awakening. - Recommended use of Flonase nasal spray to alleviate postnasal drainage. - Advised patient to monitor symptoms and report any worsening or new symptoms. - Follow-up with your PCP in 3-5 days if symptoms have not improved or sooner if symptoms worsen - Discussed red flags and need for immediate medical evaluation if any occur. - Discussed supportive care treatment with fluids, rest and analgesia. - Discussed expected course of illness Ngoc Briggs APRN.MEDICAL LABORATORY TECHNOLOGIST and Recording using [employer] software for draft documentation of the visit was discussed with the patient/authorized bank representative; all questions welcomed and answered. Patient/authorized bank representative agreed to proceed Disposition The patient was discharged. OTC Medications were advised: flonase Procedures documented in this encounter [facility] 05-13-2025 Note SARS-COV-2 (AGENT OF COVID-19) RNA: Not detected INFLUENZA A RNA: Not detected INFLUENZA B RNA: Not detected RESPIRATORY SYNCYTIAL VIRUS (RSV) RNA: Not detected [facility] Comment on above: Performed By: #### 9 [id number] #### [facility] CLIA [id number] [address] [place] [address] [place] 09-21-2024 History of Presen t illness Narrative This note was created using NoteWriter. Subjective Jerri Mendoza is a 44 year old female. 44 year old female with PMH asthma presents for UTI Acute onset last night +urgency +frequency +burning Denies flank pain Denies abdominal pain Denies vaginal bleeding Denies vaginal discharge Recent sexual ativity Denies concerns for STI Used azos The history is provided by the patient. No sheet metal smith was used. UTI This is a new problem. The current episode started yesterday. The problem occurs every urination. The problem has been gradually worsening. The quality of the pain is described as burning. The pain is at a severity of 5/10. The pain is moderate. There has been no fever. She is Sexually active. There is No history of pyelonephritis. Associated symptoms include frequency, hematuria and urgency. Pertinent negatives include no chills, no sweats, no nausea, no vomiting, no discharge, no hesitancy, no possible and no flank pain. Treatments tried: Azos. Her past medical history does not include kidney stones, single kidney, urological procedure, recurrent UTIs, urinary stasis or catheterization. History reviewed. No pertinent past medical history. No past surgical history on file. ALLERGIES Sulfa (Sulfonamide Antibiotics) MEDICATIONS acetaminophen (TYLENOL) 325 mg tablet Take 650 mg by mouth every 6 hours as needed for pain. buprenorphine-naloxone (SUBOXONE) 8-2 mg film ONE FILM UNDER THE TONGUE TWICE DAILY gabapentin (NEURONTIN) 100 mg capsule TAKE 1 CAPSULES (100 MG) BY ORAL ROUTE 4 TIMES PER DAY traZODone (DESYREL) 50 mg tablet Take 50 mg by mouth daily at bedtime. nitrofurantoin monohydrate and macrocrystal (MACROBID) 100 mg capsule Take 1 capsule by mouth two times a day for 5 days. No family history on file. Social History Tobacco Use Smoking status: Former Types: Cigarettes Smokeless tobacco: Never Vaping Use Vaping status: current everyday user Substances: Nicotine Devices: Pre-filled pod Substance Use Topics Alcohol use: Not Currently Drug use: Not Currently Review of Systems Constitutional: Negative for chills. Eyes: Negative for pain, discharge, redness and itching. Respiratory: Negative for apnea, cough, choking and chest tightness. Cardiovascular: Negative for chest pain, palpitations and leg swelling. Gastrointestinal: Negative for abdominal pain, nausea and vomiting. Genitourinary: Positive for dysuria, frequency, hematuria and urgency. Negative for flank pain and hesitancy. Musculoskeletal: Negative for arthralgias, back pain and gait problem. Skin: Negative for color change and pallor. Neurological: Negative for dizziness, facial asymmetry, light-headedness and headaches. Hematological: Negative for adenopathy. Does not bruise/bleed easily. Psychiatric/Behavioral: Negative for agitation and behavioral problems. Objective BP 110/64 Pulse 80 Temp 36.7 C (98 F) (Tympanic) Resp 16 Wt 65.5 kg (144 lb 6.4 oz) Physical Exam Vitals and nursing note reviewed. Constitutional: General: She is not in acute distress. Appearance: Normal appearance. She is normal weight. She is not ill-appearing, toxic-appearing or diaphoretic. HENT: Head: Normocephalic and atraumatic. Right Ear: Ear canal and external ear normal. Left Ear: Ear canal and external ear normal. Nose: Nose normal. No congestion or rhinorrhea. Mouth/Throat: Mouth: Mucous membranes are moist. Pharynx: No oropharyngeal exudate or posterior oropharyngeal erythema. Eyes: General: Right eye: No discharge. Left eye: No discharge. Extraocular Movements: Extraocular movements intact. Conjunctiva/sclera: Conjunctivae normal. Pupils: Pupils are equal, round, and reactive to light. Cardiovascular: Rate and Rhythm: Normal rate and regular rhythm. Pulses: Normal pulses. Heart sounds: Normal heart sounds. No murmur heard. No friction rub. Pulmonary: Effort: Pulmonary effort is normal. No respiratory distress. Breath sounds: Normal breath sounds. No stridor. No wheezing, rhonchi or rales. Chest: Chest wall: No tenderness. Abdominal: General: Abdomen is flat. There is no distension. Palpations: Abdomen is soft. There is no mass. Tenderness: There is no abdominal tenderness. There is no right CVA tenderness, left CVA tenderness, guarding or rebound. Hernia: No hernia is present. Musculoskeletal: General: No swelling, tenderness, deformity or signs of injury. Normal range of motion. Cervical back: Normal range of motion and neck supple. No rigidity. Right lower leg: No edema. Left lower leg: No edema. Lymphadenopathy: Cervical: No cervical adenopathy. Skin: General: Skin is warm and dry. Capillary Refill: Capillary refill takes less than 2 seconds. Coloration: Skin is not jaundiced or pale. Findings: No bruising, erythema, lesion or rash. Neurological: General: No focal deficit present. Mental Status: She is alert and oriented to person, place, and time. Cranial Nerves: No cranial nerve deficit. Sensory: No sensory deficit. Motor: No weakness. Coordination: Coordination normal. Gait: Gait normal. Psychiatric: Mood and Affect: Mood normal. Behavior: Behavior normal. Thought Content: Thought content normal. Judgment: Judgment normal. Assessment and Plan ASSESSMENT/PLAN: 1. Urinary frequency - ICD9: 788.41, ICD10: R35.0 acute - UA unable to be ran related to Azos and color of urine, specimen rejected by UA machine - Send urine for culture - Begin treatment with Macrobid 100 mg BID for 5 days - Patient education for prevention given - UA DIP, URINE (POC) - URINE CULTURE Nettie Carbajal APRN.MEDICAL LABORATORY TECHNOLOGIST documented in this encounter [facility] 09-21-2024 Note HNO ID: [id number] Author: NETTIE CARBAJAL APRN.MEDICAL LABORATORY TECHNOLOGIST Service: ? Author Type: Nurse Practitioner Type: Progress Notes Filed: 09/22/2024 08:50 Note Text: This note was created using NoteWriter. Subjective Jerri Mendoza is a 44 year old female. 44 year old female with PMH asthma presents for UTI Acute onset last night +urgency +frequency +burning Denies flank pain Denies abdominal pain Denies vaginal bleeding Denies vaginal discharge Recent sexual ativity Denies concerns for STI Used azos The history is provided by the patient. No sheet metal smith was used. UTI This is a new problem. The current episode started yesterday. The problem occurs every urination. The problem has been gradually worsening. The quality of the pain is described as burning. The pain is at a severity of 5/10. The pain is moderate. There has been no fever. She is Sexually active. There is No history of pyelonephritis. Associated symptoms include frequency, hematuria and urgency. Pertinent negatives include no chills, no sweats, no nausea, no vomiting, no discharge, no hesitancy, no possible and no flank pain. Treatments tried: Azos. Her past medical history does not include kidney stones, single kidney, urological procedure, recurrent UTIs, urinary stasis or catheterization. History reviewed. No pertinent past medical history. No past surgical history on file. ALLERGIES Sulfa (Sulfonamide Antibiotics) MEDICATIONS acetaminophen (TYLENOL) 325 mg tablet Take 650 mg by mouth every 6 hours as needed for pain. buprenorphine-naloxone (SUBOXONE) 8-2 mg film ONE FILM UNDER THE TONGUE TWICE DAILY gabapentin (NEURONTIN) 100 mg capsule TAKE 1 CAPSULES (100 MG) BY ORAL ROUTE 4 TIMES PER DAY traZODone (DESYREL) 50 mg tablet Take 50 mg by mouth daily at bedtime. nitrofurantoin monohydrate and macrocrystal (MACROBID) 100 mg capsule Take 1 capsule by mouth two times a day for 5 days. No family history on file. Social History Tobacco Use Smoking status: Former Types: Cigarettes Smokeless tobacco: Never Vaping Use Vaping status: current everyday user Substances: Nicotine Devices: Pre-filled pod Substance Use Topics Alcohol use: Not Currently Drug use: Not Currently Review of Systems Constitutional: Negative for chills. Eyes: Negative for pain, discharge, redness and itching. Respiratory: Negative for apnea, cough, choking and chest tightness. Cardiovascular: Negative for chest pain, palpitations and leg swelling. Gastrointestinal: Negative for abdominal pain, nausea and vomiting. Genitourinary: Positive for dysuria, frequency, hematuria and urgency. Negative for flank pain and hesitancy. Musculoskeletal: Negative for arthralgias, back pain and gait problem. Skin: Negative for color change and pallor. Neurological: Negative for dizziness, facial asymmetry, light-headedness and headaches. Hematological: Negative for adenopathy. Does not bruise/bleed easily. Psychiatric/Behavioral: Negative for agitation and behavioral problems. Objective BP 110/64 Pulse 80 Temp 36.7 ?C (98 ?F) (Tympanic) Resp 16 Wt 65.5 kg (144 lb 6.4 oz) Physical Exam Vitals and nursing note reviewed. Constitutional: General: She is not in acute distress. Appearance: Normal appearance. She is normal weight. She is not ill-appearing, toxic-appearing or diaphoretic. HENT: Head: Normocephalic and atraumatic. Right Ear: Ear canal and external ear normal. Left Ear: Ear canal and external ear normal. Nose: Nose normal. No congestion or rhinorrhea. Mouth/Throat: Mouth: Mucous membranes are moist. Pharynx: No oropharyngeal exudate or posterior oropharyngeal erythema. Eyes: General: Right eye: No discharge. Left eye: No discharge. Extraocular Movements: Extraocular movements intact. Conjunctiva/sclera: Conjunctivae normal. Pupils: Pupils are equal, round, and reactive to light. Cardiovascular: Rate and Rhythm: Normal rate and regular rhythm. Pulses: Normal pulses. Heart sounds: Normal heart sounds. No murmur heard. No friction rub. Pulmonary: Effort: Pulmonary effort is normal. No respiratory distress. Breath sounds: Normal breath sounds. No stridor. No wheezing, rhonchi or rales. Chest: Chest wall: No tenderness. Abdominal: General: Abdomen is flat. There is no distension. Palpations: Abdomen is soft. There is no mass. Tenderness: There is no abdominal tenderness. There is no right CVA tenderness, left CVA tenderness, guarding or rebound. Hernia: No hernia is present. Musculoskeletal: General: No swelling, tenderness, deformity or signs of injury. Normal range of motion. Cervical back: Normal range of motion and neck supple. No rigidity. Right lower leg: No edema. Left lower leg: No edema. Lymphadenopathy: Cervical: No cervical adenopathy. Skin: General: Skin is warm and dry. Capillary Refill: Capillary refill takes less than 2 secon (more content not included)... [facility] 11-28-2023 Evaluation + Plan note Diagnostic Tests PendingUrine Culture 11/28/23 [facility] 11-28-2023 Hospital Discharg e instructions Patient Education [...] swelling in the outer vaginal area (labia) [id number] [employer]. [address] [place] [address], [place] [address]. All rights reserved. This information is not [...] the smoke from others. You may use wvfd-kft-onmazxb acetaminophen or ibuprofen for fever, muscle aching, [...] body and be dangerous to your health. Cbrc-kqx-mhcpqvm remedies won't shorten the length of the [...] or as directed by your healthcare provider [phone] [employer]. [address] [place] [address]. All rights reserved. This information is not intended as a substitute for professional medical care. Always follow your healthcare professional's instructions. Follow Up Care 11/28/2023 00:21:12 With:Call Physician Referral Address:Unknown When:2-4 days With:Go to emergency room if symptoms worsen Address:Unknown When:2-4 days [facility] 11-28-2023 Note Discharge Instructions Thank you for allowing [facility] to assist you with your healthcare needs. [...] swelling in the outer vaginal area (labia) [phone] [employer]. [address] [place] [address]. All rights reserved. This information is not [...] the smoke from others. You may use rcye-bpp-gytkhjg acetaminophen or ibuprofen for fever, muscle aching, [...] body and be dangerous to your health. Pqap-cps-jnjibuo remedies won't shorten the length of the [...] or as directed by your healthcare provider [phone] [employer]. [address] [place] [address], [place] [address]. All rights reserved. This information is not intended as a substitute for professional medical care. Always follow your healthcare professional's instructions. Additional Information VACCINATE! IT SAVES LIVES! Members of the community who have not yet received the COVID-19 vaccine and would like to receive it can visit one of [facility] vaccine clinics. There are many vaccine clinic locations within the [facility]. For locations and available times, please visit [email or web address] [email or web address] It is important to note that some COVID mobile vaccine clinics are held outdoors and may be canceled in rainy or stormy conditions. To learn more about pediatric vaccinations (ages 5-11), we invite you to visit the [facility] webpage. [email or web address]/p [email or web address]-Snjix-Ibwqlmpfokp-Freq dozfth-[email or web address]-Cxdsyvtiw.html To learn more about the COVID-19 vaccine, we invite you to visit the CDC website for a list of frequently asked questions. https://www.cdc.gov/coronavirus/ 2019-ncov/vaccines/faq.html [employer] Patient Portal Access Instructions: Stay connected with your healthcare team and access your personal medical information anytime with the [employer] Patient Portal. If you would like a full copy of your medical records please contact the [facility] Medical Records Department Monday through Monday between 8a.m. and 4:30p.m. Please follow the directions below to access the portal: 1.Access the email account you provided upon registration to the [facility].2.Look for an invitation email from [facility].3.Open the email and access the invitation link: Accept Invitation to [facility] [facility]4.Fill in the required gomez to create your account. Sign into [email or web address] with your username and password that you [...] will allow to register on the [employer] [facility] Patient Portal for access to your information. You can also access the [facility] Patient Portal on the [employer] truong. Simply click on Health Records under Health Data and then click on the [employer] logo. HOW TO SAFELY DISPOSE OF PRESCRIPTION [...] Call your local pharmacy or go to [email or web address]/[email or web address] to find one close to you.3.Make use of household items: Use cat litter or old coffee grounds to dispose medications if other options are not available. Mix your drugs with these household products, seal them in an airtight container and throw it into the garbage. Call [facility]: [phone] to be sure your drugs can be [...] aware that I should contact my doctor. Patient/El Teacher Signature: Date/Time: Relationship to Patient: Witness Name/Signature: Date/Time: [facility] 06-08-2023 Miscellaneous Notes POPULATION HEALTH NAVIGATION OUTREACH Action/I 1st call-unable to LVM for patient regarding consult to varun BLEVINS. Patient Identified by Name and : NO Outreach Outcome/Action Unable to reach patient: Phone number not valid / voicemail full Did you use a PCP flex slot to schedule this appointment? N/A Reason for Outreach Care Gap or Scheduling/Wellness visits Payer: Payor: [employer] MEDICAID / Plan: [facility] MEDICAID [facility] / Product Type: Medicaid / Care Gap [...] 2023 2:43 PM documented in this encounter [facility] 05-29-2023 History of Presen t illness Narrative Denise Manjarrez PA-C Department of Orthopaedics Orthopaedics [address] [place] [address] Dept: [phone] Dept May 29, 2023 CHIEF COMPLAINT: New and Fracture of the Left middle Finger (Xray 05/09/2023) Ms. Jerri Mendoza is a 43 year old female who presents with an injury to her left middle finger which occurred almost a month ago. Patient was on vacation in [place], she was swinging from a rope when [...] the intermediate phalanx of the third finger Nurse Research: ELVIE Transcribe Date/Time: May 09 2023 7:02P [...] anxiety) This note was partially generated using Apptopia voice recognition system, and there may be some incorrect words, spellings, and punctuation that were not noted in checking the note before saving. Denise Manjarrez PA-C Patient presents with: Left Ring Finger - New, Fracture: Xray 05/09/2023 Patient reports intermittent pain with activity. She wears a splint and takes tylenol. AMB ROOMING INTAKE FLOWSHEET DATA Pain Pain Level: 8 Pain Location: Finger Description: Radiating, Throbbing Duration Amount of Time: 22 Duration Units: Days Frequency: Intermittent Intervention/Comfort measure: Medication, Splinting documented in this encounter [facility] 05-26-2023 History of Presen t illness Narrative SUBJECTIVE: Jerri Mendoza is a 43 year old female who is here for a left middle finger injury. It occurred on 05/09/23 when she was swinging from a rope swing and her finger got twisted rope. He states that there was an obvious visible deformity right away she self reduced. She was seen in [facility] upon returning from her trip to [place]. X-ray showed a fracture of the middle [...] measure: Medication, Splinting documented in this encounter [facility] 05-09-2023 History of Presen t illness Narrative Radiology Service Progress Note PATIENT NAME: Jerri [...] IV DATA: Not applicable SIGNED BY: RT Teresa(Marley) May 09, 2023 6:53 PM documented in this encounter [facility] 05-09-2023 History of Presen t illness [...] history is provided by the patient. No sheet metal smith was used. Review of Systems Constitutional: Negative. [...] the intermediate phalanx of the third finger Nurse Research: ELVIE Transcribe Date/Time: May 09 2023 7:02P Dictated by : IRVIN ANGEL MD - CONSULT TO ORTHOPAEDICS Patient was placed in a finger splint. Patient will schedule her own orthopedic follow-up. Patient will rest it and keep in the splint until she follows up with orthopedics. Patient was okay with this. Mignon Rodríguez APRN.MEDICAL LABORATORY TECHNOLOGIST documented in this encounter [facility] 03-08-2023 Discharge summary Note Date/Time March 08, 2023 10:50pm [facility] Medical Records Department [address] [place] [address] Emergency Department Summary 03/08/23 MR#: [id number] Acct: [id number] Name: TONYJERRIMani LEUNG Rep #:[id number] : 1980 42 From: Duy Smith DO PCP: Care Physician,No Primary Status :REG ER Location: ED HPI HPI - GI History of Present Illness Chief Complaint: Abd Pain Narrative Narrative: 42-year-old female presenting with epigastric pain, nausea, vomiting, diarrhea. This all started when she woke up this morning. She has not had a fever, chills, body aches. No black or bloody stools or emesis. States that she does feel like her stomach is burning. Patient states he does not have a history of GCS 14 acid reflux. Patient has not had any exotic food or travel. Nobody elseis sick in her household. Patient was skiing earlier this fasting she ate last night was apples with caramel. No urinary or vaginal complaints. [facility] Medical History Anxiety Asthma Depressed Home Medications albuterol sulfate 90 mcg/actuation aerosol inhaler (Ventolin HFA) 1 puff inhalation Q4H PRN PRN Sob &/Or Wheezing 05/07/18 [History Last Taken Unknown] buprenorphine 8 mg-naloxone 2 mg sublingual film 8 ea sublingual BID 02/15/22 [History Last Taken Unknown] gabapentin 100 mg capsule 100 mg PO 4X/DAY 02/15/22 [History Last Taken Unknown] trazodone 50 mg tablet 50 mg PO DAILY 02/15/22 [History Last Taken Unknown] nitrofurantoin monohydrate/macrocrystals 100 mg capsule (Macrobid) 100 mg PO Q12H 5 days #10 caps 01/25/23 [Rx Last Taken Unknown] cephalexin 500 mg capsule 500 mg PO Q12 #14 CAPSULES 03/08/23 [Rx Last Taken Unknown] famotidine 20 mg tablet (Pepcid) 20 mg PO BID PRN dyspepsia #14 tabs 03/08/23 [Rx Last Taken Unknown] ondansetron 4 mg disintegrating tablet 4 mg PO Q8H PRN PRN Nausea #14 tabs 03/08/23 [Rx Last Taken Unknown] promethazine 25 mg tablet 25 mg PO TID PRN nausea and vomiting #14 tabs 03/08/23[Rx Last Taken Unknown] Allergy/AdvReac Type Severity Reaction Status Date / Time Sulfa (Sulfonamide Allergy Anaphylaxis Verified 03/08/23 20:55 Antibiotics) Social History household members: significant other and children Smoking Status: Current every day smoker tobacco type: e-cigarettes substance use type: former substance user and opiates ROS ROS ED Constitutional Constitutional ED: Denies chills or fever(s) ENT ENT ED: Denies rhinorrhea or sore throat Cardiovascular Cardiovascular: Denies chest pain or palpitations Respiratory/Chest Respiratory/Chest: Denies cough or dyspnea Gastrointestinal Gastrointestinal: Reports abdominal pain, diarrhea, nausea and vomiting Genitourinary Genitourinary ED: Denies dysuria or hematuria Musculoskeletal Musculoskeletal: Denies arthralgias or back pain Integumentary Denies abscess or Abrasions Neurologic Neurologic: Denies headache(s) or paresthesias Psychiatric Psychiatric: Denies anxiety or depression Endocrine Endocrinology: Denies polydipsia or polyphagia EXAM Physical Exam Const Vital Signs: 03/08/23 20:52 Temperature 98.5 F Temperature Source Temporal Pulse Rate 51 L Respiratory Rate 15 Blood Pressure 128/91 H Blood Pressure Mean 103 Pulse Ox 97 Oxygen Delivery Method Room Air Positive well nourished General Appearance ED: NAD; Negative for pallor HEENT Reports moist mucous membranes normocephalic and atraumatic Resp normal respiratory effort Cardio regular rhythm Rate: bradycardia GI GI Narrative: Negative Lo sign Palpation: tender epigastric Back/Spine General Back: CVA tenderness Neuro CN's II-XII intact bilaterally Sensorium / Orientation: alert Psych mental status grossly normal and thought process normal Skin no wounds General Skin Exam: Negative for jaundice or pallor MDM MDM MDM Narrative Medical decision making narrative: Patient presenting with epigastric pain, nausea, vomiting, diarrhea. Differential includes gastritis, GERD, pancreatitis. Patient does not have a Lo sign so I do not suspect acute cholecystitis. Patient does states he hasa history of gallstones before but never followed up for this. CBC to assess white blood cell count, hemoglobin, platelets. CMP to assess liver function, renal function, glucose, anion gap. Lipase to assess for pancreatitis. Serum test to assess for . Urinalysis to assess for UTI. Patient medicated with Zofran and Pepcid IV. CBC shows no leukocytosis and her white cell count is actually 7.0. Hemoglobin hematocrit are stable. Platelets normal. Renal function and electrolytes are all normal. LFTs within normal limits. Lipase is also normal. Serum negative. On reevaluation the patient states she still feeling nauseous and she was given Reglan, I gave her Toradol for her epigastric pain and also a GI cocktail. Reevaluation at 1105 patient is willing improved. She was able to get a urine sample. Patient's urine sample shows 150 ketones. Positive nitrites, 10-25 WBCs, 0-5 epithelial cells with 4+ bacteria. This will be sent for culture. Patient will be treatedfor UTI with Keflex first dose given in ED. I reviewed her previous urine culture from December of this year and it was sensitive to everything but penicillin. Patient will be discharged home with antiemetics, Pepcid, Keflex. Return precautions discussed. Impression: 1. Nausea/vomiting 2. Dehydration 3. UTI 4. Abdominal pain Lab Data Attestation: I reviewed the patient's lab results. Labs: Laboratory Results - last 24 hr 03/08/23 03/08/23 03/08/23 21:18 21:18 21:18 WBC 7.0 RBC 4.70 Hgb 13.6 Hct 42.9 MCV 91.3 MCH 28.9 MCHC 31.7 L RDW Std Deviation 44.9 H RDW Coeff of Rocael 13.2 Plt Count 256 MPV 8.6 Immature Gran % (Auto) 0.400 Neut % (Auto) 89.3 H Lymph % (Auto) 8.9 L Refugio % (Auto) 1.4 Eos % (Auto) 0.0 Baso % (Auto) 0.0 Absolute Neuts (auto) 6.2 Absolute Lymphs (auto) 0.62 L Nucleated RBC % 0 Sodium 138 Potassium 4.2 Chloride 103 Carbon Dioxide 25.0 Anion Gap 10 BUN 19 H Creatinine 0.93 Est GFR (MDRD) Af Amer 84 Est GFR (MDRD) Non-Af 69 BUN/Creatinine Ratio 20.4 H Glucose 120 H Calcium 9.0 Total Bilirubin 0.40 AST 27 ALT 41 Alkaline Phosphatase 68 Total Protein 8.3 H Albumin 3.9 Globulin 4.4 H Albumin/Globulin Ratio 0.9 Lipase 40 Serum , Qual NEGATIVE Urine Color Urine Clarity Urine pH Ur Specific [place] Urine Protein Urine Glucose (UA) Urine Ketones Urine Occult Blood Urine Nitrite Urine Bilirubin Urine Urobilinogen Ur Leukocyte Esterase Urine RBC Urine WBC Ur Squamous Epith Cells Urine Bacteria Urine Mucus 03/08/23 23:00 WBC RBC Hgb Hct MCV MCH MCHC RDW Std Deviation RDW Coeff of Rocael Plt Count MPV Immature Gran % (Auto) Neut % (Auto) Lymph % (Auto) Refugio % (Auto) Eos % (Auto) Baso % (Auto) Absolute Neuts (auto) Absolute Lymphs (auto) Nucleated RBC % Sodium Potassium Chloride Carbon Dioxide Anion Gap BUN Creatinine Est GFR (MDRD) Af Amer Est GFR (MDRD) Non-Af BUN/Creatinine Ratio Glucose Calcium Total Bilirubin AST ALT Alkaline Phosphatase Total Protein Albumin Globulin Albumin/Globulin Ratio Lipase Serum , Qual Urine Color Yellow Urine Clarity Sl. Cloudy Urine pH 6.0 Ur Specific [place] 1.025 Urine Protein 30 H Urine Glucose (UA) Normal Urine Ketones 150 A* Urine Occult Blood 25 H Urine Nitrite Positive H Urine Bilirubin Negative Urine Urobilinogen Normal Ur Leukocyte Esterase 25 H Urine RBC 0-5 SEEN Urine WBC 10-25 SEEN Ur Squamous Epith Cells 0-5 SEEN Urine Bacteria 4+ Urine Mucus 0 SEEN Discharge Plan Triage Chief Complaint: Abd Pain ED Provider: Duy Smith Dx/Rx/DC Orders Instructions: ED Gastritis (Adult), ED Cystitis Female Adult Prescriptions: New ondansetron 4 mg tablet,disintegrating 4 mg PO Q8H PRN PRN (Reason: Nausea) Qty: 14 0RF promethazine 25 mg tablet 25 mg PO TID PRN (Reason: nausea and vomiting) Qty: 14 0RF famotidine [Pepcid] 20 mg tablet 20 mg PO BID PRN (Reason: dyspepsia) Qty: 14 0RF cephalexin 500 mg capsule 500 mg PO Q12 Qty: 14 0RF No Action albuterol sulfate [Ventolin HFA] 1 INHALER inhaler 1 puff inhalation Q4H PRN PRN (Reason: Sob &/Or Wheezing) trazodone 50 mg tablet 50 mg PO DAILY gabapentin 100 mg capsule 100 mg PO 4X/DAY Label Comments: TAKE 1 CAPSULES (100 MG) BY ORAL ROUTE 4 TIMES PER DAY buprenorphine-naloxone 8-2 mg film 8 ea sublingual BID Label Comments: USE ONE FILM UNDER THE TONGUE TWICE DAILY - 12/14 nitrofurantoin monohyd/m-cryst [Macrobid] 100 mg capsule 100 mg PO Q12H 5 Days Qty: 10 0RF Rx Instructions: must administer with a meal/food Stand Alone Forms: ED Work / School Excuse Primary Care Provider: Care Physician,No Primary Referrals: Alan Pinedo MD [Med Staff - Acting Instructor] - 3-5 Days Care Physician,No Primary [Primary Care Provider] - Disposition Disposition: Home, Self Care What to do if you have Problems For any increased pain, shortness of breath, bleeding, nausea or vomiting, chestpain, or any unexpected problems, contact your Primary Care Provider. Call [facility] ([phone]) or report to the closest Emergency Room. Call 911 if necessary. 03/08/23 2330 <Electronically signed by Duy Smith DO> Cosigner Signature (if applicable): CC: No Primary Care Physician ~ Signed [place] Work Phone: [phone]) 626-249202-15-2023 Hospital Discharge instructions Additional Instructions 1. Salt water gargles 6-10 times a day 2. Chloraseptic spray or Cepastat lozenges for throat painWAdena [facility] Work Phone: [phone]) 768-954604-19-2022 History of Present illness Narrative* Ngoc Briggs APRN.MEDICAL LABORATORY TECHNOLOGIST - 02/15/2022 4:35 PM EDT Subjective HPI Jerri Mendoza is a 41 year old female who presents with chills, fever, body aches, headache. She states these symptoms are improving but she is here because last night she had a shaking episodeso bad that she thought she was having a seizure, her temperature spiked to 103 degrees, she felt like her heart was racing, and afterwards her jaw and her left arm was aching for a while. She drank pineapple juice because she thought she may have low blood sugar and the symptoms resolved. She doesnot have a history of low blood sugars. [...] cannot be given in Express [facility] as wecannot do EKG or stat cardiac labs here. Patient referred to ER for further evaluation and treatment. She is agreeable. Ngoc Briggs APRN.RADHA documented in this [facility] ClinicDischar summary Author Dr. Garcia [place] December 14, 2022 10:38am Note Date/Time December 14, 2022 10:35am [facility] Medical Records Department [address] [place] [id number] Emergency Department Summary 12/14/22 MR#: [id number] Acct: [id number] Name: JERRI MENDOZA Rep #:[id number] : 1980 42 From: Esau Garcia MD PCP: Care Physician,No Primary Status :REG ER Location: ED HPI HPI - URI History of Present Illness Chief Complaint: Sore Throat Informant: patient Onset/Context/Timing Onset: Yesterday Context: Sudden Onset Quality: Posterior pharynx pain Location: Posterior pharynx Current Severity: Mild Maximum Severity: Moderate Worsened by: Swallowing, Eating Solids and Drinking Liquids Relieved by: Not Relieved By Tylenol or NSAIDs Associated Symptoms Associated Symptoms: Positive for Nasal Congestion; Negative for Headache, SinusPressure, Myalgias, Nausea, Vomiting, Diarrhea, Shortness of Breath, Chest Pain,Nonproductive cough, Hemoptysis or Productive Cough Narrative Narrative: Patient is a 42-year-old woman who presents with sore throat. She denies fever objective or subjective. She does complain of throat pain. She denies cough or shortness of breath. She states her son was diagnosed with strep throat 2 days ago. She denies history rheumatic fever, heart murmur, mitral valve prolapse orSBE. She denies skin lesions or rash. She denies myalgias or arthralgias. Shedenies GI symptoms. Patient states when she was younger she had recurrent strepthroat. Prior similar symptoms: Yes Recent Illness/Hospitalization: No ROS ROS ED Constitutional Constitutional ED: Denies chills, fever(s), subjective, sweats or weight loss Eyes Eyes: Denies blurry vision, change in vision or diplopia ENT ENT ED: Denies ear pain, rhinorrhea or sore throat Cardiovascular Cardiovascular: Denies chest pain, orthopnea, palpitations, paroxysmal nocturnaldyspnea or racing heartbeat Respiratory/Chest Respiratory/Chest: Denies cough, dyspnea, dyspnea on exertion, orthopnea or paroxysmal nocturnal dyspnea Gastrointestinal Gastrointestinal: Denies nausea or vomiting Musculoskeletal Musculoskeletal: Denies arthralgias, myalgias or neck pain Integumentary Denies rash Neurologic Neurologic: Denies headache(s), paresthesias or weakness PFSH PFSH Medical History Asthma Home Medications albuterol sulfate 90 mcg/actuation aerosol inhaler (Ventolin HFA) 1 puff inhalation Q4H PRN PRN Sob &/Or Wheezing 05/07/18 [History Last Taken Unknown] buprenorphine 8 mg-naloxone 2 mg sublingual film 8 ea sublingual BID 02/15/22 [History Last Taken Unknown] gabapentin 100 mg capsule 100 mg PO 4X/DAY 02/15/22 [History Last Taken Unknown] trazodone 50 mg tablet 50 mg PO DAILY 02/15/22 [History Last Taken Unknown] Allergy/AdvReac Type Severity Reaction Status Date / Time Sulfa (Sulfonamide Allergy Anaphylaxis Verified 12/14/22 09:33 Antibiotics) Social History (Updated 12/14/22 @ 10:[address] Esau Garcia MD) household members: significant other and children Smoking Status: Current every day smoker tobacco type: e-cigarettes substance use type: former substance user and opiates EXAM Physical Exam Const Vital Signs: 12/14/22 09:33 Temperature 97.5 F L Temperature Source Temporal Pulse Rate 78 Respiratory Rate 16 Blood Pressure 101/74 Blood Pressure Mean 83 Pulse Ox 98 Oxygen Delivery Method Room Air Positive well nourished and well developed General Appearance ED: well developed and NAD; Negative for cyanotic, diaphoretic or pallor HEENT Reports moist mucous membranes HEENT Narrative: Patient has erythematous tonsils that are large for age. There is no exudate. Uvula is midline. There is no deviation of the uvula. There is no evidence of soft tissue swelling. There is no dysphonia. normocephalic and atraumatic Face and Sinus: Negative for sinus tenderness Eyes PERRL and EOMs intact bilaterally General Eye ED: Negative for pale conjunctiva or scleral icterus Neck no lymphadenopathy, supple, no meningeal signs and no JVD Neck Narrative: Trachea is midline. There is no inspiratory or adrian there. Resp normal respiratory effort Cardio S1 normal heart sound, S2 normal heart sound and no murmurs Rate: regular rate Rhythm: regular rhythm Extremity normal to inspection Neuro oriented x3, CN's II-XII intact bilaterally and no sensory deficits noted Sensorium / Orientation: alert Psych mental status grossly normal Skin Skin Narrative: Are noted splinter hemorrhages, [place]ay lesions or Osler nodes. General Skin Exam: Negative for jaundice or pallor Lesions: no lesions Rashes: no rashes MDM MDM MDM Narrative Medical decision making narrative: Patient with pharyngitis. Since son was treated for streptococcal infection. Rapid strep was ordered. If positive will treat if negative will have culture performed. Patient has allergy to sulfa with anaphylaxis. You Prior records indicates patient has history of substance abuse. If patient requests pain medicine will treat with Tylenol or NSAIDs only. Lab Data Attestation: I reviewed the patient's lab results. Lab results narrative: Rapid strep is negative. Treatment is symptomatic. If culture returns positivewe will call in a prescription for penicillin. Treatment and Re-Evaluation Narrative: Patient was informed her rapid strep test was negative. She was informed treatment is symptomatic. Discharge Plan Triage Chief Complaint: Sore Throat ED Provider: Esau Garcia Dx/Rx/DC Orders Clinical Impression: Acute pharyngitis, unspecified Prescriptions: No Action albuterol sulfate [Ventolin HFA] 1 INHALER inhaler 1 puff inhalation Q4H PRN PRN (Reason: Sob &/Or Wheezing) trazodone 50 mg tablet 50 mg PO DAILY gabapentin 100 mg capsule 100 mg PO 4X/DAY Label Comments: TAKE 1 CAPSULES (100 MG) BY ORAL ROUTE 4 TIMES PER DAY buprenorphine-naloxone 8-2 mg film 8 ea sublingual BID Label Comments: USE ONE FILM UNDER THE TONGUE TWICE DAILY - 12/14 Primary Care Provider: Care Physician,No Primary Referrals: Care Physician,No Primary [Primary Care Provider] - Doctor,Your [Non-Staff] - 1 Week if not improving Activity Restrictions/Additional Instructions: 1. Salt water gargles 6-10 times a day 2. Chloraseptic spray or Cepastat lozenges for throat pain Disposition Disposition: Home, Self Care What to do if you have Problems For any increased pain, shortness of breath, bleeding, nausea or vomiting, chestpain, or any unexpected problems, contact your Primary Care Provider. Call [facility] ([phone]) or report to the closest Emergency Room. Call 911 if necessary. 12/14/22 1038 <Electronically signed by Esau Garcia MD> Cosigner Signature (if applicable): CC: No Primary Care Physician ~ Signed [place] Work Phone: Discharge summary Author Duy Smith [place] November 30, 2023 11:35am Note Date/Time November 30, 2023 1 0:52am [facility] Medical Records Department [address] [place] [address] Emergency Department Summary 11/30/23 MR#: [id number] Acct: [id number] Name: JERRI MENDOZA Rep #:[id number] : 1980 43 From: Duy Smith DO PCP: Care Physician,No Primary Status :REG ER Location: ED HPI History of Present Illness Chief Complaint: General Illness Narrative Narrative: 43-year-old female with fever, chills, myalgias, nausea, vomiting. She actuallyfeels better since yesterday. She bought some [id number] flu medicine which helped. Last fever was 102 yesterday. She states she was seen at [facility] and tested for COVID but not influenza or RSV. She states she thought she had a bladder infection today she was seen and tested positive for UTI and was put on Keflex. She states her UTI symptoms have improved tremendously. This morning she feels otherwise well but is concerned to be exposing other people to viral symptoms if she would back to work. [facility] Medical History Anxiety Asthma Depression History of ulceration Leg cramps Marijuana use Right ureteral stone Shortness of breath on exertion Substance abuse Vapes nicotine containing substance Wears glasses Home Medications buprenorphine 8 mg-naloxone 2 mg sublingual film 8 ea sublingual BID 02/15/22 [History Last Taken 11/08/23] gabapentin 100 mg capsule 100 mg PO 4X/DAY 02/15/22 [History Last Taken 11/08/23] trazodone 50 mg tablet 50 mg PO QHS 02/15/22 [History Last Taken 11/08/23] cariprazine 1.5 mg capsule (Vraylar) 1.5 mg PO DAILY 11/07/23 [History Last Taken 11/08/23] cephalexin 500 mg capsule 500 mg PO TID 11/07/23 [History Last Taken 11/08/23] oxycodone-acetaminophen 5 mg-325 mg tablet (Percocet) 1 tab PO Q8H PRN pain 3 days #10 tabs 11/09/23 [Rx Last Taken Unknown] phenazopyridine 200 mg tablet (Pyridium) 200 mg PO TID PRN PRN Bladder Spasms 7 days #30 tabs 11/09/23 [Rx Last Taken Unknown] Allergy/AdvReac Type Severity Reaction Status Date / Time Sulfa (Sulfonamide Allergy Anaphylaxis Verified 11/30/23 09:59 Antibiotics) Surgical History Hx of oral surgery Hx of tubal ligation Social History household members: significant other and children Smoking Status: Current every day smoker tobacco type: e-cigarettes substance use type: former substance user and opiates ROS ROS ED Constitutional Constitutional ED: Reports chills and fever(s); Denies sweats Eyes Eyes: Denies blurry vision or change in vision ENT ENT ED: Denies ear pain or sore throat Cardiovascular Cardiovascular: Denies chest pain, palpitations or racing heartbeat Respiratory/Chest Respiratory/Chest: Reports cough; Denies dyspnea or sputum Gastrointestinal Gastrointestinal: Denies abdominal pain, constipation, diarrhea, nausea or vomiting Genitourinary Genitourinary ED: Denies dysuria, hematuria or urinary frequency Musculoskeletal Musculoskeletal: Reports myalgias; Denies arthralgias or neck pain Integumentary Denies abscess, Abrasions or rash Neurologic Neurologic: Denies headache(s), paresthesias or weakness Psychiatric Psychiatric: Denies anxiety, depression, suicidal ideation or suicidal thoughts Endocrine Endocrinology: Denies polydipsia or polyuria EXAM Physical Exam Const Vital Signs: 11/30/23 09:58 11/30/23 10:33 Temperature 97.8 F Temperature Source Temporal Pulse Rate 77 Respiratory Rate 14 Respiratory Effort Normal Non-Labored Respiratory Pattern Normal Blood Pressure 112/69 Blood Pressure Mean 83 Pulse Ox 99 Oxygen Delivery Method Room Air Positive well nourished General Appearance ED: NAD; Negative for pallor HEENT Reports moist mucous membranes Eyes PERRL and EOMs intact bilaterally Resp normal respiratory effort and clear to auscultation bilaterally Auscultation: Negative for rales, rhonchi or wheezes Cardio regular rate and regular rhythm GI normal to inspection, nondistended, normoactive bowel sounds Neuro oriented x3 and CN's II-XII intact bilaterally Sensorium / Orientation: alert Psych mental status grossly normal Skin no rashes or lesions noted General Skin Exam: Negative for jaundice or pallor MDM MDM MDM Narrative Medical decision making narrative: 43-year-old female presenting with improving symptoms but states she still had afever yesterday. She was concerned she had influenza. I was able to log into [employer], and I was able to find pertinent medical records available for reviewto compare to the patient's current lab/imaging/workup. Patient was tested for COVID, influenza, RSV and these were all negative. Urinalysis did have some contamination however the urine culture was positive. The patient was on Keflexand this was susceptible to cefazolin. In fact it was pansensitive. Patient's lungs are clear to auscultation. Heart regular rate and rhythm. Vital signs stable she is afebrile. We discussed that she likely had something viral and since she is 5 days there is no need to test any further. We will check a urinalysis to assess for UTI since she still having fevers. She was amenable tothis. Urinalysis negative. Given patient is doing well and I recommend she drink plenty of fluids. I will give her some Zofran for home. Tylenol and ibuprofen for fevers or chills. Impression: 1. Febrile illness 2. History of UTI Lab Data Attestation: I reviewed the patient's lab results. Labs: Laboratory Results - last 24 hr 11/30/23 11:00 Urine Color Yellow Urine Clarity Sl. Cloudy Urine pH 6.0 Ur Specific [place] 1.020 Urine Protein 30 H Urine Glucose (UA) Normal Urine Ketones 15 H Urine Occult Blood 25 H Urine Nitrite Negative Urine Bilirubin 1 H Urine Urobilinogen 1 H Ur Leukocyte Esterase 500 H Urine RBC 0-5 SEEN Urine WBC 10-25 SEEN Ur Squamous Epith Cells 0-5 SEEN Urine Bacteria RARE Urine Mucus RARE Discharge Plan Triage Chief Complaint: General Illness ED Provider: Duy Smith Dx/Rx/DC Orders Prescriptions: No Action trazodone 50 mg tablet 50 mg PO QHS gabapentin 100 mg capsule 100 mg PO 4X/DAY Patient Comments: TAKE 1 CAPSULES (100 MG) BY ORAL ROUTE 4 TIMES PER DAY buprenorphine-naloxone 8-2 mg film 8 ea sublingual BID Patient Comments: USE ONE FILM UNDER THE TONGUE TWICE DAILY - 12/14 cephalexin 500 mg capsule 500 mg PO TID Vraylar 1.5 mg capsule 1.5 mg PO DAILY oxycodone-acetaminophen [Percocet] 5-325 mg tablet 1 tab PO Q8H PRN (Reason: pain) 3 Days Qty: 10 0RF phenazopyridine [Pyridium] 200 mg tablet 200 mg PO TID PRN PRN (Reason: Bladder Spasms) 7 Days Qty: 30 1RF Primary Care Provider: Care Physician,No Primary Referrals: Care Physician,No Primary [Primary Care Provider] - What to do if you have Problems For any increased pain, shortness of breath, bleeding, nausea or vomiting, chestpain, or any unexpected problems, contact your Primary Care Provider. Call [facility] ([phone]) or report to the closest Emergency Room. Call 911 if necessary. 11/30/23 4755 <Electronically signed by Duy Smith DO> Cosigner Signature (if applicable): CC: No Primary Care Physician ~ Signed [place] Work Phone: Evaluation noteNo assessment information available [place] Work Phone: Evaluation note* Diagnosis Episode of shaking- Primary Abnormal involuntary movements Chest pain, unspecified type [facility] Diagnosis Pain- Primary Generalized pain [facility] [place] [facility]* Diagnosis Closed displaced fracture of middle phalanx of left middle finger, initial encounter- Primary documented [facility] [place] [facility]* Diagnosis Closed displaced fracture of middle phalanx of left middle finger with routine healing, subsequent encounter- Primary Pain in finger of left hand Pain in limb [facility] [place] [facility]* Diagnosis Onset Date Resolution Status Right ureteral stone acute [place] Work Phone: Evaluation note* Diagnosis Pain Generalized pain [facility] [place] [facility]* Diagnosis Urinary frequency- Primary documented [facility] [place] [facility]* Diagnosis Sore throat- Primary Acute pharyngitis Nasal congestion Other diseases of nasal cavity and sinuses Postnasal drip documented in this encounter [facility] course Narrative No data available for this section [facility] Discharge instructions Additional Instructions Plenty of fluids and rest. Toradol for pain for your kidney stone and you may also use Tylenol. Follow-up with your doctor or the urologist, Dr. Juan Rodriguez if you are not improving. You have a kidney stone on the right that is 5 mm by your bladder which should pass. You also have a right lower lobe pneumonia. We will treat with Zithromax. First dose given here. Starting tomorrow 1 pill a day for 4 more days should take care of the pneumonia. Return if you are feeling a lot worse. Off work the next 2 days.[place] Work Phone: Reason for referral (narrative)* Diagnostic Procedure Only (Urgent) - Closed Specialty Diagnoses / Procedures Referred By Contac t Referred To Contact XR IMAGING Diagnoses Pain Procedures XR HAND GENERAL 3V PA/LAT/OBL LEFT RADEX HAND MINIMUM 3 VIEWS Mignon Rodríguez APRN.MEDICAL LABORATORY TECHNOLOGIST [address] [place] [address] [place] [address] Referral ID Status Reason Start Date Expiration Date V isits Requested Visits Authorized [id number] Closed Auto-Generate d Referral 05/09/2023 06/07/2024 1 1 [facility]* Diagnostic Procedure Only (Urgent) - Closed Specialty Diagnoses / Procedures Referred By Lucía lane Referred To Contact XR IMAGING Diagnoses Pain Procedures XR HAND GENERAL 3V PA/LAT/OBL LEFT RADEX HAND MINIMUM 3 VIEWS Mignon Rodríguez APRN.CNP [address] [place] [address] [place] [id number] Referral ID Status Reason Start Date Expiration Date V isits Requested Visits Authorized [id number] Closed Auto-Generate d Referral 05/09/2023 06/07/2024 1 1 [facility] Summary Purpose Family History No Family History Records FoundNo Family History Records Found No data available for this section No Family History Records FoundNo Family History Records Found Advance Directives No Advanced Directives Records Found Advance Directive Response Recorded Date/ Time Living Will No February 15, 2022 6:00pm Power of Mother Tester No February 15 6:00pm Advance Directive Response Recorded Date/ Time Living Will No July 18, 2022 12:14pm Power of Mother Tester No June 12:14pm Advance Directive Response Recorded Date/ Time Living Will No December 14 023 9:45am Power of Mother Tester No December 14, 2022 9:45am Advance Directive Response Recorded Date/ Time Living Will No March 08, 2023 9 :21pm Power of Mother Tester No March 08, 2023 9:21pm Advance Directive Response Recorded Date/ Time Living Will No June 13 10:26pm Power of Mother Tester No June 13, 023 10:26pm Advance Directive Response Recorded Date/ Time Living Will No August 30 4:41am Power of Mother Tester No August 30, 2023 4:41am Advance Directive Response Recorded Date/ Time Living Will No August 30 3:41am Power of Mother Tester No August 30, 2023 3:41am Advance Directive Response Recorded Date/ Time Living Will No November 30 10:31am Power of Mother Tester No November 30, 2023 10:31am Chief Complaint and Reason for Visit Chief Complaint chest pain Chief Complaint SORE THROAT Chief Complaint SORE THROAT HEMATURIA ABD PAIN, N/V Chief Complaint ABD PAIN, N/V RIGHT BACK PAIN, URINARY FREQUENCY Chief Complaint RIGHT BACK PAIN, URI NARY FREQUENCY flank Chief Complaint flank R URETERAL STONES Chief Complaint flank R URETERAL STONES Cysto,Ureteroscopy,Dil,Basket Ext,S general illness Reason for Visit Right ureteral stone Reason for Referral Specialty Diagnoses / Procedures Referred By Contac t Referred To Contact Orthopedics Diagnoses Pain Procedures CONSULT TO ORTHOPAEDICS OFFICE/OUTPATIENT [facility] MDM 60-74 MINUTES Mignon Rodríguez APRN.MEDICAL LABORATORY TECHNOLOGIST [address] [place] [address] Referral ID Status Reason Start Date Expiration Date Visits Requested Visits Authorized [id number] Pending Review PCP Requested Referral 05/09/2023 05/08/2024 1 1 Specialty Diagnoses / Procedures Referred By Contac t Referred To Contact XR IMAGING Diagnoses Pain Procedures XR HAND GENERAL 3V PA/LAT/OBL LEFT RADEX HAND MINIMUM 3 VIEWS Mignon Rodríguez APRN.MEDICAL LABORATORY TECHNOLOGIST [address] [place] [address] Xr Imaging Referral ID Status Reason Start Date Expiration Date V isits Requested Visits Authorized [id number] Closed Auto-Generate d Referral 05/09/2023 06/07/2024 1 1 Additional Source Comments INFORMATION SOURCE (unrecogn ized section and content) DATE CREATED AUTHOR 08/03/2019 [facility] DATE CREATED AUTHOR AUTHOR'S ORGANIZ ATION 08/08/2019 [facility] DATE CREATED AUTHOR AUTHOR'S ORGANIZ ATION 11/11/2024 [facility] DATE CREATED AUTHOR AUTHOR'S ORGANIZ ATION 05/17/2025 [facility] Goals (unrecognized section and content) Goals may be documented in a n alternate sectionGoals may be documented in an alternate sectionGoals may be documented in an alternate sectionGoals may be documented in an alternate sectionGoals may be documented in an alternate sectionGoals may be documented in an alternate sectionGoals may be documented in an alternate sectionGoals may be documented in an alternate section No data available for this section Source Comments (unrecognize d section and content) In the event this informatio n is protected by the Federal Confidentiality of Alcohol and Drug Abuse Patient Records regulations: The Federal rules restrict any use of the information to criminally investigate or prosecute any alcohol or drug abuse patient.[facility] Hospital[facility] the event this information is protected by the Federal Confidentiality of Alcohol and Drug Abuse Patient Records regulations: The Federal rules restrict any use of the information to criminally investigate or prosecute any alcohol or drug abuse patient.[facility] HospitalIn the event this information is protected by the Federal Confidentiality of Alcohol and Drug Abuse Patient Records regulations: The Federal rules restrict any use of the information to criminally investigate or prosecute any alcohol or drug abuse patient.[facility] HospitalIn the event this information is protected by the Federal Confidentiality of Alcohol and Drug Abuse Patient Records regulations: The Federal rules restrict any use of the information to criminally investigate or prosecute any alcohol or drug abuse patient.[facility] HospitalIn the event this information is protected by the Federal Confidentiality of Alcohol and Drug Abuse Patient Records regulations: The Federal rules restrict any use of the information to criminally investigate or prosecute any alcohol or drug abuse patient.[facility] HospitalIn the event this information is protected by the Federal Confidentiality of Alcohol and Drug Abuse Patient Records regulations: The Federal rules restrict any use of the information to criminally investigate or prosecute any alcohol or drug abuse patient.[facility] HospitalIn the event this information is protected by the Federal Confidentiality of Alcohol and Drug Abuse Patient Records regulations: The Federal rules restrict any use of the information to criminally investigate or prosecute any alcohol or drug abuse patient.[facility] HospitalIn the event this information is protected by the Federal Confidentiality of Alcohol and Drug Abuse Patient Records regulations: The Federal rules restrict any use of the information to criminally investigate or prosecute any alcohol or drug abuse patient.[facility] HospitalIn the event this information is protected by the Federal Confidentiality of Alcohol and Drug Abuse Patient Records regulations: The Federal rules restrict any use of the information to criminally investigate or prosecute any alcohol or drug abuse patient.[facility] Reason for Visit (unrecogniz ed section and content) Reason Comments Fever chills, [place], body ach es, had a shaking episode and drank some pineapple juice and started to feel better x 6 days Reason Comments left hand pain Injured it 2 days ag o swimming Reason Comments left middle finger fracture DOI 05/07/2023 xrays done 05/09/2023 Reason Comments New Xray 05/09/2023 Fracture Xray 05/09/2023 Reason Comments Appointment Reason Comments Urinary Frequency Frequency and burnin g x 1 day Reason Comments Sore Throat On and off x 5 days Reason Onset Date Comments Results 05/14/2025 Care Teams (unrecognized sec tion and content) Team Status: Active Member Role Status Dates No Primary Care Physician Family Provider Active No Primary Care Physician Primary Care Provider Active Team Status: Inactive Member Role Status Dates No Primary Care Physician Primary Care Provider Active Dr. Esau Garcia MD Emergency Provider Active Team Status: Inactive Member Role Status Dates No Primary Care Physician Primary Care Provider Active Dr. Esau Garcia MD Attending Provider, Emergency Provi krytsin Active Team Status: Inactive Member Role Status Dates No Primary Care Physician Primary Care Provider Active Dr. Anya Ashby MD Attending Provider, Emergency Provider Active Team Status: Inactive Member Role Status Dates No Primary Care Physician Primary Care Provider Active Dr. Duy Smith DO Emergency Provider Active Team Status: Inactive Member Role Status Dates No Primary Care Physician Primary Care Provider Active Dr. Duy Smith DO Attending Provider, Emergency Provider Active Team Status: Inactive Member Role Status Dates No Primary Care Physician Primary Care Provider Active Dr. Nash Suarez MD Emergency Provider Active Team Status: Inactive Member Role Status Dates No Primary Care Physician Primary Care Provider Active Dr. Nash Suarez MD Attending Provider, Emergency Provider Active Team Status: Inactive Member Role Status Dates No Primary Care Physician Primary Care Provider Active Dr. Good Castorena MD Emergency Provider Active Team Status: Inactive Member Role Status Dates No Primary Care Physician Primary Care Provider Active Dr. Good Castorena MD Attending Provider, Emergency Pro vider Active Team Status: Inactive Member Role Status Dates No Primary Care Physician Primary Care Provider Active Dr. Lise Méndez MD Attending Provider, Referring P jose alberto Active FOR RECORDS PERTAINING TO PATIENTS WHO ARE [...] BE BASED ON THE PRIMARY CLINICAL RECORDS. [employer] provides no warranty or guarantee of the accuracy or completeness of information in this document.
[2025-06-15 16:30] LABS: Hematocrit 36.0 % (37-47); Hemoglobin 11.8 g/dL (12.0-15.0); Immature Granulocytes Count 0.010 X10^3/uL (0.0-0.0); Mean Corp Hgb Conc 32.8 g/dL (32-36); Mean Corpuscular Volume 87.4 fL (81-99); Mean Platelet Vol. 9.0 fl (6.2-12.0); NRBC Flagged by Analyzer 0 % (0-5); Platelet Count 218 K/mm3 (150-450); RBC Distribution Width CV 13.2 % (11.6-14.6); RBC Distribution Width SD 42.3 fl (35.1-43.9); Red Blood Count 4.12 M/mm3 (4.2-5.4); White Blood Count 5.6 K/mm3 (4.4-11.0)
[2025-06-15 16:44] LABS: D-Dimer Quantitative (DVT/PE) < 0.27 FEU/ug/m (0.27-0.49)
[2025-06-15 17:01] LABS: AST(SGOT) 26 U/L (<=31); Alanine Aminotransfer ALT/SGPT 25 U/L (<=34); Albumin, Serum 3.9 g/dL (3.5-5.0); Alkaline Phosphatase 54 U/L (35-104); Anion Gap 10 (5-15); BUN 25 mg/dL (4-19); BUN/Creat Ratio 22.1 RATIO (10-20); Calcium,Total 9.2 mg/dL (7.6-11.0); Carbon Dioxide 24.4 mmol/L (21.0-32.0); Chloride 105 mmol/L (98-108); Estimated Creatinine Clearance 58.13 ml/min (50-250); Globulin 3.1 g/dL (2.2-4.2); Glucose 91 mg/dL (70-99); Potassium 4.4 mmol/L (3.3-5.1); Troponin T High Sensitivity < 6 ng/L (<=14)
--- NOTE | 2025-06-15 18:18 | CT_ITS ---
PROCEDURE: CTA CHEST W/WO CONTRAST 06/15/2025 REASON FOR EXAM: ABNORMAL CHEST X-RAY TECHNIQUE: CTA CHEST W/WO CONTRAST Multiplanar Sagittal and Coronal images were obtained. 3D reconstructions CONTRAST: Isovue 370 VOLUME: 100 mL One or more dose reduction techniques were used (e.g., Automated exposure control, adjustment of the mA and/or kV according to patient size, use of iterative reconstruction technique). RADIATION DOSE SUMMARY: CTDlvol: 11 mGy DLP: 165 mGycm COMPARISON: None FINDINGS: Neoplastic mass present in the right hilum narrowing the descending right pulmonary artery. Abnormal soft tissue in the subcarinal space as well. Right hilar mass measures at least 4.4 by 2.2 cm. Normal thoracic aorta. No coronary calcification. No pericardial effusion. Upper abdomen demonstrates no adrenal masses. 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 Narrowing of the descending right pulmonary artery with soft tissue tracking along the lower lobe vessels. Reading [facility]
== END 2025-06-15 19:39 | disposition home or self-care (01) ==
PROVIDERS: Emergency Provider Emergency Medicine; Visit Provider Emergency Medicine
DX: R07.9 Chest pain, unspecified (principal); R05.9 Cough, unspecified; R91.8 Other nonspecific abnormal finding of lung field; F17.290 Nicotine dependence, other tobacco product, uncomplicated; Z98.51 Tubal ligation status; F32.A Depression, unspecified; F41.9 Anxiety disorder, unspecified; Z79.899 Other long term (current) drug therapy
CPT/HCPCS: 71046; 71275; 80053; 84484; 85025; 85379; 93005; 94640; 99283; Q9967; A4216

== ENCOUNTER → 2025-07-02 | Outpatient (CLI) | payer BC, SELFPAY ==
[2025-07-02 13:15] LABS: CRP 3.70 mg/L (0.0-3.0); Syphilis Antibodies Nonreactive (Nonreactive)
[2025-07-03 05:07] LABS: Alpha Antitrypsin Serum 182 mg/dL (101-187)
[2025-07-05 04:07] LABS: Angiotensin Convert Enzyme 67 U/L (14-82); Carcinoembryonic Antigen 2.2 ng/mL (0.0-4.7); QNTFERON TB Mitogen Value > 10.00 IU/mL (.); QNTFERON TB Nil Value 0.09 IU/mL (.); QNTFERON TB1+ Ag Value 0.07 IU/mL (.); QNTFERON TB2+ Ag Value 0.07 IU/mL (.); QNTIFERON TB Positive Criteria Negative (Negative)
== END | disposition home or self-care (01) ==
LOC: MFPLAB 10:31
PROVIDERS: PCP Family Medicine; Visit Provider Family Medicine
DX: R91.8 Other nonspecific abnormal finding of lung field (principal)
CPT/HCPCS: 36415; 82103; 82164; 82378; 85652; 86140; 86480; 86780

== ENCOUNTER 2025-07-10 11:01 | Day surgery (SDC) | payer BC, SELFPAY ==
--- NOTE | 2025-07-04 10:07 | HP.PCM_ITS ---
HPI - General HPI Narrative The patient is a 45-year-old female who initially presented to the pulmonary medicine office on July 03 for the evaluation of a lung mass identified on CT imaging. In mid May 2025, the patient presented to the emergency department with complaints of shortness of breath and chest pain. Her laboratory workup, including troponin were negative. A CTA chest was obtained, which demonstrated a right hilar lung mass measuring approximately 4 cm in size with what appeared to be infiltration into the subcarinal space as well. The patient reported that she smokes cigarettes, 0.5 to 1 pack/day for approximately 20 years prior to transitioning to vaping in 2020. In addition to her personal smoking history, she did grow up in a smoking household. 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 She did report that she was diagnosed with asthma in childhood. Ironically, however, she reports little to no improvement with her symptoms with the use of albuterol. The patient is not currently on any form of blood thinners. She does report a family history of lung and breast cancer. [facility] Medical History Right ureteral stone Wears glasses Depression Substance abuse Marijuana use History of ulceration Vapes nicotine containing substance Shortness of breath on exertion Leg cramps Anxiety Asthma Home Medications ?Medication ?Instructions ?Recorded ?Last Taken ?Type buprenorphine 8 mg-naloxone 2 mg 8 ea sublingual BID 0 02/15/22 11/08/23 History sublingual film gabapentin 100 mg capsule 100 mg PO 4X/DAY 02/15/22 History trazodone 50 mg tablet 50 mg PO QHS 02/15/22 History hydroxyzine HCl 10 mg tablet 10 mg PO TID PRN 07/03/25 Unknown History lisdexamfetamine 30 mg capsule 30 mg PO QAM 07/03/25 U nknown History Allergy/AdvReac Type Severity Reaction Status Date / Time Sulfa (Sulfonamide Allergy Anaphylaxis Verified 07/03/25 11:25 Antibiotics) Surgical History Hx of oral surgery Hx of tubal ligation Social History household members: significant other and children Smoking Status: Current every day smoker tobacco type: e-cigarettes substance use type: former substance user and opiates ROS ROS Narrative 10 systems were reviewed with pertinent positives as noted in the HPI. Physical Exam Const alert and no apparent distress General Appearance: cooperative HEENT normocephalic and head/scalp atraumatic Eyes PERRL and EOMs intact bilaterally Neck supple General: trachea midline Resp normal respiratory effort and normal air movement Cardio regular rate and regular rhythm GI normal to inspection, nondistended, normoactive bowel sounds Extremity no clubbing, cyanosis or edema Skin General Skin Exam: no breakdown Neuro CN's II-XII intact bilaterally and no focal motor deficits Psych cooperative and affect normal Assessment & Plan Assessment/Plan (1) Lung mass: PLAN: The patient initially presented for the evaluation of a right hilar lung mass with subcarinal infiltration, which was demonstrated on CT imaging in May when the patient presented to the ED. The patient does have a combustibl e cigarette smoking history, prior to transitioning to vaping in 2020. The findings noted on CT imaging could certainly represent an underlying malignant process. She does report a family history of both lung and breast cancer. Accordingly, recommend proceeding with bronchoscopic evaluation/EBUS to facilitate sampling. Risks and benefits of the proposed procedure were discussed with the patient. She is in agreement to proceed.
[2025-07-08 11:42] LABS: Platelet Count 265 K/mm3 (150-450)
[2025-07-08 11:57] LABS: Prothrombin Time (Protime)PT. 12.6 SECONDS (11.7-14.9)
[2025-07-08 11:58] LABS: Partial Thromboplast Time 21.3 Seconds (24.1-36.2)
[2025-07-10] VITALS (8 sets, daily range): BP systolic 94–122; BP diastolic 57–78; PULSE 65–78; RESP 16–24; TEMP 36.3–36.6; O2SAT 96–100; BMI 25.2
[2025-07-10] MEDS: Lactated Ringers 1,000 ML 15 ML IV (11:26)
--- NOTE | 2025-07-10 11:30 | ASPIG_PTH ---
PATIENT: JERRI JIMENEZ LOC: EN U#:[id number] AGE/SX: 45/F ROOM: RE07/10/[address]: Dr. Chandra Silva DO : 1980 BED: DIS: 07/10/2025 SPEC #: [id number] RECD: 07/10/25 12:00 STATUS: TYLER REHandy #: [id number] TEO: 07/10/25 11:[address]: Chandra Silva DEPT: CYTOLOGY RECD BY: Hernan Matt ENTERED: 07/11/25 09:07 SP TYPE: ASP OUT OTHR DR: Dr. Semaj Sheridan MD Tissues: A - Lung, NOS B - Lung, NOS Procedures: FNA Specimen Adequacy Special Stain Group II Surgery Specimen Level IV Cytology Other Comments: Spoke to Dr. Silva via phonecall on 07/17/25 and 07/18/25 and confirmed he wanted case to be sent to [facility] for 2nd opinion. Called office and spoke to Felicita (Nurse) and asked that a request form to be sent to lab for consult to send with case to [facility]. Case is being sent via [facility] political consultant on 07/18/25. HEADER OPERATION: Bronchoscopy PRE-OP DIAGNOSIS: Lung mass TISSUE SUBMITTED: A-7, B-10R * EBUS * DIAGNOSIS CYTOLOGY A. Site 7, #1, #2, #3 , TBNA (smear x6, cellblock): - Atypical cells of undetermined significance. B. Site 10R, #1, #2, #3, TBNA (smear x6, cellblock): - Atypical cells, suspicious for malignancy. COMMENT The specimen is evaluated at the time of biopsy by Dr. Armijo. Immediate Evaluation = 1. Atypical cells. 2. No malignant cells observed. 3. Atypical cells, suspicious for malignancy. 4. Atypical cells, suspicious for malignancy. 5. Atypical cells, suspicious for malignancy. 6. Atypical cells, suspicious for malignancy. Findings called to Dr. Linda Silva on 07/10/25 at 2:19pm The final diagnosis was called to Dr Linda Silva at 10:52am, 07/17/25.. CYTOLOGY STUDY Slides are reviewed. CYTOLOGY GROSS 1. Received labeled with the patient's name and and designated EBUS, TBNA, site 7 #1. The specimen consists of two stained smears for WINTER. 2. Received labeled with the patient's name and and designated EBUS, TBNA, site 7 #2. The specimen consists of two stained smears for WINTER. 3. Received labeled with the patient's name and and designated EBUS, TBNA, site 7 #3. The specimen consists of two stained smears for WINTER. 4. Received labeled with the patient's name and and designated EBUS, TBNA, site 10R #4. The specimen consists of two stained smears for WINTER. 5. Received labeled with the patient's name and and designated EBUS, TBNA, site 10R #5. The specimen consists of two stained smears for WINTER. 6. Received labeled with the patient's name and and designated EBUS, TBNA, site 10R #6. The specimen consists of two stained smears for WINTER. 07/10/2025 CPT:[id number] ADDENDUM ADDENDUM ADDENDUM ADDENDUM ADDENDUM ADDENDUM ADDENDUM ADDENDUM ADDENDUM ADDENDUM ADDENDUM ADDENDUM ADDENDUM ADDENDUM ADDENDUM ADDENDUM ADDENDUM 07/17/2025 13:21 ADDENDUM 07/17/2025 13:21 ADDENDUM 07/29/2025 15:35 ADDENDUM 08/27/2025 15:41 ADDENDUM 07/17/2025 13:21 ADDENDUM 07/17/2025 13:21 ADDENDUM 07/17/2025 13:21 This addendum is added to incorporate an outside pathology consultation report. The case was examined at [facility] and the following diagnosis was rendered. Flow Cytometry: Site- TBNA Station 7 Phenotypic Description: Cannot evaluate due to insufficient number of cells and/or low viability. Flow Cytometry: Site - TBNA Station 10R Phenotypic Description: Cannot evaluate due to insufficient number of cells and/or low viability. Please see complete above mentioned consultation report in EMR This addendum is added to incorporate an outside pathology consultation report. The case was examined at [facility] by Dr. Gay (#[id number]) and the following diagnosis was rendered. A. Final Diagnosis - Site 7: Atypical cells is present. Submitted cell block is scant. B. Final Diagnosis - Site 10R: Positive for malignancy, see note. NOTE: The aspirate consists of predominantly necrotic cellular material. The viable cells seen on the Diff-Quik stain show molding and crushing artifact. No pap stained slides are submitted limiting the cytomorphological evaluation. The cell block has scant material. IHC studies were attempted with rare INSM1 nuclear staining. Other stains including P40, AE1/ AE3, synaptophysin, chromogranin and KI67 are noncontributory due to limited material on the cell block. The morphology is suspicious for a small cell carcinoma, however, other diagnoses like lymphoproliferative disorder cannot be entirely excluded. Additional sampling is recommended for definitive diagnosis. Daksha Avalos and Bryant also reviewed selected slides. Please see complete above mentioned consultation report in EMR This addendum is added to incorporate an outside pathology consultation report. The case was examined at [facility] by Dr. Gay (#[id number]) and the following diagnosis was rendered. Below is an addendum that Dr. Gay has added to his report: NOTE: The aspirate consists of predominantly necrotic cellular material. The viable cells seen on the Diff-Quik stain show molding and crushing artifact. No pap stained slides are submitted limiting the cytomorphological evaluation. The cell block has scant material. IHC studies were attempted with rare INSM1 nuclear staining. Other stains including P40, AE1 / AE3, synaptophysin, chromogranin and Ki67 are noncontribuatory due to the limited material on the cell block. The morphology is suspicious for a small cell carcinoma, however, other diagnoses like lymphoproliferative disorder cannot be entirely excluded. Additional sampling is recommended for definitive diagnosis. Daksha Barros and Bryant also reviewed selected slides. Please see complete above mentioned consultation report in EMR
--- NOTE | 2025-07-10 11:48 | PCM.PRE.AN2 ---
ASA Classification* ASA Classification ASA Classification: 3 Assessment & Plan Anesthesia* Anesthesia Assessment Anesthesia Assessment: Discussed sedation and/or anesthesia options, risks, benefits, and alternatives with patient/parents/legal guardian/POA. Questions invited. The patient/parents/legal guardian/POA seems to understand and agrees to proceed with anesthesia plan. Reviewed the physical assessment, medical history, allergy history and patient home medications list prior to surgery/procedure/anesthetic and documented any changes. Performed airway and anesthesia risk assessments. Anesthesia Type Anesthesia Type: General History Source History Obtained from:: Patient and Chart Anesthesia Focused Assessment* Temperature: 97.9 F Pulse Rate: 76 Blood Pressure: 122/78 Respiratory Rate: 16 Pulse Ox: 98 Oxygen Delivery Method: Room Air Airway Assessment Mouth opens: >3 cm Mallampati Score: III Teeth Condition: Loose (Tooth #13 is loose. Rest of the teeth are tight.) and Missing (Patient has several missing teeth.) Neck Range of motion (ROM): Full ROM Labs Anesthesia Preop lab: CBC WBC 5.6 K/mm3 (4.4-11.0) 06/15/25 16:23 06/15/25 RBC 4.12 M/mm3 (4.2-5.4) L 06/15/25 16:23 06/15/25 Hgb 11.8 g/dL (12.0-15.0) L 06/15/25 16:23 06/15/25 Hct 36.0 % (37-47) L 06/15/25 16:23 06/15/25 Plt Count 265 K/mm3 (150-450) 07/08/25 11:36 07/08/25 CHEMISTRY Potassium 4.4 mmol/L (3.3-5.1) 06/15/25 16:23 06/15/25 Sodium 139 mmol/L (133-145) 06/15/25 16:23 06/15/25 BUN 25 mg/dL (4-19) H 06/15/25 16:23 06/15/25 Creatinine 1.12 mg/dL (0.70-1.20) 06/15/25 16:23 06/15/25 Glucose 91 mg/dL (70-99) 06/15/25 16:23 06/15/25 TSH 1.37 uIU/mL (0.358-3.74) 07/27/22 16:08 07/27/22 COAG PT 12.6 SECONDS (11.7-14.9) 07/08/25 11:36 07/08/25 Urine Test Negative Negative 06/13/23 21:05 06/13/23 Pre-Assessment Diagnosis/Proposed Procedure Planned Operative Procedure(s): Endobronchial ultrasound Anesthesia History 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 When Was Last Pacemaker Check QUESTION #4 FULL TEXT: You/Your Family Experience fever (hyperthermia) with Anesthesia Last Oral Intake Last Oral intake: Last Oral Intake NPO since 23:00 07/10/25 11:18 Meds taken in AM with sips of Yes 07/10/25 11:18 water? 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 Female Yes 07/07/25 14:05 HX of Motion Sickness No 07/07/25 14:05 HX of N/V After Surgery No 07/07/25 14:05 Non-Smoker No 07/07/25 14:05 Duration of Surgery greater No 07/07/25 14:05 than 60 minutes Number of Risk Factors 1 07/07/25 14:05 PONV Score Low Risk 07/07/25 14:05 Height & Weight Height & Weight: Anesthesia: Height & Weight Height 5 ft 4 in 07/10/25 11:18 Weight: 66.7 kg 07/10/25 11:18 Body Mass Index (BMI) 25.2 07/10/25 11:18 Respiratory Assessment Respiratory Assessment - weaver apprentice: Respiratory Tract Infection Hx - weaver apprentice Hx Respiratory Tract Infection No 07/07/25 14:05 Any additional information?: Yes Hx Respiratory Tract Infection: Yes History of Anesthesia Respiratory Infection details: Patient has had a chronic cough for past month. Patient had a mass*[address] STOP Sleep Apnea STOP Sleep Apnea - weaver apprentice: STOP Sleep Apnea - weaver apprentice Hx Hypertension No 07/07/25 14:05 Hx Sleep Apnea No 07/07/25 14:05 CPAP BIPAP Do you snore loudly (louder No 07/07/25 14:05 than talking or can be heard Do you often feel tired/ No 07/07/25 14:05 fatigued/ sleepy during daytime? Has anyone observed you stop No 07/07/25 14:05 breathing during sleep? STOP Results Negative 07/07/25 14:05 QUESTION #5 FULL TEXT : Do you snore loudly (louder than talking or can be heard through closed doors)? 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 Specify any problems Hx of Preganancy in last 3 No 07/07/25 14:05 Months Nurse Filling Out Transfusion VCHRISTIN 07/07/25 14:05 & Questions: Date: 07/07/25 07/07/25 14:05 Time: 14:06 07/07/25 14:05 Patient unable to answer at this time (ie. confused, unrespo /Reproduction History /Reproductive History - weaver apprentice: /Reproductive Hx- weaver apprentice Hx Now Gestational Age (in weeks): EDC: Hx Hx Para Hx Section SAB No 07/07/25 14:05 Active Medications Active Medications: Current Medications Generic Name Dose Route Start Last Admin Trade Name Frelaura PRN Reason Stop Dose Admin Lactated Ringer's 1,000 mls @ 15 mls/hr 07/10/25 11:15 07/10/25 11:26 IV 15 mls/hr .Q48H SARAH Administration PFSH Medical History Right ureteral stone Wears glasses Depression Substance abuse Marijuana use History of ulceration Vapes nicotine containing substance Shortness of breath on exertion Leg cramps Anxiety Asthma Home Medications ?Medication ?Instructions ?Recorded ?Last Taken ?Type buprenorphine 8 mg-naloxone 2 mg 8 ea sublingual BID 02/15/22 11/08/23 History sublingual film gabapentin 100 mg capsule 200 mg PO TID 02/15/22 11/08/23 History trazodone 50 mg tablet 50 mg PO QHS 02/15/22 11/08/23 History hydroxyzine HCl 10 mg tablet 10 mg PO TID PRN anxiety 07/03/25 Unknown History lisdexamfetamine 30 mg capsule 30 mg PO QAM 07/03/25 Unknown History albuterol sulfate 90 mcg/actuation 2 inh inhalation Q6H PRN shortness 07/07/25 Unknown History breath activated powder inhaler of breath or wheezing doxepin 10 mg capsule 10 mg PO DAILY PRN anxiety 07/07/25 Unknown History Allergy/AdvReac Type Severity Reaction Status Date / Time Sulfa (Sulfonamide Allergy Anaphylaxis Verified 07/10/25 11:14 Antibiotics) Surgical History Hx of cystoscopy Hx of oral surgery Hx of tubal ligation Social History household members: significant other and children Smoking Status: Current every day smoker tobacco type: e-cigarettes substance use type: former substance user and opiates Review of Systems (Anesthesia) ROS Narrative System reviewed and no additional complaints, except as documented. Physical Exam Resp Auscultation: wheezes inspiratory wheezes (I had patient use her albuterol metered-dose inhaler.)
[2025-07-10] MEDS: Lidocaine 1% (5 ml sdv) 5 ML Vial 10 ML IV (12:16)
[2025-07-10] MEDS: Midazolam 2 MG/2 ML Syringe IV (12:16)
[2025-07-10] MEDS: Lidocaine Jelly 2% 20 ML Syringe (URO-JET) 1 APPLIC (12:18)
--- NOTE | 2025-07-10 13:01 | OP.BRONCH_ITS ---
Patient Name: Terra Mendoza Procedure Date: 07/10/2025 11:27 AM Date of : 1980 Age: 45 Procedure: Bronchoscopy Indications: Abnormal CT scan of chest Providers: Chandra Silva MD Referring MD: Chandra Silva MD Medicines: General Anesthesia Complications: No immediate complications Procedure: Pre-Anesthesia Assessment: - A History and Physical has been performed. Patient meds and allergies have been reviewed. The risks and benefits of the procedure and the sedation options and risks were discussed with the patient. All questions were answered and informed consent was obtained. Patient identification and proposed procedure were verified prior to the procedure by the physician and the nurse in the procedure room. Mental Status Examination: alert and oriented. Airway Examination: normal oropharyngeal airway. Respiratory Examination: clear to auscultation. CV Examination: normal. ASA Grade Assessment: II - A patient with mild systemic disease. After reviewing the risks and benefits, the patient was deemed in satisfactory condition to undergo the procedure. The anesthesia plan was to use general anesthesia. Immediately prior to administration of medications, the patient was re-assessed for adequacy to receive sedatives. The heart rate, respiratory rate, oxygen saturations, blood pressure, adequacy of pulmonary ventilation, and response to care were monitored throughout the procedure. The physical status of the patient was re-assessed after the procedure. After I obtained informed consent, the scope was passed under direct vision. Throughout the procedure, the patient's blood pressure, pulse, and oxygen saturations were monitored continuously. The ultrasound bronchoscope was introduced through the mouth, via laryngeal mask airway and advanced to the tracheobronchial tree. The procedure was accomplished without difficulty. The patient tolerated the procedure well. Findings: The laryngeal mask airway is in good position. The vocal cords appear normal. The subglottic space is normal. The trachea is of normal caliber. The kael is sharp. The tracheobronchial tree was examined to at least the first subsegmental level. Bronchial mucosa and anatomy are normal; there are no endobronchial lesions, and no secretions. The scope was withdrawn and replaced with the EBUS bronchoscope to accomplish the ultrasound examination. Lymph Nodes: An endobronchial ultrasound endoscope was utilized to systematically examine the subcarinal mediastinum (level 7) and right hilar region (level 10R) in order to assist with guiding the biopsy needle. Lymph node sizing was performed via endobronchial ultrasound. Sampling by transbronchial needle aspiration was also performed using an Olympus ViziShot 21 gauge needle in the subcarinal mediastinum (level 7) and right hilar region (level 10R) and sent for routine cytology. - The 7 (subcarinal) node was evaluated. Three samples with the needle were obtained. - The 10R (hilar) node was evaluated. Three samples with the needle were obtained. Impression: - Abnormal CT scan of chest - The airway examination was normal. - Endobronchial ultrasound was performed. - Lymph node/mass sampling was performed. Recommendation: - Await biopsy results. Procedure Code(s): --- Professional --- 09280, Bronchoscopy, rigid or flexible, including fluoroscopic guidance, when performed; with endobronchial ultrasound (EBUS) guided transtracheal and/or transbronchial sampling (eg, aspiration[s]/biopsy[ies]), one or two mediastinal and/or hilar lymph node stations or structures Diagnosis Code(s): --- Professional --- R93.89, Abnormal findings on diagnostic imaging of other specified body structures R09.89, Other specified symptoms and signs involving the circulatory and respiratory systems CPT copyright 2021 [employer]. All rights reserved. The codes documented in this report are preliminary and upon windows 7 deployment lead review may be revised to meet current compliance requirements. DO Chandra Sanchez MD 07/10/2025 1:01:11 PM This report has been signed electronically. Number of Addenda: 0 Note Initiated On: 07/10/2025 11:27 AM
--- NOTE | 2025-07-10 13:10 | PCM.POST.ANE ---
Anesthesia: Postop Eval I Current Vital Signs Temperature: 97.5 F Pulse Rate: 77 Blood Pressure: 95/73 Respiratory Rate: 16 Pulse Ox: 97 Oxygen Delivery Method: Room Air Assessment Airway patent: Yes Spontaneous unlabored respirations: Yes Mental status: Awake nausea: No Vomiting: No Anesthesia Complication: No Fluid Hydration Crystalloid volume administer (ml): 900 Total IV fluid infused: 900 Progress Note Anesthesia document: Postop Eval 1 completed: Yes
--- NOTE | 2025-07-10 14:23 | POSTOPAN2_ITS ---
Anesthesia Postop Eval I Sum Postop Eval Completion status Anesthesia document: Postop Eval 1 completed: Yes Anesthesia Postop Eval I Summary Anesthesia Postop Eval I Summary: Anesthesia Postop Eval I: Assessment Summary Airway patent Yes 07/10/25 13:11 SALES ACTIVITY [email or web address] Spontaneous unlabored Yes 07/10/25 13:11 SALES ACTIVITY [email or web address] respirations Mental status Awake 07/10/25 13:11 SALES ACTIVITY [email or web address] nausea No 07/10/25 13:11 SALES ACTIVITY [email or web address] Vomiting No 07/10/25 13:11 SALES ACTIVITY [email or web address] Anesthesia Postop Eval I: Fluid Summary Crystalloid volume administer 900 07/10/25 13:11 SALES ACTIVITY [email or web address] (ml) Colloids volume administered ( ml) Blood Product volume administered (ml) Total IV fluid infused 900 07/10/25 13:11 SALES ACTIVITY [email or web address] Anesthesia Postop Eval I: Summary Notes Anesthesia Complication No 07/10/25 13:11 SALES ACTIVITY [email or web address] Anesthesia Complication Comment: Post-operative progress note Anesthesia: Postop Eval II Evaluation Mental status: Awake and Calm Pain Level: 0 nausea: No Vomiting: No Complications Anesthesia Complication: No
--- NOTE | 2025-07-10 14:23 | PCM.POSTANE2 ---
Anesthesia Postop Eval I Sum Postop Eval Completion status Anesthesia document: Postop Eval 1 completed: Yes Anesthesia Postop Eval I Summary Anesthesia Postop Eval I Summary: Anesthesia Postop Eval I: Assessment Summary Airway patent Yes 07/10/25 13:11 [email or web address] Spontaneous unlabored Yes 07/10/25 13:11 PULLMAN [email or web address] respirations Mental status Awake 07/10/25 13:11 [email or web address] [email or web address] nausea No 07/10/25 13:11 PULLMAN [email or web address] Vomiting No 07/10/25 13:11 PULLMAN [email or web address] Anesthesia Postop Eval I: Fluid Summary Crystalloid volume administer 900 07/10/25 13:11 [email or web address] (ml) Colloids volume administered ( ml) Blood Product volume administered (ml) Total IV fluid infused 900 07/10/25 13:11 PULLMAN [email or web address] Anesthesia Postop Eval I: Summary Notes Anesthesia Complication No 07/10/25 13:11 [email or web address] [email or web address] Anesthesia Complication Comment: Post-operative progress note Anesthesia: Postop Eval II Evaluation Mental status: Awake and Calm Pain Level: 0 nausea: No Vomiting: No Complications Anesthesia Complication: No
== END 2025-07-10 13:49 | disposition home or self-care (01) ==
LOC: EN 11:04 → AC 11:05
PROVIDERS: PCP Family Medicine; Referring Provider Internal Medicine Critical Care Medicine; Visit Provider Internal Medicine Critical Care Medicine
PROC: BB4BZZZ Ultrasonography of Pleura (ICD-10-PCS; CPT 31652; principal; 2025-07-10 11:30)
DX: R91.8 Other nonspecific abnormal finding of lung field (principal); J45.909 Unspecified asthma, uncomplicated; F17.210 Nicotine dependence, cigarettes, uncomplicated; F17.290 Nicotine dependence, other tobacco product, uncomplicated
CPT/HCPCS: 31652; 36415; 85049; 85610; 85730; 88161; 88172; 88305; 88313; J2405

== ENCOUNTER 2025-07-20 18:16 | Emergency (ER) | payer BC, SELFPAY ==
[2025-07-20] VITALS (7 sets, daily range): BP systolic 121–142; BP diastolic 72–81; PULSE 43–86; RESP 16–22; TEMP 36.6; O2SAT 98–100; BMI 25.9
--- NOTE | 2025-07-20 18:23 | EKG12_ITS ---
Test Reason : DYSRHYTHMIA Blood Pressure : */* mmHG Vent. Rate : 45 BPM Atrial Rate : 45 BPM P-R Int : 170 ms QRS Dur : 98 ms QT Int : 488 ms P-R-T Axes : 73 69 50 degrees QTcB Int : 422 ms Sinus bradycardia Possible Left atrial enlargement Incomplete right bundle branch block Borderline ECG Confirmed by JULIO THOMAS, ALBERT ([id number]), publishing editor MARLA JACKSON ([id number]) on 07/21/2025 8:00:58 AM Referred By: CHARISSA Confirmed By: ALBERT KIM MD
--- OUTSIDE RECORDS SUMMARY | 2025-07-20 18:53 | XMS RPT_ITS | CCD ---
Author Organization [facility] Care Team Providers Care Decorating Consultant Name Role Phone NO, DOCTOR ON Consulting Unavailable SHAN DUKE MD Referring Unavailable SHAN DUKE MD Admitting Unavailable SHAN DUKE MD Attending Unavailable SHAN DUKE MD Primary Care Unavailable Unavailable Primary Care Provider Unavailabl e Unavailable Primary Care Provider Unavailabl e Unavailable Primary Care Provider Unavailabl e NGOC BRIGGS Attending Unavailable Care Physician, No Primary Primary Care Provider Unavailable Honey THOMAS, Dr. Lezama Attending Provider [phone] Dr. Semaj Randall DO Emergency Provider Dr. Semaj Randall DO Attending Provider Dr. Semaj Sheridan MD Primary Care Provider Dr. Semaj Sheridan MD Attending Provider [phone] Care Physician, No Primary Referring Provider Un available Dr. Chandar Silva DO Attending Provider [phone] Dr. Chandra Silva DO Other Provider [phone] Chandra Silva DO Referring Provider [phone] Chandra Silva Attending Unavailable Sheridan, Semaj Primary Care Unavailable Chandra Silva Attending Unavailable Shreidan, Semaj Primary Care Unavailable Chandra Silva Attending Unavailable Chandra Silva Consulting Unavailable Sheridan, Semaj Primary Care Unavailable Care Physician, No Primary Referring Unava ilable Sheridan, Semaj Primary Care Unavailable Chandra Silva Attending Unavailable Chandra Silva Attending Unavailable Chandra Silva Referring Unavailable Sheridan, Semaj Primary Care Unavailable Bam Avalos Attending Unavailable Care Physician, No Primary Primary Care Unava ilable Semaj Randall Attending Unavailable Care Physician, No Primary Primary Care Unava ilable Care Physician, No Primary Primary Care Unava ilable Malcolm Snyder Attending Unavailable Cullen PA, Malcolm Referring Unavailable Sheridan, Semaj Primary Care Unavailable Semaj Sheridan Attending Unavailable Care Physician, No Primary Primary Care Unava ilable Care Physician, No Primary Referring Malcolm Beard Attending Unavailable Care Physician, No Primary Referring Unava ilable Care Physician, No Primary Primary Care Unava ilChandra Cordoba Attending Unavailable Allergies Allergy Classification Reported Allergen(s) Allergy Type Date of Onset Reaction(s) Facility (20 sources) Sulfonamides (Antibiotic); Translations: [SULFA (SULFONAMIDE ANTIBIOTICS)] Allergy to substance 02-15-2022 Anaphylaxis [facility] (1 source) Sulfonamide; Translations: [sulfa drugs] Drug allergy [facility] Medications Current Medications Medication Drug Class(es) Dates Sig (Normalized) Sig (Original) acetaminophen 325 mg oral tablet (5 sources) take 2 tablets by mouth every six hours as needed acetaminophen (TYLENOL) 325 mg tablet Take 650 mg by mouth every 6 hours as needed for pain. Active Comment on above: Take 650 mg by mouth every 6 hours as needed for pain. [id number] 200 actuat albuterol 0.09 mg/actuat metered dose inhaler (17 sources) beta2-Adrenergic Agonist Start: 07-10-2025 Albuterol Sulfate 90 mcg/actuation HFA aerosol inhaler Active 2 NMA INHALATION Q4H as needed for shortness of breath or wheezing 8.5 6 July 10, 2025 12:00am administer with spacer Start: 07-07-2025 Albuterol Sulf ate 90 mcg/actuation aerosol powdr breath activated Active 2 NMA INHALATION EVERY 6 HOURS as needed for shortness of breath or wheezing July 07, 2025 12:00am Start: 05-07-2018 Albuterol Sulf ate (Ventolin Hfa (Sp)) 1 INHALER inhaler Active 1 PUFF INHALATION EVERY 4 HOURS NEEDED May 07, 2018 11:17am Start: 05-07-2018 End: 06-13-2023 Albuterol Sulfate (Ventolin Hfa (Sp)) 1 INHALER inhaler Discontinued 1 NMA INHALATION EVERY 4 HOURS NEEDED as needed for Sob &/Or Wheezing May 07, 2018 12:00am June 13, 2023 10:25pm Start: 05-07-2018 End: 06-13-2023 Albuterol Sulfate (Ventolin [...] Azithromycin Active 500 MG PO DAILY 5 5 July 18, 2022 12:00am buprenorphine 8 mg / naloxone 2 mg sublingual film (20 sources) Partial Opioid Agonist, Opioid Antagonist Start: 02-15-2022 Buprenorphine-Naloxo ne Active February 15, 2022 6:39pm Start: 02-15-2022 Buprenorphine- Naloxone 8-2 mg film Active 8 NMA SL TWICE A DAY February 15, 2022 12:00am Start: 02-15-2022 buprenorphine- naloxone (SUBOXONE) 8-2 mg film ONE FILM UNDER THE TONGUE TWICE DAILY 04/29/2023 Active Comment on above: ONE FILM UNDER THE T ONGUE TWICE DAILY doxepin hydrochloride 10 mg oral capsule (2 sources) Tricyclic Antidepressant Start: 07-07-20 take 1 capsule by mouth once daily as needed for anxiety Doxepin 10 mg capsule Active 10 mg PO DAILY as needed for anxiety July 07, 2025 12:00am gabapentin 100 mg oral capsule (20 sources) Anti-epileptic Agent Start: 02-16-20 take 2 capsules by mouth three times daily Gabapentin 100 mg capsule Active 200 mg PO THREE TIMES A DAY February 15, 2022 12:00am Start: 02-15-2022 take 1 capsule by mo uth four times daily Gabapentin 100 mg capsule Active 100 mg PO 4 TIMES DAILY February 15, 2022 12:00am Comment on above: TAKE 1 CAPSULES (100 MG) BY ORAL ROUTE 4 TIMES PER DAY hydrOXYzine hydrochloride 10 mg oral tablet (3 sources) Antihistamine Start: 2024 take 1 tablet by mouth three times daily as needed for anxiety Hydroxyzine Hcl 10 mg tablet Active 10 mg PO THREE TIMES A DAY as needed for anxiety July 03, 2025 12:00am ketorolac tromethamine 10 mg oral tablet (2 sources) Nonsteroidal Anti-inflammatory Drug, Cyclooxygenase Inhibitor Start: 2022 take 10 mg by mouth every six hours Ketorolac Active 10 MG PO EVERY 6 HOURS 10 3 August 29, 2023 11:00pm lisdexamfetamine dimesylate 30 mg oral capsule (5 sources) Central Nervous System Stimulant Start: 2024 take 1 capsule by mouth once daily in the morning Lisdexamfetamine 30 mg capsule Active 30 mg PO EVERY MORNING 0 July 03, 2025 12:00am Start: 04-30-2025 take 1 capsule by mo ut once daily lisdexamfetamine (VYVANSE) 30 mg capsule Take 30 mg by mouth once daily. 04/30/2025 Active metroNIDAZOLE 500 mg oral tablet (1 source) Nitroimidazole Antimicrobial Start: 02-15-2022 Metronidazole Active February 15, 2022 6:39pm nitrofurantoin, macrocrystals 25 mg / nitrofurantoin, monohydrate 75 mg oral capsule (10 sources) Nitrofuran Antibacterial Start: 09-21-2024 End: 09-26-2024 take 1 capsule by mouth twice daily nitrofurantoin monohydrate and macrocrystal (MACROBID) 100 mg capsule Take 1 capsule by mouth two times a day for 5 days. 10 capsule 09/21/2024 09/26/2024 Active Start: 01-25-2023 End: 06-13-2023 take 1 capsule by mouth every twelve hours at mealtime Nitrofurantoin Monohyd/M-Cryst (Macrobid) 100 mg capsule Discontinued 100 mg PO Q12H 10 5 0 January 25, 2023 12:00am June 13, 2023 10:25pm must administer with a meal/food traZODone hydrochloride 50 mg oral tablet (20 sources) Serotonin Reuptake Inhibitor Start: 02-15-2022 take 1 tablet by mouth at bedtime Trazodone 50 mg tablet Active 50 mg PO AT BEDTIME February 15, 2022 12:00am Comment on above: Take 50 mg by mouth daily at bedtime. Completed/Discontinued Medications Medication Drug Class(es) Dates Sig (Normalized) Sig (Original) acetaminophen 325 mg / oxyCODONE hydrochloride 5 mg oral tablet (5 sources) Opioid Agonist Start: 11-09-2023 End: 06-25-2024 Oxycodone-Acetamin ophen (Percocet) 5-325 mg tablet Discontinued 1 {tbl} PO Q8H as needed for pain 10 3 0 November 09, 2023 June 25, 2024 8:30pm Calculus of right ureter Calculus of ureter cariprazine 1.5 mg oral capsule (5 sources) Atypical Antipsychotic Start: 11-07-2023 End: 06-25-2024 take 1 capsule by mouth once daily Cariprazine (Vraylar) 1.5 mg capsule Discontinued 1.5 mg PO DAILY November 07, 2023 1:00am June 25, 2024 8:30pm cephalexin 500 mg oral capsule (16 sources) Cephalosporin Antibacterial Start: 11-07-2023 End: 06-25-2024 take 1 capsule by mouth three times daily Cephalexin 500 mg capsule Discontinued 500 mg PO THREE TIMES A DAY November 07, 2023 1:00am June 25, 2024 8:30pm Start: 03-08-2023 End: 06-13-2023 take 1 capsule by mouth every twelve hours Cephalexin 500 mg capsule Discontinued 500 mg PO EVERY 12 HOURS 14 0 March 08, 2023 12:00am June 13, 2023 10:25pm Start: 02-15-2022 take 500 mg by mouth every six hours Cephalexin Active 500 MG PO EVERY 6 HOURS 40 February 15, 2022 7:36pm ciprofloxacin 500 mg oral tablet (12 sources) Quinolone Antimicrobial Start: 07-29-2024 End: 08-05-2024 take 1 tablet by mouth twice daily Ciprofloxacin Hcl 500 mg tablet Discontinued 500 mg PO TWICE A DAY 14 7 0 July 29, 2024 12:00am August 04, 2024 12:00am August 05, 2024 12:08am Start: 06-13-2023 End: 08-30-2023 take 1 tablet by mouth twice daily Ciprofloxacin Hcl 500 mg tablet Discontinued 500 mg PO TWICE A DAY 14 June 13, 2023 12:00am August 30, 2023 6:27am famotidine 20 mg oral tablet (9 sources) Histamine-2 Receptor Antagonist Start: 03-08-2023 End: 06-13-2023 take 1 tablet by mouth twice daily as needed Famotidine (Pepcid) 20 mg tablet Discontinued 20 mg PO TWICE A DAY as needed for dyspepsia 14 March 08, 2023 11:13pm June 13, 2023 10:25pm omeprazole 20 mg delayed release oral capsule (4 sources) Proton Pump Inhibitor Start: 06-25-2024 End: 07-29-2024 take 1 capsule by mouth once daily Omeprazole 20 mg capsule,delayed release(DR/EC) Discontinued 20 mg PO DAILY 30 June 25, 2024 12:00am July 29, 2024 1:32pm ondansetron 4 mg disintegrating oral tablet (18 sources) Serotonin-3 Receptor Antagonist Start: 11-30-2023 End: 07-29-2024 take 1 tablet by mouth every eight hours as needed for nausea Ondansetron 4 mg tablet,disintegrat ing Discontinued 4 mg PO EVERY 8 HOURS NEEDED as needed for Nausea 10 June 25, 2024 12:00am July 29, 2024 1:33pm Start: 03-08-2023 End: 06-13-2023 take 1 tablet by mouth every eight hours as needed for nausea Ondansetron 4 mg tablet,disintegrating Discontinued 4 mg PO EVERY 8 HOURS NEEDED as needed for Nausea 14 March 08, 2023 12:00am June 13, 2023 10:25pm pantoprazole 40 mg delayed release oral tablet (4 sources) Proton Pump Inhibitor Start: 10-07-2024 End: 07-03-2025 take 1 tablet by mouth once daily Pantoprazole 40 mg tablet,delayed release (DR/EC) Discontinued 40 mg PO DAILY 30 0 October 07, 2024 1:00am July 03, 2025 11:26am phenazopyridine hydrochloride 200 mg oral tablet (9 sources) Start: 07-29-2024 End: 07-03-2025 take 1 tablet by mouth three times daily as needed for pain Phenazopyridine (Pyridium) 200 mg tablet Discontinued 200 mg PO THREE TIMES A DAY as needed for pain 7 0 July 29, 2024 12:00am July 03, 2025 11:26am Start: 11-09-2023 End: 06-25-2024 take 1 tablet by mouth three times daily as needed for muscle spasms Phenazopyridine (Pyridium) 200 mg tablet Discontinued 200 mg PO 3 TIMES DAILY NEEDED as needed for Bladder Spasms 30 7 1 November 09, 2023 1:00am June 25, 2024 8:30pm promethazine hydrochloride 25 mg oral tablet (9 sources) Phenothiazine Start: 03-08-2023 End: 06-13-2023 take 1 tablet by mouth three times daily as needed for nausea and vomiting Promethazine 25 mg tablet Discontinued 25 mg PO THREE TIMES A DAY as needed for nausea and vomiting 14 0 March 08, 2023 12:00am June 13, 2023 10:25pm sertraline 25 mg oral tablet (4 sources) Serotonin Reuptake Inhibitor Start: 07-29-2024 End: 07-03-2025 take 1 tablet by mouth once daily Sertraline 25 mg tablet Discontinued 25 mg PO daily July 29, 2024 12:00am July 03, 2025 11:26am sucralfate 1000 mg oral tablet (4 sources) Aluminum Complex Start: 10-07-2024 End: 07-03-2025 take 1 tablet by mouth every six hours Sucralfate (Carafate) 1 gram tablet Discontinued 1 g PO EVERY 6 HOURS 60 0 October 07, 2024 1:00am July 03, 2025 11:26am Problems Active Problems Problem Classification Problem Date Documented Da te Episodic/Chronic Abdominal pain (11 sources) Right flank pain; Translations: [Unspecified abdominal pain] 08-30-2023 Episodic Calculus of urinary tract (13 sources) Kidney stone; Translations: [Calculus of kidney] 08-30-2023 Episodic Fracture of upper limb (2 sources) Closed fracture of middle phalanx of middle finger; Translations: [Displaced fracture of middle phalanx of left middle finger, initial encounter for closed fracture] 05-26-2023 Episodic Gastritis and duodenitis (4 sources) Gastritis; Translations: [Gastritis, unspecified, without bleeding] 10-15-2024 Episodic Intestinal infection (13 sources) Viral gastroenteritis; Translations: [Viral intestinal infection, unspecified] 02-23-2022 Episodic Nausea and vomiting (4 sources) Nausea and vomiting; Translations: [Nausea with vomiting, unspecified] 07-03-2024 Episodic Nonspecific chest pain (20 sources) Chest pain; Translations: [Chest pain, unspecified] Onset: 11-05-2024 Episodic Other circulatory disease (1 source) Other specified symptoms and signs involving the circulatory and respiratory systems; Translations: [Other specified symptoms and signs involving the circulatory and respiratory systems] Onset: 07-10-2025 Episodic Other connective tissue disease (1 source) Pain in finger of left hand; Translations: [Pain in left finger(s)] 05-29-2023 Episodic Other lower respiratory disease (16 sources) Cough; Translations: [Cough] 07-26-2022 Episodic Other lower respiratory disease (12 sources) Lung mass; Translations: [Other nonspecific abnormal finding of lung field] 06-15-2025 Episodic Other lower respiratory disease (2 sources) Other nonspecific abnormal finding of lung field; Translations: [Other nonspecific abnormal finding of lung field] Onset: 07-10-2025 Episodic Other nervous system disorders (1 source) Tremor; Translations: [Tremor, unspecified] Episodic Other screening for suspected conditions (not mental disorders or infectious disease) (1 source) Abnormal findings on diagnostic imaging of other specified body structures; Translations: [Abnormal findings on diagnostic imaging of other specified body structures] Onset: 07-10-2025 Chronic Other upper respiratory disease (1 source) Nasal congestion; Translations: [Nasal congestion] 05-13-2025 Episodic Other upper respiratory disease (1 source) Nasal congestion; Translations: [Nasal congestion] Onset: 05-13-2025 Episodic Other upper respiratory infections (20 sources) Pharyngitis; Translations: [Acute pharyngitis, unspecified] Onset: 05-13-2025 12-14-2022 Episodic Pneumonia (except that caused by tuberculosis or sexually transmitted disease) (7 sources) Right lower zone pneumonia; Translations: [Pneumonia, unspecified organism] 08-30-2023 Episodic Residual codes; unclassified (2 sources) Pain; Translations: [Pain, unspecified] 05-09-2023 Episodic Sprains and strains (13 sources) Strain of muscle at thorax level; Translations: [Strain of muscle and tendon of unspecified wall of thorax, initial encounter] 05-08-2018 Episodic Viral infection (1 source) Viral disease; Translations: [Other viral agents as the cause of diseases classified elsewhere] Onset: 11-28-2023 Episodic Past or Other Problems Problem Classification Problem Date Documented Da te Episodic/Chronic Genitourinary symptoms and ill-defined conditions (6 sources) Increased frequency of urination; Translations: [Frequency of micturition] Onset: 08-29-2024 09-21-2024 Episodic Urinary tract infections (20 sources) Urinary tract infectious disease; Translations: [Urinary tract infection, site not specified] Onset: 11-28-2023 02-23-2022 Episodic Results Test Name Value Interpretation Reference Range Facility Bronchoscopy Reporton 2024 Bronchoscopy Report [facility] Medical Records Department [address] [place] [address] Bronchoscopy Report MR#: [id number] Acct: [id number] Name: JERRI JIMENEZ Rep #: [id number] : 1980 45 From: Chandra Silva DO PCP: Dr. Semaj Sheridan MD Status:[facility] Patient Name: Jerri Jimenez Procedure Date: 07/10/2025 11:27 AM Date of : 1980 Age: 45 Procedure: Bronchoscopy Indications: Abnormal CT scan of chest Providers: Chandra Silva MD Referring MD: Chandra Silva MD Medicines: General Anesthesia Complications: No immediate complications Procedure: Pre-Anesthesia Assessment: - A History and Physical has been performed. Patient meds and allergies have been reviewed. The risks and benefits of the procedure and the sedation options and risks were discussed with the patient. All questions were answered and informed consent was obtained. Patient identification and proposed procedure were verified prior to the procedure by the physician and the nurse in the procedure room. Mental Status Examination: alert and oriented. Airway Examination: normal oropharyngeal airway. Respiratory Examination: clear to auscultation. CV Examination: normal. ASA Grade Assessment: II - A patient with mild systemic disease. After reviewing the risks and benefits, the patient was deemed in satisfactory condition to undergo the procedure. The anesthesia plan was to use general anesthesia. Immediately prior to administration of medications, the patient was re-assessed for adequacy to receive sedatives. The heart rate, respiratory rate, oxygen saturations, blood pressure, adequacy of pulmonary ventilation, and response to care were monitored throughout the procedure. The physical status of the patient was re-assessed after the procedure. After I obtained informed consent, the scope was passed under direct vision. Throughout the procedure, the patient's blood pressure, pulse, and oxygen saturations were monitored continuously. The ultrasound bronchoscope was introduced through the mouth, via laryngeal mask airway and advanced to the tracheobronchial tree. The procedure was accomplished without difficulty. The patient tolerated the procedure well. Findings: The laryngeal mask airway is in good position. The vocal cords appear normal. The subglottic space is normal. The trachea is of normal caliber. The kael is sharp. The tracheobronchial tree was examined to at least the first subsegmental level. Bronchial mucosa and anatomy are normal; there are no endobronchial lesions, and no secretions. The scope was withdrawn and replaced with the EBUS bronchoscope to accomplish the ultrasound examination. Lymph Nodes: An endobronchial ultrasound endoscope was utilized to systematically examine the subcarinal mediastinum (level 7) and right hilar region (level 10R) in order to assist with guiding the biopsy needle. Lymph node sizing was performed via endobronchial ultrasound. Sampling by transbronchial needle aspiration was also performed using an Olympus ViziShot 21 gauge needle in the subcarinal mediastinum (level 7) and right hilar region (level 10R) and sent for routine cytology. - The 7 (subcarinal) node was evaluated. Three samples with the needle were obtained. - The 10R (hilar) node was evaluated. Three samples with the needle were obtained. Impression: - Abnormal CT scan of chest - The airway examination was normal. - Endobronchial ultrasound was performed. - Lymph node/mass sampling was performed. Recommendation: - Await biopsy results. Procedure Code(s): --- Professional --- 40238, Bronchoscopy, rigid or flexible, including fluoroscopic guidance, when performed; with endobronchial ultrasound (EBUS) guided transtracheal and/or transbronchial sampling (eg, aspiration[s]/biopsy[ies ]), one or two mediastinal and/or hilar lymph node stations or structures Diagnosis Code(s): --- Professional --- R93.89, Abnormal findings on diagnostic imaging of other specified body structures R09.89, Other specified symptoms and signs involving the circulatory and respiratory systems CPT copyright 2021 [employer]. All rights reserved. The codes documented in this report are preliminary and upon ad terminal makeup operator review may be revised to meet current compliance requirements. DO Chandra Sanchez MD 07/10/2025 1:01:11 PM This report has been signed electronically. Number of Addenda: 0 Note Initiated On: 07/10/2025 11:27 AM 07/10/25 1301 Date Chandra Silva DO Cosigner Signature: Date (if indicated) CC: Dr. Chandra Silva DO; Dr. Semaj Sheridan MD Date Dictated: 07/10/25 1127 Date Transcribed: Community Advocate: FELIPE [facility] MR/POSTOP.[facility] 07-10-2025 MR/POSTOP.[facility] Medical Records Department [address] [place] [address] Anesthesia Postop Eval I 07/10/25 1310 MR#: [id number] Acct: [id number] Name: JERRI JIMENEZ Rep #: [id number] : 1980 45 From: Donna Sanabria FRAUD REPRESENTATIVE PCP: Dr. Semaj Sheridan MD Status:REG SDC Y Race: C Location: [place] [address] Anesthesia: Postop Eval I Current Vital Signs Temperature: 97.5 F Pulse Rate: 77 Blood Pressure: 95/73 Respiratory Rate: 16 Pulse Ox: 97 Oxygen Delivery Method: Room Air Assessment Airway patent: Yes Spontaneous unlabored respirations: Yes Mental status: Awake nausea: No Vomiting: No Anesthesia Complication: No Fluid Hydration Crystalloid volume administer (ml): 900 Total IV fluid infused: 900 Progress Note Anesthesia document: Postop Eval 1 completed: Yes 07/10/25 1311 Date Donna Sanabria FRAUD REPRESENTATIVE Cosigner Signature: Date CC: Signed Normal [facility] MR/[id number] 07-10-2025 MR/POSTOPAN2 [facility] Medical Records Department [address] [facility] [place] [address] Anesthesia Postop Eval II 07/10/25 1423 MR#: [id number] Acct: [id number] Name: JERRI JIMENEZ Rep #: [id number] : 1980 45 From: Donna Sanabria FRAUD REPRESENTATIVE PCP: Dr. Semaj Sheridan MD Status:[place] [facility] [place]: C Location: EN Anesthesia Postop Eval I Sum Postop Eval Completion status Anesthesia document: Postop Eval 1 completed: Yes Anesthesia Postop Eval I Summary Anesthesia Postop Eval I Summary: Anesthesia Postop Eval I: Assessment Summary Airway patent Yes 07/10/25 13:11 FRAUD REPRESENTATIVE.JDEF Spontaneous unlabored Yes 07/10/25 13:11 FRAUD REPRESENTATIVE.JDEF respirations Mental status Awake 07/10/25 13:11 FRAUD REPRESENTATIVE.JDEF nausea No 07/10/25 13:11 FRAUD REPRESENTATIVE.JDEF Vomiting No 07/10/25 13:11 FRAUD REPRESENTATIVE.JDEF Anesthesia Postop Eval I: Fluid Summary Crystalloid volume administer 900 07/10/25 13:11 FRAUD REPRESENTATIVE.JDEF (ml) Colloids volume administered ( ml) Blood Product volume administered (ml) Total IV fluid infused 900 07/10/25 13:11 FRAUD REPRESENTATIVE.JDEF Anesthesia Postop Eval I: Summary Notes Anesthesia Complication No 07/10/25 13:11 FRAUD REPRESENTATIVE.JDEF Anesthesia Complication Comment: Post-operative progress note Anesthesia: Postop Eval II Evaluation Mental status: Awake and Calm Pain Level: 0 nausea: No Vomiting: No Complications Anesthesia Complication: No 07/10/25 1423 Date Donna Karencolton MARY Barkley Signature: Date CC: Signed Normal [facility] Special Stain Group IIon Special Stain Group II ------- Patient Age/Sex Location Account Attending Physician JERRI JIMENEZ 45/F EN [id number] Dr. Chandra Silva, DO Specimen: [id number] Received: 07/10/25-1199 Status: TYLER Velasquez Num: [id number] Spec Type: ASP OUT Subm Dr: Dr. Chandra Silva, DO HEADER OPERATION: Bronchoscopy PRE-OP DIAGNOSIS: Lung mass TISSUE SUBMITTED: A-7, B-10R * EBUS * DIAGNOSIS CYTOLOGY A. Site 7, #1, #2, #3 , TBNA (smear x6, cellblock): - Atypical cells of undetermined significance. B. Site 10R, #1, #2, #3, TBNA (smear x6, cellblock): - Atypical cells, suspicious for malignancy. COMMENT The specimen is evaluated at the time of biopsy by Dr. Armijo. Immediate Evaluation = 1. Atypical cells. 2. No malignant cells observed. 3. Atypical cells, suspicious for malignancy. 4. Atypical cells, suspicious for malignancy. 5. Atypical cells, suspicious for malignancy. 6. Atypical cells, suspicious for malignancy. Findings called to Dr. Linda Silva on 07/10/25 at 2:19pm The final diagnosis was called to Dr Linda Silva at 10:52am, 07/17/25.. CYTOLOGY STUDY Slides are reviewed. CYTOLOGY GROSS 1. Received labeled with the patient's name and and designated EBUS, TBNA, site 7 #1. The specimen consists of two stained smears for WINTER. 2. Received labeled with the patient's name and and designated EBUS, TBNA, site 7 #2. The specimen consists of two stained smears for WINTER. 3. Received labeled with the patient's name and and designated EBUS, TBNA, site 7 #3. The specimen consists of two stained smears for WINTER. 4. Received labeled with the patient's name and and designated EBUS, TBNA, site 10R #4. The specimen consists of two stained smears for WINTER. 5. Received labeled with the patient's name and and designated EBUS, TBNA, site 10R #5. The specimen consists of two stained smears for WINTER. 6. Received labeled with the patient's name and and designated EBUS, TBNA, site 10R Patient Age/Sex Location Account Attending Physician JERRI JIMENEZ 45/F EN [id number] Dr. Chandra Silva DO #6. The specimen consists of two stained smears for WINTER. Mr 07/10/2025 CPT:01127y7 ADDENDUM Addendum 1 Entered: 07/17/25-1 This addendum is added to incorporate an outside pathology consultation report. The case was examined at [facility] and the following diagnosis was rendered. Flow Cytometry: [facility] Station 7 Phenotypic Description: Cannot evaluate due to insufficient number of cells and/or low viability. Flow Cytometry: [facility] Station 10R Phenotypic Description: Cannot evaluate due to insufficient number of cells and/or low viability. Please see complete above mentioned consultation report in EMR Addendum Signed (signature on file) Dr. Adele Armijo MD 07/17/25 1404 Signed (signature on file) Dr. Adele Armijo MD 07/17/25 1053 Normal [facility] Comment on above: Performed By: #### L 100.0100, L300.8000, L501.4021, L500.4050 #### [facility] Laboratory [facility] [address] [place], [place], [id number] Activated partial thrombopla stin time (aPTT) in platelet poor plasma by coagulation aOrdered By: Chandra Silva on 07-08-2025 aPTT Coag (PPP) [Time] 21.3 s Low 24.1-36.2 [facility] normalized rat io (INR) calculationOrdered By: Chandra Silva on 07-08-2025 INR Coag (Bld) [Relative time] 0.9 {INR} [facility] PLATELET COUNTon 07-08-2025 Platelets (Bld) [#/Vol] 265 10*3/uL Normal 150-450 [facility] Comment on above: Performed By: #### L 100.0100, L300.8000, L501.4021, L500.4050 #### [facility] Laboratory [address] [place], [address] Partial Thromboplast Timeon 07-08-2025 aPTT Coag (Bld) [Time] 21.3 s Low 24.1-36.2 [facility] Comment on above: Performed By: #### L 100.0100, L300.8000, L501.4021, L500.4050 #### [facility] Laboratory [address] [place], [address] Platelet countOrdered By: Ziegler on 07-08-2025 Platelets (Bld) [#/Vol] 265 10*3/uL 150-450 [facility] Prothrombin Time w/INRon INR Coag (PPP) [Relative time] 0.9 {INR} Normal [facility] Comment on above: Performed By: #### L 100.0100, L300.8000, L501.4021, L500.4050 #### [facility] Laboratory [address] [place], [address] PT Coag (PPP) [Time] 12.6 s Normal 11.7-14.9 [facility] Comment on above: Performed By: #### L 100.0100, L300.8000, L501.4021, L500.4050 #### [facility] Laboratory [address] [place], [address] Prothrombin timeOrdered By: Chandra Silva on 07-08-2025 PT Coag (PPP) [Time] 12.6 s 11.7-14.9 [facility] L3410.9992on 07-07-2025 [facility] Misc. COMMENT Normal . [facility] Comment on above: Order Comment: [id number] 3ANTRIP PHENO SERUM RMT Result Comment: Test Ordered: [id number] Fwjoe-1-Zypvvgvbeip Phenotyp Litgi-9-Hxtyeqabild, Serum 181 mg/dL Reference Range: 101-187 Phenotype (PI) MM Reference Range: . MM Phenotype is considered to be normal, producing normal serum levels of tjfjy-7-yjmqfqyg inhibitor and not associated with clinical disease. Associated A1A total serum levels in other phenotypes and their incidence in the general population are shown in the table below. Phenotype Population % function A-1-AT Conc.* Incidence % compared to MM (Typical Range) MM 86.5% 100% (96 - 189) MS 8.0% 86% (83 - 161) MZ 3.9% 61% (60 - 111) FM 0.4% 100% (93 - 191) SZ 0.3% 41% (42 - 75) SS 0.1% 64% (62 - 119) ZZ 0.05% 19% (16 - 38) FS 0.05% 70% (70 - 128) FZ Unknown 46% (44 - 88) FF Unknown Unknown *A-1-AT concentration in the homozygous MM phenotype is taken as the reference normal. Percent deficiency in each phenotype is reported relative to this reference. Ranges used to confirm phenotype. Performed at: [address] [id number] Director Of Special Education: Rogelio Jane PhD, Phone: [phone] Performed at: [address] [id number] Director Of Special Education: Sergio Staples MD, Phone: [phone] Performed By: #### L 100.0100, L300.8000, L501.4021, L500.4050 #### [facility] Laboratory [address] [facility] [place], [address] Angiotensin Convert Enzymeon 07-05-2025 ANGIOT-CONV.ENZ 67 U/L Normal 14-82 [facility] Comment on above: Result Comment: Perf ormed at: [address] [id number] Director Of Special Education: Rogelio Jane PhD, Phone: [phone] Performed By: #### L 101.9900, L3100.2300, L501.6710, L3410.9992, L3100.6900, L509.8002, L3400.8000, L3900.2100 #### [facility] Laboratory [address] [place], [address] Carcinoembryonic Antigenon 0 07-05-2025 CEA 2.2 ng/mL Normal 0.0-4.7 [facility] Comment on above: Result Comment: Nons mokers <3.9 Smokers <5.6 [facility] Electrochemiluminescence Immunoassay (ECLIA) Values obtained with different assay methods or kits cannot be used interchangeably. Results cannot be interpreted as absolute evidence of the presence or absence of malignant disease. Performed By: #### L 101.9900, L3100.2300, L501.6710, L3410.9992, L3100.6900, L509.8002, L3400.8000, L3900.2100 #### [facility] Laboratory [address] [place], [address] Quantiferon TB-Gold+on 07-05 QFT MITOGEN JOSE > 10.00 Normal . [facility] Comment on above: Performed By: #### L 100.0100, L300.8000, L501.4021, L500.4050 #### [facility] Laboratory [address] [place], [address] QFT NIL VALUE 0.09 IU/mL Normal . [facility] Comment on above: Performed By: #### L 100.0100, L300.8000, L501.4021, L500.4050 #### [facility] Laboratory [address] [place], [address] QFT TB GOLD+ Comment Normal . [facility] Comment on above: Result Comment: Alex tiFERON-TB Gold Plus is a qualitative indirect test for M tuberculosis infection (including disease) and is intended for use in conjunction with risk assessment, radiography, and other medical and diagnostic evaluations. The QuantiFERON-TB Gold Plus result is determined by subtracting the Nil value from either TB antigen (Ag) value. The Mitogen tube serves as a control for the test. Performed By: #### L 100.0100, L300.8000, L501.4021, L500.4050 #### [facility] Laboratory [address] [place], [address] QFT TB POS CRIT Negative Normal Negative [facility] Comment on above: Result Comment: No r esponse to M tuberculosis antigens detected. Infection with M tuberculosis is unlikely, but high risk individuals should be considered for additional testing (ATS/IDSA/CDC Clinical Practice Guidelines, 2017). The reference range is an Antigen minus Nil result of <0.35 IU/mL. The specimen received for QuantiFERON testing was incubated by the ordering institution. Specific procedures outlined in our Directory of Services and in the package insert for the QuantiFERON Gold (In Tube) test must be followed to enable for proper stimulation of cells for the production of interferon gamma. Chemiluminescence immunoassay methodology Performed By: #### L 100.0100, L300.8000, L501.4021, L500.4050 #### [facility] Laboratory [address] [place], [address] QFT TB1+ AG JOSE 0.07 IU/mL Normal . [facility] Comment on above: Performed By: #### L 100.0100, L300.8000, L501.4021, L500.4050 #### [facility] Laboratory [address] [place], [address] QFT TB2+ AG JOSE 0.07 IU/mL Normal . [facility] Comment on above: Performed By: #### L 100.0100, L300.8000, L501.4021, L500.4050 #### [facility] Laboratory [address] [place], [address] Alpha Antitrypsin Serumon ALPHA1 ANTITRYP 182 mg/dL Normal 101-187 [facility] Comment on above: Result Comment: Perf ormed at: [facility] [id number] Director Of Special Education: Rogelio Jane PhD, Phone: [phone] Performed By: #### L 101.9900, L3100.2300, L501.6710, L3410.9992, L3100.6900, L509.8002, L3400.8000, L3900.2100 #### [facility] Laboratory [address] [place], [address] Pulmonary Visit Reporton Pulmonary Visit Report [facility] [address] [place] [address] OFFICE VISIT Date of Service: 07/03/25 MR#: [id number] Acct: [id number] Name: JERRI JIMENEZ Rep #: [id number] : 1980 Provider: Dr. Chandra Silva DO Age/Sex: 45/F Location: [facility].PMW Status: Signed Assessment and Plan Assessment and Plan (1) Lung mass: Status: Acute Plan: The patient presented today for the evaluation of a right hilar lung mass with subcarinal infiltration, which was demonstrated on CT imaging in May when the patient presented to the ED. The patient does have a combustible cigarette smoking history, prior to transitioning to vaping in 2020. The findings noted on CT imaging could certainly represent an underlying malignant process. She does report a family history of both lung and breast cancer. Accordingly, recommend proceeding with bronchoscopic evaluation/EBUS to facilitate sampling. Risks and benefits of the proposed procedure were discussed with the patient. She is in agreement to proceed. Our office will work with the surgery scheduling department to place the patient on the schedule in the next 2 weeks. I have placed orders for preprocedural lab work. Orders: Orders Prothrombin Time w/INR 07/03/25 R91.8 - Other nonspecific abnormal finding of lung field Partial Thromboplast Time 07/03/25 R91.8 - Other nonspecific abnormal finding of lung field PLATELET COUNT 07/03/25 R91.8 - Other nonspecific abnormal finding of lung field HPI HPI Comments Details: The patient is a 45-year-old female who presents to the clinic today in referral for the evaluation of a lung mass. Multiple family members were present at today's office visit. In mid May 2025, the patient presented to the emergency department with complaints of shortness of breath and chest pain. Her laboratory workup, including troponin were negative. A CTA chest was obtained, which demonstrated a right hilar lung mass measuring approximately 4 cm in size with what appeared to be infiltration into the subcarinal space as well. The patient reported that she smokes cigarettes, 0.5 to 1 pack/day for approximately 20 years prior to transitioning to vaping in 2020. In addition to her personal smoking history, she did grow up in a smoking household. 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 She did report that she was diagnosed with asthma in childhood. Ironically, however, she reports little to no improvement with her symptoms with the use of albuterol. The patient is not currently on any form of blood thinners. She does report a family history of lung and breast cancer. She denies any fevers, chills or night sweats. Her weight and appetite have been stable. Intake Vital Signs 06/15/25 15:52 07/03/25 09:44 Height 5 ft 4 in 5 ft 4 in Weight: 145 lb BMI 24.9 BP 123/78 H Blood Pressure Location Lt brachial Position Sitting Respiration 18 Pulse 78 Pulse Source Monitor Temp 97.4 F L Temperature Source Temporal Artery Pulse Oximetry (%) 97 Oxygen Delivery Method room air Intake Visit Reasons: mass right lung Manager Pe Required: No DME Vendor: n/a Accompanied by: Daughters and boyfriend. Is patient in pain?: Yes (pain right sided chest pain, comes and goes.) Pain scale (1-10): 6 Allergies Sulfa (Sulfonamide Antibiotics) Allergy (Verified 07/03/25 11:25) Anaphylaxis Medications ???Medication ???Instructions ???Recorded ???Confirmed ???Type buprenorphine 8 mg-naloxone 2 mg 8 ea sublingual BID 02/15/2207/03 History sublingual film gabapentin 100 mg capsule 100 mg PO 4X/DAY 02/15/22 07/03/25 History trazodone 50 mg tablet 50 mg PO QHS 02/15/22 07/29/24 His tory hydroxyzine HCl 10 mg tablet 10 mg PO TID PRN 07/03/25 07/03/25 History lisdexamfetamine 30 mg capsule 30 mg PO QAM 07/03/25 07/03/25 His tory Have you fallen in the past year?: No PFSH Medical History Right ureteral stone Wears glasses Depression Substance abuse Marijuana use History of ulceration Vapes nicotine containing substance Shortness of breath on exertion Leg cramps Anxiety Asthma Surgical History Hx of oral surgery Hx of tubal ligation Social History household members: significant other and children Smoking Status: Current every day smoker tobacco type: e-cigarettes substance use type: former substance user and opiates Review of Systems Resp Respiratory: Yes as per HPI Exam Const Constitutional: Positive conversant, cooperative, in no acute respiratory distress, well developed, well nourishe (more content not included)... Normal [facility] CRPon 07-02-2025 C-REACTIVE PROT 3.70 mg/L High 0.0-3.0 [facility] Comment on above: Performed By: #### L 101.9900, L3100.2300, L501.6710, L3410.9992, L3100.6900, L509.8002, L3400.8000, L3900.2100 #### [facility] Laboratory [address] [place], [address] Erythrocyte Sed Rateon 07-02 SED RATE 5 mm/hr Normal 0-30 [facility] Comment on above: Performed By: #### L 101.9900, L3100.2300, L501.6710, L3410.9992, L3100.6900, L509.8002, L3400.8000, L3900.2100 #### [facility] Laboratory [address] [place], [place], [id number] Erythrocyte sedimentation ra teOrdered By: Semaj Sheridan on 07-02-2025 ESR (Bld) [Velocity] 5 mm/h 0-30 [facility] Qualitative QuantiFERON-TB g old in tube testOrdered By: Semaj Sheridan on 07-02-2025 M. tuberculosis tuberculin stim IFN-g Ql (Bld) 0.07 IU/mL . [facility] Serum bpaym-2-fuysimitfop me asurementOrdered By: Semaj Sheridan on 07-02-2025 Alpha 1 antitrypsin [Mass/Vol] 182 mg/dL 101-187 [facility] Comment on above: Performed at: [employer] [place], [place] [id number] Director: Rogelio Jane PhD, Phone: [phone] Serum or plasma C reactive p rotein measurement (mass/volume)Ordered By: Semaj Sheridan on 07-02-2025 CRP [Mass/Vol] 3.70 mg/L High 0.0-3.0 [facility] Serum or plasma angiotensin converting enzyme measurement (enzymatic activity/volume)Ordered By: Semaj Sheridan on 07-02-2025 Angiotensin converting enzyme [Catalytic activity/Vol] 67 U/L 14-82 [facility] Comment on above: Performed at: [employer] [place], [place] [id number] Director: Rogelio Jane PhD, Phone: [phone] Serum or plasma carcinoembry onic antigen measurement (mass/volume)Ordered By: Semaj Sheridan on 07-02-2025 Carcinoembryonic Ag [Mass/Vol] 2.2 ng/mL 0.0-4.7 [facility] Comment on above: Nonsmokers <3.9 Smok ers <5.6[facility] Electrochemiluminescence Immunoassay(ECLIA)Values obtained with different assay methods or kitscannot be used interchangeably. Results cannot beinterpreted as absolute evidence of the presence orabsence of malignant disease. Syphilis Antibodieson 2024 Syphilis Abs Non-Reactive Normal Nonreactive [facility] Comment on above: Performed By: #### L 101.9900, L3100.2300, L501.6710, L3410.9992, L3100.6900, L509.8002, L3400.8000, L3900.2100 #### [facility] Laboratory [address] [place], [address] 12 Lead EKGon 06-15-2025 12 Lead EKG [facility] [address] [place] [address] 12 Lead EKG 06/15/25 1600 MR#: [id number] Acct: [id number] Name: JERRI JIMENEZ Rep #: [id number] : 1980 45 From: Morgan Tang MD Attending Dr: Status: DEP ER Ordering Dr: Semaj Randall DO Date: 06/15/25 Location: ED Sex: F C Admitted: Test Reason : CP Blood Pressure : */* mmHG Vent. Rate : 80 BPM Atrial Rate : 80 BPM P-R Int : 162 ms QRS Dur : 86 ms QT Int : 362 ms P-R-T Axes : 80 56 51 degrees QTcB Int : 417 ms Normal sinus rhythm Normal ECG Confirmed by JULIO THOMAS, MORGAN ([id number]), metropolitan editor BRIELLE CALLAHAN ([id number]) on 06/17/2025 6:12:02 AM Referred By: JERARDO/HAYES Confirmed By: MORGAN TANG MD 06/17/25 0612 Date Morgan Tang MD CC: Dr. Semaj Randall DO; No Primary Care Physician Signed Normal [facility] Absolute lymphocyte countOrd ered By: Semaj Randall on 06-15-2025 Lymphocytes Auto (Unsp spec) [#/Vol] 1.31 10*3/uL 0.83-4.51 [facility] Absolute neutrophil countOrd ered By: Semaj Randall on 06-15-2025 Neutrophils (Bld) [#/Vol] 3.2 10*3/uL 2.0-7.7 [facility] Anion gap in Serum or Plasma Ordered By: Semaj Randall on 06-15-2025 Anion gap [Moles/Vol] 10 mmol/L -15 [facility] Automated lymphocyte count a s percentage of total leukocytesOrdered By: Semaj Randall on 06-15-2025 Lymphocytes/100 WBC Auto (Unsp spec) 23.6 % -41 [facility] BUN/creatinine ratioOrdered By: Semaj Randall on 06-15-2025 Urea nitrogen/Creatinine [Mass ratio] 22.1 mg/mg High 10-20 [facility] Basophil percentageOrdered B y: Semaj Randall on 06-15-2025 Basophils/100 WBC (Bld) 0.9 % 0-1 [facility] Bilirubin, totalOrdered By: Semaj Randall on 06-15-2025 Bilirubin [Mass/Vol] 0.24 mg/dL 0.00-1.30 [facility] CBC W/Diff, Automatedon 05-30 Absolute Lymph 1.31 X10 3/uL Normal 0.83-4.51 [facility] Comment on above: Performed By: #### L 100.0100, L300.8000, L501.4021, L500.4050 #### [facility] Laboratory [address] [place], [address] Absolute Neut 3.2 X10 3/uL Normal 2.0-7.7 [facility] Comment on above: Performed By: #### L 100.0100, L300.8000, L501.4021, L500.4050 #### [facility] Laboratory [address] [place], [address] Basophils/100 WBC (Bld) 0.9 % Normal 0-1 [facility] Comment on above: Performed By: #### L 100.0100, L300.8000, L501.4021, L500.4050 #### [facility] [address] [place], [address] Eosinophils/100 WBC (Bld) 11.9 % High 0-5 [facility] Comment on above: Performed By: #### L 100.0100, L300.8000, L501.4021, L500.4050 #### [facility] [address] [place], [address] Erythrocyte distribution width (RBC) [Ratio] 13.2 % Normal 11.6-14.6 [facility] Comment on above: Performed By: #### L 100.0100, L300.8000, L501.4021, L500.4050 #### [facility] Laboratory [address] [place], [address] Hematocrit (Bld) [Volume fraction] 36.0 % Low 37-47 [facility] Comment on above: Performed By: #### L 100.0100, L300.8000, L501.4021, L500.4050 #### [facility] [address] [place], [address] Hemoglobin (Bld) [Mass/Vol] 11.8 g/dL Low 12.0-15.0 [facility] Comment on above: Performed By: #### L 100.0100, L300.8000, L501.4021, L500.4050 #### [facility] [address] [place], [address] IG% 0.200 Normal 0.0-0.9 [facility] Comment on above: Result Comment: IG% - Immature Granulocytes (promyelocytes, myelocytes and metamyelocytes) > 1% indicates that a LEFT SHIFT is Present. Performed By: #### L 100.0100, L300.8000, L501.4021, L500.4050 #### [facility] [address] [place], [address] Lymphocytes/100 WBC (Bld) 23.6 % Normal 19-41 [facility] Comment on above: Performed By: #### L 100.0100, L300.8000, L501.4021, L500.4050 #### [facility] [address] [place], [address] MCH (RBC) [Entitic mass] 28.6 pg Normal 27.0-32.0 [facility] Comment on above: Performed By: #### L 100.0100, L300.8000, L501.4021, L500.4050 #### [facility] [address] [place], [address] MCHC (RBC) [Mass/Vol] 32.8 g/dL Normal 32-36 [facility] Comment on above: Performed By: #### L 100.0100, L300.8000, L501.4021, L500.4050 #### [facility] [address] [place], [address] MCV (RBC) [Entitic vol] 87.4 fL Normal 81-99 [facility] Comment on above: Performed By: #### L 100.0100, L300.8000, L501.4021, L500.4050 #### [facility] [address] [place], [address] Monocytes/100 WBC (Bld) 5.2 % Normal 0-10 [facility] Comment on above: Performed By: #### L 100.0100, L300.8000, L501.4021, L500.4050 #### [facility] [address] [place], [address] Neutrophils/100 WBC (Bld) 58.2 % Normal 47-70 [facility] Comment on above: Performed By: #### L 100.0100, L300.8000, L501.4021, L500.4050 #### [facility] [address] [place], [address] Nucleated RBC (Bld) [#/Vol] 0 10*3/uL Normal 0-5 [facility] Comment on above: Performed By: #### L 100.0100, L300.8000, L501.4021, L500.4050 #### [facility] [address] [place], [address] Platelet mean volume (Bld) [Entitic vol] 9.0 fL Normal 6.2-12.0 [facility] Comment on above: Performed By: #### L 100.0100, L300.8000, L501.4021, L500.4050 #### [facility] [address] [place], [address] Platelets (Bld) [#/Vol] 218 10*3/uL Normal 150-450 [facility] Comment on above: Performed By: #### L 100.0100, L300.8000, L501.4021, L500.4050 #### [facility] [address] [place], [address] RBC (Bld) [#/Vol] 4.12 10*6/uL Low 4.2-5.4 [facility] Comment on above: Performed By: #### L 100.0100, L300.8000, L501.4021, L500.4050 #### [facility] [address] [place], [address] RDW SD 42.3 fl Normal 35.1-43.9 [facility] Comment on above: Performed By: #### L 100.0100, L300.8000, L501.4021, L500.4050 #### [facility] [address] [place], [address] WBC (Bld) [#/Vol] 5.6 10*3/uL Normal 4.4-11.0 [facility] Comment on above: Performed By: #### L 100.0100, L300.8000, L501.4021, L500.4050 #### [facility] Laboratory [address] [place], [address] CTA Chest W/WO Contraston CTA Chest W/WO Contrast [facility] Imaging Services [address] [place] [address] CTA Chest W/WO Contrast MR#: [id number] Acct: [id number] Name: TONYJERRIMani LEUNG Rep #: [id number] : 1980 F 45 From: Torey Good MD PCP: Care Physician,No Primary Status: REG ER Study: CTA Chest W/WO Contrast Date of Exam: 06/15/25 Exam# [id number] Ordering Dr: Semaj Randall DO PROCEDURE: CTA CHEST W/WO CONTRAST 06/15/2025 REASON FOR EXAM: ABNORMAL CHEST X-RAY TECHNIQUE: CTA CHEST W/WO CONTRAST Multiplanar Sagittal and Coronal images were obtained. 3D reconstructions CONTRAST: Isovue 370 VOLUME: 100 mL One or more dose reduction techniques were used (e.g., Automated exposure control, adjustment of the mA and/or kV according to patient size, use of iterative reconstruction technique). RADIATION DOSE SUMMARY: CTDlvol: 11 mGy DLP: 165 mGycm COMPARISON: None FINDINGS: Neoplastic mass present in the right hilum narrowing the descending right pulmonary artery. Abnormal soft tissue in the subcarinal space as well. Right hilar mass measures at least 4.4 by 2.2 cm. Normal thoracic aorta. No coronary calcification. No pericardial effusion. Upper abdomen demonstrates no adrenal masses. Inspection of the lung parenchyma demonstrates no discrete pulmonary masses or consolidation CT/CTA Chest W/WO Contrast IMPRESSION: Neoplastic mediastinal and right hilar mass concerning for bronchogenic carcinoma. Narrowing of the descending right pulmonary artery with soft tissue tracking along the lower lobe vessels. Reading Location: [facility] CC: Dr. Semaj Randall DO; No Primary Care Physician Community Advocate: Signed Normal [facility] Carbon dioxide, total [Moles /volume] in Central venous bloodOrdered By: Semaj Randall on 06-15-2025 CO2 [Moles/Vol] 24.4 mmol/L 21.0-32.0 [facility] Chest PA and Lateralon 06-15 Chest PA and Lateral [facility] Imaging Services [address] [place] [address] Chest PA and Lateral MR#: [id number] Acct: [id number] Name: JERRI JIMENEZ Rep #: [id number] : 1980 F 45 From: Kosta Muro MD PCP: Care Physician,No Primary Status: REG ER Study: Chest PA and Lateral Date of Exam: 06/15/25 Exam# [id number] Ordering Dr: Semaj Randall DO PROCEDURE: CHEST PA AND LATERAL 06/15/2025 REASON FOR EXAM: COUGH TECHNIQUE: CHEST PA AND LATERAL COMPARISON: 10/07/2024 FINDINGS: No focal airspace consolidation, lobar collapse, pneumothorax or pleural effusion. Prominent enlargement of the right hilar vasculature may be related to right hilar lymphadenopathy or possibly a mass lesion. New from prior exam. Cardiac silhouette is normal in size. Unremarkable osseous structures. RAD/Chest PA and Lateral IMPRESSION: Prominent nodular enlargement of the right hilum likely reflecting hilar lymphadenopathy or mass lesion. Less likely, a distended pulmonary artery with acute PE could have a similar appearance. Recommend further evaluation with contrast-enhanced CT chest. Reading Location: [id number] CC: Dr. Semaj Randall DO; No Primary Care Physician Community Advocate: Signed Normal [facility] Chloride assayOrdered By: Lance Randall on 06-15-2025 Chloride [Moles/Vol] 105 mmol/L 98-108 [facility] Comprehensive Metabolic Prof ilon 06-15-2025 Albumin [Mass/Vol] 3.9 g/dL Normal 3.5-5.0 [facility] Comment on above: Performed By: #### L 100.0100, L300.8000, L501.4021, L500.4050 #### [facility] Laboratory [address] [place], [address] Albumin/Globulin [Mass ratio] 1.3 {ratio} Normal 0.9-2.4 [facility] Comment on above: Performed By: #### L 100.0100, L300.8000, L501.4021, L500.4050 #### [facility] Laboratory [address] [place], [address] ALK PHOS 54 U/L Normal 35-104 [facility] Comment on above: Performed By: #### L 100.0100, L300.8000, L501.4021, L500.4050 #### [facility] Laboratory [address] [place], [address] ALT [Catalytic activity/Vol] 25 U/L Normal <=34 [facility] Comment on above: Performed By: #### L 100.0100, L300.8000, L501.4021, L500.4050 #### [facility] Laboratory [address] [place], [address] AST [Catalytic activity/Vol] 26 U/L Normal <=31 [facility] Comment on above: Performed By: #### L 100.0100, L300.8000, L501.4021, L500.4050 #### [facility] Laboratory [address] [place], [address] Bilirubin [Mass/Vol] 0.24 mg/dL Normal 0.00-1.30 [facility] Comment on above: Performed By: #### L 100.0100, L300.8000, L501.4021, L500.4050 #### [facility] Laboratory [address] [place], [address] BUN/CRE 22.1 RATIO High 10-20 [facility] Comment on above: Performed By: #### L 100.0100, L300.8000, L501.4021, L500.4050 #### [facility] Laboratory [address] [place], [address] Calcium [Mass/Vol] 9.2 mg/dL Normal 7.6-11.0 [facility] Comment on above: Performed By: #### L 100.0100, L300.8000, L501.4021, L500.4050 #### [facility] Laboratory [address] [place], [address] Chloride [Moles/Vol] 105 mmol/L Normal 98-108 [facility] Comment on above: Performed By: #### L 100.0100, L300.8000, L501.4021, L500.4050 #### [facility] Laboratory [address] [place], [address] CO2 [Moles/Vol] 24.4 mmol/L Normal 21.0-32.0 [facility] Comment on above: Performed By: #### L 100.0100, L300.8000, L501.4021, L500.4050 #### [facility] Laboratory [address] [place], [address] Creatinine [Mass/Vol] 1.12 mg/dL Normal 0.70-1.20 [facility] Comment on above: Performed By: #### L 100.0100, L300.8000, L501.4021, L500.4050 #### [facility] Laboratory [address] [place], [address] ECRCL 58.13 ml/min Normal 50-250 [facility] Comment on above: Performed By: #### L 100.0100, L300.8000, L501.4021, L500.4050 #### [facility] Laboratory [address] [place], [address] GAP 10 Normal 5-15 [facility] Comment on above: Performed By: #### L 100.0100, L300.8000, L501.4021, L500.4050 #### [facility] Laboratory [address] [place], [address] GFR/1.73 sq M.predicted among non-blacks MDRD (S/P/Bld) [Vol rate/Area] 61 mL/min/{1.73_m2} Normal >60 [facility] Comment on above: Result Comment: mL/m in/1.73m2 CKD-EPI Creatinine Equation (2020) Performed By: #### L 100.0100, L300.8000, L501.4021, L500.4050 #### [facility] Laboratory [address] [place], [address] Globulin (S) [Mass/Vol] 3.1 g/dL Normal 2.2-4.2 [facility] Comment on above: Performed By: #### L 100.0100, L300.8000, L501.4021, L500.4050 #### [facility] Laboratory [address] [place], [address] Glucose [Mass/Vol] 91 mg/dL Normal 70-99 [facility] Comment on above: Performed By: #### L 100.0100, L300.8000, L501.4021, L500.4050 #### [facility] Laboratory [address] [place], [address] Potassium [Moles/Vol] 4.4 mmol/L Normal 3.3-5.1 [facility] Comment on above: Performed By: #### L 100.0100, L300.8000, L501.4021, L500.4050 #### [facility] Laboratory [address] [place], [address] Sodium [Moles/Vol] 139 mmol/L Normal 133-145 [facility] Comment on above: Performed By: #### L 100.0100, L300.8000, L501.4021, L500.4050 #### [facility] Laboratory [address] [place], [address] T PROT 7.0 g/dL Normal 5.9-8.4 [facility] Comment on above: Performed By: #### L 100.0100, L300.8000, L501.4021, L500.4050 #### [facility] Laboratory [address] [place], [address] Urea nitrogen [Mass/Vol] 25 mg/dL High 4-19 [facility] Comment on above: Performed By: #### L 100.0100, L300.8000, L501.4021, L500.4050 #### [facility] Laboratory [address] [place], [address] D-Dimer Quantitative (DVT/PE )on 06-15-2025 D-DIMER QUANT < 0.27 Low 0.27-0.49 [facility] Comment on above: Result Comment: NORM AL D-Dimer level (<0.50) indicates no DVT or PE. Performed By: #### L 100.0100, L300.8000, L501.4021, L500.4050 #### [facility] Laboratory [address] [place], [address] Emergency Department Summary on 06-15-2025 Emergency Department Summary [facility] Medical Records Department [address] [place] [address] Emergency Department Summary 06/15/25 MR#: [id number] Acct: [id number] Name: JERRI JIMENEZ Rep #: [id number] : 1980 45 From: Semaj Randall DO PCP: Care Physician,No Primary Status:DEP ER Location: ED HPI History of Present Illness Chief Complaint: Chest Pain Informant: patient Onset/Context/Timing Onset: Days (4-5) Activity at onset: gradual Timing: Continuous Quality: Positive for Burning Location: Substernal Worsened By: - (Activity) Relieved By: Nothing Associated Symptoms: Positive for Dyspnea and Cough; Negative for Nausea, Vomiting, Diaphoresis, Fever, Lightheadedness, Acid Reflux or Palpitations Narrative Narrative: Patient presents with chest pain that has been constant for the past 4 to 5 days. Patient states it is gradually gotten worse. Patient is concerned that she has pneumonia. Patient states it feels similar to prior episodes of pneumonia. Patient admits to a burning sensation. Patient states it is over the substernal area. Patient admits to some shortness of breath and cough. Patient denies any fevers or chills. Patient denies any palpitations. Patient states her pain is worse with any activity. Patient states nothing makes it better. Prior Similar Symptoms: Yes (With pneumonia) Recent Illness/Hospitalization: No CVD Risk Factors: Positive for Smoking; Negative for Hypertension, Diabetes, Hypercholesterolemia or Family History 1' PE Risk Factors: Positive for Recent Travel/Surgery; Negative for Recent Immobilization, Prior DVT or PE, Cancer or OCP + Smoking + >/=35 PFSH PFSH Medical History Right ureteral stone Wears glasses Depression Substance abuse Marijuana use History of ulceration Vapes nicotine containing substance Shortness of breath on exertion Leg cramps Anxiety Asthma Home Medications ???Medication ???Instructions ???Recorded ???Last Taken ???Type buprenorphine 8 mg-naloxone 2 mg 8 ea sublingual BID 02/15/2211/08 History sublingual film gabapentin 100 mg capsule 100 mg PO 4X/DAY 02/15/22 11/08/23 History trazodone 50 mg tablet 50 mg PO QHS 02/15/22 11/08/23 His tory phenazopyridine 200 mg tablet 200 mg PO TID PRN pain 6 doses #7 07/29/24 Unknown Rx (Pyridium) tabs sertraline 25 mg tablet 25 mg PO QDAY 07/29/24 Unknown His tory pantoprazole 40 mg tablet,delayed 40 mg PO DAILY #30 tabs 10/07/24 Unknown Rx release sucralfate 1 gram tablet (Carafate) 1 g PO Q6H #60 tabs 10/07/24 Un known Rx Allergy/AdvReac Type Severity Reaction Status Date / Time Sulfa (Sulfonamide Allergy Anaphylaxis Verified 06/15/25 15:53 Antibiotics) Surgical History Hx of oral surgery Hx of tubal ligation Social History household members: significant other and children Smoking Status: Current every day smoker tobacco type: e-cigarettes substance use type: former substance user and opiates ROS ROS ED Constitutional Constitutional ED: Denies chills or fever(s) Eyes Eyes: Denies blurry vision or change in vision ENT ENT ED: Reports sore throat; Denies rhinorrhea Cardiovascular Cardiovascular: Reports chest pain; Denies palpitations Respiratory/Chest Respiratory/Chest: Reports cough and dyspnea Gastrointestinal Gastrointestinal: Denies nausea or vomiting Genitourinary Genitourinary ED: Denies dysuria or hematuria Musculoskeletal Musculoskeletal: Denies back pain or neck pain Integumentary Denies abscess or rash Neurologic Neurologic: Denies headache(s) or weakness Allergic/Immunologic Allergic/Immunologic ED: Denies mouth swelling or urticaria EXAM Physical Exam Const Vital Signs: 06/15/25 15:52 06/15/25 16:22 06/15/25 16:23 Temperature 99 F Temperature Source Temporal Pulse Rate 85 71 Respiratory Rate 14 16 Respiratory Effort Blood Pressure 112/55 L Blood Pressure Mean 74 Pulse Ox 99 98 Oxygen Delivery Method Room Air Room Air 06/15/25 16:26 06/15/25 16:47 06/15/25 17:00 Temperature Temperature Source Pulse Rate 69 72 Respiratory Rate 6 L 12 Respiratory Effort Normal Blood Pressure Blood Pressure Mean Pulse Ox 100 Oxygen Delivery Method 06/15/25 17:15 06/15/25 17:21 06/15/25 17:30 Temperature Temperature Source Pulse Rate 73 71 72 Respiratory Rate 29 H 13 18 Respiratory Effort Blood Pressure 113/72 Blood Pressure Mean 83 Pulse Ox 97 Oxygen Delivery Method Room Air 06/15/25 17:30 06/15/25 17:45 06/15/25 18:00 Temperature Temperature Source Pulse Rate 67 62 (more content not included)... Normal [facility] Eosinophil percentageOrdered By: Semaj Randall on 06-15-2025 Eosinophils/100 WBC (Bld) 11.9 % High 0-5 [facility] Erythrocyte distribution wid th ratioOrdered By: Semaj Randall on 06-15-2025 Erythrocyte distribution width (RBC) [Ratio] 13.2 % 11.6-14.6 [facility] Erythrocyte distribution wid th standard deviationOrdered By: Semaj Randall on 06-15-2025 Erythrocyte distribution width (RBC) [Ratio] 42.3 fl 35.1-43.9 [facility] Glomerular filtration rate ( GFR) estimation/1.73 sq m using serum, plasma, or whole bOrdered By: Semaj Randall on 06-15-2025 GFR/1.73 sq M.predicted among non-blacks MDRD (S/P/Bld) [Vol rate/Area] 61 mL/min/{1.73_m2} >60 [facility] Comment on above: mL/min/1.73m2 CKD-EP I Creatinine Equation (2020) Hematocrit Auto (Bld) [Volum e fraction]Ordered By: Semaj Randall on 06-15-2025 Hematocrit (Bld) [Volume fraction] 36.0 % Low 37-47 [facility] Hemoglobin measurementOrdere d By: Semaj Randall on 06-15-2025 Hemoglobin (Bld) [Mass/Vol] 11.8 g/dL Low 12.0-15.0 [facility] Immature granulocytes/100 WB C Auto (Bld)Ordered By: Semaj Randall on 06-15-2025 Immature granulocytes/100 WBC (Bld) 0.200 % 0.0-0.9 [facility] Comment on above: IG% - Immature Granu locytes (promyelocytes, myelocytes and metamyelocytes) > 1% indicates that a LEFT SHIFT is Present. L501.4021on 06-15-2025 Trop T High Sen < 6 Normal <=14 [facility] Comment on above: Performed By: #### L 100.0100, L300.8000, L501.4021, L500.4050 #### [facility] Laboratory [address] [place] [address], [address] Laboratory - Chemistry and C hemistry - challengeOrdered By: Semaj Randall on 06-15-2025 AST [Catalytic activity/Vol] 26 U/L <32 [facility] MCV (mean corpuscular volume ) determinationOrdered By: Semaj Randall on 06-15-2025 MCV (RBC) [Entitic vol] 87.4 fL 81-99 [facility] Mean corpuscular hemoglobin (MCH) determinationOrdered By: Semaj Randall on 06-15-2025 MCH (RBC) [Entitic mass] 28.6 pg 27.0-32.0 [facility] Mean corpuscular hemoglobin concentration (MCHC) determinationOrdered By: Semaj Randall on 06-15-2025 MCHC (RBC) [Mass/Vol] 32.8 g/dL 32-36 [facility] Mean platelet volume determi nationOrdered By: Semaj Randall on 06-15-2025 Platelet mean volume (Bld) [Entitic vol] 9.0 fL 6.2-12.0 [facility] Monocyte percentageOrdered B y: Semaj Randall on 06-15-2025 Monocytes/100 WBC (Bld) 5.2 % 0-10 [facility] Neutrophil percentageOrdered By: Semaj Randall on 06-15-2025 Neutrophils/100 WBC (Bld) 58.2 % 47-70 [facility] Nucleated red blood cell per centageOrdered By: Semaj Randall on 06-15-2025 Nucleated RBC/100 WBC (Bld) [Ratio] 0 % 0-5 [facility] Platelet countOrdered By: Lance Randall on 06-15-2025 Platelets (Bld) [#/Vol] 218 10*3/uL 150-450 [facility] Potassium measurement (mass/ volume)Ordered By: Semaj Randall on 06-15-2025 Potassium (Unsp spec) [Mass/Vol] 4.4 mmol/L 3.3-5.1 [facility] RBC Auto (Bld) [#/Vol]Ordere d By: Semaj Randall on 06-15-2025 RBC (Bld) [#/Vol] 4.12 10*6/uL Low 4.2-5.4 [facility] Serum creatinine measurement (mass/volume)Ordered By: Semaj Randall on 06-15-2025 Creatinine [Mass/Vol] 1.12 mg/dL 0.70-1.20 [facility] Serum globulin measurementOr dered By: Semaj Randall on 06-15-2025 Globulin (S) [Mass/Vol] 3.1 g/dL 2.2-4.2 [facility] Serum glucose measurement (m ass/volume)Ordered By: Semaj Randall on 06-15-2025 Glucose [Mass/Vol] 91 mg/dL 70-99 [facility] Serum or plasma alanine rock otransferase (ALT) measurementOrdered By: Semaj Randall on 06-15-2025 ALT [Catalytic activity/Vol] 25 U/L <35 [facility] Serum or plasma albumin naif urement (mass/volume)Ordered By: Semaj Randall on 06-15-2025 Albumin [Mass/Vol] 3.9 g/dL 3.5-5.0 [facility] Serum or plasma albumin/glob ulin mass ratioOrdered By: Semaj Randall on 06-15-2025 Albumin/Globulin [Mass ratio] 1.3 {ratio} 0.9-2.4 [facility] Serum or plasma alkaline ashley sphatase measurementOrdered By: Semaj Randall on 06-15-2025 ALP [Catalytic activity/Vol] 54 U/L 35-104 [facility] Serum or plasma calcium naif urement (mass/volume)Ordered By: Semaj Randall on 06-15-2025 Calcium [Mass/Vol] 9.2 mg/dL 7.6-11.0 [facility] Serum or plasma urea nitroge n measurement (mass/volume)Ordered By: Semaj Randall on 06-15-2025 Urea nitrogen [Mass/Vol] 25 mg/dL High 4-19 [facility] Sodium levelOrdered By: Semaj Randall on 06-15-2025 Sodium [Moles/Vol] 139 mmol/L 133-145 [facility] Total proteinOrdered By: Cheryle Randall on 06-15-2025 Protein [Mass/Vol] 7.0 g/dL 5.9-8.4 [facility] Troponin T.cardiac [Mass/vol ume] in Serum or Plasma by High sensitivity methodOrdered By: Semaj Randall on 06-15-2025 Troponin T.cardiac High sensitivity method [Mass/Vol] < 6 ng/L <14 [facility] White blood cell (WBC) count Ordered By: Semaj Randall on 06-15-2025 WBC (Bld) [#/Vol] 5.6 10*3/uL 4.4-11.0 [facility] CNOVon 05-13-2025 CNOV Office Visit ([facility]) -------- JERRI JIMENEZ ([id number]) 1980 F Date Time Provider Department 05/13/25 7:00 PM NGOC BRIGGS During your visit today, we recorded the following information about you: Temperature Pulse Respiration Blood pressure 98.4 degrees 78/minute 18/minute 100/68 Weight Last Period 69 kg 04/29/25 Ngoc Briggs APRN.COFFEE TASTER 05/13/2025 7:50 PM Signed [facility] Subjective Jerri Jimenez is a 45 year old female. Patient [...] analgesia. - Discussed expected course of illness Nogc Briggs APRN.COFFEE TASTER and Recording using [employer] software for draft documentation of the visit was discussed with the patient/authorized lead generation representative; all questions welcomed and answered. Patient/authorized lead generation representative agreed to proceed Disposition The patient was discharged. OTC Medications were advised: Ngoc Prather APRN.COFFEE TASTER 05/13/2025 7:50 PM Signed 1. Sore throat [...] You will receive your COVID-19 result through [employer] if you have an account; if not, we will call you with the result. - If your COVID-19 test is positive, there is no specific antiviral treatment--rest (more content not included)... Normal [facility] STREP A MOLECULAR (POC)on Procedural Control Valid [facility] Strep A (POCT) Negative Negative [facility] 12 Lead EKGon 10-07-2024 12 Lead EKG [facility] Cardiovascular Services [address] [place] [address] 12 Lead EKG 10/07/24 1155 MR#: [id number] Acct: [id number] Name: JERRI JIMENEZ Rep #: [id number] : 1980 44 From: Morgan Tang MD [...] Normal sinus rhythm Normal ECG Confirmed by MORGAN TANG MD ([id number]), metropolitan editor MARLA JACKSON ([id number]) on 10/08/2024 8:17:20 AM Referred By: Confirmed By: MORGAN TANG MD 10/08/24 0817 Date Morgan Tang MD CC: Dr. Bam Avalos DO; No Primary Care Physician Signed Normal [facility] CBC W/Diff, Automatedon 12-0 Absolute Lymph 1.29 X10 3/uL Normal 0.83-4.51 [facility] Comment on above: Performed By: #### L 100.0100, L300.8000, L501.4021, L500.4050 #### [facility] Laboratory [address] [place], [address] Absolute Neut 7.7 X10 3/uL Normal 2.0-7.7 [facility] Comment on above: Performed By: #### L 100.0100, L300.8000, L501.4021, L500.4050 #### [facility] Laboratory [address] [place], [address] Basophils/100 WBC (Bld) 0.2 % Normal 0-1 [facility] Comment on above: Performed By: #### L 100.0100, L300.8000, L501.4021, L500.4050 #### [facility] Laboratory [address] [place], [address] Eosinophils/100 WBC (Bld) 2.8 % Normal 0-5 [facility] Comment on above: Performed By: #### L 100.0100, L300.8000, L501.4021, L500.4050 #### [facility] Laboratory [address] [place], [address] Erythrocyte distribution width (RBC) [Ratio] 13.2 % Normal 11.6-14.6 [facility] Comment on above: Performed By: #### L 100.0100, L300.8000, L501.4021, L500.4050 #### [facility] Laboratory [address] [place], [address] Hematocrit (Bld) [Volume fraction] 40.4 % Normal 37-47 [facility] Comment on above: Performed By: #### L 100.0100, L300.8000, L501.4021, L500.4050 #### [facility] Laboratory [address] [place], [address] Hemoglobin (Bld) [Mass/Vol] 13.1 g/dL Normal 12.0-15.0 [facility] Comment on above: Performed By: #### L 100.0100, L300.8000, L501.4021, L500.4050 #### [facility] Laboratory [address] [place], [address] IG% 0.400 Normal 0.0-0.9 [facility] Comment on above: Result Comment: IG% - Immature Granulocytes (promyelocytes, myelocytes and metamyelocytes) > 1% indicates that a LEFT SHIFT is Present. Performed By: #### L 100.0100, L300.8000, L501.4021, L500.4050 #### [facility] [address] [place], [address] Lymphocytes/100 WBC (Bld) 13.2 % Low 19-41 [facility] Comment on above: Performed By: #### L 100.0100, L300.8000, L501.4021, L500.4050 #### [facility] [address] [place], [address] MCH (RBC) [Entitic mass] 28.6 pg Normal 27.0-32.0 [facility] Comment on above: Performed By: #### L 100.0100, L300.8000, L501.4021, L500.4050 #### [facility] [address] [place], [address] MCHC (RBC) [Mass/Vol] 32.4 g/dL Normal 32-36 [facility] Comment on above: Performed By: #### L 100.0100, L300.8000, L501.4021, L500.4050 #### [facility] [address] [place], [address] MCV (RBC) [Entitic vol] 88.2 fL Normal 81-99 [facility] Comment on above: Performed By: #### L 100.0100, L300.8000, L501.4021, L500.4050 #### [facility] [address] [place], [address] Monocytes/100 WBC (Bld) 3.9 % Normal 0-10 [facility] Comment on above: Performed By: #### L 100.0100, L300.8000, L501.4021, L500.4050 #### [facility] [address] [place], [address] Neutrophils/100 WBC (Bld) 79.5 % High 47-70 [facility] Comment on above: Performed By: #### L 100.0100, L300.8000, L501.4021, L500.4050 #### [facility] [address] [place], [address] Nucleated RBC (Bld) [#/Vol] 0 10*3/uL Normal 0-5 [facility] Comment on above: Performed By: #### L 100.0100, L300.8000, L501.4021, L500.4050 #### [facility] [address] [place], [address] Platelet mean volume (Bld) [Entitic vol] 8.8 fL Normal 6.2-12.0 [facility] Comment on above: Performed By: #### L 100.0100, L300.8000, L501.4021, L500.4050 #### [facility] [address] [place], [address] Platelets (Bld) [#/Vol] 247 10*3/uL Normal 150-450 [facility] Comment on above: Performed By: #### L 100.0100, L300.8000, L501.4021, L500.4050 #### [facility] [address] [place], [address] RBC (Bld) [#/Vol] 4.58 10*6/uL Normal 4.2-5.4 [facility] Comment on above: Performed By: #### L 100.0100, L300.8000, L501.4021, L500.4050 #### [facility] [address] [place], [address] RDW SD 42.9 fl Normal 35.1-43.9 [facility] Comment on above: Performed By: #### L 100.0100, L300.8000, L501.4021, L500.4050 #### [facility] [address] [place], [address] WBC (Bld) [#/Vol] 9.7 10*3/uL Normal 4.4-11.0 [facility] Comment on above: Performed By: #### L 100.0100, L300.8000, L501.4021, L500.4050 #### [facility] [address] [place], [address] Chest PA and Lateralon 10-07 Chest PA and Lateral [facility] Imaging Services [address] [place] [address] Chest PA and Lateral MR#: [id number] Acct: [id number] Name: JERRI JIMENEZ Rep #: [id number] : 1980 F 44 From: Jaspal Hwang MD PCP: Care Physician,No Primary Status: REG ER Study: Chest PA and Lateral Date of Exam: 10/07/24 Exam# [id number] Ordering Dr: Bam Avalos DO [id number] EXAM: XR CHEST, 2 VIEWS CLINICAL INDICATION: [...] at 14:11 EST , CC: Dr. Bam Avalos, DO; No Primary Care Physician Community Advocate: Signed Normal [facility] Comprehensive Metabolic Prof ilon 10-07-2024 Albumin [Mass/Vol] 3.5 g/dL Normal 3.2-5.0 [facility] Comment on above: Order Comment: REDRA W. PREVIOUS SPECIMEN REJECTED DUE TOHEMOLYSIS. 10/07/24 1251 Maylin Wiggins.1 Performed By: #### L 100.0100, L300.8000, L501.4021, L500.4050 #### [facility] [address] [place], [address] Albumin/Globulin [Mass ratio] 0.9 {ratio} Normal 0.9-2.4 [facility] Comment on above: Order Comment: REDRA W. PREVIOUS SPECIMEN REJECTED DUE TOHEMOLYSIS. 10/07/24 1251 Maylin Wiggins.1 Performed By: #### L 100.0100, L300.8000, L501.4021, L500.4050 #### [facility] [address] [place], [address] ALK P 52 U/L Normal 45-117 [facility] Comment on above: Order Comment: REDRA W. PREVIOUS SPECIMEN REJECTED DUE TOHEMOLYSIS. 10/07/24 1251 Maylin Wiggins.1 Performed By: #### L 100.0100, L300.8000, L501.4021, L500.4050 #### [facility] [address] [place], [address] ALT [Catalytic activity/Vol] 32 U/L Normal 13-56 [facility] Comment on above: Order Comment: REDRA W. PREVIOUS SPECIMEN REJECTED DUE TOHEMOLYSIS. 10/07/24 1251 Maylin Wiggins.1 Performed By: #### L 100.0100, L300.8000, L501.4021, L500.4050 #### [facility] [address] [place], [address] AST [Catalytic activity/Vol] 25 U/L Normal 15-37 [facility] Comment on above: Order Comment: REDRA W. PREVIOUS SPECIMEN REJECTED DUE TOHEMOLYSIS. 10/07/24 1251 Maylin Wiggins.1 Performed By: #### L 100.0100, L300.8000, L501.4021, L500.4050 #### [facility] [address] [place], [address] Bilirubin [Mass/Vol] 0.40 mg/dL Normal 0.20-1.00 [facility] Comment on above: Order Comment: REDRA W. PREVIOUS SPECIMEN REJECTED DUE TOHEMOLYSIS. 10/07/24 125 Maylin Wiggins.1 Result Comment: For patients on eltrombopag therapy, use of Dimension [place] TBIL is not recommended. Performed By: #### L 100.0100, L300.8000, L501.4021, L500.4050 #### [facility] [address] [place], [address] BUN/CRE 20.4 RATIO High 10-20 [facility] Comment on above: Order Comment: REDRA W. PREVIOUS SPECIMEN REJECTED DUE TOHEMOLYSIS. 10/07/24 125 Maylin Wiggins.1 Performed By: #### L 100.0100, L300.8000, L501.4021, L500.4050 #### [facility] [address] [place], [address] CA,Total 8.5 mg/dL Normal 8.5-10.1 [facility] Comment on above: Order Comment: REDRA W. PREVIOUS SPECIMEN REJECTED DUE TOHEMOLYSIS. 10/07/241250 Maylin Wiggins.1 Performed By: #### L 100.0100, L300.8000, L501.4021, L500.4050 #### [facility] [address] [place], [address] Chloride [Moles/Vol] 104 mmol/L Normal 98-107 [facility] Comment on above: Order Comment: REDRA W. PREVIOUS SPECIMEN REJECTED DUE TOHEMOLYSIS. 10/07/24 1251 Maylin Wiggins.1 Performed By: #### L 100.0100, L300.8000, L501.4021, L500.4050 #### [facility] [address] [place], [address] CO2 [Moles/Vol] 28.0 mmol/L Normal 21.0-32.0 [facility] Comment on above: Order Comment: REDRA W. PREVIOUS SPECIMEN REJECTED DUE TOHEMOLYSIS. 10/07/24 1251 Maylin Wiggins.1 Performed By: #### L 100.0100, L300.8000, L501.4021, L500.4050 #### [facility] [address] [place], [address] Creatinine [Mass/Vol] 0.74 mg/dL Normal 0.55-1.02 [facility] Comment on above: Order Comment: REDRA W. PREVIOUS SPECIMEN REJECTED DUE TOHEMOLYSIS. 10/07/24 1251 Maylin Wiggins.1 Result Comment: The validity of the calculated GFR GFRAA in patients over 70 years has not been determined. Clinical correlation is essential. Performed By: #### L 100.0100, L300.8000, L501.4021, L500.4050 #### [facility] [address] [place], [address] ECRCL 87.42 ml/min Normal [facility] Comment on above: Order Comment: REDRA W. PREVIOUS SPECIMEN REJECTED DUE TOHEMOLYSIS. 10/07/24 1251 Maylin Wiggins.1 Performed By: #### L 100.0100, L300.8000, L501.4021, L500.4050 #### [facility] [address] [place], [address] EST GFR - AA 109 mL/min Normal >60 [facility] Comment on above: Order Comment: REDRA W. PREVIOUS SPECIMEN REJECTED DUE TOHEMOLYSIS. 10/07/24 1251 Maylin Jackmanzano.1 Result Comment: Afri can Tongan GFR Calc Performed By: #### L 100.0100, L300.8000, L501.4021, L500.4050 #### [facility] [address] [place], [address] GAP 5 Normal 5-15 [facility] Comment on above: Order Comment: BECKI W. PREVIOUS SPECIMEN REJECTED DUE TOHEMOLYSIS. 10/07/24 1251 Maylin Wiggins.1 Performed By: #### L 100.0100, L300.8000, L501.4021, L500.4050 #### [facility] [address] [place], [address] GFR/1.73 sq M.predicted among non-blacks MDRD (S/P/Bld) [Vol rate/Area] 90 mL/min/{1.73_m2} Normal >60 [facility] Comment on above: Order Comment: BECKI W. PREVIOUS SPECIMEN REJECTED DUE TOHEMOLYSIS. 10/07/24 1251 Maylin Perezno.1 Result Comment: Non- GFR Calc Performed By: #### L 100.0100, L300.8000, L501.4021, L500.4050 #### [facility] [address] [place], [address] Globulin (S) [Mass/Vol] 3.8 g/dL Normal 2.2-4.2 [facility] Comment on above: Order Comment: RED W. PREVIOUS SPECIMEN REJECTED DUE TOHEMOLYSIS. 10/07/24 1251 Maylin Jackmanzano.1 Performed By: #### L 100.0100, L300.8000, L501.4021, L500.4050 #### [facility] [address] [place], [address] Glucose [Mass/Vol] 95 mg/dL Normal 74-106 [facility] Comment on above: Order Comment: BECKI W. PREVIOUS SPECIMEN REJECTED DUE TOHEMOLYSIS. 10/07/24 1251 Maylin Wiggins.1 Performed By: #### L 100.0100, L300.8000, L501.4021, L500.4050 #### [facility] [address] [place], [address] Potassium [Moles/Vol] 3.9 mmol/L Normal 3.5-5.1 [facility] Comment on above: Order Comment: RED W. PREVIOUS SPECIMEN REJECTED DUE TOHEMOLYSIS. 10/07/24 125 Maylin Wiggins.1 Performed By: #### L 100.0100, L300.8000, L501.4021, L500.4050 #### [facility] [address] [place], [address] Sodium [Moles/Vol] 137 mmol/L Normal 136-145 [facility] Comment on above: Order Comment: RED W. PREVIOUS SPECIMEN REJECTED DUE TOHEMOLYSIS. 10/07/241250 Maylin Wiggins.1 Performed By: #### L 100.0100, L300.8000, L501.4021, L500.4050 #### [facility] [address] [place], [address] T PROT 7.3 g/dL Normal 6.4-8.2 [facility] Comment on above: Order Comment: RED W. PREVIOUS SPECIMEN REJECTED DUE TOHEMOLYSIS. 10/07/24 125 Maylin Wiggins.1 Performed By: #### L 100.0100, L300.8000, L501.4021, L500.4050 #### [facility] [address] [place], [address] Urea nitrogen [Mass/Vol] 15 mg/dL Normal 7-18 [facility] Comment on above: Order Comment: RED W. PREVIOUS SPECIMEN REJECTED DUE TOHEMOLYSIS. 10/07/24 125 Maylin Wiggins.1 Performed By: #### L 100.0100, L300.8000, L501.4021, L500.4050 #### [facility] [address] [place], [address] ALB Normal 3.2-5.0 [facility] Comment on above: Order Comment: 'TROP ' Serial specimen #1, #2 or #3: 1 Result Comment: This specimen has been REJECTED due to Laboratory criteria: Hemolyzed. JIAN has been notified of need of recollection. 10/07/24 1250 Maylin Wiggins Performed By: #### L 100.0100, L300.8000, L501.4021, L500.4050 #### [facility] [address] [place], [address] ALK P Normal 45-117 [facility] Comment on above: Order Comment: 'TROP ' Serial specimen #1, #2 or #3: 1 Result Comment: This specimen has been REJECTED due to Laboratory criteria: Hemolyzed. JIAN has been notified of need of recollection. 10/07/24 1250 Maylin Wiggins Performed By: #### L 100.0100, L300.8000, L501.4021, L500.4050 #### [facility] [address] [place], [address] ALT Normal 13-56 [facility] Comment on above: Order Comment: 'TROP ' Serial specimen #1, #2 or #3: 1 Result Comment: This specimen has been REJECTED due to Laboratory criteria: Hemolyzed. JIAN has been notified of need of recollection. 10/07/24 1250 Maylin Wiggins Performed By: #### L 100.0100, L300.8000, L501.4021, L500.4050 #### [facility] [address] [place], [address] AST Normal 15-37 [facility] Comment on above: Order Comment: 'TROP ' Serial specimen #1, #2 or #3: 1 Result Comment: This specimen has been REJECTED due to Laboratory criteria: Hemolyzed. JIAN has been notified of need of recollection. 10/07/24 1250 Maylin Wiggins Performed By: #### L 100.0100, L300.8000, L501.4021, L500.4050 #### [facility] [address] [place], [address] BUN Normal 7-18 [facility] Comment on above: Order Comment: 'TROP ' Serial specimen #1, #2 or #3: 1 Result Comment: This specimen has been REJECTED due to Laboratory criteria: Hemolyzed. JIAN has been notified of need of recollection. 10/07/24 1250 Maylin Wiggins Performed By: #### L 100.0100, L300.8000, L501.4021, L500.4050 #### [facility] [address] [place], [address] BUN/CRE Normal 10-20 [facility] Comment on above: Order Comment: 'TROP ' Serial specimen #1, #2 or #3: 1 Result Comment: This specimen has been REJECTED due to Laboratory criteria: Hemolyzed. JIAN has been notified of need of recollection. 10/07/24 1250 Maylin Wiggins Performed By: #### L 100.0100, L300.8000, L501.4021, L500.4050 #### [facility] [address] [place], [address] CA,Total Normal 8.5-10.1 [facility] Comment on above: Order Comment: 'TROP ' Serial specimen #1, #2 or #3: 1 Result Comment: This specimen has been REJECTED due to Laboratory criteria: Hemolyzed. JIAN has been notified of need of recollection. 10/07/24 1250 Maylin Wiggins Performed By: #### L 100.0100, L300.8000, L501.4021, L500.4050 #### [facility] [address] [place], [address] CL Normal 98-107 [facility] Comment on above: Order Comment: 'TROP ' Serial specimen #1, #2 or #3: 1 Result Comment: This specimen has been REJECTED due to Laboratory criteria: Hemolyzed. JIAN has been notified of need of recollection. 10/07/24 1250 Maylin Wiggins Performed By: #### L 100.0100, L300.8000, L501.4021, L500.4050 #### [facility] [address] [place], [address] CO2 Normal 21.0-32.0 [facility] Comment on above: Order Comment: 'TROP ' Serial specimen #1, #2 or #3: 1 Result Comment: This specimen has been REJECTED due to Laboratory criteria: Hemolyzed. JIAN has been notified of need of recollection. 10/07/24 1250 Maylin Wiggins Performed By: #### L 100.0100, L300.8000, L501.4021, L500.4050 #### [facility] [address] [place], [address] CREAT,SERUM Normal 0.55-1.02 [facility] Comment on above: Order Comment: 'TROP ' Serial specimen #1, #2 or #3: 1 Result Comment: This specimen has been REJECTED due to Laboratory criteria: Hemolyzed. JIAN has been notified of need of recollection. 10/07/24 1250 Maylin Wiggins Performed By: #### L 100.0100, L300.8000, L501.4021, L500.4050 #### [facility] [address] [place], [address] EST GFR Normal >60 [facility] Comment on above: Order Comment: 'TROP ' Serial specimen #1, #2 or #3: 1 Result Comment: This specimen has been REJECTED due to Laboratory criteria: Hemolyzed. JIAN has been notified of need of recollection. 10/07/24 1250 Maylin Wiggins Performed By: #### L 100.0100, L300.8000, L501.4021, L500.4050 #### [facility] [address] [place], [address] EST GFR - AA Normal >60 [facility] Comment on above: Order Comment: 'TROP ' Serial specimen #1, #2 or #3: 1 Result Comment: This specimen has been REJECTED due to Laboratory criteria: Hemolyzed. JIAN has been notified of need of recollection. 10/07/24 1250 Maylin Wiggins Performed By: #### L 100.0100, L300.8000, L501.4021, L500.4050 #### [facility] [address] [place], [address] GAP Normal 5-15 [facility] Comment on above: Order Comment: 'TROP ' Serial specimen #1, #2 or #3: 1 Result Comment: This specimen has been REJECTED due to Laboratory criteria: Hemolyzed. JIAN has been notified of need of recollection. 10/07/24 1250 Maylin Wiggins Performed By: #### L 100.0100, L300.8000, L501.4021, L500.4050 #### [facility] [address] [place], [address] GLU Normal 74-106 [facility] Comment on above: Order Comment: 'TROP ' Serial specimen #1, #2 or #3: 1 Result Comment: This specimen has been REJECTED due to Laboratory criteria: Hemolyzed. JIAN has been notified of need of recollection. 10/07/24 1250 Maylin Wiggins Performed By: #### L 100.0100, L300.8000, L501.4021, L500.4050 #### [facility] [address] [place], [address] Potassium Normal 3.5-5.1 [facility] Comment on above: Order Comment: 'TROP ' Serial specimen #1, #2 or #3: 1 Result Comment: This specimen has been REJECTED due to Laboratory criteria: Hemolyzed. JIAN has been notified of need of recollection. 10/07/24 1250 Maylin Wiggins Performed By: #### L 100.0100, L300.8000, L501.4021, L500.4050 #### [facility] [address] [place], [address] T BILI Normal 0.20-1.00 [facility] Comment on above: Order Comment: 'TROP ' Serial specimen #1, #2 or #3: 1 Result Comment: This specimen has been REJECTED due to Laboratory criteria: Hemolyzed. JIAN has been notified of need of recollection. 10/07/24 1250 Maylin Wiggins Performed By: #### L 100.0100, L300.8000, L501.4021, L500.4050 #### [facility] [address] [place], [address] T PROT Normal 6.4-8.2 [facility] Comment on above: Order Comment: 'TROP ' Serial specimen #1, #2 or #3: 1 Result Comment: This specimen has been REJECTED due to Laboratory criteria: Hemolyzed. JIAN has been notified of need of recollection. 10/07/24 1250 Maylin Wiggins Performed By: #### L 100.0100, L300.8000, L501.4021, L500.4050 #### [facility] [address] [place], [address] Comprehensive Metabolic Profil Normal 136-145 [facility] Comment on above: Order Comment: 'TROP ' Serial specimen #1, #2 or #3: 1 Result Comment: This specimen has been REJECTED due to Laboratory criteria: Hemolyzed. JIAN has been notified of need of recollection. 10/07/24 1250 Maylin Wiggins Performed By: #### L 100.0100, L300.8000, L501.4021, L500.4050 #### [facility] [address] [place], [address] Emergency Department Summary on 10-07-2024 Emergency Department Summary [facility] Medical Records Department [address] [place] [address] Emergency Department Summary 10/07/24 MR#: [id number] Acct: [id number] Name: JERRI JIMENEZ Rep #: [id number] : 1980 44 From: Bam Mcmillan PCP: [...] Immobilization, Prior DVT or PE or Cancer [facility] Medical History Right ureteral stone Wears glasses [...] or tend (more content not included)... Normal [facility] L501.4020on 10-07-2024 TROPONIN-I HS < 3 Low 3.0-54.0 [facility] Comment on above: Order Comment: RED W. PREVIOUS SPECIMEN REJECTED DUE TOHEMOLYSIS. 10/07/24 1251 Maylin Wiggins.1 Result Comment: Plea se Note: New Test Units and Gender Specific Reference Ranges. For more information see Policy Stat Procedure [place] High Sensitivity Troponin (TNIH) and attachments. Performed By: #### L 100.0100, L300.8000, L501.4021, L500.4050 #### [facility] [address] [place], [place], [address] Lipaseon 10-07-2024 Lipase [Catalytic activity/Vol] 27 U/L Normal 13-75 [facility] Comment on above: Order Comment: RED W. PREVIOUS SPECIMEN REJECTED DUE TOHEMOLYSIS. 10/07/24 1251 Maylin Wiggins.1 Result Comment: Emir pelletier note: LIPASE revised reference range effective 23. New Lipase methodology. Expected to produce lower values than the previous assay method. NEW Reference Range: 13 - 75 U/L Performed By: #### L 100.0100, L300.8000, L501.4021, L500.4050 #### [facility] [address] [place], [address] Bacteria Ur Culton 4 Bacteria identified Cx Nom (U) ORGANISM ID: 1 >=100,000 CFU/ml Escherichia coli ORGANISM ID: 1 (ESCHERICHIA COLI) ANTIBIOTIC INTERPRETATION SUDARSHAN STATUS REFERENCE RANGE Ampicillin S <=2 F Susceptible <=8 , [...] , Intermediate >32 , Resistant >64 Abnormal [facility] Comment on above: Performed By: #### 6 30-4 #### [facility] CLIA [id number] [address] [place] [address] [place] Ke[place] 09-21-2024 CNOV Office Visit ([facility] ) -------- JERRI JIMENEZ ([id number]) 1980 F Date Time Provider Department 09/21/24 3:15 PM NETTIE CARBAJAL [facility] During your visit today, we recorded the following information about you: Temperature Pulse Respiration Blood pressure 98 degrees 80/minute 16/minute 110/64 Weight 65.5 kg Nettie Carbajal APRN.CNP 09/22/2024 8:50 AM Signed This note was created using [employer]. Subjective Jerri Jimenez is a 44 year old female. 44 year old female with PMH asthma presents for UTI Acute onset last night +urgency +frequency +burning Denies flank pain Denies abdominal pain Denies vaginal bleeding Denies vaginal discharge Recent sexual ativity Denies concerns for STI Used azos The history is provided by the patient. No it programmer was used. UTI This is a new [...] range o (more content not included)... Normal [facility] Urine Cultureon 07-30-2024 URC Mixed Gram Pos Gram Neg Org [place] Count 1000-10,000 MIXC Mixed contaminants. Submit a new specimen if indicated. Normal [facility] Comment on above: Performed By: #### L 100.0100, L300.8000, L501.4021, L500.4050 #### [facility] [address] [place], [address] Urgent Care Visit Reporton 0 07-29-2024 Urgent Care Visit Report [facility] [address], [address] [place], [place] [address] OFFICE VISIT Date of Service: 07/29/24 MR#: [id number] Acct: [id number] Name: JERRI JIMENEZ Rep #: [id number] : 1980 Provider: HEATH Celeste Age/Sex: 44/F Location: [facility] Status: Signed Intake Vital Signs 06/25/24 19:56 [...] FOR UTI Chief Complaint: dysuria, decreased output Manager Pe Required: No Is patient in pain?: No Allergies Sulfa (Sulfonamide Antibiotics) Allergy (Verified 07/29/24 13:26) Anaphylaxis Is last menstrual period known: No Post menopausal: No Patient : No Have you fallen in the past year?: No Nurse's Note: dysuria, decreased output x 2 days. has had 8 UTI in last few months, frustrated, concerned for UTI. [facility] Medical History Right ureteral stone Wears glasses [...] Chief Complaint: dysuria, decreased output Details: JERRI JIMENEZ, is a 44 F who presents to the office today for complaint of dysuria and increasing urgency/frequency. Patient states has been ongoing for the past several days. She denies fever, chills, sweats. No nausea, vomiting and diarrhea. No pelvic or abdominal pain. No other associated symptoms or alleviating/aggravating factors. ROS Const Constitutional: No other (6 [...] Barkley Signature: Date (if applicable) CC: Normal [facility] Basophil percentageOrdered B y: Duy Smith on 11-30-2023 Basophil percentage 10-25 SEEN /hpf 0-5 [facility] Bilirubin Test strip Ql (U)O rdered By: Duy Smith on 11-30-2023 Bilirubin Ql (U) 1 mg/dL Negative [facility] Comment on above: COLOR OF URINE MAY A FFECT DIPSTICK RESULTS. Ketones Test strip Ql (U)Ord ered By: Duy Smith on 11-30-2023 Ketones Ql (U) 15 mg/dl Negative [facility] Mucus LM Ql (Urine sed)Order ed By: Duy Smith on 11-30-2023 Mucus Ql (Urine sed) RARE /hpf [facility] Nitrite Test strip Ql (U)Ord ered By: Duy Smith on 11-30-2023 Nitrite Ql (U) Negative Negative [facility] No Panel InformationOrdered By: Duy Smith on 11-30-2023 Urine RBC 0-5 SEEN /hpf 0-5 [facility] Protein Test strip Ql (U)Ord ered By: Duy Smith on 11-30-2023 Protein Ql (U) 30 mg/dl Negative [facility] Squamous epithelial cells de tection in urine sediment by light microscopyOrdered By: Duy Smith on 11-30-2023 Epithelial cells.squamous LM Ql (Urine sed) 0-5 SEEN /hpf 5-10 [facility] Urine blood detectionOrdered By: Duy Smith on 11-30-2023 RBC Ql (U) 25 /ul Negative [facility] Urine clarityOrdered By: Moreno Smith on 11-30-2023 Clarity (U) Sl. Cloudy Clear [facility] Urine color determinationOrd ered By: Duy Smith on 11-30-2023 Color (U) Yellow Yellow [facility] Urine glucose detectionOrder ed By: Duy Smith on 11-30-2023 Glucose Ql (U) Normal mg/dl Normal [facility] Urine leukocyte esterase det ection by dipstickOrdered By: Duy Smith on 11-30-2023 Leukocyte esterase Test strip Ql (U) 500 /ul Negative [facility] Urine pHOrdered By: Duy simon on 11-30-2023 pH (U) 6.0 [pH] 5.0 - 8.0 [facility] Urine sediment bacteria coun t by microscopy (number/high power field)Ordered By: Duy Smith on 11-30-2023 Bacteria LM.HPF (Urine sed) [#/Area] RARE /hpf None Seen [facility] Urine specific gravity measu rementOrdered By: Duy Smith on 11-30-2023 Specific gravity (U) [Rel density] 1.020 1.002-1.030 [facility] Urine urobilinogen measureme ntOrdered By: Duy Smith on 11-30-2023 Urobilinogen Ql (U) 1 mg/dl Normal [facility] LABORATORYOrdered By: Dick Garcia on 11-28-2023 Appearance [...] Spec Grav 1.025 (11/28/23 1:03 AM) Normal 1.015-1.025 AO Auto Urine SS UA Specimen Type [...] crystals Infrared spectroscopy Ql (Stone) 30 % [facility] Color of specimen determinat ionOrdered By: Lise Méndez on 11-09-2023 Color (Unsp spec) MAKI [facility] Laboratory - Miscellaneous t estsOrdered By: Lise Méndez on 11-09-2023 Service comment (Unsp spec) [Interp] See comment [facility] Comment on above: Calculus received we t. Wet calculi must be dried beforeanalysis, which delays reporting of results. Leaving calculiwet (such as water, saline, blood, urine) may lead tochanges in composition. Physician questions regarding Calculi Analysis contactHays [facility] CenterCo at: [phone]. Calculi report will follow via computer, mail or courierdelivery. Measurement of weight of sto neOrdered By: Lise Méndez on 11-09-2023 Weight (Stone) 63 mg [facility] No Panel InformationOrdered By: Lise Méndze on 11-09-2023 Stone Analysis (T) See comment [facility] Comment on above: Percentage (Represen ts the % composition) Stone Calcium Oxalate Monohydrate 50 % [facility] Stone Calcium Phosphate 20 % [facility] Comment on above: Calcium phosphate (h ydroxyl form) includes hydroxyapatite,amorphous calcium phosphate, and whitlockite. Hydroxyapatiteis the most common of the calcium phosphate salts found inhuman kidney stones. Origin of StoneOrdered By: Alanis Méndez on 11-09-2023 Origin Nom (Stone) RIGHT URETER [facility] Size of stoneOrdered By: Adriel Méndez on 01-11-2024 Size (Stone) [Entitic vol] 5X3 mm [facility] Comment on above: Multiple pieces rece ived. Dimensions of the largest piecereported. Thin prep Papanicolaou smear with manual screeningOrdered By: Lise Méndez on 11-09-2023 Thin prep Papanicolaou smear with manual screening See comment [facility] Comment on above: Photograph will foll ow under a separate cover Absolute lymphocyte countOrd ered By: Good Castorena on 08-30-2023 Lymphocytes Auto (Unsp spec) [#/Vol] 0.93 10*3/uL 0.83-4.51 [facility] Basophil percentageOrdered B y: Good Castorena on 08-30-2023 Basophils/100 WBC (Bld) 0.2 % 0-1 [facility] Chloride [Moles/Vol] 109 mmol/L 98-107 [facility] Eosinophils/100 WBC (Bld) 0.8 % 0-5 [facility] Glucose [Mass/Vol] 145 mg/dL 74-106 [facility] Comment on above: Fasting Glucose resu lt greater than or equal to 126 mg/dL suggests DIABETES MELLITUS per A.D.A. criteria. Neutrophils (Bld) [#/Vol] 3.4 10*3/uL 2.0-7.7 [facility] Neutrophils/100 WBC (Bld) 70.9 % 47-70 [facility] Potassium [Moles/Vol] 4.1 mmol/L 3.5-5.1 [facility] Sodium [Moles/Vol] 140 mmol/L 136-145 [facility] WBC (Bld) [#/Vol] 4.9 10*3/uL 4.4-11.0 [facility] Beta hCG serum qualOrdered B y: Good Castorena on 08-30-2023 Beta HCG ( test) Ql Negative [facility] Blood erythrocytes count (nu mber/volume)Ordered By: Good Castorena on 08-30-2023 RBC (Bld) [#/Vol] 4.34 10*6/uL 4.2-5.4 [facility] Blood hemoglobin measurement (mass/volume)Ordered By: Good Castorena on 08-30-2023 Hemoglobin (Bld) [Mass/Vol] 12.3 g/dL 12.0-15.0 [facility] Blood lymphocytes/100 leukoc ytesOrdered By: Good Castorena on 08-30-2023 Lymphocytes/100 WBC (Bld) 19.1 % 19-41 [facility] Blood monocytes/100 leukocyt esOrdered By: Good Castorena on 08-30-2023 Monocytes/100 WBC (Bld) 8.8 % 0-10 [facility] Blood platelet mean volumeOr dered By: Good Castorena on 08-30-2023 Platelet mean volume (Bld) [Entitic vol] 8.7 fL 6.2-12.0 [facility] Determination of erythrocyte mean corpuscular volume (MCV)Ordered By: Good Castorena on 08-30-2023 MCV (RBC) [Entitic vol] 88.2 fL 81-99 [facility] Hematocrit Auto (Bld) [Volum e fraction]Ordered By: Good Castorena on 08-30-2023 Hematocrit (Bld) [Volume fraction] 38.3 % 37-47 [facility] - Chemistry and C hemistry - challengeOrdered By: Good Castorena on 08-30-2023 CO2 [Moles/Vol] 26.0 mmol/L 21.0-32.0 [facility] Urea nitrogen/Creatinine [Mass ratio] 29.3 mg/mg 10-20 [facility] - Hematology and Cell countsOrdered By: Good Castorena on 08-30-2023 Erythrocyte distribution width (RBC) [Entitic vol] 43.3 fL 35.1-43.9 [facility] Erythrocyte distribution width (RBC) [Ratio] 13.3 % 11.6-14.6 [facility] Immature granulocytes/100 WBC (Bld) 0.200 % 0.0-0.9 [facility] Comment on above: IG% - Immature Granu locytes (promyelocytes, myelocytes and metamyelocytes) > 1% indicates that a LEFT SHIFT is Present. MCH (RBC) [Entitic mass] 28.3 pg 27.0-32.0 [facility] Nucleated RBC/100 WBC (Bld) [Ratio] 0 % 0-5 [facility] MCHC Auto (RBC) [Mass/Vol]Or dered By: Good Castorena on 08-30-2023 MCHC (RBC) [Mass/Vol] 32.1 g/dL 32-36 [facility] No Panel InformationOrdered By: Good Castorena on 08-30-2023 Estimated Creatinine Clearance Calc 77.96 ml/min [facility] Estimated GFR (MDRD) Amer 97 mL/min >60 [facility] Comment on above: GFR Calc Estimated GFR (MDRD) Non-Af Amer 80 mL/min >60 [facility] Comment on above: Non- GFR Calc Platelets bldOrdered By: Jeff Castorena on 08-30-2023 Platelets (Bld) [#/Vol] 162 10*3/uL 150-450 [facility] Serum or plasma calcium naif urement (mass/volume)Ordered By: Good Castorena on 08-30-2023 Calcium [Mass/Vol] 8.7 mg/dL 8.5-10.1 [facility] Serum or plasma creatinine m easurement (mass/volume)Ordered By: Good Castorena on 08-30-2023 Creatinine [Mass/Vol] 0.82 mg/dL 0.55-1.02 [facility] Comment on above: The validity of the calculated GFR & GFRAA in patients over 70 years has not been determined. Clinical correlation is essential. Serum or plasma urea nitroge n measurement (mass/volume)Ordered By: Good Castorena on 08-30-2023 Urea nitrogen [Mass/Vol] 24 mg/dL 7-18 [facility] Thin prep Papanicolaou smear with manual screeningOrdered By: Good Castorena on 08-30-2023 Thin prep Papanicolaou smear with manual screening 5 5-15 [facility] Basophil percentageOrdered B y: ED PROVIDER on 06-13-2023 Basophil percentage 25-50 SEEN /hpf 0-5 [facility] Bilirubin Test strip Ql (U)O rdered By: ED PROVIDER on 06-13-2023 Bilirubin Ql (U) Negative Negative [facility] Culture, urineOrdered By: Crystal Suarez on 06-13-2023 Bacteria identified Cx Nom (U) Escherichia coli [facility] Ketones Test strip Ql (U)Ord ered By: ED PROVIDER on 06-13-2023 Ketones Ql (U) 15 mg/dl Negative [facility] Laboratory - Chemistry and C hemistry - challengeOrdered By: ED PROVIDER on 06-13-2023 HCG ( test) Ql (U) Negative [facility] Comment on above: Very dilute urine sp ecimens, as indicated by a low specificgravity, may not contain lead generation representative levels of hCG. If is still suspected, a first morning urinespecimen should be collected 48 hours later and tested. Mucus LM Ql (Urine sed)Order ed By: ED PROVIDER on 06-13-2023 Mucus Ql (Urine sed) 0 SEEN /hpf [facility] Nitrite Test strip Ql (U)Ord ered By: ED PROVIDER on 06-13-2023 Nitrite Ql (U) Positive Negative [facility] Protein Test strip Ql (U)Ord ered By: ED PROVIDER on 06-13-2023 Protein Ql (U) 30 mg/dl Negative [facility] Squamous epithelial cells de tection in urine sediment by light microscopyOrdered By: ED PROVIDER on 06-13-2023 Epithelial cells.squamous LM Ql (Urine sed) 0-5 SEEN /hpf 5-10 [facility] Urine blood detectionOrdered By: ED PROVIDER on 06-13-2023 RBC Ql (U) 250 /ul Negative [facility] RBC Ql (U) 10-25 SEEN /hpf 0-5 [facility] Urine clarityOrdered By: ED PROVIDER on 06-13-2023 Clarity (U) Cloudy Clear [facility] Urine color determinationOrd ered By: ED PROVIDER on 06-13-2023 Color (U) Yellow Yellow [facility] Urine glucose detectionOrder ed By: ED PROVIDER on 06-13-2023 Glucose Ql (U) Normal mg/dl Normal [facility] Urine leukocyte esterase det ection by dipstickOrdered By: ED PROVIDER on 06-13-2023 Leukocyte esterase Test strip Ql (U) 100 /ul Negative [facility] Urine pHOrdered By: ED PROVI KRYSTIN on 06-13-2023 pH (U) 6.5 [pH] 5.0 - 8.0 [facility] Urine sediment bacteria coun t by microscopy (number/high power field)Ordered By: ED PROVIDER on 06-13-2023 Bacteria LM.HPF (Urine sed) [#/Area] 3 /[HPF] None Seen [facility] Urine specific gravity measu rementOrdered By: ED PROVIDER on 06-13-2023 Specific gravity (U) [Rel density] 1.020 1.002-1.030 [facility] Urobilinogen Auto test strip Ql (U)Ordered By: ED PROVIDER on 06-13-2023 Urobilinogen Ql (U) Normal mg/dl Normal [facility] XR HAND GENERAL 3V PA/LAT/OB L LEFTon 05-09-2023 [facility] XR Hand - left PA and Latera l and Obliqueon 05-09-2023 IMPRESSION: Fracture involving the intermediate phalanx of the third finger Community Advocate: PSCB Transcribe Date/Time: May 09 2023 7:02P Dictated by : IRVIN ANGEL MD This examination was interpreted and the report reviewed and electronically signed by: IRVIN ANGEL MD on May 09 2023 7:04PM [facility] DIVISION OF RADIOLOGY * * *Final [...] spaces appear unremarkable. DIVISION OF RADIOLOGY Provider, [facility] - 05/09/2023 * * *Final Report* * [...] the intermediate phalanx of the third finger Community Advocate: PSCB Transcribe Date/Time: May 09 2023 7:02P Dictated by : IRVIN ANGEL MD This examination was interpreted and the report reviewed and electronically signed by: IRVIN ANGEL MD on May 09 2023 7:04PM EST [facility] Radiology Study [facility] (narrative[facility] XR Hand - left PA and Latera l and ObliqueOrdered By: Ccf Provider on 05-09-2023 [facility] Absolute lymphocyte countOrd ered By: ED PROVIDER on 03-08-2023 Lymphocytes Auto (Unsp spec) [#/Vol] 0.62 10*3/uL 0.83-4.51 [facility] Basophil percentageOrdered B y: ED PROVIDER on 03-08-2023 Basophil percentage 10-25 SEEN /hpf 0-5 [facility] Basophils/100 WBC (Bld) 0.0 % 0-1 [facility] Bilirubin [Mass/Vol] 0.40 mg/dL 0.20-1.00 [facility] Comment on above: For patients on eltr ombopag therapy, use of Dimension [place] TBIL is not recommended. Chloride [Moles/Vol] 103 mmol/L 98-107 [facility] Eosinophils/100 WBC (Bld) 0.0 % 0-5 [facility] Glucose [Mass/Vol] 120 mg/dL 74-106 [facility] Comment on above: Fasting Glucose resu lt from 100 to 125 mg/dL suggests IMPAIRED HOMEOSTASIS per A.D.A. criteria. Neutrophils (Bld) [#/Vol] 6.2 10*3/uL 2.0-7.7 [facility] Neutrophils/100 WBC (Bld) 89.3 % 47-70 [facility] Potassium [Moles/Vol] 4.2 mmol/L 3.5-5.1 [facility] Protein [Mass/Vol] 8.3 g/dL 6.4-8.2 [facility] Sodium [Moles/Vol] 138 mmol/L 136-145 [facility] WBC (Bld) [#/Vol] 7.0 10*3/uL 4.4-11.0 [facility] Beta hCG serum qualOrdered B y: ED PROVIDER on 03-08-2023 Beta HCG ( test) Ql Negative [facility] Bilirubin Test strip Ql (U)O rdered By: ED PROVIDER on 03-08-2023 Bilirubin Ql (U) Negative Negative [facility] Blood erythrocytes count (nu mber/volume)Ordered By: ED PROVIDER on 03-08-2023 RBC (Bld) [#/Vol] 4.70 10*6/uL 4.2-5.4 [facility] Blood hemoglobin measurement (mass/volume)Ordered By: ED PROVIDER on 03-08-2023 Hemoglobin (Bld) [Mass/Vol] 13.6 g/dL 12.0-15.0 [facility] Blood lymphocytes/100 leukoc ytesOrdered By: ED PROVIDER on 03-08-2023 Lymphocytes/100 WBC (Bld) 8.9 % 19-41 [facility] Blood monocytes/100 leukocyt esOrdered By: ED PROVIDER on 03-08-2023 Monocytes/100 WBC (Bld) 1.4 % 0-10 [facility] Blood platelet mean volumeOr dered By: ED PROVIDER on 03-08-2023 Platelet mean volume (Bld) [Entitic vol] 8.6 fL 6.2-12.0 [facility] Culture, urineOrdered By: Do beth Smith on 03-08-2023 Bacteria identified Cx Nom (U) Presumptive E. coli [facility] Determination of erythrocyte mean corpuscular volume (MCV)Ordered By: ED PROVIDER on 03-08-2023 MCV (RBC) [Entitic vol] 91.3 fL 81-99 [facility] Hematocrit Auto (Bld) [Volum e fraction]Ordered By: ED PROVIDER on 03-08-2023 Hematocrit (Bld) [Volume fraction] 42.9 % 37-47 [facility] Ketones Test strip Ql (U)Ord ered By: ED PROVIDER on 03-08-2023 Ketones Ql (U) 150 mg/dl Negative [facility] Comment on above: CRITICAL VALUE *HRES ULTS CALLED TO Iarj ZAPATA RN (ED) 03/08/23 Nando Hi.REPORT READ BACK BY SAME. Laboratory - Chemistry and C hemistry - challengeOrdered By: ED PROVIDER on 03-08-2023 ALP [Catalytic activity/Vol] 68 U/L 45-117 [facility] ALT [Catalytic activity/Vol] 41 U/L 13-56 [facility] CO2 [Moles/Vol] 25.0 mmol/L 21.0-32.0 [facility] Globulin (S) [Mass/Vol] 4.4 g/dL 2.2-4.2 [facility] Urea nitrogen/Creatinine [Mass ratio] 20.4 mg/mg 10-20 [facility] Laboratory - Chemistry and C hemistry - challengeOrdered By: Dr. Smith on 03-08-2023 Lipase [Catalytic activity/Vol] 40 U/L 13-75 [facility] Comment on above: Please note:LIPASE r evised reference range effective 23. New Lipase methodology. Expected to produce lower values than the previous assay method. NEW Reference Range: 13 - 75 U/L Laboratory - Hematology and Cell countsOrdered By: ED PROVIDER on 03-08-2023 Erythrocyte distribution width (RBC) [Entitic vol] 44.9 fL 35.1-43.9 [facility] Erythrocyte distribution width (RBC) [Ratio] 13.2 % 11.6-14.6 [facility] Immature granulocytes/100 WBC (Bld) 0.400 % 0.0-0.9 [facility] Comment on above: IG% - Immature Granu locytes (promyelocytes, myelocytes and metamyelocytes) > 1% indicates that a LEFT SHIFT is Present. MCH (RBC) [Entitic mass] 28.9 pg 27.0-32.0 [facility] Nucleated RBC/100 WBC (Bld) [Ratio] 0 % 0-5 [facility] MCHC Auto (RBC) [Mass/Vol]Or dered By: ED PROVIDER on 03-08-2023 MCHC (RBC) [Mass/Vol] 31.7 g/dL 32-36 [facility] Mucus LM Ql (Urine sed)Order ed By: ED PROVIDER on 03-08-2023 Mucus Ql (Urine sed) 0 SEEN /hpf [facility] Nitrite Test strip Ql (U)Ord ered By: ED PROVIDER on 03-08-2023 Nitrite Ql (U) Positive Negative [facility] No Panel InformationOrdered By: ED PROVIDER on 03-08-2023 Estimated GFR (MDRD) Amer 84 mL/min >60 [facility] Comment on above: GFR Calc Estimated GFR (MDRD) Non-Af Amer 69 mL/min >60 [facility] Comment on above: Non- GFR Calc Platelets bldOrdered By: ED PROVIDER on 03-08-2023 Platelets (Bld) [#/Vol] 256 10*3/uL 150-450 [facility] Protein Test strip Ql (U)Ord ered By: ED PROVIDER on 03-08-2023 Protein Ql (U) 30 mg/dl Negative [facility] Serum or plasma albumin naif urement (mass/volume)Ordered By: ED PROVIDER on 03-08-2023 Albumin [Mass/Vol] 3.9 g/dL 3.2-5.0 [facility] Serum or plasma albumin/glob ulin mass ratioOrdered By: ED PROVIDER on 03-08-2023 Albumin/Globulin [Mass ratio] 0.9 {ratio} 0.9-2.4 [facility] Serum or plasma calcium naif urement (mass/volume)Ordered By: ED PROVIDER on 03-08-2023 Calcium [Mass/Vol] 9.0 mg/dL 8.5-10.1 [facility] Serum or plasma creatinine m easurement (mass/volume)Ordered By: ED PROVIDER on 03-08-2023 Creatinine [Mass/Vol] 0.93 mg/dL 0.55-1.02 [facility] Comment on above: The validity of the calculated GFR & GFRAA in patients over 70 years has not been determined. Clinical correlation is essential. Serum or plasma urea nitroge n measurement (mass/volume)Ordered By: ED PROVIDER on 03-08-2023 Urea nitrogen [Mass/Vol] 19 mg/dL 7-18 [facility] Squamous epithelial cells de tection in urine sediment by light microscopyOrdered By: ED PROVIDER on 03-08-2023 Epithelial cells.squamous LM Ql (Urine sed) 0-5 SEEN /hpf 5-10 [facility] Thin prep Papanicolaou smear with manual screeningOrdered By: ED PROVIDER on 03-08-2023 Thin prep Papanicolaou smear with manual screening 27 U/L 15-37 [facility] Thin prep Papanicolaou smear with manual screening 10 5-15 [facility] Urine blood detectionOrdered By: ED PROVIDER on 03-08-2023 RBC Ql (U) 25 /ul Negative [facility] RBC Ql (U) 0-5 SEEN /hpf 0-5 [facility] Urine clarityOrdered By: ED PROVIDER on 03-08-2023 Clarity (U) Sl. Cloudy Clear [facility] Urine color determinationOrd ered By: ED PROVIDER on 03-08-2023 Color (U) Yellow Yellow [facility] Urine glucose detectionOrder ed By: ED PROVIDER on 03-08-2023 Glucose Ql (U) Normal mg/dl Normal [facility] Urine leukocyte esterase det ection by dipstickOrdered By: ED PROVIDER on 03-08-2023 Leukocyte esterase Test strip Ql (U) 25 /ul Negative [facility] Urine pHOrdered By: ED PROVI KRYSTIN on 03-08-2023 pH (U) 6.0 [pH] 5.0 - 8.0 [facility] [facility] Urine sediment bacteria coun t by microscopy (number/high power field)Ordered By: ED PROVIDER on 03-08-2023 Bacteria LM.HPF (Urine sed) [#/Area] 4 /[HPF] None Seen [facility] Urine specific gravity measu rementOrdered By: ED PROVIDER on 03-08-2023 Specific gravity (U) [Rel density] 1.025 1.002-1.030 [facility] Urobilinogen Auto test strip Ql (U)Ordered By: ED PROVIDER on 03-08-2023 Urobilinogen Ql (U) Normal mg/dl Normal [facility] Culture, urineOrdered By: Dr Valeria Ashby on 01-27-2023 Bacteria identified Cx Nom (U) Presumptive E. coli [facility] Basophil percentageOrdered B y: Dr. Ashby on 01-25-2023 Basophil percentage 0-5 SEEN /hpf 0-5 [facility] Bilirubin Test strip Ql (U)O rdered By: Dr. Ashby on 01-25-2023 Bilirubin Ql (U) Negative Negative [facility] Ketones Test strip Ql (U)Ord ered By: Dr. Ashby on 01-25-2023 Ketones Ql (U) Negative Negative [facility] Laboratory - Chemistry and C hemistry - challengeOrdered By: Dr. Ashby on 01-25-2023 HCG ( test) Ql (U) Negative [facility] Comment on above: Very dilute urine sp ecimens, as indicated by a low specificgravity, may not contain lead generation representative levels of hCG. If is still suspected, a first morning urinespecimen should be collected 48 hours later and tested. Mucus LM Ql (Urine sed)Order ed By: Dr. Ashby on 01-25-2023 Mucus Ql (Urine sed) 0 SEEN /hpf [facility] Nitrite Test strip Ql (U)Ord ered By: Dr. Ashby on 01-25-2023 Nitrite Ql (U) Positive Negative [facility] Protein Test strip Ql (U)Ord ered By: Dr. Ashby on 01-25-2023 Protein Ql (U) 30 mg/dl Negative [facility] Squamous epithelial cells de tection in urine sediment by light microscopyOrdered By: Dr. Ashby on 01-25-2023 Epithelial cells.squamous LM Ql (Urine sed) 0-5 SEEN /hpf 5-10 [facility] Urine blood detectionOrdered By: Dr. Ashby on 01-25-2023 RBC Ql (U) 250 /ul Negative [facility] RBC Ql (U) > 100 SEEN /hpf 0-5 [facility] Urine clarityOrdered By: Dr. Ashby on 01-25-2023 Clarity (U) Sl. Cloudy Clear [facility] Urine color determinationOrd ered By: Dr. Ashby on 01-25-2023 Color (U) Yellow Yellow [facility] Urine glucose detectionOrder ed By: Dr. Ashby on 01-25-2023 Glucose Ql (U) Normal mg/dl Normal [facility] Urine leukocyte esterase det ection by dipstickOrdered By: Dr. Ashby on 01-25-2023 Leukocyte esterase Test strip Ql (U) 25 /ul Negative [facility] Urine pHOrdered By: Dr. Napoleon ferguson on 01-25-2023 pH (U) 7.0 [pH] 5.0 - 8.0 [facility] Urine sediment bacteria coun t by microscopy (number/high power field)Ordered By: Dr. Ashby on 01-25-2023 Bacteria LM.HPF (Urine sed) [#/Area] 2 /[HPF] None Seen [facility] Urine specific gravity measu rementOrdered By: Dr. Ashby on 01-25-2023 Specific gravity (U) [Rel density] 1.015 1.002-1.030 [facility] Urobilinogen Auto test strip Ql (U)Ordered By: Dr. Ashby on 01-25-2023 Urobilinogen Ql (U) Normal mg/dl Normal [facility] Throat Streptococcus pyogene s antigen detection by immunofluorescenceOrdered By: Dr. Garcia on 12-15-2022 S. pyogenes Ag IF Ql (Throat) [facility] Basophil percentageon 2021 Bilirubin [Mass/Vol] 0.30 mg/dL 0.20-1.00 [facility] Work Phone: Comment on above: For patients on eltr ombopag therapy, use of Dimension [place] TBIL is not recommended. Chloride [Moles/Vol] 105 mmol/L 98-107 [facility] Work Phone: [phone] Glucose [Mass/Vol] 94 mg/dL 74-106 [facility] Work Phone: [phone] Potassium [Moles/Vol] 4.1 mmol/L 3.5-5.1 [facility] Work Phone: [phone] Protein [Mass/Vol] 7.6 g/dL 6.4-8.2 [facility] Work Phone: [phone] Sodium [Moles/Vol] 139 mmol/L 136-145 [facility] Work Phone: [phone] Laboratory - Chemistry and C hemistry - challengeon 07-27-2022 ALP [Catalytic activity/Vol] 49 U/L 45-117 [facility] Work Phone: [phone] ALT [Catalytic activity/Vol] 40 U/L 13-56 [facility] Work Phone: [phone] CO2 [Moles/Vol] 26.0 mmol/L 21.0-32.0 [facility] Work Phone: [phone] Globulin (S) [Mass/Vol] 3.9 g/dL 2.2-4.2 [facility] Work Phone: [phone] Urea nitrogen/Creatinine [Mass ratio] 21.6 mg/mg 10-20 [facility] Work Phone: [phone] No Panel Informationon 07-27 Estimated GFR (MDRD) Amer 95 mL/min >60 [facility] Work Phone: Comment on above: GFR Calc Estimated GFR (MDRD) Non-Af Amer 79 mL/min >60 [facility] Work Phone: Comment on above: Non- GFR Calc Thyroid Stimulating Hormone (TSH) 1.37 uIU/mL 0.358-3.74 [facility] Work Phone: Serum or plasma albumin naif urement (mass/volume)on 07-27-2022 Albumin [Mass/Vol] 3.7 g/dL 3.2-5.0 [facility] Work Phone: Serum or plasma albumin/glob ulin mass ratioon 07-27-2022 Albumin/Globulin [Mass ratio] 0.9 {ratio} 0.9-2.4 [facility] Work Phone: Serum or plasma calcium naif urement (mass/volume)on 07-27-2022 Calcium [Mass/Vol] 8.6 mg/dL 8.5-10.1 [facility] Work Phone: Serum or plasma creatinine m easurement (mass/volume)on 07-27-2022 Creatinine [Mass/Vol] 0.84 mg/dL 0.55-1.02 [facility] Work Phone: Comment on above: The validity of the calculated GFR & GFRAA in patients over 70 years has not been determined. Clinical correlation is essential. Serum or plasma urea nitroge n measurement (mass/volume)on 07-27-2022 Urea nitrogen [Mass/Vol] 18 mg/dL 7-18 [facility] Work Phone: Thin prep Papanicolaou smear with manual screeningon 07-27-2022 Thin prep Papanicolaou smear with manual screening 22 U/L 15-37 [facility] Work Phone: Thin prep Papanicolaou smear with manual screening 8 5-15 [facility] Work Phone: Absolute lymphocyte counton 02-15-2022 Lymphocytes Auto (Unsp spec) [#/Vol] 1.34 10*3/uL 0.83-4.51 [facility] Work Phone: Basophil percentageon 2021 Basophils/100 WBC (Bld) 0.3 % 0-1 [facility] Work Phone: Chloride [Moles/Vol] 104 mmol/L 98-107 [facility] Work [facility]: Eosinophils/100 WBC (Bld) 1.6 % 0-5 [facility] Work Phone: Glucose [Mass/Vol] 100 mg/dL 74-106 [facility] Work Phone: Comment on above: Fasting Glucose resu lt from 100 to 125 mg/dL suggests IMPAIRED HOMEOSTASIS per A.D.A. criteria. Neutrophils (Bld) [#/Vol] 4.1 10*3/uL 2.0-7.7 [facility] Work Phone: Neutrophils/100 WBC (Bld) 66.7 % 47-70 [facility] Work Phone: Potassium [Moles/Vol] 3.0 mmol/L 3.5-5.1 [facility] Work Phone: Sodium [Moles/Vol] 137 mmol/L 136-145 [facility] Work Phone: WBC (Bld) [#/Vol] 6.2 10*3/uL 4.4-11.0 [facility] Work Phone: Basophil percentage 25-50 SEEN /hpf [facility] Work Phone: Bilirubin Test strip Ql (U)o n 02-15-2022 Bilirubin Ql (U) Negative Negative [facility] Work Phone: Blood erythrocytes count (nu mber/volume)on 02-15-2022 RBC (Bld) [#/Vol] 4.03 10*6/uL 4.2-5.4 [facility] Work Phone: Blood hemoglobin measurement (mass/volume)on 02-15-2022 Hemoglobin (Bld) [Mass/Vol] 11.8 g/dL 12.0-15.0 [facility] Work Phone: Blood lymphocytes/100 leukoc yteson 02-15-2022 Lymphocytes/100 WBC (Bld) 21.8 % 19-41 [facility] Work Phone: Blood monocytes/100 leukocyt eson 02-15-2022 Monocytes/100 WBC (Bld) 9.4 % 0-10 [facility] Work Phone: Blood platelet mean volumeon 02-15-2022 Platelet mean volume (Bld) [Entitic vol] 8.8 fL 6.2-12.0 [facility] Work Phone: [phone] Calcium oxalate crystals det ection in urine sediment by light microscopyon 02-15-2022 Calcium oxalate crystals LM Ql (Urine sed) RARE /hpf [facility] Work Phone: [phone] Determination of erythrocyte mean corpuscular volume (MCV)on 02-15-2022 MCV (RBC) [Entitic vol] 89.6 fL 81-99 [facility] Work Phone: Hematocrit Auto (Bld) [Volum e fraction]on 02-15-2022 Hematocrit (Bld) [Volume fraction] 36.1 % 37-47 [facility] Work Phone: Ketones Test strip Ql (U)on 02-15-2022 Ketones Ql (U) Negative Negative [facility] Work Phone: [phone] Laboratory - Chemistry and C hemistry - challengeon 02-15-2022 CO2 [Moles/Vol] 26.0 mmol/L 21.0-32.0 [facility] Work Phone: [phone] Urea nitrogen/Creatinine [Mass ratio] 23.3 mg/mg 10-20 [facility] Work Phone: Laboratory - Hematology and Cell countson 02-15-2022 Erythrocyte distribution width (RBC) [Entitic vol] 41.2 fL 35.1-43.9 [facility] Work Phone: [phone] Erythrocyte distribution width (RBC) [Ratio] 12.6 % 11.6-14.6 [facility] Work Phone: Immature granulocytes/100 WBC (Bld) 0.200 % 0.0-0.9 [facility] Work Phone: Comment on above: IG% - Immature Granu locytes (promyelocytes, myelocytes and metamyelocytes) > 1% indicates that a LEFT SHIFT is Present. MCH (RBC) [Entitic mass] 29.3 pg 27.0-32.0 [facility] Work Phone: Nucleated RBC/100 WBC (Bld) [Ratio] 0 % 0-5 [facility] Work Phone: MCHC Auto (RBC) [Mass/Vol]on 02-15-2022 MCHC (RBC) [Mass/Vol] 32.7 g/dL 32-36 [facility] Work Phone: Mucus LM Ql (Urine sed)on Mucus Ql (Urine sed) 0 SEEN /hpf [facility] Work Phone: Nitrite Test strip Ql (U)on 02-15-2022 Nitrite Ql (U) Negative Negative [facility] Work Phone: No Panel Informationon 02-15 D-Dimer Quantitative (PE/DVT) 0.54 FEU/ug/m 0.27-0.49 [facility] Work Phone: Comment on above: D-Dimer ELEVATED (>0 .49): Additional studies and clinicalassessments are indicated to conclude diagnosis of:Deep Vein Thrombosis (DVT) or Pulmonary Embolism (PE)CRITICAL VALUE VERIFIED. CALLED TO Linda [id number] Adele Grullon.RESULTS READ BACK BY SAME . Estimated Creatinine Clearance Calc 89.41 ml/min [facility] Work Phone: Estimated GFR (MDRD) Amer 111 mL/min >60 [facility] Work Phone: Comment on above: GFR Calc Estimated GFR (MDRD) Non-Af Amer 92 mL/min >60 [facility] Work Phone: Comment on above: Non- GFR Calc Troponin I High Sensitivity < 3 pg/mL 3.0-54.0 [facility] Work Phone: Comment on above: Please Note: New Avis t Units and Gender Specific Reference Ranges. For more information see Policy Stat Procedure [place] High Sensitivity Troponin (TNIH) and attachments. Influenza Types A,B Direct FA (SUDARSHAN) [facility] Work Phone: Platelets bldon 02-15-2022 Platelets (Bld) [#/Vol] 216 10*3/uL 150-450 [facility] Work Phone: Protein Test strip Ql (U)on 02-15-2022 Protein Ql (U) 30 mg/dl Negative [facility] Work Phone: Serum or plasma calcium naif urement (mass/volume)on 02-15-2022 Calcium [Mass/Vol] 8.6 mg/dL 8.5-10.1 [facility] Work Phone: Serum or plasma creatinine m easurement (mass/volume)on 02-15-2022 Creatinine [Mass/Vol] 0.73 mg/dL 0.55-1.02 [facility] Work Phone: Comment on above: The validity of the calculated GFR & GFRAA in patients over 70 years has not been determined. Clinical correlation is essential. Serum or plasma urea nitroge n measurement (mass/volume)on 02-15-2022 Urea nitrogen [Mass/Vol] 17 mg/dL 7-18 [facility] Work Phone: Squamous epithelial cells de tection in urine sediment by light microscopyon 02-15-2022 Epithelial cells.squamous LM Ql (Urine sed) 0-5 SEEN /hpf [facility] Work Phone: Thin prep Papanicolaou smear with manual screeningon 02-15-2022 Thin prep Papanicolaou smear with manual screening 7 5-15 [facility] Work Phone: Urine blood detectionon 01-28 RBC Ql (U) 150 /ul Negative [facility] Work Phone: RBC Ql (U) 10-25 SEEN /hpf [facility] Work Phone: Urine clarityon 02-15-2022 Clarity (U) Clear Clear [facility] Work Phone: Urine color determinationon 02-15-2022 Color (U) Yellow Yellow [facility] Work Phone: Urine glucose detectionon Glucose Ql (U) Normal mg/dl Normal [facility] Work Phone: Urine leukocyte esterase det ection by dipstickon 02-15-2022 Leukocyte esterase Test strip Ql (U) 500 /ul Negative [facility] Work Phone: Urine pHon 02-15-2022 pH (U) 6.0 [pH] [facility] Work Phone: Urine sediment bacteria coun t by microscopy (number/high power field)on 02-15-2022 Bacteria LM.HPF (Urine sed) [#/Area] 1 /[HPF] None Seen [facility] Work Phone: Urine specific gravity measu rementon 02-15-2022 Specific gravity (U) [Rel density] 1.015 [facility] Work Phone: Urobilinogen Auto test strip Ql (U)on 02-15-2022 Urobilinogen Ql (U) 8 mg/dl Normal [facility] Work Phone: HEP B SURFACE AG [CCL]on HEP B SURFACE AG [CCL] Normal [facility] Comment on above: Result Comment: _HEP B SURFACE AG [CCL]_ REFER TO SCANNED REPORT Performed By: #### 2 [id number] #### [place] [address] REFLEX HBSAGC? NO Normal [facility] Comment on above: Performed By: #### 2 [id number] #### [facility],[address] [place] [address] HEPATITIS C AB IA W/CONFIRM [CCL]on 08-08-2019 HEPATITIS C AB IA W/CONFIRM [CCL] Normal [facility] Comment on above: Result Comment: _HEP ATITIS C AB IA W/CONFIRM [CCL]_ REFER TO SCANNED REPORT Performed By: #### 2 [id number] #### [facility],[address] [place], [place] [id number] REFLEX HCQPCR? YES Normal [facility] Comment on above: Performed By: #### 2 [id number] #### [facility],[address] [place], [place] [id number] Hepatitis C RNAon 08-03-2019 Hepatitis C RNA [id number] IU/mL Normal [facility] Comment on above: Performed By: #### H BSAG #### [facility] [address] [place] [phone] #### AHCV1B #### [facility] [address] [place] [phone] #### HCQPCR #### [facility] [address] [place] [phone] Hep C Ab IA w/Confon 019 Hepatitis C Ab IA Positive Abnormal Negative [facility] Comment on above: Performed By: #### H BSAG #### [facility] [address] [place] [phone] #### AHCV1B #### [facility] [address] [place] [phone] #### HCQPCR #### [facility] [address] [place] [phone] Hepatitis B Surf. Agon 08-01 Hepatitis B Surf. Ag NEGAT Normal Negative [facility] Comment on above: Performed By: #### H BSAG #### [facility] [address] [place] [phone] #### AHCV1B #### [facility] [address] [place] [address] #### HCQPCR #### [facility] [address] [place] [address] HEPATIC FUNCTION PANELon Albumin [Mass/Vol] 4.1 g/dL Normal 3.4 - 4.8 [facility] Comment on above: Performed By: #### 2 [id number] #### [facility],[address] [place] [address] ALK PHOS 63 U/L Normal 38 - 126 [facility] Comment on above: Performed By: #### 2 [id number] #### [facility],[address] [place], [place] [id number] ALT/SGPT 23 U/L Normal 8 - 35 [facility] Comment on above: Performed By: #### 2 [id number] #### [facility],[address] [place], [place] [id number] AST/SGOT 22 U/L Normal 13 - 39 [facility] Comment on above: Performed By: #### 2 [id number] #### [facility],[address] [place], [place] [id number] Bilirubin [Mass/Vol] 0.3 mg/dL Normal 0.0 - 1.5 [facility] Comment on above: Performed By: #### 2 [id number] #### [facility],[address] [place], [place] [id number] Bilirubin.direct [Mass/Vol] 0.1 mg/dL Normal 0.0 - 0.1 [facility] Comment on above: Performed By: #### 2 [id number] #### [facility],[address] [place], [place] [id number] HEPATIC FUNCTION PANEL Normal [facility] Comment on above: Result Comment: HEPA TIC FUNCTION PROFILE Performed By: #### 2 [id number] #### [facility],[address] [place] [address] Protein [Mass/Vol] 7.4 g/dL Normal 6.4 - 8.3 [facility] Comment on above: Performed By: #### 2 [id number] #### [facility],[address] [place] [address] Vital Signs Date Time Vital Sign Value Performing Clinician Facility 07-10-2025 13:21-0400 Body temperature 97.4 [degF] No Primary Care Physician [facility] 07-10-2025 13:21-0400 Diastolic blood pressure 57 mm[Hg] No Primary Care Physician [facility] 07-10-2025 13:21-0400 Heart rate 65 /min No Primary Care Physician [facility] 07-10-2025 13:21-0400 Respiratory rate 18 /min No Primary Care Physician [facility] 07-10-2025 13:21-0400 SaO2% (BldA) [Mass fraction] 100 % No Primary Care Physician [facility] 07-10-2025 13:21-0400 Systolic blood pressure 103 mm[Hg] No Primary Care Physician [facility] 07-10-2025 11:18-0400 Body height 162.56 cm No Primary Care Physician [facility] 07-10-2025 11:18-0400 Body mass index (BMI) [Ratio] 25.2 kg/m2 No Primary Care Physician [facility] 07-10-2025 11:18-0400 Body weight 66.7 kg No Primary Care Physician [facility] 07-03-2025 09:44-0400 Body mass index (BMI) [Ratio] 24.9 kg/m2 No Primary Care Physician [facility] 07-03-2025 09:44-0400 Body temperature 97.4 [degF] No Primary Care Physician [facility] 07-03-2025 09:44-0400 Body weight 65.77 kg No Primary Care Physician [facility] 07-03-2025 09:44-0400 Diastolic blood pressure 78 mm[Hg] No Primary Care Physician [facility] 07-03-2025 09:44-0400 Heart rate 78 /min No Primary Care Physician [facility] 07-03-2025 09:44-0400 Respiratory rate 18 /min No Primary Care Physician [facility] 07-03-2025 09:44-0400 SaO2% (BldA) [Mass fraction] 97 % No Primary Care Physician [facility] 07-03-2025 09:44-0400 Systolic blood pressure 123 mm[Hg] No Primary Care Physician [facility] 06-15-2025 19:24-0400 Body temperature 99 [degF] No Primary Care Physician [facility] 06-15-2025 19:24-0400 Diastolic blood pressure 75 mm[Hg] No Primary Care Physician [facility] 06-15-2025 19:24-0400 Heart rate 55 /min No Primary Care Physician [facility] 06-15-2025 19:24-0400 Respiratory rate 12 /min No Primary Care Physician [facility] 06-15-2025 19:24-0400 SaO2% (BldA) [Mass fraction] 100 % No Primary Care Physician [facility] 06-15-2025 19:24-0400 Systolic blood pressure 131 mm[Hg] No Primary Care Physician [facility] 06-15-2025 15:52-0400 Body height 162.56 cm No Primary Care Physician [facility] 06-15-2025 15:52-0400 Body mass index (BMI) [Ratio] 25 kg/m2 No Primary Care Physician [facility] 06-15-2025 15:52-0400 Body weight 66.2 kg No Primary Care Physician [facility] 05-13-2025 19:03-0400 Body temperature 98.4 [degF] Ngoc Goldstein-Gigi [employer] Work Phone: [facility] 05-13-2025 19:03-0400 Body weight 69 kg Ngoc Praisler-Wood [employer] Work Phone: [facility] 05-13-2025 19:03-0400 Diastolic blood pressure 68 mm[Hg] Ngoc Praisler-Wood [employer] Work Phone: [facility] 05-13-2025 19:03-0400 Heart rate 78 /min Ngoc Praisler-Wood [employer] Work Phone: [facility] 05-13-2025 19:03-0400 Respiratory rate 18 /min Ngoconur Goldstein-Wood [employer] Work Phone: [facility] 05-13-2025 19:03-0400 SaO2% (BldA) [Mass fraction] 100 % Ngoc Goldstein-Wood [employer] Work Phone: [facility] 05-13-2025 19:03-0400 Systolic blood pressure 100 mm[Hg] Ngoc Velascoler-Wood [employer] Work Phone: [facility] 09-21-2024 15:36-0500 Body temperature 98.01 [degF] Nettie Carbajal [employer] Work Phone: [facility] 09-21-2024 15:36-0500 Body weight 65.5 kg Nettie Carbajal [employer] Work Phone: [facility] 09-21-2024 15:36-0500 Diastolic blood pressure 64 mm[Hg] Nettie Carbajal [employer] Work Phone: [facility] 09-21-2024 15:36-0500 Heart rate 80 /min Nettie Carbajal [employer] Work Phone: [facility] 09-21-2024 15:36-0500 Respiratory rate 16 /min Nettie Carbajal [employer] Work Phone: [facility] 09-21-2024 15:36-0500 Systolic blood pressure 110 mm[Hg] Nettie Carbajal [employer] Work Phone: [facility] 11-30-2023 09:58-0500 Body height 162.56 cm [facility] 11-30-2023 09:58-0500 Body mass index (BMI) [Ratio] 26.1 kg/m2 [facility] 11-30-2023 09:58-0500 Body temperature 97.8 [degF] [facility] 11-30-2023 09:58-0500 Body weight 68.94 kg [facility] 11-30-2023 09:58-0500 Diastolic blood pressure 69 mm[Hg] [facility] 11-30-2023 09:58-0500 Heart rate 77 /min [facility] 11-30-2023 09:58-0500 Respiratory rate 14 /min [facility] 11-30-2023 09:58-0500 SaO2% (BldA) [Mass fraction] 99 % [facility] 11-30-2023 09:58-0500 Systolic blood pressure 112 mm[Hg] [facility] 11-28-2023 00:25-0500 Blood Pressure Cuff Size JUSTIN REICHFIELD DO [facility] 11-28-2023 00:25-0500 Blood Pressure Location JUSTIN REICHFIELD DO [facility] 11-28-2023 00:25-0500 Blood Pressure Method JUSTIN REICHFIELD D O [facility] 11-28-2023 00:25-0500 Body height 162.6 cm JUSTIN REICHFIELD DO [facility] 11-28-2023 00:25-0500 Body temperature 97.88 [degF] JUSTIN REICHFIELD DO [facility] 11-28-2023 00:25-0500 Body weight 68.2 kg JUSTIN REICHFIELD DO [facility] 11-28-2023 00:25-0500 Diastolic Blood Pressure Non-Invasive 61 mm[Hg] JUSTIN REICHFIELD DO [facility] 11-28-2023 00:25-0500 Heart rate 92 /min JUSTIN REICHFIELD DO [facility] 11-28-2023 00:25-0500 Respiratory rate 20 /min JUSTIN REICHFIELD DO [facility] 11-28-2023 00:25-0500 Systolic Blood Pressure Non-Invasive 114 mm[Hg] JUSTIN MULTANI DO [facility] 11-09-2023 10:30-0500 Body temperature 97.4 [degF] [facility] 11-09-2023 10:30-0500 Diastolic blood pressure 62 mm[Hg] [facility] 11-09-2023 10:30-0500 Heart rate 55 /min [facility] 11-09-2023 10:30-0500 Respiratory rate 16 /min [facility] 11-09-2023 10:30-0500 SaO2% (BldA) [Mass fraction] 100 % [facility] 11-09-2023 10:30-0500 Systolic blood pressure 124 mm[Hg] [facility] 11-09-2023 07:48-0500 Body mass index (BMI) [Ratio] 25 kg/m2 [facility] 11-09-2023 07:48-0500 Body weight 68.03 kg [facility] 08-30-2023 06:24-0400 Diastolic blood pressure 81 mm[Hg] [facility] 08-30-2023 06:24-0400 Heart rate 58 /min [facility] 08-30-2023 06:24-0400 Respiratory rate 16 /min [facility] 08-30-2023 06:24-0400 SaO2% (BldA) [Mass fraction] 100 % [facility] 08-30-2023 06:24-0400 Systolic blood pressure 146 mm[Hg] [facility] 08-30-2023 04:39-0400 Body temperature 98.5 [degF] [facility] 08-30-2023 04:36-0400 Body height 165.1 cm [facility] 08-30-2023 04:36-0400 Body mass index (BMI) [Ratio] 25.4 kg/m2 [facility] 08-30-2023 04:36-0400 Body weight 69.5 kg [facility] 06-13-2023 20:41-0400 Body height 162.56 cm [facility] 06-13-2023 20:41-0400 Body mass index (BMI) [Ratio] 26.4 kg/m2 [facility] 06-13-2023 20:41-0400 Body temperature 97.9 [degF] [facility] 06-13-2023 20:41-0400 Body weight 69.85 kg [facility] 06-13-2023 20:41-0400 Diastolic blood pressure 56 mm[Hg] [facility] 06-13-2023 20:41-0400 Heart rate 80 /min [facility] 06-13-2023 20:41-0400 Respiratory rate 15 /min [facility] 06-13-2023 20:41-0400 SaO2% (BldA) [Mass fraction] 100 % [facility] 06-13-2023 20:41-0400 Systolic blood pressure 109 mm[Hg] [facility] 05-09-2023 18:39-0400 Body temperature 99.39 [degF] Mignon Rodríguez APRN.COFFEE TASTER Work Phone: [facility] 05-09-2023 18:39-0400 Body weight 68.49 kg Mignon Rodríguez APRN.COFFEE TASTER Work Phone: [facility] 05-09-2023 18:39-0400 Diastolic blood pressure 80 mm[Hg] Mignon Rodríguez APRN.COFFEE TASTER Work Phone: [facility] 05-09-2023 18:39-0400 Heart rate 74 /min Mignon Rodríguez APRN.COFFEE TASTER Work Phone: [facility] 05-09-2023 18:39-0400 Respiratory rate 18 /min Mignon Rodríguez APRN.COFFEE TASTER Work Phone: [facility] 05-09-2023 18:39-0400 SaO2% (BldA) [Mass fraction] 97 % Mignon Rodríguez APRN.COFFEE TASTER Work Phone: [facility] 05-09-2023 18:39-0400 Systolic blood pressure 122 mm[Hg] Mignon Rodríguez APRN.COFFEE TASTER Work Phone: [facility] 03-08-2023 23:42-0400 Body mass index (BMI) [Ratio] 31.8 kg/m2 [facility] 03-08-2023 23:42-0400 Body weight 81.64 kg [facility] 03-08-2023 23:42-0400 Diastolic blood pressure 76 mm[Hg] [facility] 03-08-2023 23:42-0400 Heart rate 59 /min [facility] 03-08-2023 23:42-0400 Respiratory rate 18 /min [facility] 03-08-2023 23:42-0400 SaO2% (BldA) [Mass fraction] 100 % [facility] 03-08-2023 23:42-0400 Systolic blood pressure 136 mm[Hg] [facility] 03-08-2023 20:52-0400 Body height 160.02 cm [facility] 03-08-2023 20:52-0400 Body temperature 98.5 [degF] [facility] 01-25-2023 17:21-0400 Body mass index (BMI) [Ratio] 24.5 kg/m2 [facility] 01-25-2023 17:21-0400 Body temperature 98.1 [degF] [facility] 01-25-2023 17:21-0400 Body weight 64.86 kg [facility] 01-25-2023 17:21-0400 Diastolic blood pressure 47 mm[Hg] [facility] 01-25-2023 17:21-0400 Heart rate 78 /min [facility] 01-25-2023 17:21-0400 Respiratory rate 16 /min [facility] 01-25-2023 17:21-0400 SaO2% (BldA) [Mass fraction] 100 % [facility] 01-25-2023 17:21-0400 Systolic blood pressure 117 mm[Hg] [facility] 12-14-2022 10:53-0500 Respiratory rate 16 /min [facility] 12-14-2022 09:33-0500 Body height 160.02 cm [facility] 12-14-2022 09:33-0500 Body mass index (BMI) [Ratio] 25.7 kg/m2 [facility] 12-14-2022 09:33-0500 Body temperature 97.5 [degF] [facility] 12-14-2022 09:33-0500 Body weight 65.77 kg [facility] 12-14-2022 09:33-0500 Diastolic blood pressure 74 mm[Hg] [facility] 12-14-2022 09:33-0500 Heart rate 78 /min [facility] 12-14-2022 09:33-0500 SaO2% (BldA) [Mass fraction] 98 % [facility] 12-14-2022 09:33-0500 Systolic blood pressure 101 mm[Hg] [facility] 07-18-2022 12:18-0400 Respiratory rate 16 /min [facility] Work Phone: 07-18-2022 11:37-0400 Body temperature 97.6 [degF] [facility] Work Phone: 07-18-2022 11:37-0400 Diastolic blood pressure 86 mm[Hg] [facility] Work Phone: 07-18-2022 11:37-0400 Heart rate 87 /min [facility] Work Phone: 07-18-2022 11:37-0400 SaO2% (BldA) [Mass fraction] 99 % [facility] Work Phone: 07-18-2022 11:37-0400 Systolic blood pressure 135 mm[Hg] [facility] Work Phone: 07-18-2022 11:36-0400 Body height 165.1 cm [facility] Work Phone: 07-18-2022 11:36-0400 Body mass index (BMI) [Ratio] 25 kg/m2 [facility] Work Phone: 07-18-2022 11:36-0400 Body weight 68.03 kg [facility] Work Phone: 02-15-2022 19:47-0400 Heart rate 74 /min [facility] Work Phone: 02-15-2022 19:47-0400 Respiratory rate 16 /min [facility] Work Phone: 02-15-2022 19:12-0400 Diastolic blood pressure 76 mm[Hg] [facility] Work Phone: 02-15-2022 19:12-0400 SaO2% (BldA) [Mass fraction] 99 % [facility] Work Phone: 02-15-2022 19:12-0400 Systolic blood pressure 118 mm[Hg] [facility] Work Phone: 02-15-2022 16:53-0400 Body height 165.1 cm [facility] Work Phone: 02-15-2022 16:53-0400 Body mass index (BMI) [Ratio] 26.8 kg/m2 [facility] Work Phone: 02-15-2022 16:53-0400 Body temperature 96.5 [degF] [facility] Work Phone: 02-15-2022 16:53-0400 Body weight 73.2 kg [facility] Work Phone: 02-15-2022 16:25-0400 Body temperature 98.01 [degF] Ngoc Praisler-Wood SHIRT BANDER.COFFEE TASTER Work Phone: [facility] 02-15-2022 16:25-0400 Body weight 73.21 kg Ngoc Praisler-Wood SHIRT BANDER.COFFEE TASTER Work Phone: [facility] 02-15-2022 16:25-0400 Diastolic blood pressure 68 mm[Hg] Ngoc Praisler-Wood SHIRT BANDER.COFFEE TASTER Work Phone: [facility] 02-15-2022 16:25-0400 Heart rate 82 /min Ngoc Praisler-Wood SHIRT BANDER.COFFEE TASTER Work Phone: [facility] 02-15-2022 16:25-0400 Respiratory rate 21 /min Ngoc Chester SHIRT BANDER.COFFEE TASTER Work Phone: [facility] 02-15-2022 16:25-0400 SaO2% (BldA) [Mass fraction] 100 % Ngoc Angelita-Gigi SHIRT BANDER.COFFEE TASTER Work Phone: [facility] 02-15-2022 16:25-0400 Systolic blood pressure 102 mm[Hg] Ngoc Chester SHIRT BANDER.COFFEE TASTER Work Phone: [facility] Encounters Encounter Date Encounter Type Care Provider Facility Start: 08-14-2025 ambulatory No Primary Car e Physician Facility:[facility] Start: 07-18-2025 ambulatory Chandra Silva Facility:[facility] Start: 07-10-2025 Non-patient / Non-visit Dr. Chandra Rojas own DO -[facility] Start: 07-10-2025 End: 07-10-2025 Admission to same day surgery center Dr. Chandra Silva DO -Endoscopy Work Phone: Start: 07-10-2025 End: 07-10-2025 ambulatory No Primary Care Physician -Endoscopy Start: 07-04-2025 ambulatory Chandra Silva Facility:[facility] Start: 07-04-2025 Non-patient / Non-visit Dr. Chandra Rojas own DO -[facility] Start: 07-03-2025 End: 07-03-[address] Chandra Silva DO -[facility] Work Phone: Start: 07-03-2025 End: 07-03-2025 ambulatory No Primary Care Physician -[facility] Start: 07-02-2025 End: 07-02-2025 ambulatory No Primary Care Physician -Laboratory Nato Alvarez Start: 07-02-2025 End: 07-02-[address] Semaj Sheridan MD -Laboratory [facility] Al[facility] Start: 07-02-2025 End: 07-02-2025 ambulatory Semaj Sheridan Facility:[facility] Start: 06-15-2025 End: 06-15-2025 Emergency department patient visit No Primary Care Physician -Emergency Department Work Phone: Start: 05-14-2025 End: 05-14-2025 Follow-up encounter Zhang Mccray APRN.COFFEE TASTER Work Phone: [facility] Comment on above: Results Start: 05-13-2025 End: 05-13-2025 Patient encounter procedure Ngoc Briggs DEXTER.COFFEE TASTER Work Phone: [facility] Comment on above: Sore throat (Primary Dx); Nasal congestion; Postnasal drip Start: 05-13-2025 End: 05-13-2025 ambulatory NGOC BRIGGS Facility:[facility] Start: 04-29-2025 Non-patient / Non-visit Dr. Lise gavin MD -[facility] Work Phone: Start: 10-07-2024 End: 10-07-2024 Emergency department patient visit Bam Avalos Facility:[facility] Start: 09-21-2024 End: 09-21-2024 ambulatory NGOC BRIGGS Facility:[facility] Start: 09-21-2024 End: 09-21-2024 Patient encounter procedure Nettiebrad Jonesgs SHIRT BANDER.COFFEE TASTER Work Phone: [facility] Comment on above: Urinary frequency (P rimary Dx) Start: 07-29-2024 End: 07-29-2024 ambulatory No Primary Care Physician Facility:[facility] Start: 07-29-2024 End: 07-29-2024 ambulatory No Primary Care Physician Facility:[facility] Start: 11-30-2023 End: 11-30-2023 Emergency department patient visit [facility]-Emergency Department Work Phone: Start: 11-28-2023 End: 11-28-2023 Emergency department patient visit JUSTIN NERISSA DO [facility] Start: 11-09-2023 End: 11-09-2023 Admission to same day surgery center [facility] Day [facility] Start: 10-18-2023 End: 10-18-2023 ambulatory [facility] Work Phone: Start: 10-18-2023 End: 10-18-2023 Patient encounter procedure [facility]-Cat Scan, [facility] Work Phone: Start: 08-30-2023 End: 08-30-2023 Emergency department patient visit [facility]-Emergency Department Work Phone: Start: 06-13-2023 End: 06-13-2023 Emergency department patient visit [facility]-Emergency Department Work Phone: Start: 06-08-2023 Telephone encounter Mignon Rodríguez APRN.COFFEE TASTER Work Phone: [facility] Comment on above: Appointment Start: 05-29-2023 End: 05-29-2023 Patient encounter procedure Denise Manjarrez PA-C Work Phone: Orthopaedics Comment on above: Closed displaced fra cture of middle phalanx of left middle finger with routine healing, subsequent encounter (Primary Dx); Pain in finger of left hand Start: 05-26-2023 End: 05-26-2023 Patient encounter procedure Romario Grigsby DO Work Phone: [facility] Comment on above: Closed displaced fra cture of middle phalanx of left middle finger, initial encounter (Primary Dx) Start: 05-09-2023 End: 05-09-2023 Subsequent hospital visit by physician Vangie [facility] Work Phone: Radiology Comment on above: Pain [R52] Start: 05-09-2023 End: 05-09-2023 Patient encounter procedure Mignon Rodríguez APRN.COFFEE TASTER Work Phone: [facility] Comment on above: Pain (Primary Dx) Start: 03-08-2023 End: 03-09-2023 Emergency department patient visit [facility]Emergency Department Start: 01-25-2023 End: 01-25-2023 Emergency department patient visit [facility]Emergency Department Start: 12-14-2022 End: 12-14-2022 Emergency department patient visit [facility]-Emergency Department Start: 07-27-2022 End: 07-27-2022 ambulatory [facility] Work Phone: Start: 07-27-2022 End: 07-27-2022 Patient encounter procedure [facility]-Laboratory Start: 07-18-2022 End: 07-18-2022 Emergency department patient visit [facility]Emergency Department Start: 02-15-2022 End: 02-15-2022 Emergency department patient visit [facility]-Emergency Department Start: 02-15-2022 End: 02-15-2022 Patient encounter procedure Ngoc GoldsteinTosinGigi RAMANDavidCOFFEE TASTER Work Phone: [facility] Comment on above: Episode of shaking ( Primary Dx); Chest pain, unspecified type Start: 07-31-2019 End: 07-31-2019 Patient encounter procedure DOCTOR ON NO [facility] Procedures Date Procedure Procedure Detail Performing Clinician Start: 07-10-2025 Endoscopic ultrasono graphy of bronchus No Primary Care Physician Start: 07-02-2025 In-vitro immunologic test No Primary Care Physician Comment on above: QuantiFERON-TB Gold Plus is a qualitative indirect test forM tuberculosis infection (including disease) and isintended for use in conjunction with risk assessment,radiography, and other medical and diagnostic evaluations.The QuantiFERON-TB Gold Plus result is determined bysubtracting the Nil value from either TB antigen (Ag)value. The Mitogen tube serves as a control for the test. No response to M tub erculosis antigens detected.Infection with M tuberculosis is unlikely, but high riskindividuals should be considered for additional testing(ATS/IDSA/CDC Clinical Practice Guidelines, 2017). Thereference range is an Antigen minus Nil result of <0.35IU/mL.The specimen received for QuantiFERON testing was incubatedby the ordering institution. Specific procedures outlinedin our Directory of Services and in the package insert forthe QuantiFERON Gold (In Tube) test must be followed toenable for proper stimulation of cells for the productionof interferon gamma. Chemiluminescence immunoassaymethodology Start: 07-02-2025 Procedure No Primary Care Physician Comment on above: Test Ordered: [id number] Tuzhj-[id number]-Sfmiptczwmz VebfkewaQnzga-4-Tdzeblxwywp, Serum 181 mg/dL CB Reference Range: 101-187Phenotype (PI) MM BN Reference Range: .MM Phenotype is considered to be normal, producingnormal serum levels of pfovh-7-rzfngmro inhibitor andnot associated with clinical disease. Associated R1Yooekz serum levels in other phenotypes and theirincidence in the general population are shown in thetable below.Phenotype Population % function A-1-AT Conc.* Incidence % compared to MM (Typical Range) MM 86.5% 100% (96 - 189) MS 8.0% 86% (83 - 161) MZ 3.9% 61% (60 - 111) FM 0.4% 100% (93 - 191) SZ 0.3% 41% (42 - 75) SS 0.1% 64% (62 - 119) ZZ 0.05% 19% (16 - 38) FS 0.05% 70% (70 - 128) FZ Unknown 46% (44 - 88) FF Unknown Unknown*A-1-AT concentration in the homozygous MM phenotype is taken as the reference normal. Percent deficiency in each phenotype is reported relative to this reference. Ranges used to confirm phenotype.Performed at: - [facility] [address] [id number] Director: Rogelio Jane PhD, Phone: [phone] at: - [facility] [address] [id number] Director: Sergio Staples MD, Phone: [phone] Start: 07-02-2025 Serologic test for syphilis No Primary Care Physician Start: 06-15-2025 CT angiography of ch est with contrast No Primary Care Physician Start: 06-15-2025 D-dimer assay, quantitative No Primary Care Physician Comment on above: NORMAL D-Dimer level (<0.50) indicates no DVT or PE. Start: 06-15-2025 Estimated creatinine clearance No Primary Care Physician Start: 06-15-2025 X-ray of chest, PA a nd lateral views No Primary Care Physician Start: 05-13-2025 Iadna streptococcus group a amplified probe tq Ngoc Briggs APRN.COFFEE TASTER Work Phone: Start: 11-09-2023 Fluoroscopic guidance Start: 10-18-2023 CT of abdomen and pe lvis without contrast Start: 08-30-2023 Plain chest X-ray Start: 08-30-2023 CT of abdomen and pe lvis without contrast Start: 06-13-2023 Urine culture Start: 05-09-2023 Radex hand minimum 3 views Mignon Rodríguez APRN.COFFEE TASTER Work Phone: Start: 03-08-2023 Urine culture Start: 02-15-2022 CT angiography of ch est with contrast Start: 02-15-2022 Influenza Types A,B Direct FA (SUDARSHAN) Streptococcus pyogen es antigen assay Urine culture Plan of Treatment Date Care Activity Detail Author Start: 07-10-2025 Patient discharge [facility] Start: 07-02-2025 In-vitro immunologic test [facility] Start: 07-02-2025 Procedure [facility] Start: 06-30-2025 Influenza vaccination Influenza Vacc ine (#1) [facility] Start: 06-15-2025 [facility] Start: 06-15-2025 [facility] Start: 06-30-2024 Covid-19 Vaccine ( season) Covid-19 Vaccine ( season) [facility] Start: 06-30-2024 Covid-19 Vaccine ( season) Covid-19 Vaccine ( season) [facility] Start: 06-30-2024 Influenza vaccination Influenza Vacc ine (#1) [facility] Start: 11-09-2023 Anes lithotrp xtrcor p shock wave w/o water bath ANESTH KIDNEY STONE DESTRUCT [facility] Start: 11-09-2023 Cysto/uretero w/lithotripsy &indwell stent insrt CYSTO/URETERO W/LITHOTRIPSY [facility] Start: 11-09-2023 Patient discharge [facility] Start: 08-30-2023 [facility] Start: 06-30-2023 Influenza vaccination INFLUENZA (#1) [facility] Start: 06-13-2023 [facility] Start: 06-13-2023 Bacteria identified in Urine by Culture Urine Culture [facility] Start: 2023 COLOGUARD (FIT-DNA) COLOGUARD (FIT-D NA) [facility] Start: 2023 Colonoscopy COLONOSCOPY [facility] Start: 2023 COLORECTAL CANCER SCREENING COLORECTAL CANCER SCREENING [facility] Start: [address] COLONOGRAPHY [facility] Start: 2023 DIABETES SCREEN DIABETES SCREEN [facility] Start: 2023 Diabetes Screening Diabetes Screenin g [facility] Start: 2023 FECAL OCCULT BLOOD FECAL OCCULT BLOO D [facility] Start: 2023 Lipid panel Lipid Screening [facility] Start: 2023 LIPID SCREEN LIPID SCREEN [facility] Start: 2023 Screening for malign ant neoplasm of colon [facility] Start: 2023 SIGMOIDOSCOPY SIGMOIDOSCOPY [facility] Start: 03-08-2023 End: 03-08-2023 [facility] Start: 10-30-2022 DEPRESSION ASSESSMENT DEPRESSION ASS ESSMENT [facility] Start: 06-30-2022 Influenza vaccination INFLUENZ A (Season Ended) [facility] Start: 12-28-2021 COVID-19 VACCINE (4 - Pfizer series) COVID-19 VACCINE (4 - Pfizer series) [facility] Start: 2018 Mammography MAMMOGRAM [facility] Start: 2018 Screening for malign ant neoplasm of breast Mammogram Screening [facility] Start: 2008 HPV TESTING HPV TESTING [facility] Start: 1999 PAP TESTING PAP TESTING [facility] Start: 1999 Screening for malign ant neoplasm of cervix Cervical Cancer Screening [facility] Start: 1997 Hepatitis B Vaccine (1 of 3 - 19+ 3-dose series) Hepatitis B Vaccine (1 of 3 - 19+ 3-dose series) [facility] Start: 1997 Urine microalbumin profile [facility] Start: 1996 Anxiety Screening Anxiety Screening [facility] Start: 1996 Depression Screening Depression Scre ening [facility] Start: 1996 HEPATITIS C SCREENING HEPATITIS C SC [facility] Start: 1996 Hepatitis C screening Hepatitis C [facility] Start: 1996 HIV SCREENING HIV SCREENING [facility] Start: 1996 HIV screening HIV Screening [facility] Start: 1990 Adult depression scr eening assessment DEPRESSION SCREENING [facility] Start: 1984 PNEUMOCOCCAL (1 - PCV) PNEUMOCOCCAL (1 - PCV) [facility] Start: 1978 HEPATITIS B (1 of 3 - 3-dose series) HEPATITIS B (1 of 3 - 3-dose series) [facility] Angiotensin converti ng enzyme [Enzymatic activity/volume] in Serum or Plasma [facility] Bacteria identified in Urine by Culture Urine Culture [facility] Bacteria identified in Urine by Culture URINE CULTURE Microbiology Routine Urinary frequency 09/21/2024 3:48 PM EST [facility] Bilirubin measuremen t, urine [facility] Carcinoembryonic Ag [Mass/volume] in Serum or Plasma [facility] COVID & INFLUENZA A/ B & RSV PCR, ROUTINE COVID & INFLUENZA A/B & RSV PCR, ROUTINE Microbiology Routine Sore throat Ordered: 05/13/2025 [facility] Work Phone: Comment on above: Ordered: 05/13/2025 Hemoglobin [Presence ] in Urine [facility] Measurement of keton es in urine using dipstick [facility] Microscopic urinalysis [facility] Mycobacterium tuberc ulosis tuberculin stimulated gamma interferon [Presence] in Blood [facility] Partial thromboplast in time, activated [facility] Patient Education [facility] Work Phone: Patient referral [facility] Work Phone: pH of Urine [facility] Platelets [#/volume] in Blood [facility] Prothrombin time [facility] Specific gravity of Urine [facility] Streptococcus pyogen es antigen assay Group A Streptococcus Rapid Screen [facility] UA DIP, URINE (POC) UA DIP, URIN E (POC) Lab Routine Urinary frequency Ordered: 09/21/2024 [facility] Work Phone: Comment on above: Ordered: 09/21/2024 Urinalysis, blood, qualitative [facility] Urine dipstick for glucose [facility] Urine dipstick for leukocyte esterase [facility] Urine dipstick for nitrite [facility] Urine dipstick for protein [facility] Urine examination [facility] Urine microscopy: epithelial cells [facility] Urine Microscopy: wh ite cells [facility] Urobilinogen [Presen ce] in Urine [facility] Payers Date Payer Category Payer Self-pay [id number] 2024 Blue Cross Blue Shield BLUE CARD PPO OOS [id number] 2024 Unknown ANTHEM BLUE CARD PPO OOS [id number] 2024-Present [phone] [place] [address] PPO [id number] 2024 Unknown [id number] 2022 Medicaid [id number] 2021 Medicaid [employer] MED[employer] ID [employer] MEDICAID [id number] 2021-Present [phone] [address] [place] [address] Medicaid [id number] 1978 Unknown [id number] 651 Medicaid [id number] Medicaid 0 Private Health Insurance [id number] Unknown [id number] Unknown DUC [id number] Unknown [id number] 462 Unknown [id number]. 462 Unknown [id number]. 462 Unknown [id number]. 462 Unknown [id number]. 462 Unknown [id number]. 462 Unknown [id number] [id number]. 462 Unknown [id number] [id number]. 462 Unknown [id number] [id number]. 462 Unknown [id number]. 462 Unknown [id number] 462 Social History Date Type Detail Facility [facility] Work Phone: Start: 02-15-2022 End: 11-30-2023 Tobacco smoking status NJIS Unknown if ever smoked [facility] Start: 1980 Sex Assigned At Female [facility] Start: 1980 Sex Assigned At Not on file [facility] Start: 02-05-2022 End: 02-15-2022 Exposure to SARS-CoV-2 (event) Not sure [facility] Work Phone: Start: 05-09-2023 End: 07-07-2025 Tobacco smoking status NJIS Smokes tobacco daily [facility] History of tobacco use Cigarette Smoker [facility] Start: 05-09-2023 End: 05-29-2023 Tobacco use and exposure Smokeless tobacco non-user [facility] Start: 05-09-2023 End: 05-26-2023 History of Social function [facility] Start: 05-09-2023 End: 05-26-2023 Tobacco use panel [facility] Start: 05-26-2023 End: 05-13-2025 Alcohol intake Ex-drinker (finding) [facility] National Score (1-100), lower number is lower risk 50 [facility] Start: 05-29-2023 Tobacco smoking status NHIS Ex-smoker [facility] History of tobacco use Current smoker [facility] Tobacco smoking status No Smoking Status Entered [facility] Start: 07-10-2025 Tobacco Use Tobacco Use [facility] NEGATED: Highlighted row [facility] Medical Equipment Procedure Code Equipment Code Equipment Origin al Text Equipment Identifier Dates Cystoscopy, with retrograde pyelogram, ureteroscopy, laser procedure, and stent inser STENT,URETERAL PIGTAIL [id number] FDA Start: 11-09-2023 Cystoscopy, with retrograde pyelogram, ureteroscopy, laser procedure, and stent inser STENT,URETERAL PIGTAIL [id number] FDA Start: 11-09-2023 Cystoscopy, with retrograde pyelogram, ureteroscopy, laser procedure, and stent inser STENT,URETERAL PIGTAIL [id number] FDA Start: 11-09-2023 Cystoscopy, with retrograde pyelogram, ureteroscopy, laser procedure, and stent inser STENT,URETERAL PIGTAIL [id number] FDA Start: 11-09-2023 Cystoscopy, with retrograde pyelogram, ureteroscopy, laser procedure, and stent inser STENT,URETERAL PIGTAIL [id number] FDA Start: 11-09-2023 Goals Date Patient Goal Desired Activity /State Functional Status Date Assessment Result Facility 11-28-2023 Functional Status Up ad edwin [facility] Mental Status Date Assessment Result Facility 07-10-2025 Cognitive function Level Of Consciousness Awake [facility] Work Phone: 07-10-2025 Cognitive function Voice/Name [facility] Work Phone: 06-15-2025 Cognitive function Voice/Name [facility] Work Phone: 11-30-2023 Cognitive function Level Of Cons ciousness Awake;Alert;Appropriate;Follow s Commands [facility] Work Phone: 11-28-2023 [facility] 11-09-2023 Cognitive function Voice/Name [facility] Work Phone: 02-15-2022 Cognitive function Level Of Cons ciousness Awake;Alert;Appropriate;Follow s Commands [facility] Work Phone: Clinical Notes 02-15-2022 to 07-10-2025 Note Date & Type Note Facility 07-10-2025 Consult note Note Date/Time July 10, 2025 12:05pm [facility] Medical Records Department [address] [place] [address] Pre-Anesthesia Evaluation 07/10/25 1148 MR#: [id number] Acct: [id number] Name: JERRI JIMENEZ Rep #:[id number] : 1980 45 From: Efrain Li MD PCP: Dr. Semaj Sheridan MD [place] [place] Race: C Location: [place] [address] ASA Classification* ASA Classification ASA Classification: 3 Assessment & Plan Anesthesia* Anesthesia Assessment Anesthesia Assessment: Discussed sedation and/or anesthesia options, risks, benefits, and alternatives with patient/parents/legal guardian/POA. Questions invited. The patient/parents/legal guardian/POA seems to understand and agrees to proceedwith anesthesia plan. Reviewed the physical assessment, medical history, allergy history and patient home medications list prior to surgery/procedure/anesthetic and documented any changes. Performed airway and anesthesia risk assessments. Anesthesia Type Anesthesia Type: General History Source History Obtained from:: Patient and Chart Anesthesia Focused Assessment* Temperature: 97.9 F Pulse Rate: 76 Blood Pressure: 122/78 Respiratory Rate: 16 Pulse Ox: 98 Oxygen Delivery Method: Room Air Airway Assessment Mouth opens: >3 cm Mallampati Score: III Teeth Condition: Loose (Tooth #13 is loose. Rest of the teeth are tight.) and Missing (Patient has several missing teeth.) Neck Range of motion (ROM): Full ROM Labs Anesthesia Preop lab: CBC WBC 5.6 K/mm3 (4.4-11.0) 06/15/25 16:23 06/15/25 RBC 4.12 M/mm3 (4.2-5.4) L 06/15/25 16:23 06/15/25 Hgb 11.8 g/dL (12.0-15.0) L 06/15/25 16:23 5 Hct 36.0 % (37-47) L 06/15/25 16:23 06/15/25 Plt Count 265 K/mm3 (150-450) 07/08/25 11:36 07/08/25 CHEMISTRY Potassium 4.4 mmol/L (3.3-5.1) 06/15/25 16:23 06/15/25 Sodium 139 mmol/L (133-145) 06/15/25 16:23 06/15/25 BUN 25 mg/dL (4-19) H 06/15/25 16:23 06/15/25 Creatinine 1.12 mg/dL (0.70-1.20) 06/15/25 16:23 06/15/25 Glucose 91 mg/dL (70-99) 06/15/25 16:23 06/15/25 TSH 1.37 uIU/mL (0.358-3.74) 07/27/22 16:08 COAG PT 12.6 SECONDS (11.7-14.9) 07/08/25 11:36 Urine Test Negative Negative 06/13/23 21:05 06/13/23 Pre-Assessment Diagnosis/Proposed Procedure Planned Operative Procedure(s): Endobronchial ultrasound Anesthesia History Anesthesia History - life sciences instructor: Anesthesia History - life sciences instructor Hx Hospitalization No 07/07/25 14:05 Any Problems With Anesthesia No 07/07/25 14:05 Cholinesterase deficiency No 07/07/25 14:05 You/Your Family Experience No 07/07/25 14:05 fever (hyperthermia) with Relationship Recent Exposure to Contagious No 07/10/25 11:18 Disease Does patient have nerve No 07/07/25 14:05 stimulator Patient instructed to have device shut off --Does patient have Pacemaker No 07/10/25 11:18 or ICD? When Was Last Pacemaker Check QUESTION #4 FULL TEXT: You/Your Family Experience fever (hyperthermia) with Anesthesia Last Oral Intake Last Oral intake: Last Oral Intake NPO since 23:00 07/10/25 11:18 Meds taken in AM with sips of Yes 07/10/25 11:18 water? Meds patient instructed to ibuprofen 07/10/25 11:18 take am of surgery Any additional information?: Yes Meds taken in AM with sips of water?: Yes PONV PONV - life sciences instructor: PONV - life sciences instructor Female Yes 07/07/25 14:05 HX of Motion Sickness No 07/07/25 14:05 HX of N/V After Surgery No 07/07/25 14:05 Non-Smoker No 07/07/25 14:05 Duration of Surgery greater No 07/07/25 14:05 than 60 minutes Number of Risk Factors 1 07/07/25 14:05 PONV Score Low Risk 07/07/25 14:05 Height & Weight Height & Weight: Anesthesia: Height & Weight Height 5 ft 4 in 07/10/25 11:18 Weight: 66.7 kg 07/10/25 11:18 Body Mass Index (BMI) 25.2 07/10/25 11:18 Respiratory Assessment Respiratory Assessment - life sciences instructor: Respiratory Tract Infection Hx - life sciences instructor Hx Respiratory Tract Infection No 07/07/25 14:05 Any additional information?: Yes Hx Respiratory Tract Infection: Yes History of Anesthesia Respiratory Infection details: Patient has had a chronic cough for past month. Patient had a mass*[address] scan. STOP Sleep Apnea STOP Sleep Apnea - life sciences instructor: STOP Sleep Apnea - life sciences instructor Hx Hypertension No 07/07/25 14:05 Hx Sleep Apnea No 07/07/25 14:05 CPAP BIPAP Do you snore loudly (louder No 07/07/25 14:05 than talking or can be heard Do you often feel tired/ No 07/07/25 14:05 fatigued/ sleepy during daytime? Has anyone observed you stop No 07/07/25 14:05 breathing during sleep? STOP Results Negative 07/07/25 14:05 QUESTION #5 FULL TEXT : Do you snore loudly (louder than talking or can be heard through closed doors)? Tobacco Use History Tobacco Use History - life sciences instructor: Tobacco Use History - life sciences instructor Tobacco Use Smoking Status Current every day smoker 07/07/25 14:05 Hx Tobacco Use Yes 07/07/25 14:05 Years Smoking Packs Smoked per Day Smoking Cessation Date was within the last 15 years Hx Smoking Cessation Date Hx Smoking Cessation Counseling Any additional information?: Yes Tobacco Use: Vapor (Patient vaped today.) Hematologic Medial History Hematologic Hx - life sciences instructor: Hematologic Medical Hx - parachute line tier Hx of Blood Transfusion No 07/07/25 14:05 Hx of Transfusion in last 3 No 07/07/25 14:05 Months Date of Last Transfusion (if within last 3 months) Ever experience any problems No 07/07/25 14:05 with transfusion(s)? Specify any problems Hx of Preganancy in last 3 No 07/07/25 14:05 Months Nurse Filling Out Transfusion VCHRISTIN 07/07/25 14:05 & Questions: Date: 07/07/25 07/07/25 14:05 Time: 14:06 07/07/25 14:05 Patient unable to answer at this time (ie. confused, unrespo /Reproduction History /Reproductive History - life sciences instructor: /Reproductive Hx- life sciences instructor Hx Now Gestational Age (in weeks): EDC: Hx Hx Para Hx Section SAB No 07/07/25 14:05 Active Medications Active Medications: Current Medications Generic Name Dose Route Start Last Admin Trade Name Freq PRN Reason Stop Dose Admin Lactated Ringer's 1,000 mls @ 15 mls/hr 07/10/25 11:15 07/10/25 11:26 IV 15 mls/hr .Q48H SARAH Administration PFSH Medical History Right ureteral stone Wears glasses Depression Substance abuse Marijuana use History of ulceration Vapes nicotine containing substance Shortness of breath on exertion Leg cramps Anxiety Asthma Home Medications ?Medication ?Instructions ?Recorded ?Last Taken ?Type buprenorphine 8 mg-naloxone 2 mg 8 ea sublingual BID 0 02/15/22 11/08/23 History sublingual film gabapentin 100 mg capsule 200 mg PO TID 02/15/2211/08 History trazodone 50 mg tablet 50 mg PO QHS 02/15/22 History hydroxyzine HCl 10 mg tablet 10 mg PO TID PRN anxiety 07/03/25 Unknown History lisdexamfetamine 30 mg capsule 30 mg PO QAM 07/03/25 U nknown History albuterol sulfate 90 mcg/actuation 2 inh inhalation Q6 H PRN shortness 07/07/25 Unknown History breath activated powder inhaler of breath or wheezing doxepin 10 mg capsule 10 mg PO DAILY PRN anxiety 0 07/07/25 Unknown History Allergy/AdvReac Type Severity Reaction Status Date / Time Sulfa (Sulfonamide Allergy Anaphylaxis Verified 07/10/25 11:14 Antibiotics) Surgical History Hx of cystoscopy Hx of oral surgery Hx of tubal ligation Social History household members: significant other and children Smoking Status: Current every day smoker tobacco type: e-cigarettes substance use type: former substance user and opiates Review of Systems (Anesthesia) ROS Narrative System reviewed and no additional complaints, except as documented. Physical Exam Resp Auscultation: wheezes inspiratory wheezes (I had patient use her albuterol metered-dose inhaler.) 07/10/25 1205 <Electronically signed by Efrain carnes MD> Date _ Efrain Li MD Cosigner Signature: Date CC: ~ Signed [facility] Work Phone: [phone]) 257-122009-11-2025 History and physical note Author Chandra Silva [facility] Note Date/Time July 10, 2025 11:17am [facility] Medical Records Department [address] [place] [address] History & Physical Exam 07/04/25 1007 MR#: [id number] Acct: [id number] Name: JERRI JIMENEZ Rep #:[id number] : 1980 45 From: Chandra Silva DO PCP: Dr. Semaj Sheridan MD [place] Location: [place] [address] HPI - General HPI Narrative The patient is a 45-year-old female who initially presented to the pulmonary medicine office on July 03 for the evaluation of a lung mass identified on CT imaging. In mid May 2025, the patient presented to the emergency department with complaints of shortness of breath and chest pain. Her laboratory workup, including troponin were negative. A CTA chest was obtained, which demonstrated a right hilar lung mass measuring approximately 4 cm in size with what appeared to be infiltration into the subcarinal space as well. The patient reported that she smokes cigarettes, 0.5 to 1 pack/day for approximately 20 years prior to transitioning to vaping in 2020. In addition toher personal smoking history, she did grow up in a smoking household. 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 She did report that she was diagnosed with asthma in childhood. Ironically, however, she reports little to no improvement with her symptoms withthe use of albuterol. The patient is not currently on any form of blood thinners. She does report a family history of lung and breast cancer. [facility] Medical History Right ureteral stone Wears glasses Depression Substance abuse Marijuana use History of ulceration Vapes nicotine containing substance Shortness of breath on exertion Leg cramps Anxiety Asthma Home Medications ?Medication ?Instructions ?Recorded ?Last Taken ?Type buprenorphine 8 mg-naloxone 2 mg 8 ea sublingual BID 0 02/15/22 11/08/23 History sublingual film gabapentin 100 mg capsule 100 mg PO 4X/DAY 02/15/22 History trazodone 50 mg tablet 50 mg PO QHS 02/15/22 History hydroxyzine HCl 10 mg tablet 10 mg PO TID PRN 07/03/25 Unknown History lisdexamfetamine 30 mg capsule 30 mg PO QAM 07/03/25 U nknown History Allergy/AdvReac Type Severity Reaction Status Date / Time Sulfa (Sulfonamide Allergy Anaphylaxis Verified 07/03/25 11:25 Antibiotics) Surgical History Hx of oral surgery Hx of tubal ligation Social History household members: significant other and children Smoking Status: Current every day smoker tobacco type: e-cigarettes substance use type: former substance user and opiates ROS ROS Narrative 10 systems were reviewed with pertinent positives as noted in the HPI. Physical Exam Const alert and no apparent distress General Appearance: cooperative HEENT normocephalic and head/scalp atraumatic Eyes PERRL and EOMs intact bilaterally Neck supple General: trachea midline Resp normal respiratory effort and normal air movement Cardio regular rate and regular rhythm GI normal to inspection, nondistended, normoactive bowel sounds Extremity no clubbing, cyanosis or edema Skin General Skin Exam: no breakdown Neuro CN's II-XII intact bilaterally and no focal motor deficits Psych cooperative and affect normal Assessment & Plan Assessment/Plan (1) Lung mass: PLAN: The patient initially presented for the evaluation of a right hilar lung mass with subcarinal infiltration, which was demonstrated on CT imaging in May when the patient presented to the ED. The patient does have a combustible cigarette smoking history, prior to transitioning to vaping in 2020. The findings noted on CT imaging could certainly represent an underlying malignant process. She does report a family history of both lung and breast cancer. Accordingly, recommend proceeding with bronchoscopic evaluation/EBUS tofacilitate sampling. Risks and benefits of the proposed procedure were discussed with the patient. She is in agreement to proceed. 07/04/25 1009 <Electronically signed by Chandra Silva DO> Cosigner Signature (if applicable): CC: Dr. Chandra Silva DO; Dr. Semaj Sheridan MD~ Signed ADDENDUM by Dr. Chandra Silva DO on 07/10/25 at 1117 Addendum I have examined the patient and the H&P has been reviewed. There are no clinicalchanges since date of exam. 07/10/25 1117<Electronically signed by Chandra Silva DO> Cosigner Signature (if applicable): cc: Dr. Chandra Silva DO; Dr. Semaj Sheridan MD ~* Signed [facility] Work Phone: 1(343) 759-551009-11-2025 Consult note [facility] Medical Records Department [address] [facility] [place] [address] Anesthesia Postop Eval I 07/10/25 1310 MR#: [id number] Acct: [id number] Name: JERRI JIMENEZ Rep #:[id number] : 1980 45 From: Donna Sanabria CRNA PCP: Dr. Semaj Sheridan MD Status[place] [place] Race: C Location: [place] [address] Anesthesia: Postop Eval I Current Vital Signs Temperature: 97.5 F Pulse Rate: 77 Blood Pressure: 95/73 Respiratory Rate: 16 Pulse Ox: 97 Oxygen Delivery Method: Room Air Assessment Airway patent: Yes Spontaneous unlabored respirations: Yes Mental status: Awake nausea: No Vomiting: No Anesthesia Complication: No Fluid Hydration Crystalloid volume administer (ml): 900 Total IV fluid infused: 900 Progress Note Anesthesia document: Postop Eval 1 completed: Yes 07/10/25 1311 FRAUD REPRESENTATIVE> Date _ Donna Sanabria FRAUD REPRESENTATIVE Cosigner Signature: Date CC: ~ Signed [facility]09-11-2025 Procedure note [facility] Medical Records Department [address] [place] [address] Bronchoscopy Report MR#: [id number] Acct: [id number] Name: JERRI JIMENEZ Rep #:[id number] : 1980 45 From: Chandra Silva DO PCP: Dr. Semaj Sheridan MD Status:[facility] Patient Name: Jerri Jimenez Procedure Date: 07/10/2025 11:27 AM Date of : 1980 Age: 45 Procedure: Bronchoscopy Indications: Abnormal CT scan of chest Providers: Chandra Silva MD Referring MD: Chandra Silva MD Medicines: General Anesthesia Complications: No immediate complications Procedure: Pre-Anesthesia Assessment: - A History and Physical has been performed. Patient meds and allergies have been reviewed. The risks and benefits of the procedure and the sedation options and risks were discussed with the patient. All questions were answered and informed consent was obtained. Patient identification and proposed procedure were verified prior to the procedure by the physician and the nurse in the procedure room. Mental Status Examination: alert and oriented. Airway Examination: normal oropharyngeal airway. Respiratory Examination: clear to auscultation. CV Examination: normal. ASA Grade Assessment: II - A patient with mild systemic disease. After reviewing the risks and benefits, the patient was deemed in satisfactory condition to undergo the procedure. The anesthesia plan was to use general anesthesia. Immediately prior to administration of medications, the patient was re-assessed for adequacy to receive sedatives. The heart rate, respiratory rate, oxygen saturations, blood pressure, adequacy of pulmonary ventilation, and response to care were monitored throughout the procedure. The physical status of the patient was re-assessed after the procedure. After I obtained informed consent, the scope was passed under direct vision. Throughout the procedure, the patient's blood pressure, pulse, and oxygen saturations were monitored continuously. The ultrasound bronchoscope was introduced through the mouth, via laryngeal mask airway and advanced to the tracheobronchial tree. The procedure was accomplished without difficulty. The patient tolerated the procedure well. Findings: The laryngeal mask airway is in good position. The vocal cords appear normal. The subglottic space is normal. The trachea is of normal caliber. The kael is sharp. The tracheobronchial tree was examined to at least the first subsegmental level. Bronchial mucosa and anatomy are normal; there are no endobronchial lesions, and no secretions. The scope was withdrawn and replaced with the EBUS bronchoscope to accomplish the ultrasound examination. Lymph Nodes: An endobronchial ultrasound endoscope was utilized to systematically examine the subcarinal mediastinum (level 7) and right hilar region (level 10R) in order to assist with guiding the biopsy needle. Lymph node sizing was performed via endobronchial ultrasound. Sampling by transbronchial needle aspiration was also performed using an Olympus ViziShot 21 gauge needle in the subcarinal mediastinum (level 7) and right hilar region (level 10R) and sent for routine cytology. - The 7 (subcarinal) node was evaluated. Three samples with the needle were obtained. - The 10R (hilar) node was evaluated. Three samples with the needle were obtained. Impression: - Abnormal CT scan of chest - The airway examination was normal. - Endobronchial ultrasound was performed. - Lymph node/mass sampling was performed. Recommendation: - Await biopsy results. Procedure Code(s): --- Professional --- 67784, Bronchoscopy, rigid or flexible, including fluoroscopic guidance, when performed; with endobronchial ultrasound (EBUS) guided transtracheal and/or transbronchial sampling (eg, aspiration[s]/biopsy[ies]), one or two mediastinal and/or hilar lymph node stations or structures Diagnosis Code(s): --- Professional --- R93.89, Abnormal findings on diagnostic imaging of other specified body structures R09.89, Other specified symptoms and signs involving the circulatory and respiratory systems CPT copyright 2021 [employer]. All rights reserved. The codes documented in this report are preliminary and upon ad terminal makeup operator review may be revised to meet current compliance requirements. DO Chandra Sanchez MD 07/10/2025 1:01:11 PM This report has been signed electronically. Number of Addenda: 0 Note Initiated On: 07/10/2025 11:27 AM 07/10/25 1301 Date _ Chandra Silva DO Cosigner Signature: Date (if indicated) CC: Dr. Chandra Silva DO; Dr. Semaj Sheridan MD ~ Date Dictated: 07/10/25 1127 Date Transcribed: Community Advocate: FELIPE Signed [facility]09-11-2025 Consult note [facility] Medical Records Department [address] [place] [address] Pre-Anesthesia Evaluation 07/10/25 1148 MR#: [id number] Acct: [id number] Name: JERRI JIMENEZ Rep #:[id number] : 1980 45 From: Efrain Li MD PCP: Dr. Semaj Sheridan MD Status:REG SDC Y Race: C Location: [place] [address] ASA Classification* ASA Classification ASA Classification: 3 Assessment & Plan Anesthesia* Anesthesia Assessment Anesthesia Assessment: Discussed sedation and/or anesthesia options, risks, benefits, and alternatives with patient/parents/legal guardian/POA. Questions invited. The patient/parents/legal guardian/POA seems to understand and agrees to proceedwith anesthesia plan. Reviewed the physical assessment, medical history, allergy history and patient home medications list prior to surgery/procedure/anesthetic and documented any changes. Performed airway and anesthesia risk assessments. Anesthesia Type Anesthesia Type: General History Source History Obtained from:: Patient and Chart Anesthesia Focused Assessment* Temperature: 97.9 F Pulse Rate: 76 Blood Pressure: 122/78 Respiratory Rate: 16 Pulse Ox: 98 Oxygen Delivery Method: Room Air Airway Assessment Mouth opens: >3 cm Mallampati Score: III Teeth Condition: Loose (Tooth #13 is loose. Rest of the teeth are tight.) and Missing (Patient has several missing teeth.) Neck Range of motion (ROM): Full ROM Labs Anesthesia Preop lab: CBC WBC 5.6 K/mm3 (4.4-11.0) 06/15/25 16:23 06/15/25 RBC 4.12 M/mm3 (4.2-5.4) L 06/15/25 16:23 06/15/25 Hgb 11.8 g/dL (12.0-15.0) L 06/15/25 16:23 5 Hct 36.0 % (37-47) L 06/15/25 16:23 06/15/25 Plt Count 265 K/mm3 (150-450) 07/08/25 11:36 07/08/25 CHEMISTRY Potassium 4.4 mmol/L (3.3-5.1) 06/15/25 16:23 06/15/25 Sodium 139 mmol/L (133-145) 06/15/25 16:23 06/15/25 BUN 25 mg/dL (4-19) H 06/15/25 16:23 06/15/25 Creatinine 1.12 mg/dL (0.70-1.20) 06/15/25 16:23 06/15/25 Glucose 91 mg/dL (70-99) 06/15/25 16:23 06/15/25 TSH 1.37 uIU/mL (0.358-3.74) 07/27/22 16:08 COAG PT 12.6 SECONDS (11.7-14.9) 07/08/25 11:36 Urine Test Negative Negative 06/13/23 21:05 06/13/23 Pre-Assessment Diagnosis/Proposed Procedure Planned Operative Procedure(s): Endobronchial ultrasound Anesthesia History Anesthesia History - life sciences instructor: Anesthesia History - life sciences instructor Hx Hospitalization No 07/07/25 14:05 Any Problems With Anesthesia No 07/07/25 14:05 Cholinesterase deficiency No 07/07/25 14:05 You/Your Family Experience No 07/07/25 14:05 fever (hyperthermia) with Relationship Recent Exposure to Contagious No 07/10/25 11:18 Disease Does patient have nerve No 07/07/25 14:05 stimulator Patient instructed to have device shut off --Does patient have Pacemaker No 07/10/25 11:18 or ICD? When Was Last Pacemaker Check QUESTION #4 FULL TEXT: You/Your Family Experience fever (hyperthermia) with Anesthesia Last Oral Intake Last Oral intake: Last Oral Intake NPO since 23:00 07/10/25 11:18 Meds taken in AM with sips of Yes 07/10/25 11:18 water? Meds patient instructed to ibuprofen 07/10/25 11:18 take am of surgery Any additional information?: Yes Meds taken in AM with sips of water?: Yes PONV PONV - life sciences instructor: PONV - life sciences instructor Female Yes 07/07/25 14:05 HX of Motion Sickness No 07/07/25 14:05 HX of N/V After Surgery No 07/07/25 14:05 Non-Smoker No 07/07/25 14:05 Duration of Surgery greater No 07/07/25 14:05 than 60 minutes Number of Risk Factors 1 07/07/25 14:05 PONV Score Low Risk 07/07/25 14:05 Height & Weight Height & Weight: Anesthesia: Height & Weight Height 5 ft 4 in 07/10/25 11:18 Weight: 66.7 kg 07/10/25 11:18 Body Mass Index (BMI) 25.2 07/10/25 11:18 Respiratory Assessment Respiratory Assessment - life sciences instructor: Respiratory Tract Infection Hx - life sciences instructor Hx Respiratory Tract Infection No 07/07/25 14:05 Any additional information?: Yes Hx Respiratory Tract Infection: Yes History of Anesthesia Respiratory Infection details: Patient has had a chronic cough for past month. Patient had a mass*[address] scan. STOP Sleep Apnea STOP Sleep Apnea - life sciences instructor: STOP Sleep Apnea - life sciences instructor Hx Hypertension No 07/07/25 14:05 Hx Sleep Apnea No 07/07/25 14:05 CPAP BIPAP Do you snore loudly (louder No 07/07/25 14:05 than talking or can be heard Do you often feel tired/ No 07/07/25 14:05 fatigued/ sleepy during daytime? Has anyone observed you stop No 07/07/25 14:05 breathing during sleep? STOP Results Negative 07/07/25 14:05 QUESTION #5 FULL TEXT : Do you snore loudly (louder than talking or can be heard through closeddoors)? Tobacco Use History Tobacco Use History - life sciences instructor: Tobacco Use History - life sciences instructor Tobacco Use Smoking Status Current every day smoker 07/07/25 14:05 Hx Tobacco Use Yes 07/07/25 14:05 Years Smoking Packs Smoked per Day Smoking Cessation Date was within the last 15 years Hx Smoking Cessation Date Hx Smoking Cessation Counseling Any additional information?: Yes Tobacco Use: Vapor (Patient vaped today.) Hematologic Medial History Hematologic Hx - life sciences instructor: Hematologic Medical Hx - parachute line tier Hx of Blood Transfusion No 07/07/25 14:05 Hx of Transfusion in last 3 No 07/07/25 14:05 Months Date of Last Transfusion (if within last 3 months) Ever experience any problems No 07/07/25 14:05 with transfusion(s)? Specify any problems Hx of Preganancy in last 3 No 07/07/25 14:05 Months Nurse Filling Out Transfusion VCHRISTIN 07/07/25 14:05 & Questions: Date: 07/07/25 07/07/25 14:05 Time: 14:06 07/07/25 14:05 Patient unable to answer at this time (ie. confused, unrespo /Reproduction History /Reproductive History - life sciences instructor: /Reproductive Hx- life sciences instructor Hx Now Gestational Age (in weeks): EDC: Hx Hx Para Hx Section SAB No 07/07/25 14:05 Active Medications Active Medications: Current Medications Generic Name Dose Route Start Last Admin Trade Name Freq PRN Reason Stop Dose Admin Lactated Ringer's 1,000 mls @ 15 mls/hr 07/10/25 11:15 07/10/25 11:26 IV 15 mls/hr .Q48H SARAH Administration PFSH Medical History Right ureteral stone Wears glasses Depression Substance abuse Marijuana use History of ulceration Vapes nicotine containing substance Shortness of breath on exertion Leg cramps Anxiety Asthma Home Medications ?Medication ?Instructions ?Recorded ?Last Taken ?Type buprenorphine 8 mg-naloxone 2 mg 8 ea sublingual BID 0 02/15/22 11/08/23 History sublingual film gabapentin 100 mg capsule 200 mg PO TID 02/15/2211/08 History trazodone 50 mg tablet 50 mg PO QHS 02/15/22 History hydroxyzine HCl 10 mg tablet 10 mg PO TID PRN anxiety 07/03/25 Unknown History lisdexamfetamine 30 mg capsule 30 mg PO QAM 07/03/25 U nknown History albuterol sulfate 90 mcg/actuation 2 inh inhalation Q6 H PRN shortness 07/07/25 Unknown History breath activated powder inhaler of breath or wheezing doxepin 10 mg capsule 10 mg PO DAILY PRN anxiety 0 07/07/25 Unknown History Allergy/AdvReac Type Severity Reaction Status Date / Time Sulfa (Sulfonamide Allergy Anaphylaxis Verified 07/10/25 11:14 Antibiotics) Surgical History Hx of cystoscopy Hx of oral surgery Hx of tubal ligation Social History household members: significant other and children Smoking Status: Current every day smoker tobacco type: e-cigarettes substance use type: former substance user and opiates Review of Systems (Anesthesia) ROS Narrative System reviewed and no additional complaints, except as documented. Physical Exam Resp Auscultation: wheezes inspiratory wheezes (I had patient use her albuterol metered-dose inhaler.) 07/10/25 1205 trice THOMAS> Date _ Efrain Li MD Cosigner Signature: Date CC: ~ Signed [facility]09-11-2025 History and physical note [facility] Medical Records Department [address] [place] [address] History & Physical Exam 07/04/25 1007 MR#: [id number] Acct: [id number] Name: JERRI JIMENEZ Rep #:[id number] : 1980 45 From: Chandra Silva DO PCP: Dr. Semaj Sheridan MD Status:[facility] Location: [place] [address] HPI - General HPI Narrative The patient is a 45-year-old female who initially presented to the pulmonary medicine office on July 03 for the evaluation of a lung mass identified on CT imaging. In mid May 2025, the patient presented to the emergency department with complaints of shortness of breath and chest pain. Her laboratory workup, including troponin were negative. A CTA chest was obtained, which demonstrated a right hilar lung mass measuring approximately 4 cm in size with what appeared to be infiltration into the subcarinal space as well. The patient reported that she smokes cigarettes, 0.5 to 1 pack/day for approximately 20 years priorto transitioning to vaping in 2020. In addition toher personal smoking history, she did grow up in a smoking household. 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 She did report that she was diagnosed with asthma in childhood. Ironically, however, she reports little to no improvement with her symptoms withthe use of albuterol. The patient is not currently on any form of blood thinners. She does report a family history of lung and breast cancer. [facility] Medical History Right ureteral stone Wears glasses Depression Substance abuse Marijuana use History of ulceration Vapes nicotine containing substance Shortness of breath on exertion Leg cramps Anxiety Asthma Home Medications ?Medication ?Instructions ?Recorded ?Last Taken ?Type buprenorphine 8 mg-naloxone 2 mg 8 ea sublingual BID 0 02/15/22 11/08/23 History sublingual film gabapentin 100 mg capsule 100 mg PO 4X/DAY 02/15/22 History trazodone 50 mg tablet 50 mg PO QHS 02/15/22 History hydroxyzine HCl 10 mg tablet 10 mg PO TID PRN 07/03/25 Unknown History lisdexamfetamine 30 mg capsule 30 mg PO QAM 07/03/25 U nknown History Allergy/AdvReac Type Severity Reaction Status Date / Time Sulfa (Sulfonamide Allergy Anaphylaxis Verified 07/03/25 11:25 Antibiotics) Surgical History Hx of oral surgery Hx of tubal ligation Social History household members: significant other and children Smoking Status: Current every day smoker tobacco type: e-cigarettes substance use type: former substance user and opiates ROS ROS Narrative 10 systems were reviewed with pertinent positives as noted in the HPI. Physical Exam Const alert and no apparent distress General Appearance: cooperative HEENT normocephalic and head/scalp atraumatic Eyes PERRL and EOMs intact bilaterally Neck supple General: trachea midline Resp normal respiratory effort and normal air movement Cardio regular rate and regular rhythm GI normal to inspection, nondistended, normoactive bowel sounds Extremity no clubbing, cyanosis or edema Skin General Skin Exam: no breakdown Neuro CN's II-XII intact bilaterally and no focal motor deficits Psych cooperative and affect normal Assessment & Plan Assessment/Plan (1) Lung mass: PLAN: The patient initially presented for the evaluation of a right hilar lung mass with subcarinalinfiltration, which was demonstrated on CT imaging in May when the patient presented to the ED. The patient does have a combustible cigarette smoking history, prior to transitioning to vaping in 2020. The findings noted on CT imaging could certainly represent an underlying malignant process. Shedoes report a family history of both lung and breast cancer. Accordingly, recommend proceeding withbronchoscopic evaluation/EBUS tofacilitate sampling. Risks and benefits of the proposed procedure were discussed with the patient. She is in agreement to proceed. 07/04/25 1009 Cosigner Signature (if applicable): CC: Dr. Chandra Silva DO; Dr. Semaj Sheridan MD~ Signed ADDENDUM by Dr. Chandra Silva DO on 07/10/25 at 1117 Addendum I have examined the patient and the H&P has been reviewed. There are no clinicalchanges since date of exam. 07/10/25 1117 Cosigner Signature (if applicable): cc: Dr. Chandra Silva DO; Dr. Semaj Sheridan MD ~* Signed [facility]09-05-2025 [facility] Medical Records Department [address] [place] [id number] History Physical Exam 07/04/25 1007 MR#: [id number] Acct: [id number] Name: JERRI JIMENEZ Rep #: [id number] : 1980 45 From: Chandra Silva DO PCP: Dr. Semaj Sheridan MD Status:[facility] Location: [place] [address] HPI - General HPI Narrative The patient is a 45-year-old female who initially presented to the pulmonary medicine office on July 03 for the evaluation of a lung mass identified on CT imaging. In mid May 2025, the patient presented to the emergency department with complaints of shortness of breath and chest pain. Her laboratory workup, including troponin were negative. A CTA chest was obtained, which demonstrated a right hilar lung mass measuring approximately 4 cm in size with what appeared to be infiltration into the subcarinal space as well. The patient reported that she smokes cigarettes, 0.5 to 1 pack/day for approximately 20 years prior to transitioning to vaping in 2020. In addition to her personal smoking history, she did grow up in a smoking household. 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 She did report that she was diagnosed with asthma in childhood. Ironically, however, she reports little to no improvement with her symptoms with the use of albuterol. The patient is not currently on any form of blood thinners. She does report a family history of lung and breast cancer. [facility] Medical History Right ureteral stone Wears glasses Depression Substance abuse Marijuana use History of ulceration Vapes nicotine containing substance Shortness of breath on exertion Leg cramps Anxiety Asthma Home Medications ???Medication ???Instructions ???Recorded ???Last Taken ???Type buprenorphine 8 mg-naloxone 2 mg 8 ea sublingual BID 02/15/2211/08 History sublingual film gabapentin 100 mg capsule 100 mg PO 4X/DAY 02/15/22 11/08/23 History trazodone 50 mg tablet 50 mg PO QHS 02/15/22 11/08/23 His tory hydroxyzine HCl 10 mg tablet 10 mg PO TID PRN 07/03/25 Unknown History lisdexamfetamine 30 mg capsule 30 mg PO QAM 07/03/25 Unknown Hist ory Allergy/AdvReac Type Severity Reaction Status Date / Time Sulfa (Sulfonamide Allergy Anaphylaxis Verified 07/03/25 11:25 Antibiotics) Surgical History Hx of oral surgery Hx of tubal ligation Social History household members: significant other and children Smoking Status: Current every day smoker tobacco type: e-cigarettes substance use type: former substance user and opiates ROS ROS Narrative 10 systems were reviewed with pertinent positives as noted in the HPI. Physical Exam Const alert and no apparent distress General Appearance: cooperative HEENT normocephalic and head/scalp atraumatic Eyes PERRL and EOMs intact bilaterally Neck supple General: trachea midline Resp normal respiratory effort and normal air movement Cardio regular rate and regular rhythm GI normal to inspection, nondistended, normoactive bowel sounds Extremity no clubbing, cyanosis or edema Skin General Skin Exam: no breakdown Neuro CN's II-XII intact bilaterally and no focal motor deficits Psych cooperative and affect normal Assessment Plan Assessment/Plan (1) Lung mass: PLAN: The patient initially presented for the evaluation of a right hilar lung mass with subcarinal infiltration, which was demonstrated on CT imaging in May when the patient presented to the ED. The patient does have a combustible cigarette smoking history, prior to transitioning to vaping in 2020. The findings noted on CT imaging could certainly represent an underlying malignant process. She does report a family history of both lung and breast cancer. Accordingly, recommend proceeding with bronchoscopic evaluation/EBUS to facilitate sampling. Risks and benefits of the proposed procedure were discussed with the patient. She is in agreement to proceed. 07/04/25 1009 Cosigner Signature (if applicable): CC: Dr. Chandra Silva DO; Dr. Semaj Sheridan MD Signed ADDENDUM by Dr. Chandra Silva DO on 07/10/25 at 1117 Addendum I have examined the patient and the H P has been reviewed. There are no clinical changes since date of exam. 07/10/25 1117 Cosigner Signature (if applicable): cc: Dr. Chandra Silva DO; Dr. Semaj Sheridan MD * [facility] Evaluation note* Diagnosis Onset Date Resolution Status Admit Date Lung mass acute July 03, 2025 11:22am Lung mass acute June 11:01am [facility] Work Phone: [phone]) 817-849908-17-2025 Radiology Diagnostic study note [facility] Imaging Services [address] [place] [id number] CTA Chest W/WO Contrast MR#: [id number] Acct: [id number] Name: JERRI JIMENEZ Rep #: [id number] : 1980 F 45 From: Priscila Good MD PCP: Care Physician,No Primary Status: REG ER Study:CTA Chest W/WO Contrast Date of Exam: 06/15/25 Exam# [id number] Ordering Dr: Semaj Randall DO PROCEDURE: CTA CHEST W/WO CONTRAST 06/15/2025 REASON FOR EXAM: ABNORMAL CHEST X-RAY TECHNIQUE: CTA CHEST W/WO CONTRAST Multiplanar Sagittal and Coronal images were obtained. 3D reconstructions CONTRAST: Isovue 370 VOLUME: 100 mL One or more dose reduction techniques were used (e.g., Automated exposure control, adjustment of the mA and/or kV according to patient size, use of iterative reconstruction technique). RADIATION DOSE SUMMARY: CTDlvol: 11 mGy DLP: 165 mGycm COMPARISON: None FINDINGS: Neoplastic mass present in the right hilum narrowing the descending right pulmonary artery. Abnormal soft tissue in the subcarinal space as well. Right hilar mass measures at least 4.4 by 2.2 cm. Normal thoracic aorta. No coronary calcification. No pericardial effusion. Upper abdomen demonstrates no adrenal masses. Inspection of the lung parenchyma demonstrates no discrete pulmonary masses or consolidation CT/CTA Chest W/WO Contrast IMPRESSION: Neoplastic mediastinal and right hilar mass concerning for bronchogenic carcinoma. Narrowing of thedescending right pulmonary artery with soft tissue tracking along the lower lobe vessels. Reading [facility] CC: Dr. Semaj Randall DO; No Primary Care Physician ~ Community Advocate: Signed [facility]08-17-2025 Radiology Diagnostic study note [facility] Imaging Services [address] [place] [id number] Chest PA and Lateral MR#: [id number] Acct: [id number] Name: JERRI JIMENEZ Rep #: [id number] : 1980 F 45 From: Darnell Muro MD PCP: Care Physician,No Primary Status: REG ER Study:Chest PA and Lateral Date of Exam: 06/15/25 Exam# [id number] Ordering Dr: Semaj Randall DO PROCEDURE: CHEST PA AND LATERAL 06/15/2025 REASON FOR EXAM: COUGH TECHNIQUE: CHEST PA AND LATERAL COMPARISON: 10/07/2024 FINDINGS: No focal airspace consolidation, lobar collapse, pneumothorax or pleural effusion. Prominent enlargement of the right hilar vasculature may be related to right hilar lymphadenopathy or possibly a mass lesion. New from prior exam. Cardiac silhouette is normal in size. Unremarkable osseous structures. RAD/Chest PA and Lateral IMPRESSION: Prominent nodular enlargement of the right hilum likely reflecting hilar lymphadenopathy or mass lesion. Less likely, a distended pulmonary artery with acute PE could have a similar appearance. Recommend further evaluation with contrast-enhanced CT chest. Reading Location: [facility] CC: Dr. Semaj Randall, DO; No Primary Care Physician ~ Community Advocate: Signed [facility]07-16-2025 Telephone encounter Note* Telephone Encounter - Luana Love MA - 05/14/2025 7:07 PM EDT Pt was notified of the results. Pt verbalized understanding. Luana Love MA [facility]07-16-2025 Miscellaneous Notes* Telephone Encounter - Luana Love MA - 05/14/2025 7:07 PM EDT Pt was notified of the results. Pt verbalized understanding. Luana Love MA * Telephone Encounter - Zhang Mccray APRN.CNP - 05/14/2025 8:07 AM EDT Please notify that covid/flu/rsv testing negative. Continue with plan of care as discussed during visit. documented in this encounterAs[facility] Telephone encounter Note * Telephone Encounter - Zhang Mccray APRN.CNP - 05/14/2025 8:07 AM EDT Please notify that covid/flu/rsv testing negative. Continue with plan of care as discussed during visit. [facility] Work Phone: [phone] Instructions* Patient Instructions* Ngoc Briggs APRN.CNP - 05/13/2025 7:50 PM [...] You will receive your COVID-19 result through [employer] if you have an account; if not, we will call you with the result. - If your COVID-19 test is positive, there is no specific antiviral treatment--rest and manage symptoms at home as needed. - Use Flonase nasal spray for post-nasal drainage that s irritating your throat; follow the packageinstructions and use it daily until symptoms improve. documented in this encounterAshtabula [facility]07-15-2025 NoteHNO ID: [id number] Author: NGOC BRIGGS APRN.COFFEE TASTER Service: ? Author Type: Nurse Practitioner Type: Progress Notes Filed: 05/13/2025 19:50 Note Text: [facility] [place] Jerri Jimenez is a 45 year old female. Patient [...] Discussed expected course of illness Ngoc Briggs APRN.COFFEE TASTER and Recording using [employer] software for draft documentation of the visit was discussed with the patient/authorized lead generation representative; all questions welcomed and answered. Patient/authorized lead generation representative agreed to proceed Disposition The patient was discharged. OTC Medications were advised: [facility] History of Present illness Narrative* Ngoc Briggs APRN.COFFEE TASTER - 05/13/2025 7:49 PM EDT [facility] Subjective Jerri Jimenez is a 45 year old female. Patient [...] Discussed expected course of illness Ngoc Briggs APRN.COFFEE TASTER and Recording using [employer] software for draft documentation of the visit was discussed with thepatient/authorized lead generation representative; all questions welcomed and answered. Patient/authorized lead generation representative agreed to proceed Disposition The patient was discharged. OTC Medications were advised: flonase Procedures documented in this encounterAshtabula [facility] Center07-15-[facility]25 WxwvDVHP-DUU-5 (AGENT OF COVID-19) RNA: Not detected INFLUENZA A RNA: Not detected INFLUENZA B RNA: Not detected RESPIRATORY SYNCYTIAL VIRUS (RSV) RNA: Not detectedPromedica Defiance Regional HospitalComment on above:Performed By: #### [id number] #### [facility] CLIA [id number] [address] [place] [address] [id number] History of Present illness Narrative* Nettie Carbajal APRN.COFFEE TASTER - 09/21/2024 3:40 PM EST This note was created using NoteWriter. Subjective Jerri Jimenez is a 44 year old female. 44 year old female with PMH asthma presents for UTI Acute onset last night +urgency +frequency +burning Denies flank pain Denies abdominal pain Denies vaginal bleeding Denies vaginal discharge Recent sexual ativity Denies concerns for STI Used azos The history is provided by the patient. No it programmer was used. UTI This is a new [...] URINE (POC) - URINE CULTURE Nettie Carbajal APRN.COFFEE TASTER documented in this encounterAshtabula County Medical Center11-23-2024 NoteHNO ID: [id number] Author: NETTIE CARBAJAL APRN.COFFEE TASTER Service: ? Author Type: Nurse Practitioner Type: Progress Notes Filed: 09/22/2024 08:50 Note Text: This note was created using NoteWriter. Subjective Jerri Jimenez is a 44 year old female. 44 year old female with PMH asthma presents for UTI Acute onset last night +urgency +frequency +burning Denies flank pain Denies abdominal pain Denies vaginal bleeding Denies vaginal discharge Recent sexual ativity Denies concerns for STI Used azos The history is provided by the patient. No it programmer was used. UTI This is a new [...] less than 2 secon (more content not included)...[facility]01-30-2024 Evaluation + Plan note Diagnostic Tests Pending * Urine Culture 11/28/23 [facility] 01-30-2024 Hospital Discharge instructions Patient Education 11/28/2023 01:30:54 Bladder Infection, Female (Adult) Bladder Infection, Female (Adult) Urine is normally doesn't have any bacteria in it. But bacteria can get into the urinary tract fromthe skin around the rectum. Or they can [...] bladder. This causes many of the symptoms. Themost common symptoms of a bladder infection are: [...] into the urine and travel up to thebladder, causing inflammation and infection. This usually happens [...] better. It is important to finish them tomake sure the infection has cleared. You can [...] needs to be changed. If directed, you cancall to find out the results. If X-rays [...] swelling in the outer vaginal area (labia) [id number] [employer]. [address] [place] [address], [place] [address]. All rights reserved. This information is not intended as a substitute for professional medical care. Always follow yourhealthcare professional's instructions. 11/28/2023 00:36:55 Viral Syndrome (Adult) [...] tests to know the difference. Watch for thewarning signs listed below for when to seek medical advice. Home care Follow these guidelines for taking care of yourself at home: If symptoms are severe, rest at home for the first 2 to 3 days. Stay away from cigarette smoke - both your smoke and the smoke from others. You may use efun-wzw-ixnlzuy acetaminophen or ibuprofen for fever, muscle aching, [...] replacement and sports drinks; and decaffeinated teas andcoffee. If you have been diagnosed with a kidney disease, ask your healthcare provider how much andwhat types of fluids you should drink to prevent dehydration. If you have kidney disease, drinking too much fluid can cause it build up in the your body and be dangerous to your health. Bapi-dng-sxkbqzx remedies won't shorten the length of the [...] or as directed by your healthcare provider 9421-0044 [employer]. [address] [place] [address]. All rights reserved. This information is not intended as a substitute for professional medical care. Always follow yourhealthcare professional's instructions. Follow Up Care 11/28/2023 00:21:12 With:Call Physician Referral Address:Unknown When:2-4 days With:Go to emergency room if symptoms worsen Address:Unknown When:2-4 days [facility] 01-30-2024 Note Discharge Instructions Thank you for allowing [facility] to assist you with your healthcare needs. The following is importantdischarge information regarding your hospital visit. Diagnosis from [...] and or supplements as they may interact withyour home medications. What How Much When Instructions [...] bacteria can get into the urinary tract fromthe skin around the rectum. Or they can [...] bladder. This causes many of the symptoms. Themost common symptoms of a bladder infection are: [...] into the urine and travel up to thebladder, causing inflammation and infection. This usually happens [...] better. It is important to finish them tomake sure the infection has cleared. You can [...] needs to be changed. If directed, you cancall to find out the results. If X-rays [...] swelling in the outer vaginal area (labia) [phone] [employer]. [address] [place] [address]. All rights reserved. This information is not intended as a substitute for professional medical care. Always follow yourhealthcare professional's instructions. Viral Syndrome (Adult) A viral [...] tests to know the difference. Watch for thewarning signs listed below for when to seek medical advice. Home care Follow these guidelines for taking care of yourself at home: If symptoms are severe, rest at home for the first 2 to 3 days. Stay away from cigarette smoke - both your smoke and the smoke from others. You may use bheo-ryu-fwvhyhq acetaminophen or ibuprofen for fever, muscle aching, [...] replacement and sports drinks; and decaffeinated teas andcoffee. If you have been diagnosed with a kidney disease, ask your healthcare provider how much andwhat types of fluids you should drink to prevent dehydration. If you have kidney disease, drinking too much fluid can cause it build up in the your body and be dangerous to your health. Ccdg-fxw-ergvvpn remedies won't shorten the length of the [...] or as directed by your healthcare provider [phone] [employer]. [address] [place] [address], [place] [address]. All rights reserved. This information is not intended as a substitute for professional medical care. Always follow yourhealthcare professional's instructions. Additional Information VACCINATE! IT SAVES LIVES! Members of the community who have not yet received the COVID-19 vaccine and would like to receive it can visit one of [facility] vaccine clinics. There are many vaccine clinic locations within the [facility]. For locations and available times, please visit www.gettheshot.coronavirus.[place].gov/. It is important to note that some COVID mobile vaccine clinics are held outdoors and may be canceled in rainy or stormy conditions. To learn more about pediatric vaccinations (ages 5-11), we invite you to visit the [facility] webpage. https://www.[employer].org/pages/9607-Opkmw-Kuemvvxhdbz-Ncbkynkekv-Olezp-Bfp stions.htmlTo learn more about the COVID-19 vaccine, we invite you to visit the CDC website for a list of frequently asked questions. https://www.cdc.gov/coronavirus/2019-ncov/vaccines/faq.html [facility] Patient Portal Access Instructions: Stay connected with your healthcare team and access your personal medical information anytime with the [facility] Patient Portal. If you would like a full copy of your medical records please contact the [facility] Medical Records Department Monday through Monday between 8a.m. and 4:30p.m. Please follow the directions below to access the portal: 1.Access the email account you provided upon registration to the hospital.2.Look for an invitation email from [facility].3.Open the email and access the invitation link: Accept Invitation to [facility]4.Fill in the required gomez to create your account. Sign into www.[email or web address] with your username and password that you [...] will allow to register on the [facility] Patient Portal for access to your information. You can also access the [facility] Patient Portal on the Tok[employer] truong. Simply click on Health Records under [employer]ish[employer] and then click on the [facility] logo. HOW TO SAFELY DISPOSE OF PRESCRIPTION MEDICATIONS Please use one of the following methods to safely dispose of your unused medications. 1.Use a drug disposal kit: the drug disposal pouch allows you to safely discard your old and unuseddrugs. Ask your nurse to give you one when you are discharged.2.Visit a local take-back location: Many local pharmacies and police departments have programs that collect old and unwanted prescriptiondrugs. Call your local pharmacy or go to http://YourPOV.TV.[employer]/4K4El4f to find one close to you.3.Make use of household items: Use cat litter or old coffee grounds to dispose medications if other options arenot available. Mix your drugs with these household products, seal them in an airtight container andthrow it into the garbage. Call [facility]: [phone] to be sure your drugs can be [...] drowsiness, such as benzodiazepines, also known as benzos,including diazepam and alprazolam, muscle relaxants or sleep aids. Never sell or share prescriptionopioids. This is illegal. Store opioids in a secure place and out of reach of others (including children, family, friends and visitors). The last page(s) of this document has been signed and retained as a CHART COPY Signatures Patient Education Materials Bladder Infection, Female (Adult) Viral Syndrome (Adult) Medication Leaflets My discharge plan and instructions have been reviewed and explained to me and TONY Duff LAURA J understand my current condition and have read and understand these discharge instructions. I have received a written copy of the plan/instructions. If I have questions, I am aware that I should contact my doctor. 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 Patient Identified by Name and : NO Outreach Outcome/Action Unable to reach patient: Phone number not valid / voicemail full Did you use a PCP flex slot to schedule this appointment? N/A Reason for Outreach Care Gap or Scheduling/Wellness visits Payer: Payor: [employer] MEDICAID / Plan: [facility] MEDICAID [facility] / Product Type: Medicaid / Care Gap [...] 08, 2023 2:43 PM documented in this encounterAshtabula County Medical Center07-31-2023 History of Present illness Narrative* Denise Manjarrez PA-C - 05/29/2023 1:59 PM EDT Denise Manjarrez PA-C Department of Orthopaedics Orthopaedics [address] [place] [address] Dept: [phone] Dept May 29, 2023 CHIEF COMPLAINT: New and Fracture of the Left middle Finger (Xray 05/09/2023) Ms. Jerri Jimenez is a 43 year old female who presents with an injury to her left middle finger which occurred almost a month ago. Patient was on vacation in [place], she was swinging from [facility] when the rope became twisted around her finger. She has been wearing a finger splint since hervisit to urgent care 2 days after the [...] the next week or 2. Ms. Jerri Jimenez was advised as to contrast therapies and/or to take analgesics/anti-inflammatories as needed and all contraindications were reviewed. OBJECTIVE: Ms. Jerri Jimenez is a pleasant 43 year old in [...] and DIP joints. Digit is stable to c ollateral stresses. Sensation is intact to the left middle digit. Imaging: IMPRESSION: Fracture involving the intermediate phalanx of the third finger Community Advocate: ELVIE Transcribe Date/Time: May 09 2023 7:02P [...] anxiety) This note was partially generated using Finale Desserts voice recognition system, and there may be some incorrect words, spellings, and punctuation that were not noted in checking the note before saving. Denise Manjarrez PA-C * Anya Collazo - 05/29/2023 1:11 PM EDT Patient presents with: Left Ring Finger - New, Fracture: Xray 05/09/2023 Patient reports intermittent pain with activity. She wears a splint and takes tylenol. AMB ROOMING INTAKE FLOWSHEET DATA Pain Pain Level: 8 Pain Location: Finger Description: Radiating, Throbbing Duration Amount of Time: 22 Duration Units: Days Frequency: Intermittent Intervention/Comfort measure: Medication, Splinting documented in this encounterAshtabula County Medical Center07-28-2023 History of Present illness Narrative* Romario Grigsby V, DO - 05/26/2023 3:18 PM EDT SUBJECTIVE: Jerri Jimenez is a 43 year old female who is here for a left middle finger injury. It occurred on05/09/23 when she was swinging from a rope swing and her finger got twisted rope. He states that there was an obvious visible deformity right away she self reduced. She was seen in [facility] upon returning from her trip to [place]. X-ray showed a fracture of the middle phalanx. She has beenwearing a aluminum splint since that time. Symptoms [...] Dr. Mcgrath next week. Romario Grigsby DO * Anya Collazo - 05/26/2023 2:57 PM EDT Patient presents with: left middle finger fracture: [...] Intervention/Comfort measure: Medication, Splinting documented in this encounterAshtabula County Medical Center07-11-2023 History of Present illness Narrative* Renetta Irizarry RT(R) - 05/09/2023 7:00 PM EDT Radiology Service Progress Note PATIENT NAME: Jerri Jimenez DATE OF SERVICE: May 09, 2023 TIME: 6:53 PM PATIENT IDENTITY VERIFICATION COMPLETED USING TWO (2) IDENTIFIERS: Name and Date of confirmedby patient verbally. FALL SCREENING: Has the patient had 2 falls in the last year or 1 fall with injury or currently using an Ambulatory Assistive Device (Walker, Cane, Wheelchair, Crutches, etc.)? No PATIENT GENDER DATA: Female. status: : No status: NO. PATIENT RELEVANT IMPLANT DATA REVIEWED: Yes RADIOLOGY DEPARTMENT: General X-ray: Exam(s) Completed: Upper Extremity X- Ray(s): Hand, left PERIPHERAL IV DATA: Not applicable SIGNED BY: RT Teresa(R) May 09, 2023 6:53 PM documented in this encounterAshtabula County Medical Center07-11-2023 History of Present illness Narrative* Mignon Rodríguez APRN.CNP - 05/09/2023 6:51 PM EDT Images from the original note were not included. Subjective She came in with complaints of left hand and finger pain. Patient says she was swinging from a ropeinto a dewey and her hand got stuck in the rope. Patient says it was about 2 days ago still seems blake very tender. Patient denies any numbness tingling or loss of feeling. Patient denies any decreased range of motion. Patient denies any wrist pain. The history is provided by the patient. No it programmer was used. Review of Systems Constitutional: Negative. [...] the intermediate phalanx of the third finger Community Advocate: ELVIE Transcribe Date/Time: May 09 2023 7:02P Dictated by : IRVIN ANGEL MD - CONSULT TO ORTHOPAEDICS Patient was placed in a finger splint. Patient will schedule her own orthopedic follow-up. Patient will rest it and keep in the splint until she follows up with orthopedics. Patient was okay with this. Mignon Rodríguez APRN.COFFEE TASTER documented in this encounterAshtabula County Medical Center05-10-[address] Smith [facility] March 08, 2023 11:30pm Note Date/Time March 08, 2023 10:50 pm [facility] Medical Records Department [address] [place] [address] Emergency Department Summary 03/08/23 MR#: [id number] Acct: [id number] Name: JERRI JIMENEZ Rep #:[id number] : 1980 42 From: [...] with caramel. No urinary or vaginal complaints. [facility] Medical History Anxiety Asthma Depressed Home Medications [...] 89.3 H Lymph % (Auto) 8.9 L Avery % (Auto) 1.4 Eos % (Auto) 0.0 [...] Color Urine Clarity Urine pH Ur Specific Bunnell Urine Protein Urine Glucose (UA) Urine Ketones Urine Occult Blood Urine Nitrite Urine Bilirubin Urine Urobilinogen Ur Leukocyte Esterase Urine RBC Urine WBC Ur Squamous Epith Cells Urine Bacteria Urine Mucus 03/08/23 23:00 WBC RBC Hgb Hct MCV MCH MCHC RDW Std Deviation RDW Coeff of Rocael Plt Count MPV Immature Gran % (Auto) Neut % (Auto) Lymph % (Auto) Avery % (Auto) Eos % (Auto) Baso % [...] Sl. Cloudy Urine pH 6.0 Ur Specific Bunnell 1.025 Urine Protein 30 H Urine Glucose [...] Referrals: Alan Pinedo MD [Med Staff - Tap Grinder] - 3-5 Days Care Physician,No Primary [Primary Care Provider] - Disposition Disposition: Home, Self Care What to do if you have Problems For any increased pain, shortness of breath, bleeding, nausea or vomiting, chestpain, or any unexpected problems, contact your Primary Care Provider. Call [facility] ([phone]) or report to the closest Emergency Room. Call 911 if necessary. 03/08/23 2330 <Electronically signed by Duy Smith DO> Cosigner Signature (if applicable): CC: No Primary Care Physician ~ Signed [facility] Work Phone: [phone]) 744-674302-15-2023 Hospital Discharge instructions Additional Instructions 1. Salt water gargles 6-10 times a day 2. Chloraseptic spray or Cepastat lozenges for throat painWTriHealth Work Phone: [phone]) 396-995104-19-2022 History of Present illness Narrative* Ngoc Briggs APRN.COFFEE TASTER - 02/15/2022 4:35 PM EDT Subjective HPI Jerri Jimenez is a 41 year old female who [...] agreeable. Ngoc Briggs APRN.CNP documented in this encounterBrec[facility] Author Donna Sanabria [facility] Note Date/Time July 10, 2025 1:11pm [facility] Medical Records Department [address] [place] [address] Anesthesia Postop Eval I 07/10/25 1310 MR#: [id number] Acct: [id number] Name: JERRI JIMENEZ Rep #:[id number] : 1980 45 From: Donna Sanabria CRNA PCP: Dr. Semaj Sheridan MD Status:REG SDC Y Race: C Location: [place] [address] Anesthesia: Postop Eval I Current Vital Signs Temperature: 97.5 F Pulse Rate: 77 Blood Pressure: 95/73 Respiratory Rate: 16 Pulse Ox: 97 Oxygen Delivery Method: Room Air Assessment Airway patent: Yes Spontaneous unlabored respirations: Yes Mental status: Awake nausea: No Vomiting: No Anesthesia Complication: No Fluid Hydration Crystalloid volume administer (ml): 900 Total IV fluid infused: 900 Progress Note Anesthesia document: Postop Eval 1 completed: Yes 07/10/251310 <Electronically signed by Donna mathis FRAUD REPRESENTATIVE> Date _ Donna Sanabria FRAUD REPRESENTATIVE Cosigner Signature: Date CC: ~ Signed [facility] Work Phone: Discharge summary Author Dr. Garcia [facility] December 14, 2022 10:38am Note Date/Time December 14, 2022 10:35am [facility] Medical Records Department [address] [place] [address] Emergency Department Summary 12/14/22 MR#: [id number] Acct: [id number] Name: JERRI JIMENEZ Rep #:[id number] : 1980 42 From: [...] Neurologic Neurologic: Denies headache(s), paresthesias or weakness [facility] Medical History Asthma Home Medications albuterol sulfate [...] your Primary Care Provider. Call [facility] ([phone]) or report to the closest Emergency Room. Call 911 if necessary. 12/14/22 1038 <Electronically signed by Esau Garcia MD> Cosigner Signature (if applicable): CC: No Primary Care Physician ~ Signed [facility] Work Phone: Discharge summary Author Duy Smith [facility] November 30, 2023 11:35am Note Date/Time November 30, 2023 1 0:52am [facility] Medical Records Department [address] [place] [address] Emergency Department Summary 11/30/23 MR#: [id number] Acct: [id number] Name: JERRI JIMENEZ Rep #:[id number] : 1980 43 From: Duy Smith DO PCP: Care Physician,No Primary Status :REG ER Location: ED HPI History of Present Illness Chief Complaint: General Illness Narrative Narrative: 43-year-old female with fever, chills, myalgias, nausea, vomiting. She actuallyfeels better since yesterday. She bought some kalq-cyy-kqlraft flu medicine which helped. Last fever was 102 yesterday. She states she was seen at [facility] and tested for COVID but not [...] symptoms if she would back to work. [facility] Medical History Anxiety Asthma Depression History of [...] influenza. I was able to log into [employer] and I was able to find pertinent [...] Sl. Cloudy Urine pH 6.0 Ur Specific Bunnell 1.020 Urine Protein 30 H Urine Glucose [...] your Primary Care Provider. Call [facility] ([phone]) or report to the closest Emergency Room. Call 911 if necessary. 11/30/23 3793 <Electronically signed by Duy Smith DO> Cosigner Signature (if applicable): CC: No Primary Care Physician ~ Signed [facility] Work Phone: Evaluation noteNo assessment information available [facility] Work Phone: Evaluation note* Diagnosis Episode of shaking- Primary Abnormal involuntary movements Chest pain, unspecified type [facility] Pain- Primary Generalized pain [facility] Diagnosis Closed displaced fracture of middle phalanx of left middle finger, initial encounter- Primary [facility] Diagnosis Closed displaced fracture of middle phalanx of left middle finger with routine healing, subsequent encounter- Primary Pain in finger of left hand Pain in limb [facility] Diagnosis Onset Date Resolution Status Right ureteral stone acute [facility] Work Phone: Evaluation note* Diagnosis Pain Generalized pain [facility] Diagnosis Urinary frequency- Primary [facility] Diagnosis Sore throat- Primary Acute pharyngitis Nasal congestion Other diseases of nasal cavity and sinuses Postnasal drip [facility]* Diagnosis Onset Date Resolution Status Admit Date Lung mass acute July 03, 2025 11:22am [facility] Work Phone: Hospital course Narrative No data available for this section [facility] Hospital Discharge instructions Additional Instructions Plenty of [...] lot worse. Off work the next 2 days.[facility] Work Phone: Reason for referral (narrative)* Diagnostic Procedure Only (Urgent) - Closed Specialty Diagnoses / Procedures Referred By Contac t Referred To Contact XR IMAGING Diagnoses Pain Procedures XR HAND GENERAL 3V PA/LAT/OBL LEFT RADEX HAND MINIMUM 3 VIEWS Mignon Rodríguez APRN.COFFEE TASTER [address] [place] [address] [place] [address] Referral ID Status Reason Start Date Expiration Date V isits Requested Visits Authorized [id number] Closed Auto-Generate d Referral 05/09/2023 06/07/2024 1 1 [facility])No reason for referral information availableWTriHealth Work Phone: Reason for visit Narrative* Diagnostic Procedure Only (Urgent) - Closed Specialty Diagnoses / Procedures Referred By Contac t Referred To Contact XR IMAGING Diagnoses Pain Procedures XR HAND GENERAL 3V PA/LAT/OBL LEFT RADEX HAND MINIMUM 3 VIEWS Mignon Rodríguez APRN.COFFEE TASTER [address] [place] [address] [place] [address] Referral ID Status Reason Start Date Expiration Date V isits Requested Visits Authorized [id number] Closed Auto-Generate d Referral 05/09/2023 06/07/2024 1 1 [facility] Summary Purpose Family History No Family History Records FoundNo Family History Records Found No data available for this section No Family History Records FoundNo Family History Records Found Advance Directives No Advanced Directives Records Found Advance Directive Response Recorded Date/ Time Living Will No February 15, 2022 6:00pm Power of Care Advocate No February 15 6:00pm Advance Directive Response Recorded Date/ Time Living Will No July 18, 2022 12:14pm Power of Care Advocate No June 12:14pm Advance Directive Response Recorded Date/ Time Living Will No December 14, 2 023 9:45am Power of Care Advocate No December 14, 2022 9:45am Advance Directive Response Recorded Date/ Time Living Will No March 08, 2023 9 :21pm Power of Care Advocate No March 08, 2023 9:21pm Advance Directive Response Recorded Date/ Time Living Will No June 13 10:26pm Power of Care Advocate No June 13, 2 023 10:26pm Advance Directive Response Recorded Date/ Time Living Will No August 30 4:41am Power of Care Advocate No August 30, 2023 4:41am Advance Directive Response Recorded Date/ Time Living Will No August 30 3:41am Power of Care Advocate No August 30, 2023 3:41am Advance Directive Response Recorded Date/ Time Living Will No November 30 10:31am Power of Care Advocate No November 30, 2023 10:31am Advance Directive Response Recorded Date/ Time Do you have a Healthcare Power of Care Advocate? No June 15, 2025 4:26pm Advance Directive Response Recorded Date/ Time Do you have a Healthcare Power of Care Advocate? No July 07, 2025 2:05pm Do you have a Healthcare Power of Care Advocate? No June 15, 2025 4:26pm Chief Complaint and Reason for Visit Chief Complaint chest pain Chief Complaint SORE THROAT Chief Complaint SORE THROAT HEMATURIA ABD PAIN, N/V Chief Complaint ABD PAIN, N/V RIGHT BACK PAIN, URINARY FREQUENCY Chief Complaint RIGHT BACK PAIN, URI NARY FREQUENCY flank Chief Complaint flank R URETERAL STONES Chief Complaint flank R URETERAL STONES Cysto,Ureteroscopy,Dil,Basket Ext,S general illness Reason for Visit Right ureteral stone Chief Complaint Admit Date SOB June 15, 2025 3: 52pm Chief Complaint Admit Date SOB June 15, 2025 3: 52pm mass right lung July 03, 2025 11:22am Reason for Visit Admit Date Lung mass July 03, 2025 11:22am Reason for Visit Admit Date Lung mass July 03, 2025 11:22am Lung mass July 10, 2025 11:01am Reason for Referral Specialty Diagnoses / Procedures Referred By Contismael t Referred To Contact Orthopedics Diagnoses Pain Procedures CONSULT TO ORTHOPAEDICS OFFICE/OUTPATIENT [facility] MDM 60-74 MINUTES Mignon Rodríguez APRN.[employer] [address] [place] [address] Referral ID Status Reason Start Date Expiration Date Visits Requested Visits Authorized [id number] Pending Review PCP Requested Referral 05/09/2023 05/08/2024 1 1 Specialty Diagnoses / Procedures Referred By Contac t Referred To Contact XR IMAGING Diagnoses Pain Procedures XR HAND GENERAL 3V PA/LAT/OBL LEFT RADEX HAND MINIMUM 3 VIEWS Mignon Rodríguez APRN.[employer] [address] [place] [address] Xr Imaging Referral ID Status Reason Start Date Expiration Date V isits Requested Visits Authorized [id number] Closed Auto-Generate d Referral 05/09/2023 06/07/2024 1 1 Additional Source Comments INFORMATION SOURCE (unrecogn ized section and content) DATE CREATED AUTHOR 08/03/2019 [facility] DATE CREATED AUTHOR AUTHOR'S ORGANIZ ATION 08/08/2019 [facility] DATE CREATED AUTHOR AUTHOR'S ORGANIZ ATION 05/17/2025 [facility] DATE CREATED AUTHOR AUTHOR'S ORGANIZ ATION 07/18/2025 [facility] Goals (unrecognized section and content) Goals [...] alternate section No data available for this sectionGoals may be documented in an alternate sectionGoals may be documented in an alternate section Source Comments (unrecognize d section and content) In the event this informatio n is protected by the Federal Confidentiality of Alcohol and Drug Abuse Patient Records regulations: The Federal rules restrict any use of the information to criminally investigate or prosecute any alcohol or drug abuse patient.[facility] the event this information is protected by the Federal Confidentiality of Alcohol and Drug Abuse Patient Records regulations: The Federal rules restrict any use of the information to criminally investigate or prosecute any alcohol or drug abuse patient.[facility] the event this information is protected by the Federal Confidentiality of Alcohol and Drug Abuse Patient Records regulations: The Federal rules restrict any use of the information to criminally investigate or prosecute any alcohol or drug abuse patient.[facility] the event this information is protected by the Federal Confidentiality of Alcohol and Drug Abuse Patient Records regulations: The Federal rules restrict any use of the information to criminally investigate or prosecute any alcohol or drug abuse patient.[facility] the event this information is protected by the Federal Confidentiality of Alcohol and Drug Abuse Patient Records regulations: The Federal rules restrict any use of the information to criminally investigate or prosecute any alcohol or drug abuse patient.[facility] the event this information is protected by the Federal Confidentiality of Alcohol and Drug Abuse Patient Records regulations: The Federal rules restrict any use of the information to criminally investigate or prosecute any alcohol or drug abuse patient.[facility] the event this information is protected by the Federal Confidentiality of Alcohol and Drug Abuse Patient Records regulations: The Federal rules restrict any use of the information to criminally investigate or prosecute any alcohol or drug abuse patient.[facility] the event this information is protected by the Federal Confidentiality of Alcohol and Drug Abuse Patient Records regulations: The Federal rules restrict any use of the information to criminally investigate or prosecute any alcohol or drug abuse patient.[facility] the event this information is protected by the Federal Confidentiality of Alcohol and Drug Abuse Patient Records regulations: The Federal rules restrict any use of the information to criminally investigate or prosecute any alcohol or drug abuse patient.[facility] Reason for Visit (unrecogniz ed section and [...] Esau Garcia MD Attending Provider, Emergency Provi krystin Active Team Status: Inactive Member Role Status [...] Attending Provider, Referring P jose alberto Active Team Status: Active Member Role/Relationship Status Dates No Primary Care Physician Primary Care Provider Active Team Status: Inactive Member Role/Relationship Status Dates No Primary Care Physician Primary Care Provider Active Start: April 29, 2025 Dr. Lise Méndez MD Attending Provider Active Start: April 29, 2025 Team Status: Inactive Member Role/Relationship Status Dates No Primary Care Physician Primary Care Provider Active Start: June 15, 2025 End: June 15, 2025 Dr. Semaj Randall DO Emergency Provider Active Start: June 15, 2025 End: June 15, 2025 Team Status: Active Member Role/Relationship Status Dates Dr. Semaj Sheridan MD Primary Care Provider Active Team Status: Inactive Member Role/Relationship Status Dates No Primary Care Physician Primary Care Provider Active Start: June 15, 2025 End: June 15, 2025 Dr. Semaj Randall DO Attending Provider Active Start: June 15, 2025 End: June 15, 2025 Dr. Semaj Randall DO Emergency Provider Active Start: June 15, 2025 End: June 15, 2025 Team Status: Active Member Role/Relationship Status Dates Dr. Semaj Sheridan MD Primary Care Provider Active Start: July 02, 2025 Dr. Semaj Sheridan MD Attending Provider Active St art: July 02, 2025 Team Status: Inactive Member Role/Relationship Status Dates No Primary Care Physician Referring Provider Active Start: July 03, 2025 End: July 03, 2025 Dr. Chandra Silva DO Attending Provider Active S tart: July 03, 2025 End: July 03, 2025 Dr. Semaj Sheridan MD Primary Care Provider Active Start: July 03, 2025 End: July 03, 2025 Team Status: Active Member Role/Relationship Status Dates Dr. Semaj Sheridan MD Primary Care Provider Active Start: July 04, 2025 Dr. Chandra Silva DO Attending Provider Active S tart: July 04, 2025 Dr. Chandra Silva DO Other Provider Active Start : July 04, 2025 Team Status: Inactive Member Role/Relationship Status Dates Dr. Semaj Sheridan MD Primary Care Provider Active Start: July 10, 2025 End: July 10, 2025 Dr. Chandra Silva DO Attending Provider Active S tart: July 10, 2025 End: July 10, 2025 Dr. Chandra Silva , Referring Provider Active S tart: July 10, 2025 End: July 10, 2025 Team Status: Active Member Role/Relationship Status Dates Dr. Semaj Sheridan MD Primary Care Provider Active Start: July 10, 2025 Dr. Chandra Silva DO Attending Provider Active S tart: July 10, 2025 Team Status: Inactive Member Role/Relationship Status Dates Dr. Semaj Sheridan MD Primary Care Provider Active Start: July 02, 2025 End: July 02, 2025 Dr. Semaj Sheridan MD Attending Provider Active St art: July 02, 2025 End: July 02, 2025 FOR RECORDS PERTAINING TO PATIENTS WHO ARE [...] BE BASED ON THE PRIMARY CLINICAL RECORDS. [facility]. provides no warranty or guarantee of the accuracy or completeness of information in this document.
[2025-07-20 19:36] LABS: Hematocrit 39.3 % (37-47); Hemoglobin 13.3 g/dL (12.0-15.0); Immature Granulocytes Count 0.020 X10^3/uL (0.0-0.0); Mean Corp Hgb Conc 33.8 g/dL (32-36); Mean Corpuscular Volume 85.6 fL (81-99); Mean Platelet Vol. 8.3 fl (6.2-12.0); NRBC Flagged by Analyzer 0 % (0-5); Platelet Count 304 K/mm3 (150-450); RBC Distribution Width CV 13.6 % (11.6-14.6); RBC Distribution Width SD 42.4 fl (35.1-43.9); Red Blood Count 4.59 M/mm3 (4.2-5.4); White Blood Count 8.2 K/mm3 (4.4-11.0)
--- NOTE | 2025-07-20 19:37 | RAD_ITS ---
PROCEDURE: CHEST PA AND LATERAL 07/20/2025 REASON FOR EXAM: SHORTNESS OF BREATH, HISTORY OF LUNG CANCER TECHNIQUE: Procedure Code: RADCXR Modality: DX Procedure: CHEST PA AND LATERAL COMPARISON: Chest x-ray June 15, 2025. FINDINGS: Lungs: The lungs are symmetrically expanded. Lung volumes are pronounced. Mildly coarsened bibasal reticular lung markings are noted, similar to the prior exam and may be secondary to chronic interstitial thickening. There is no consolidation. There is no peribronchial thickening. There is no pulmonary vascular redistribution. Pleura: No significant pleural effusion seen. There is no evidence of pneumothorax. Mediastinum: There is no mediastinal widening or mediastinal shift. Heart: The cardiac silhouette is not enlarged. Deidra: Lobular enlarged right pulmonary hilum measuring approximately 7.7 by 4.4 cm appears larger than the prior study (previously 5.6 x 3.2 cm) suggesting worsening of lymphadenopathy or mass at the right pulmonary hilum. Given the patient's history of lung cancer, further evaluation by contrast-enhanced CT or soft tissue diagnosis is advised. Osseous: No acute fracture is seen. RAD/Chest PA and Lateral IMPRESSION: Worsening lobular enlargement of the right pulmonary hilum suggestive of mass o r worsening adenopathy. - Findings and recommendations discussed above. Reading Location: [id number]
[2025-07-20 20:07] LABS: Troponin T High Sensitivity < 6 ng/L (<=14)
[2025-07-20 20:11] LABS: Anion Gap 14 (5-15); BUN 19 mg/dL (4-19); BUN/Creat Ratio 30.3 RATIO (10-20); Calcium,Total 8.9 mg/dL (7.6-11.0); Carbon Dioxide 21.5 mmol/L (21.0-32.0); Chloride 95 mmol/L (98-108); Glucose 122 mg/dL (70-99); Potassium 4.7 mmol/L (3.3-5.1)
--- NOTE | 2025-07-20 21:18 | ED.VIS.DYS ---
HPI <Dr. Esau Garcia MD - Last Filed: 07/20/25 23:43> History of Present Illness Chief Complaint: Shortness of Breath Detail of Chief Complaint: Shortness of breath. Difficulty breathing low heart rate recent diagnosis Informant: patient Onset/Context/Timing Onset: Days (2 to 3 days prior to arrival) Context: gradual, activity on onset, rest and light activity Timing: Continuous and Waxes and wanes Quality: Positive for Dyspnea on exertion; Negative for Orthopnea, PND or Wheezing Current Severity: Mild Maximum Severity: Moderate Worsened by: Exertion Relieved by: Nothing Associated Symptoms cough; Negative for rhinorrhea, post nasal drip, ear pain, fever, sore throat, subjective, chills or sweats Chest Pain: Positive for None Narrative Narrative: Patient is a 45-year-old woman who presents with shortness of breath of the past 2 to 3 days prior to arrival. Worse with activity. She was recently diagnosed with lung cancer. She had bronchoscopy with biopsy performed by Dr. Chandra Silva. Multiple specimens submitted and interpreted as atypical cells with suspected malignancy. Patient has a mass on the right side. Patient did have a CTA on 15 June. The CTA at that time revealed a right hilar mass that measured 4.4 x 2.2 cm. Thoracic aorta was normal. Normal coronary calcification. No pericardial effusion. The mass was noted in the right hilum with narrowing the descending right pulmonary artery. There also was abnormal soft tissue in the subcarinal space. She presents because of shortness of breath. She was noted to have a low heart rate. She states she does not feel well. She does not have any upper respiratory tract infectious symptoms other than a slight cough. She was a smoker. She no longer smokes. She has no history of VTE. She denies leg pain, swelling discoloration. She admits to nausea and vomiting GI symptoms symptoms. She has had multiple episodes of vomiting today. PE Risk Factors: Positive for Cancer and Recent surgery (Pulmonary biopsy.); Negative for OCP + Smoking + > 35, Prior DVT or PE, Recent immobilization or Recent travel Prior similar symptoms: No Recent Illness/Hospitalization: Yes PFS <Dr. Esau Garcia MD - Last Filed: 07/20/25 23:43> [facility] Medical History Right ureteral stone Wears glasses Depression Substance abuse Marijuana use History of ulceration Vapes nicotine containing substance Shortness of breath on exertion Leg cramps Anxiety Asthma Home Medications ?Medication ?Instructions ?Recorded ?Last Taken ?Type buprenorphine 8 mg-naloxone 2 mg 8 ea sublingual BID 02/15/22 11/08/23 History sublingual film gabapentin 100 mg capsule 200 mg PO TID 02/15/22 11/08/23 History hydroxyzine HCl 10 mg tablet 10 mg PO TID PRN anxiety 07/03/25 Unknown History albuterol sulfate 90 mcg/actuation 2 inh inhalation Q6H PRN shortness 07/07/25 Unknown History breath activated powder inhaler of breath or wheezing albuterol sulfate 90 mcg/actuation 2 puff inhalation Q4H PRN 07/10/25 Unknown Rx aerosol inhaler shortness of breath or wheezing #8.5 grams apixaban 5 mg tablet (Eliquis) 5 mg PO BID #74 tabs 07/21/25 Unknown Rx Allergy/AdvReac Type Severity Reaction Status Date / Time Sulfa (Sulfonamide Allergy Anaphylaxis Verified 07/20/25 18:17 Antibiotics) Surgical History Hx of cystoscopy Hx of oral surgery Hx of tubal ligation Social History household members: significant other and children Smoking Status: Current every day smoker tobacco type: e-cigarettes substance use type: former substance user and opiates ROS <Dr. Esau Garcia MD - Last Filed: 07/20/25 23:43> ROS ED Constitutional Constitutional ED: Reports fever(s) and weight loss; Denies chills or sweats Eyes Eyes: Denies blurry vision or change in vision ENT ENT ED: Denies ear pain, rhinorrhea or sore throat Cardiovascular Cardiovascular: Denies chest pain, orthopnea, palpitations, paroxysmal nocturnal dyspnea or racing heartbeat Respiratory/Chest Respiratory/Chest: Reports cough and dyspnea on exertion; Denies orthopnea, paroxysmal nocturnal dyspnea or sputum Gastrointestinal Gastrointestinal: Reports nausea and vomiting; Denies abdominal pain Genitourinary Genitourinary ED: Denies dysuria, hematuria or urinary frequency Musculoskeletal Musculoskeletal: Denies arthralgias or myalgias Integumentary Denies rash Neurologic Neurologic: Reports weakness; Denies headache(s) or paresthesias Psychiatric Psychiatric: Reports depression; Denies anxiety Endocrine Endocrinology: Denies cold intolerance or heat intolerance Hematologic/Lymphatic Hematologic/Lymphatic: Denies easy bleeding or easy bruising EXAM <Dr. Esau Garcia MD - Last Filed: 07/20/25 23:43> Physical Exam Const Vital Signs: 07/20/25 18:17 07/20/25 18:56 07/20/25 19:03 Temperature 97.8 F Temperature Source Oral Pulse Rate 46 L Respiratory Rate 22 H Respiratory Effort Normal Respiratory Depth Normal Respiratory Pattern Normal Blood Pressure 141/76 H Blood Pressure Mean 97 Pulse Ox 98 Oxygen Delivery Method Room Air Room Air Room Air 07/20/25 19:32 07/20/25 19:52 07/20/25 21:00 Temperature Temperature Source Pulse Rate 63 43 L 86 Respiratory Rate 16 16 16 Respiratory Effort Respiratory Depth Respiratory Pattern Blood Pressure 121/81 H 138/72 H 142/79 H Blood Pressure Mean 94 94 100 Pulse Ox 98 100 100 Oxygen Delivery Method Room Air Room Air Room Air 07/20/25 22:00 07/20/25 23:00 07/21/25 00:00 Temperature 98.1 F Temperature Source Oral Pulse Rate 64 64 82 Respiratory Rate 16 16 16 Respiratory Effort Respiratory Depth Respiratory Pattern Blood Pressure 124/75 H 125/77 H 129/50 H Blood Pressure Mean 91 93 76 Pulse Ox 98 98 98 Oxygen Delivery Method Room Air Room Air Room Air 07/21/25 00:43 07/21/25 02:00 Temperature Temperature Source Pulse Rate 89 83 Respiratory Rate 16 16 Respiratory Effort Respiratory Depth Respiratory Pattern Blood Pressure 129/50 H 100/88 H Blood Pressure Mean 76 92 Pulse Ox 99 100 Oxygen Delivery Method Room Air Room Air Heart rate documented at 2200 [id number]. This is an improvement. Patient is no longer tachypneic either. Positive well nourished and well developed Constitutional Narrative: Vitals are marked for bradycardia and tachypnea. She is not hypoxic. Blood pressure slightly elevated. Review of medication list indicates patient is not on a beta-ryder. General Appearance ED: well developed; Negative for pallor HEENT Reports moist mucous membranes HEENT Narrative: Head is atraumatic and normocephalic. Ears are normal. Nares patent. Eyes PERRL and EOMs intact bilaterally General Eye ED: Negative for pale conjunctiva or scleral icterus Neck no lymphadenopathy, no meningeal signs and no JVD Resp No normal respiratory effort and No clear to auscultation bilaterally Resp Narrative: Patient has abnormal breath sounds right lower lobe with crackles. There also has diminished breath sounds on the right side. Cardio regular rhythm, S1 normal heart sound, S2 normal heart sound and no murmurs Rate: bradycardia GI non-tender, non-distended and no masses Auscultation: normoactive bowel sounds Palpation: soft Back/Spine no CVA tenderness and normal to inspection Extremity normal to inspection Extremity Narrative: Insert lower extremity exam ET. Neuro oriented x3, CN's II-XII intact bilaterally and no sensory deficits noted [place] Coma Scale: document GCS findings Spontaneous Obeys Commands Oriented 15 Sensorium / Orientation: alert Psych Mood & Affect: depressed Skin no wounds and No skin turgor normal General Skin Exam: Negative for jaundice or pallor <Dr. Semaj Randall, DO - Last Filed: 07/21/25 02:14> Physical Exam Const Vital Signs: 07/20/25 18:17 07/20/25 18:56 07/20/25 19:03 Temperature 97.8 F Temperature Source Oral Pulse Rate 46 L Respiratory Rate 22 H Respiratory Effort Normal Respiratory Depth Normal Respiratory Pattern Normal Blood Pressure 141/76 H Blood Pressure Mean 97 Pulse Ox 98 Oxygen Delivery Method Room Air Room Air Room Air 07/20/25 19:32 07/20/25 19:52 07/20/25 21:00 Temperature Temperature Source Pulse Rate 63 43 L 86 Respiratory Rate 16 16 16 Respiratory Effort Respiratory Depth Respiratory Pattern Blood Pressure 121/81 H 138/72 H 142/79 H Blood Pressure Mean 94 94 100 Pulse Ox 98 100 100 Oxygen Delivery Method Room Air Room Air Room Air 07/20/25 22:00 07/20/25 23:00 07/21/25 00:00 Temperature 98.1 F Temperature Source Oral Pulse Rate 64 64 82 Respiratory Rate 16 16 16 Respiratory Effort Respiratory Depth Respiratory Pattern Blood Pressure 124/75 H 125/77 H 129/50 H Blood Pressure Mean 91 93 76 Pulse Ox 98 98 98 Oxygen Delivery Method Room Air Room Air Room Air 07/21/25 00:43 07/21/25 02:00 Temperature Temperature Source Pulse Rate 89 83 Respiratory Rate 16 16 Respiratory Effort Respiratory Depth Respiratory Pattern Blood Pressure 129/50 H 100/88 H Blood Pressure Mean 76 92 Pulse Ox 99 100 Oxygen Delivery Method Room Air Room Air Neuro [place] Coma Scale: document GCS findings 15 MDM <Dr. Esau Garcia MD - Last Filed: 07/20/25 23:43> [facility] Narrative Medical decision making narrative: Differential diagnosis would be obstructive pneumonia, pulmonary embolus, pneumothorax, cardiac ischemia. Doubt the latter. Will obtain CBC to assess H&H and white count. BMP to assess renal function. Troponin was added per nurse protocol. My opinion this is not cardiac ischemia. Her workup included chest x-ray, EKG appropriate blood work. Lab Data Attestation: I reviewed the patient's lab results. Lab results narrative: White count is normal. There is a shift with 90.5% segs. H&H is normal. Electrolyte panel is marked for slightly elevated glucose of 122 and a sodium and chloride of 130 and 95 respectively. She is not on a diuretic. BUN to creatinine ratio is elevated. With history of lung cancer right hilum and hyponatremia will obtain urine osmole and serum osmole to evaluate for SIADH. Labs: Laboratory Results - last 24 hr 07/20/25 07/20/25 07/21/25 19:30 21:30 00:35 WBC 8.2 RBC 4.59 Hgb 13.3 Hct 39.3 MCV 85.6 MCH 29.0 MCHC 33.8 RDW Std Deviation 42.4 RDW Coeff of Rocael 13.6 Plt Count 304 MPV 8.3 Immature Gran % (Auto) 0.200 Neut % (Auto) 90.5 H Lymph % (Auto) 7.4 L Shelby % (Auto) 1.9 Eos % (Auto) 0.0 Baso % (Auto) 0.0 Absolute Neuts (auto) 7.4 Absolute Lymphs (auto) 0.61 L Nucleated RBC % 0 Sodium 130 L Potassium 4.7 Chloride 95 L Carbon Dioxide 21.5 Anion Gap 14 BUN 19 Creatinine 0.62 L Est GFR (MDRD) Non-Af 110 BUN/Creatinine Ratio 30.3 H Glucose 122 H Serum Osmolality 283 Calcium 8.9 Troponin T High Sens < 6 Troponin T Hi Sens 2 Hr 7 Urine Osmolality 07/21/25 01:09 WBC RBC Hgb Hct MCV MCH MCHC RDW Std Deviation RDW Coeff of Rocael Plt Count MPV Immature Gran % (Auto) Neut % (Auto) Lymph % (Auto) Shelby % (Auto) Eos % (Auto) Baso % (Auto) Absolute Neuts (auto) Absolute Lymphs (auto) Nucleated RBC % Sodium Potassium Chloride Carbon Dioxide Anion Gap BUN Creatinine Est GFR (MDRD) Non-Af BUN/Creatinine Ratio Glucose Serum Osmolality Calcium Troponin T High Sens Troponin T Hi Sens 2 Hr Urine Osmolality 655 1st and 2nd troponin are normal with a delta of 1. Will cancel the 4-hour troponin. Radiography Chest X-Ray - ED: 2 View and Read by ED Physician (Patient has a 7 by approximately 5 cm right hilar mass. There is no obvious obstructive pneumonia. Cardiac size is normal. There is no destructive lesions noted of the osseous structures that are visualized. The mass appears larger than prior measurement.) Diagnostic Testing: Clinical Impression(s) from Imaging Studies Chest X-Ray 07/20/25 19:37 IMPRESSION: Worsening lobular enlargement of the right pulmonary hilum suggestive of mass or worsening adenopathy. - Findings and recommendations discussed above. Reading Location: [facility] EKG Initial EKG: Attestation: I personally reviewed and interpreted this EKG as follows: Interpretation: Sinus Bradycardia (Rate is 45. There is evidence of possible incomplete right bundle branch block with a RR prime in V1 and V2. NV interval is under 70 ms. QRS duration 98 ms. QT duration 4 and 88 ms. There is no acute ischemic changes noted.) Treatment and Re-Evaluation :: Because there is no evidence of obstructive pneumonia she has risk factors for PE will obtain a CTA of her chest to evaluate for PE. Also need to raise concern regarding occlusion of her pulmonary artery which may result in a pulmonary infarct. Comments:: Patient did ask why a CTA was ordered since she had one a couple of weeks ago. He was informed that the mass has grown in size and the fact that there is no obvious source for her shortness of breath and she is at risk for blood clot with her having lung cancer. She requested IV fluids. IV fluids were was ordered and administered since clinically she is dehydrated. <Dr. Semaj Randall, DO - Last Filed: 07/21/25 02:14> [facility] Lab Data Labs: Laboratory Results - last 24 hr 07/20/25 07/20/25 07/21/25 19:30 21:30 00:35 WBC 8.2 RBC 4.59 Hgb 13.3 Hct 39.3 MCV 85.6 MCH 29.0 MCHC 33.8 RDW Std Deviation 42.4 RDW Coeff of Rocael 13.6 Plt Count 304 MPV 8.3 Immature Gran % (Auto) 0.200 Neut % (Auto) 90.5 H Lymph % (Auto) 7.4 L Shelby % (Auto) 1.9 Eos % (Auto) 0.0 Baso % (Auto) 0.0 Absolute Neuts (auto) 7.4 Absolute Lymphs (auto) 0.61 L Nucleated RBC % 0 Sodium 130 L Potassium 4.7 Chloride 95 L Carbon Dioxide 21.5 Anion Gap 14 BUN 19 Creatinine 0.62 L Est GFR (MDRD) Non-Af 110 BUN/Creatinine Ratio 30.3 H Glucose 122 H Serum Osmolality 283 Calcium 8.9 Troponin T High Sens < 6 Troponin T Hi Sens 2 Hr 7 Urine Osmolality 07/21/25 01:09 WBC RBC Hgb Hct MCV MCH MCHC RDW Std Deviation RDW Coeff of Rocael Plt Count MPV Immature Gran % (Auto) Neut % (Auto) Lymph % (Auto) Shelby % (Auto) Eos % (Auto) Baso % (Auto) Absolute Neuts (auto) Absolute Lymphs (auto) Nucleated RBC % Sodium Potassium Chloride Carbon Dioxide Anion Gap BUN Creatinine Est GFR (MDRD) Non-Af BUN/Creatinine Ratio Glucose Serum Osmolality Calcium Troponin T High Sens Troponin T Hi Sens 2 Hr Urine Osmolality 655 Radiography Diagnostic Testing: Clinical Impression(s) from Imaging Studies Chest X-Ray 07/20/25 19:37 IMPRESSION: Worsening lobular enlargement of the right pulmonary hilum suggestive of mass or worsening adenopathy. - Findings and recommendations discussed above. Reading Location: [id number] Treatment and Re-Evaluation :: Because there is no evidence of obstructive pneumonia she has risk factors for PE will obtain a CTA of her chest to evaluate for PE. Also need to raise concern regarding occlusion of her pulmonary artery which may result in a pulmonary infarct. Care of the patient was turned over to me pending CTA results as well as urine osmolarity and serum osmolarity results. CTA of the chest was obtained. There are multiple pulmonary emboli in the right lower lobe. There is no evidence of right heart strain. This was interpreted by the radiologist and was also independently reviewed by myself. Urine osmolality was reviewed and was 655. Serum osmolality was reviewed normal at 283. Calculated serum osmolality was 274. Patient was advised of her findings. Patient was given a dose of Eliquis here. Patient is given a prescription for Eliquis. Patient was instructed to follow-up with her ent nurse and oncologist as scheduled. Patient was instructed to also follow-up with her primary care physician in 5 to 7 days. Patient understood and was agreeable with the plan. All questions were answered. Discharge Plan Triage Chief Complaint: Shortness of Breath ED Provider: Esau Garcia Dx/Rx/DC Orders Clinical Impression: Acute dyspnea, Sinus bradycardia, Unintentional weight loss of 7.5% body weight or less within 3 months, Lung cancer, hilus, Nausea & vomiting, Acute dehydration, Acute hyponatremia, Pulmonary embolism Instructions: Pulmonary Embolism Dc, ED Hyponatremia Prescriptions: New Eliquis 5 mg tablet 5 mg PO BID Qty: 74 0RF Rx Instructions: 10 mg twice a day for the first week. Then 5 mg twice a day. No Action hydroxyzine HCl 10 mg tablet 10 mg PO TID PRN (Reason: anxiety) gabapentin 100 mg capsule 200 mg PO TID Patient Comments: TAKE 1 CAPSULES (100 MG) BY ORAL ROUTE 4 TIMES PER DAY buprenorphine-naloxone 8-2 mg film 8 ea sublingual BID Patient Comments: USE ONE FILM UNDER THE TONGUE TWICE DAILY - 12/14 albuterol sulfate 90 mcg/actuation aerosol powdr breath activated 2 inh inhalation Q6H PRN (Reason: shortness of breath or wheezing) albuterol sulfate 90 mcg/actuation HFA aerosol inhaler 2 puff inhalation Q4H PRN (Reason: shortness of breath or wheezing) Qty: 8.5 6RF Rx Instructions: administer with spacer Primary Care Provider: Semaj Sheridan Referrals: Semaj Sheridan MD [Primary Care Provider, Family Practice] - 5-7 Days Print Language: Irish Disposition Disposition: Home, Self Care
[2025-07-20 22:08] LABS: Troponin T High Sens 2 HR 7 ng/L (<=14)
--- NOTE | 2025-07-20 22:39 | CT_ITS ---
PROCEDURE: CTA CHEST W/WO CONTRAST 07/21/2025 REASON FOR EXAM: LUNG CANCER, DYSPNEA, TACHYPNEA TECHNIQUE: Procedure Code: [id number] Modality: CT Procedure: CTA CHEST W/WO CONTRAST Multiplanar Sagittal and Coronal images were obtained. CONTRAST: Isovue 370 VOLUME: 100 mL One or more dose reduction techniques were used (e.g., Automated exposure control, adjustment of the mA and/or kV according to patient size, use of iterative reconstruction technique). RADIATION DOSE SUMMARY: CTDlvol: 4.65 mGy DLP: 177 mGycm COMPARISON: CT scan on 06/15/2025. FINDINGS: Intraluminal thrombi are noted in the right lower lobe segmental branches of the right pulmonary artery in the interim. Associated suspected tumor thrombus in the right superior pulmonary vein. Suspected thrombus in the right inferior pulmonary vein. No evidence of massive pulmonary embolus or cardiac strain. Mild increase in the size of the right hilar mass measuring 4.5 x 4 cm on the current exam. Mild increase in the size of the subcarinal metastatic lymphadenopathy measuring 4.1 cm on the current exam. Unchanged compression of the right main pulmonary artery. Interval appearance of mild multifocal ground-glass densities of the right lower lobe. Findings can be secondary to increased central bronchial compression/hypoventilatory change and/or superimposed pneumonia. Normal thoracic aorta and visualized great vessels. There is no demonstrated aortic dissection. Normal heart and pericardium. Normal visualized trachea and bronchi. Normal pleura. Normal visualized upper abdomen. CT/CTA Chest W/WO Contrast IMPRESSION: Intraluminal thrombi are noted in the right lower lobe segmental branches of th e right pulmonary artery in the interim. Associated suspected tumor thrombus in the right superior pulmonary vein. Suspected thrombus in the right inferior pulmonary vein. No evidence of massive pulmonary embolus or cardiac strain. Mild increase in the size of the right hilar mass measuring 4.5 x 4 cm on the c urrent exam. Mild increase in the size of the subcarinal metastatic lymphadenopathy measurin g 4.1 cm on the current exam. Unchanged compression of the right main pulmonary artery. Interval appearance of mild multifocal ground-glass densities of the right lowe r lobe. Findings can be secondary to increased central bronchial compression/hypoventilatory change and/or superimposed pneumo cece. I discussed the findings with Dr. Esau Garcia in the emergency department at 2 a. m. EST. Reading Location: [facility]
[2025-07-21] VITALS: BP 129/50; PULSE 82; RESP 16; TEMP 36.7; O2SAT 98
[2025-07-21] MEDS: 0.9% Normal Saline (1000mL) 1,000 ML 1000 ML IV (00:38)
[2025-07-21 00:43] VITALS: BP 129/50; PULSE 89; RESP 16; O2SAT 99
[2025-07-21 01:42] LABS: Osmolality, Serum 283 mOsm/KG (275-295)
[2025-07-21 02:00] VITALS: BP 100/88; PULSE 83; RESP 16; O2SAT 100
[2025-07-21 02:06] LABS: Osmolality, Urine 655 mOsm/KG
[2025-07-21 02:14] VITALS: BP 100/88; PULSE 83; RESP 16; TEMP 36.7; O2SAT 100
[2025-07-21] MEDS: APIXABAN 5 MG TABLET 10 MG PO (02:19)
== END 2025-07-21 02:22 | disposition home or self-care (01) ==
PROVIDERS: Emergency Provider Emergency Medicine; PCP Family Medicine; Visit Provider Emergency Medicine
DX: I26.99 Other pulmonary embolism without acute cor pulmonale (principal); C34.01 Malignant neoplasm of right main bronchus; E87.1 Hypo-osmolality and hyponatremia; R11.2 Nausea with vomiting, unspecified; E86.0 Dehydration; R63.4 Abnormal weight loss; R73.9 Hyperglycemia, unspecified; Z79.01 Long term (current) use of anticoagulants; Z79.899 Other long term (current) drug therapy; Z87.891 Personal history of nicotine dependence
CPT/HCPCS: 71046; 71275; 80048; 83930; 83935; 84484; 85025; 93005; 94760; 96361; 96374; 99283; Q9967; A4216; J2405